=== PATIENT | female | born 1945 ===

== ENCOUNTER 2021-01-31 08:43 | Outpatient (REF) | payer MEDICARE, MEDICAID, SELFPAY | END 2021-01-31 08:44 | disposition home or self-care (01) | LOC: HO.LAB 08:43 | PROVIDERS: PCP Internal Medicine; Visit Provider Internal Medicine | DX: Z20.822 Contact with and (suspected) exposure to COVID-19 (principal) | CPT/HCPCS: C9803; U0003; U0005 ==

== ENCOUNTER 2021-02-14 14:39 | Outpatient (REF) | payer MEDICARE, MEDICAID, SELFPAY ==
[2021-02-14 15:04] LABS: COVID-19 Test Negative (Negative)
== END 2021-02-14 14:40 | disposition home or self-care (01) ==
LOC: HO.LAB 14:39
PROVIDERS: PCP Internal Medicine; Visit Provider Internal Medicine
DX: Z20.822 Contact with and (suspected) exposure to COVID-19 (principal)
CPT/HCPCS: 36415; 87635; C9803

== ENCOUNTER 2021-02-28 08:47 | Outpatient (REF) | payer MEDICARE, MEDICAID, SELFPAY | END 2021-02-28 08:48 | disposition home or self-care (01) | LOC: HO.LAB 08:47 | PROVIDERS: PCP Internal Medicine; Visit Provider Internal Medicine | DX: Z20.822 Contact with and (suspected) exposure to COVID-19 (principal) | CPT/HCPCS: C9803; U0003; U0005 ==

== ENCOUNTER 2021-07-10 08:59 | Outpatient (REF) | payer MEDICARE, MEDICAID, SELFPAY ==
--- NOTE | 2021-07-10 10:51 | MHC.AU.HAS ---
Hearing Aid Evaluation Date of Visit: 07/10/21 Historical Information: Description of Hearing: Borderline normal to mild hearing loss from 250-6000 Hz, sloping to a moderately-severe hearing loss at 8000 Hz in the right ear. Moderate to severe sensorineural hearing loss from 250-8000 Hz in the left ear. Has been diagnosed with Meniere's disease. Current personal amplification information, if applicable: BTE aid for left ear 5+ years ago, broken and lost. Summary: Ms. Dallas was referred to our clinic by [facility] where she had her audiological evaluation. ENT Dr. Perrin provided medical clearance for hearing aid use in the left ear. Ms. Dallas notes that she did not like the BTE style hearing she previously had and found it bothersome with her glasses. She would like to try a rechargeable ITE style hearing aid. Her insurance was contacted and it was confirmed that hearing aids had not been previously purchased in the past five years. Earmold impression of the left ear was taken without incident. Hearing Aid Prescription: Based on the individual?s shared listening needs, communication environments, dexterity, desire for connectivity, and personal preferences, the following prescription for amplification has been made: Left ear: [employer]: [employer] Model: Interleukin Geneticsv AI 1600 ITC-R Battery Size: Rechargeable Color: Light Brown Plan of Care: Hearing aids ordered. Hearing aid fitting will be scheduled when materials arrive. Primary Diagnosis: H90.3 Bilateral Sensorineural Hearing Loss Signature: Provider: Cody Muse, CCC-A
== END 2021-07-10 09:00 | disposition home or self-care (01) ==
LOC: HO.SH 08:59
PROVIDERS: Visit Provider Internal Medicine
DX: Z46.1 Encounter for fitting and adjustment of hearing aid (principal); H90.3 Sensorineural hearing loss, bilateral
CPT/HCPCS: 92590; V5275

== ENCOUNTER 2021-08-27 10:22 | Outpatient (REF) | payer MEDICARE, MEDICAID, SELFPAY | END 2021-08-27 10:23 | disposition home or self-care (01) | LOC: HO.HAP 10:22 | PROVIDERS: Visit Provider Otolaryngology | DX: Z46.1 Encounter for fitting and adjustment of hearing aid (principal); H90.3 Sensorineural hearing loss, bilateral | CPT/HCPCS: V5011; V5020; V5241; V5256 ==

== ENCOUNTER 2022-06-05 03:37 | Emergency (ER) | payer MEDICARE, MEDICAID, SELFPAY ==
[2022-06-05 03:50] VITALS: BP 128/73; PULSE 110; RESP 16; TEMP 36.8; O2SAT 97; BMI 52.4
[2022-06-05 04:27] LABS: Appearance Urine Cloudy; Color Urine Yellow; Glucose Urine UA Negative (Negative); Leukocyte Esterase Urine Large (3+) (Negative); Nitrite Urine Positive (Negative); Specific Gravity - Urine 1.015 (1.005-1.025); UMIC TRIGGER UACC YES; Urine Blood Small (1+) (Negative); Urine Ketones Negative (Negative); Urine Protein 30 (1+) mg/dL (Neg-Trace)
[2022-06-05 04:35] LABS: Bacteria Urine 4+ (None Seen); Hyaline Casts Urine >20 /LPF (0-2); UACC Culture Trigger YES; WBC Clumps Urine Present; WBC Urine >50 /HPF (0-5)
--- NOTE | 2022-06-05 04:52 | ED_ITS ---
HPI - General Adult General Chief complaint: General Medical Stated complaint: CATH PROBLEMS Time Seen by Provider: 06/05/22 04:15 Source: EMS Mode of arrival: EMS Related Data Previous Rx's Medication Instructions Recorded ciprofloxacin HCl 500 mg tablet 500 mg PO BID #20 tabs 06/05/22 (Cipro) Allergies Allergy/AdvReac Type Severity Reaction Status Date / Time belladonna alkaloids Allergy Intermediate ITCHING Unverified 01/26/20 14:38 [From ] phenobarbital [From ] Allergy Intermediate ITCHING Unverified 01/26/20 14:38 From Allergy Intermediate ITCHING Uncoded 01/26/20 14:38 PMFSH Social History Social History Advance Directives: No Physical Exam ED Vital Signs: Vital Signs - 24 hr 06/05/22 03:50 06/05/22 05:58 Temperature 98.3 F Pulse Rate 110 H 106 H Respiratory Rate 16 16 Blood Pressure 128/73 127/71 Pulse Oximetry 97 97 Oxygen Delivery Method Room Air Room Air BMI result Body Mass Index 52.4 Appearance: Alert. Oriented X3. No acute distress. Obese Eyes: No pallor or icterus ENT: Pharynx normal. Oral Mucosa moist Neck: Normal inspection. Neck supple. CVS: Normal heart rate and rhythm. Pulses normal. Respiratory: No respiratory distress. Equal air entry bilateral, no wheezing/rales/rhonchi Abdomen: Soft and nontender. Bowel sounds are present, no mass palpable, no CVA tenderness Skin: Skin warm and dry. Normal skin color. Normal skin turgor. multiple skin tears on the left posterior part of the leg and the back Extremities: No lower extremity edema. No calf tenderness Neuro: Oriented X 3. No motor deficit. Medications Administered Discontinued Medications Generic Name Dose Route Start Last Admin Trade Name Freq PRN Reason Stop Dose Admin Levofloxacin 500 mg 06/05/22 04:57 06/05/22 05:21 Levofloxacin 500 Mg Tablet PO 06/05/22 04:58 500 mg ONCE ONE Administration Medical Decision Making Medical Decision Making [facility] Narrative: Patient with skin tear of the back of the leg need chronic Brenner catheter ambulates with 2 assist discharge patient N home on Ceftin, Brenner catheter replaced Lab Data [facility] Lab Attestation statement: I reviewed the patient's lab results. Labs: Lab Results 06/05/22 Range/Units 04:20 Urine Color Yellow Urine Appearance Cloudy Urine pH 8.0 (5.0-9.0) Ur Specific [place] 1.015 (1.005-1.025) Urine Protein 30 (1+) H (Neg-Trace) mg/dL Urine Glucose (UA) Negative (Negative) mg/dL Urine Ketones Negative (Negative) mg/dL Urine Blood Small (1+) H (Negative) Urine Nitrite Positive H (Negative) Ur Leukocyte Esterase Large (3+) H (Negative) Urine RBC 3-5 H (0-2) /HPF Urine WBC >50 H (0-5) /HPF Urine WBC Clumps Present Ur Squamous Epith Cells 6-10 (0-2) /HPF Urine Bacteria 4+ (None Seen) Hyaline Casts >20 (0-2) /LPF Discharge Plan Discharge Clinical Impression: Encounter for Brenner catheter replacement, Acute UTI Patient Disposition: Xfer [facility] Transfer Details: Brenner catheter replaced UA showed UTI started on Cipro Instructions: Brenner Catheter Placement and Care (ED), Catheter-associated Urinary Tract Infection (ED) Additional Instructions: keep the catheter in place for integrity of the skin and sacral and leg wound antibiotic as advised for UTI pending culture results Prescriptions: New ciprofloxacin HCl [Cipro] 500 mg tablet 500 mg PO BID Qty: 20 0RF
[2022-06-05] MEDS: levoFLOXacin 500 MG TABLET PO (05:21)
--- NOTE | 2022-06-05 05:39 | PC.NURSE ---
verbal report given to NH staff
--- NOTE | 2022-06-05 05:48 | MHC.EDTECH ---
Andres called at 0539 for a bls transfer back to [facility],[place] 0630AM.Jas aware
[2022-06-05 05:58] VITALS: BP 127/71; PULSE 106; RESP 16; O2SAT 97
== END 2022-06-05 07:10 ==
PROVIDERS: Emergency Provider Internal Medicine; PCP Internal Medicine
DX: T83.098A Other mechanical complication of other urinary catheter, initial encounter (principal); N39.0 Urinary tract infection, site not specified; Y73.2 Prosthetic and other implants, materials and accessory gastroenterology and urology devices associated with adverse incidents; Y92.9 Unspecified place or not applicable; Z79.899 Other long term (current) drug therapy
CPT/HCPCS: 51702; 81001; 87086; 87088; 87186; 99284

== ENCOUNTER 2022-06-08 18:04 | Inpatient (IN) | payer MEDICARE, MEDICAID, SELFPAY ==
--- NOTE | 2022-06-08 18:11 | ED_ITS ---
HPI - Altered Mental Status General Chief Complaint: General Medical Stated Complaint: UNRESPONSVE W/LOW BS 40 @SNF, 101 S/P D10 BY EMS Source: patient, EMS, RN notes reviewed and old records reviewed Mode of arrival: EMS Limitations: no limitations History of Present Illness HPI narrative: Patient morbidly obese bed-bound mostly with indwelling Brenner catheter, diabetic, on oral hypoglycemic hypertension w blood glucose improved to 120 as seen here on 05/30 for dislodged Brenner catheter which was replaced noticed a UTI discharged on Cipro today patient comes as been lethargic semi responsive earlier today blood sugar was 50 when EMS reached a blood sugar was 40 IV D10 was given and patient glucose improved to 120 patient became more awake and back to her baseline. No fever no fall no head injury noticed Related Data Home Medications Medication Instructions Recorded Confirmed atorvastatin 80 mg tablet 1 tab PO BEDTIME 06/08/22 06/08/22 glimepiride 2 mg tablet 1 tab PO DAILY 06/08/22 06/08/22 lisinopril 10 mg PO 1XD hypertension 06/08/22 06/08/22 metoprolol succinate 50 mg 1 tab PO DAILY 06/08/22 06/08/22 tablet,extended release 24 hr pioglitazone 30 mg tablet 1 tab PO DAILY 06/08/22 06/08/22 tramadol 50 mg tablet 1 tab PO DAILY PRN Pain 06/08/22 06/08/22 triamcinolone acetonide 0.1 % appl topical BID PRN Rash 06/08/22 topical cream Previous Rx's Medication Instructions Recorded ciprofloxacin HCl 500 mg tablet 500 mg PO BID #20 tabs 06/05/22 (Cipro) Allergies Allergy/AdvReac Type Severity Reaction Status Date / Time belladonna alkaloids Allergy Intermediate ITCHING Verified 06/08/22 18:37 [From ] phenobarbital [From ] Allergy Intermediate ITCHING Verified 06/08/22 18:37 Review of Systems Review of Systems: Yes all other systems are reviewed and are negative [facility] Social History Social History Alcohol intake: never Patient Tobacco Use Status: Never used Tobacco Smoked in Last 30 Days: No Use of substances other than those prescribed or required for medical reasons: No Advance Directives: No Advance Directives Information Provided: No Nutrition Risks: Diabetes new onset/Uncontrolled Physical Exam ED Vital Signs: Vital Signs - 24 hr 06/08/22 18:24 06/08/22 19:52 06/08/22 22:00 Temperature 97.6 F 98.1 F Pulse Rate 86 78 85 Respiratory Rate 29 H 20 20 Blood Pressure 98/57 L 105/69 110/68 Pulse Oximetry 98 96 99 Oxygen Delivery Method Room Air Room Air Room Air 06/08/22 23:26 06/08/22 23:41 Temperature Pulse Rate 85 Respiratory Rate 17 20 Blood Pressure 98/59 L Pulse Oximetry 95 Oxygen Delivery Method Room Air BMI result Body Mass Index 64.5 Appearance: Alert. Oriented X3. No acute distress. Obese Eyes: PERRLA, No Nystagmus ENT: Pharynx normal. Oral Mucosa moist Neck: Normal inspection. Neck supple. CVS: Normal heart rate and rhythm. Pulses normal. Respiratory: No respiratory distress. Equal air entry bilateral, no wheezing/rales/rhonchi Abdomen: Soft and nontender. Bowel sounds are present, no mass palpable, no CVA tenderness Skin: Skin warm and dry. Normal skin color. Normal skin turgor. Multiple skin tears specially in the left thigh back and skin folds of the abdomen Extremities: No lower extremity edema. No calf tenderness Neuro: Oriented X 3. Limited movement of lower extremities with low muscle mass Skin Other: Medications Administered Generic Name Dose Route Start Last Admin Trade Name Freq PRN Reason Stop Dose Admin Heparin Sodium (Porcine) 5,000 unit 06/08/22 23:45 06/09/22 00:30 Heparin Sodium,Porcine 5,000 Unit/Ml Vial SUBCUT 5,000 unit Q12H [place] Administration Dextrose 1,000 mls @ 75 mls/hr 06/08/22 23:45 06/09/22 00:11 D10 IVCONT 75 mls/hr .[id number] [place] Administration Sodium Chloride 3 ml 06/09/22 00:00 06/09/22 00:16 0.9 % Sodium Chloride Flush 3 Ml Syringe IVFLUSH 3 ml QSHIFT [place] Administration Discontinued Medications Generic Name Dose Route Start Last Admin Trade Name Freq PRN Reason Stop Dose Admin Dextrose 25 gm 06/08/22 20:37 06/08/22 20:45 Dextrose 50 % 25 Gm/50 Ml Syringe IVPUSH 06/08/22 20:38 25 gm ONCE ONE Administration Dextrose 25 gm 06/09/22 00:25 06/09/22 00:30 Dextrose 50 % 25 Gm/50 Ml Syringe IVPUSH 06/09/22 00:26 25 gm ONCE ONE Administration Glucagon 1 mg 06/08/22 20:37 06/08/22 20:45 Glucagon,Human Recombinant 1 Mg/Ml Vial IVPUSH 06/08/22 20:38 1 mg ONCE ONE Administration Dextrose/Sodium Chloride 1,000 mls @ 100 mls/hr 06/08/22 18:30 06/09/22 00:41 D51/2ns IVCONT Infused .Q10H [place] Infusion Ceftriaxone Sodium 1 gm/ 50 mls @ 100 mls/hr 06/08/22 18:57 06/08/22 20:31 Sodium Chloride IV 06/08/22 19:26 Infused ONCE ONE Infusion Morphine Sulfate 4 mg 06/08/22 23:13 06/08/22 23:26 Morphine Sulfate 4 Mg/Ml Cartridge IVPUSH 06/08/22 23:14 4 mg ONCE ONE Administration Protocol Ondansetron HCl 4 mg 06/08/22 23:13 06/08/22 23:26 Ondansetron Hcl 4 Mg/2 Ml Vial IVPUSH 06/08/22 23:14 4 mg ONCE ONE Administration Medical Decision Making Medical Decision Making [facility] Narrative: Patient with persistent hypoglycemia blood glucose dropped to 23 even on D5 drip received glucagon and bolus of D50 patient had food in the ER patient oral hypoglycemic glimepiride and Actos noticed to have multiple skin breakdowns with normal lactic acid and CBC. Patient need wound management and further observati on for persistent hypoglycemia 2nd oral hypoglycemic medications Consult Healthcare Provider Management of the patient was discussed with: Hospitalist Lab Data MDM Lab Attestation statement: I reviewed the patient's lab results. 06/08/22 18:29 06/08/22 21:35 Labs: Lab Results 06/08/22 06/08/22 06/08/22 Range/Units 18:18 18: 18:29 WBC 8.0 (4.8-10.8) X10*3/uL RBC 3.59 L (4.20-5.50) X10*6/uL Hgb 9.2 L (12.0-16.0) g/dl Hct 30.5 L (37.0-47.0) % MCV 85.0 (80.0-98.0) fL MCH 25.6 L (27.0-33.0) pg MCHC 30.2 L (31.0-35.0) g/dl RDW 18.2 H (11.0-16.0) % Plt Count 337 D (160-400) X10*3/uL MPV 9.1 L (9.4-12.3) fL Immature Gran % (Auto) 0.4 (0.0-0.4) % Neut % (Auto) 74.0 H (45-73) % Lymph % (Auto) 15.8 L (20-40) % [place] % (Auto) 6.5 (2-11) % Eos % (Auto) 3.1 (0-4) % Baso % (Auto) 0.2 (0-2) % Lymph # (Auto) 1.3 (1.2-4.9) X10*3/uL [place] # (Auto) 0.5 (0.1-1.2) X10*3/uL Eos # (Auto) 0.3 (0.0-0.4) X10*3/uL Baso # (Auto) 0.0 (0.0-0.2) X10*3/uL Abs Immat Gran (auto) 0.03 (0.00-0.03) X10*3/uL Absolute Neuts (auto) 6.0 (2.0-8.3) x10*3/uL Absolute Nucleated RBC 0.000 (0.0-0.012) X10*3/uL Nucleated RBC % (auto) 0.0 (0.0-0.2) /100WBC Sodium (135-145) mmol/L Potassium (3.3-5.1) mmol/L Chloride (96-108) mmol/L Carbon Dioxide (22-29) mmol/L Anion Gap (12-20) BUN (9-16) mg/dL Creatinine (0.5-1.4) mg/dL Estim Creat Clear Calc Estimated GFR POC Glucose 47 L* (60-115) mg/dL Random Glucose (60-115) mg/dL Lactic Acid 1.6 (0.5-2.0) mmol/L Calcium (8.4-10.2) mg/dL Total Bilirubin (0.0-1.0) mg/dL AST (5-31) U/L ALT (0-31) U/L Alkaline Phosphatase (39-117) U/L Total Protein (6.5-8.0) g/dL Albumin (3.5-5.0) g/dL Urine Color Urine Appearance Urine pH (5.0-9.0) Ur Specific [place] (1.005-1.025) Urine Protein (Neg-Trace) mg/dL Urine Glucose (UA) (Negative) mg/dL Urine Ketones (Negative) mg/dL Urine Blood (Negative) Urine Nitrite (Negative) Ur Leukocyte Esterase (Negative) Urine RBC (0-2) /HPF Urine WBC (0-5) /HPF Ur Squamous Epith Cells (0-2) /HPF Urine Bacteria (None Seen) Hyaline Casts (0-2) /LPF COVID-19 ([facility]) (Negative) COVID-19 Clin Com 06/08/22 06/08/22 06/08/22 Range/Units 18:29 18:29 19:38 WBC (4.8-10.8) X10*3/uL RBC (4.20-5.50) X10*6/uL Hgb (12.0-16.0) g/dl Hct (37.0-47.0) % MCV (80.0-98.0) fL MCH (27.0-33.0) pg MCHC (31.0-35.0) g/dl RDW (11.0-16.0) % Plt Count (160-400) X10*3/uL MPV (9.4-12.3) fL Immature Gran % (Auto) (0.0-0.4) % Neut % (Auto) (45-73) % Lymph % (Auto) (20-40) % [place] % (Auto) (2-11) % Eos % (Auto) (0-4) % Baso % (Auto) (0-2) % Lymph # (Auto) (1.2-4.9) X10*3/uL [place] # (Auto) (0.1-1.2) X10*3/uL Eos # (Auto) (0.0-0.4) X10*3/uL Baso # (Auto) (0.0-0.2) X10*3/uL Abs Immat Gran (auto) (0.00-0.03) X10*3/uL Absolute Neuts (auto) (2.0-8.3) x10*3/uL Absolute Nucleated RBC (0.0-0.012) X10*3/uL Nucleated RBC % (auto) (0.0-0.2) /100WBC Sodium (135-145) mmol/L Potassium (3.3-5.1) mmol/L Chloride (96-108) mmol/L Carbon Dioxide (22-29) mmol/L Anion Gap (12-20) BUN (9-16) mg/dL Creatinine (0.5-1.4) mg/dL Estim Creat Clear Calc Estimated GFR POC Glucose 34 L* (60-115) mg/dL Random Glucose (60-115) mg/dL Lactic Acid (0.5-2.0) mmol/L Calcium (8.4-10.2) mg/dL Total Bilirubin (0.0-1.0) mg/dL AST (5-31) U/L ALT (0-31) U/L Alkaline Phosphatase (39-117) U/L Total Protein (6.5-8.0) g/dL Albumin (3.5-5.0) g/dL Urine Color Dark Yellow Urine Appearance Cloudy Urine pH 5.0 (5.0-9.0) Ur Specific [place] 1.020 (1.005-1.025) Urine Protein 30 (1+) H (Neg-Trace) mg/dL Urine Glucose (UA) Negative (Negative) mg/dL Urine Ketones Trace (Negative) mg/dL Urine Blood Negative (Negative) Urine Nitrite Negative (Negative) Ur Leukocyte Esterase Small (1+) H (Negative) Urine RBC 0-2 (0-2) /HPF Urine WBC 0-5 (0-5) /HPF Ur Squamous Epith Cells 11-20 (0-2) /HPF Urine Bacteria None Seen (None Seen) Hyaline Casts >20 (0-2) /LPF COVID-19 ([facility]) Negative (Negative) COVID-19 Clin Com See Note 06/08/22 06/08/22 06/08/22 Range/Units 20:34 20:36 21:27 WBC (4.8-10.8) X10*3/uL RBC (4.20-5.50) X10*6/uL Hgb (12.0-16.0) g/dl Hct (37.0-47.0) % MCV (80.0-98.0) fL MCH (27.0-33.0) pg MCHC (31.0-35.0) g/dl RDW (11.0-16.0) % Plt Count (160-400) X10*3/uL MPV (9.4-12.3) fL Immature Gran % (Auto) (0.0-0.4) % Neut % (Auto) (45-73) % Lymph % (Auto) (20-40) % [place] % (Auto) (2-11) % Eos % (Auto) (0-4) % Baso % (Auto) (0-2) % Lymph # (Auto) (1.2-4.9) X10*3/uL [place] # (Auto) (0.1-1.2) X10*3/uL Eos # (Auto) (0.0-0.4) X10*3/uL Baso # (Auto) (0.0-0.2) X10*3/uL Abs Immat Gran (auto) (0.00-0.03) X10*3/uL Absolute Neuts (auto) (2.0-8.3) x10*3/uL Absolute Nucleated RBC (0.0-0.012) X10*3/uL Nucleated RBC % (auto) (0.0-0.2) /100WBC Sodium (135-145) mmol/L Potassium (3.3-5.1) mmol/L Chloride (96-108) mmol/L Carbon Dioxide (22-29) mmol/L Anion Gap (12-20) BUN (9-16) mg/dL Creatinine (0.5-1.4) mg/dL Estim Creat Clear Calc Estimated GFR POC Glucose 27 L* 23 L* 127 H (60-115) mg/dL Random Glucose (60-115) mg/dL Lactic Acid (0.5-2.0) mmol/L Calcium (8.4-10.2) mg/dL Total Bilirubin (0.0-1.0) mg/dL AST (5-31) U/L ALT (0-31) U/L Alkaline Phosphatase (39-117) U/L Total Protein (6.5-8.0) g/dL Albumin (3.5-5.0) g/dL Urine Color Urine Appearance Urine pH (5.0-9.0) Ur Specific [place] (1.005-1.025) Urine Protein (Neg-Trace) mg/dL Urine Glucose (UA) (Negative) mg/dL Urine Ketones (Negative) mg/dL Urine Blood (Negative) Urine Nitrite (Negative) Ur Leukocyte Esterase (Negative) Urine RBC (0-2) /HPF Urine WBC (0-5) /HPF Ur Squamous Epith Cells (0-2) /HPF Urine Bacteria (None Seen) Hyaline Casts (0-2) /LPF COVID-19 ([facility]) (Negative) COVID-19 Clin Com 06/08/22 06/08/22 Range/Units 21:35 22:54 WBC (4.8-10.8) X10*3/uL RBC (4.20-5.50) X10*6/uL Hgb (12.0-16.0) g/dl Hct (37.0-47.0) % MCV (80.0-98.0) fL MCH (27.0-33.0) pg MCHC (31.0-35.0) g/dl RDW (11.0-16.0) % Plt Count (160-400) X10*3/uL MPV (9.4-12.3) fL Immature Gran % (Auto) (0.0-0.4) % Neut % (Auto) (45-73) % Lymph % (Auto) (20-40) % [place] % (Auto) (2-11) % Eos % (Auto) (0-4) % Baso % (Auto) (0-2) % Lymph # (Auto) (1.2-4.9) X10*3/uL [place] # (Auto) (0.1-1.2) X10*3/uL Eos # (Auto) (0.0-0.4) X10*3/uL Baso # (Auto) (0.0-0.2) X10*3/uL Abs Immat Gran (auto) (0.00-0.03) X10*3/uL Absolute Neuts (auto) (2.0-8.3) x10*3/uL Absolute Nucleated RBC (0.0-0.012) X10*3/uL Nucleated RBC % (auto) (0.0-0.2) /100WBC Sodium 135 (135-145) mmol/L Potassium 4.7 (3.3-5.1) mmol/L Chloride 103 (96-108) mmol/L Carbon Dioxide 23 (22-29) mmol/L Anion Gap 14 (12-20) BUN 21 H (9-16) mg/dL Creatinine 1.29 (0.5-1.4) mg/dL Estim Creat Clear Calc 62.3 Estimated GFR 40 POC Glucose 51 L* (60-115) mg/dL Random Glucose 77 (60-115) mg/dL Lactic Acid (0.5-2.0) mmol/L Calcium 8.1 L D (8.4-10.2) mg/dL Total Bilirubin 0.3 (0.0-1.0) mg/dL AST 30 (5-31) U/L ALT 14 (0-31) U/L Alkaline Phosphatase 69 (39-117) U/L Total Protein 6.7 (6.5-8.0) g/dL Albumin 2.9 L (3.5-5.0) g/dL Urine Color Urine Appearance Urine pH (5.0-9.0) Ur Specific [place] (1.005-1.025) Urine Protein (Neg-Trace) mg/dL Urine Glucose (UA) (Negative) mg/dL Urine Ketones (Negative) mg/dL Urine Blood (Negative) Urine Nitrite (Negative) Ur Leukocyte Esterase (Negative) Urine RBC (0-2) /HPF Urine WBC (0-5) /HPF Ur Squamous Epith Cells (0-2) /HPF Urine Bacteria (None Seen) Hyaline Casts (0-2) /LPF COVID-19 ([facility]) (Negative) COVID-19 Clin Com Discharge Plan Discharge Clinical Impression: Hypoglycemia Patient Disposition: Admitted As Inpatient
[2022-06-08 18:24] VITALS: BP 98/57; PULSE 86; RESP 29; TEMP 36.4; O2SAT 98; BMI 64.5
[2022-06-08 18:28] LABS: Glucose, Whole Blood 47 mg/dL (60-115)
[2022-06-08] MEDS: Dextrose 5 % and 0.45 % NaCl 1,000 ML 100 ML IVCONT (18:32)
[2022-06-08 18:38] LABS: MANUAL DIFF FLAG NO
[2022-06-08 18:41] LABS: Appearance Urine Cloudy; Color Urine Dark Yellow; Glucose Urine UA Negative (Negative); Leukocyte Esterase Urine Small (1+) (Negative); Nitrite Urine Negative (Negative); UMIC TRIGGER UACC YES; Urine Blood Negative (Negative); Urine Ketones Trace mg/dL (Negative); Urine Protein 30 (1+) mg/dL (Neg-Trace)
[2022-06-08 18:43] LABS: Basophils Percent Auto 0.2 % (0-2); Eosinophils Absolute Auto 0.3 X10*3/uL (0.0-0.4); Eosinophils Percent Auto 3.1 % (0-4); Hematocrit 30.5 % (37.0-47.0); Hemoglobin 9.2 g/dl (12.0-16.0); Imm Gran Abs Auto 0.03 X10*3/uL (0.00-0.03); Imm Gran Pct Auto 0.4 % (0.0-0.4); Lymphocytes Absolute Auto 1.3 X10*3/uL (1.2-4.9); Lymphocytes Percent Auto 15.8 % (20-40); Mean Corpuscular HGB Conc 30.2 g/dl (31.0-35.0); Mean Corpuscular Hemoglobin 25.6 pg (27.0-33.0); Mean Platelet Volume 9.1 fL (9.4-12.3); Monocytes Absolute Auto 0.5 X10*3/uL (0.1-1.2); Monocytes Percent Auto 6.5 % (2-11); Platelet Count 337 X10*3/uL (160-400); Red Blood Count 3.59 X10*6/uL (4.20-5.50); Red Cell Distribution Width 18.2 % (11.0-16.0)
[2022-06-08 18:49] LABS: Lactic Acid 1.6 mmol/L (0.5-2.0)
[2022-06-08 18:57] LABS: Bacteria Urine None Seen (None Seen); Hyaline Casts Urine >20 /LPF (0-2); RBC Urine 0-2 /HPF (0-2); UACC Culture Trigger YES
[2022-06-08 18:58] LABS: WBC Urine 0-5 /HPF (0-5)
[2022-06-08 19:00] LABS: COVID-19 Test Negative (Negative); IDNOW Serial# 16C4AD1C
--- NOTE | 2022-06-08 19:40 | PC.NURSE ---
This caption writer assumed care of this PT at 1900. PT awake and alert. Repeat POC 34, provider notified. Dextrose in 0.45 NS running. at bedside. PT given sandwich and PO fluids, tolerated well. Will CTM.
[2022-06-08 19:41] LABS: Glucose, Whole Blood 34 mg/dL (60-115)
[2022-06-08 19:52] VITALS: BP 105/69; PULSE 78; RESP 20; O2SAT 96
[2022-06-08] MEDS: cefTRIAXone sodium 1 GM in 0.9 % Sodium Chloride 50 ML IV (19:58)
[2022-06-08 20:45] LABS: Glucose, Whole Blood 27 mg/dL (60-115)
[2022-06-08 20:45] LABS: Glucose, Whole Blood 23 mg/dL (60-115)
[2022-06-08] MEDS: Dextrose 50 % 25 GM/50 ML SYRINGE IVPUSH (20:45)
--- NOTE | 2022-06-08 20:46 | PC.NURSE ---
PT awake and alert.Repeat POC 23, provider notified. New orders in. Meds given as ordered.
--- NOTE | 2022-06-08 21:29 | PC.NURSE ---
Repeat POC 127. Will CTM.
[2022-06-08 21:30] LABS: Glucose, Whole Blood 127 mg/dL (60-115)
[2022-06-08 22:00] VITALS: BP 110/68; PULSE 85; RESP 20; TEMP 36.7; O2SAT 99
[2022-06-08 22:09] LABS: Alanine Aminotransferase 14 U/L (0-31); Albumin Level 2.9 g/dL (3.5-5.0); Alkaline Phosphatase 69 U/L (39-117); Anion Gap 14 (12-20); Aspartate Amino Transferase 30 U/L (5-31); Bilirubin Total 0.3 mg/dL (0.0-1.0); Blood Urea Nitrogen 21 mg/dL (9-16); Calcium 8.1 mg/dL (8.4-10.2); Carbon Dioxide 23 mmol/L (22-29); Chloride 103 mmol/L (96-108); Creatinine Clr Calc Pharmacy 62.3; Estimated Glomerular Filt Rate 40; Glucose Random 77 mg/dL (60-115); Potassium 4.7 mmol/L (3.3-5.1); Sodium 135 mmol/L (135-145); Total Protein 6.7 g/dL (6.5-8.0)
[2022-06-08 22:59] LABS: Glucose, Whole Blood 51 mg/dL (60-115)
--- NOTE | 2022-06-08 23:01 | PC.NURSE ---
POC 51. PT given PO fluids. Provider notified. Waiting for new orders.
[2022-06-08 23:26] VITALS: RESP 17
[2022-06-08] MEDS: ondansetron HCL 4 MG/2 ML VIAL IVPUSH (23:26)
[2022-06-08] MEDS: Morphine Sulfate 4 MG/ML CARTRIDGE IVPUSH (23:26)
[2022-06-08 23:41] VITALS: BP 98/59; PULSE 85; RESP 20; O2SAT 95
--- NOTE | 2022-06-09 00:04 | P.HPHOSP_ITS ---
History of Present Illness Date of Service: 06/09/22 Chief Complaint: Hypoglycemia 76-year-old female with past medical history of diabetes on oral anti hyperglycemics, hypertension, [facility] with complaints of hyperglycemia. Patient is alert oriented, at bedside helped with the history, they state the patient was hypoglycemic in the morning and has had multiple episodes of hypoglycemia at the [facility], she was sleeping, did not eat or take anything, on her 's visit, he states that he found her unresponsive, completely laid out on the bed, when they reach checked her sugar she was in the 40s therefore sent to the hospital. She otherwise denies any chest pain, no abdominal pain, no nausea or vomiting, no diarrhea constipation, no urinary symptoms and no lower extremity edema. She does have chronic skin disease that does not know the name of it, reports that she was on ointments by her dermatology but has not received it since being at the [facility]. He states the patient is a [facility] for history of DVT and difficulty ambulating. On arrival to the ED patient hemodynamically stable with no significant abnormal vitals Labs are significant for glucose of 47, patient received D50 with repeats remain in the 30s and 20s, patient started on D5 but remained hypoglycemia, patient will be admitted for further management. Labs otherwise remarkable. Patient started on D10 and will be admitted for further management Review of Systems Review of Systems: Yes all other systems are reviewed and are negative FORMERLY [facility], [facility]–1983 Medical History (Updated 06/09/22 @ 06:35 by Pasquale Prasad MD) Asthma CKD (chronic kidney disease) Diabetes Erythema intertrigo History of DVT (deep vein thrombosis) Hypertension Obesity Social History Household Members: Other Housing: [facility] Do you presently have visiting nurse or other home services: No Alcohol intake: never Patient Tobacco Use Status: Never used Tobacco Smoked in Last 30 Days: No Use of substances other than those prescribed or required for medical reasons: No Have you been hit, kicked, punched, or otherwise hurt by someone within the past year? If so, by whom?: No Do you feel safe in your current relationship?: Yes Is there a partner from a previous relationship who is making you feel unsafe now?: No Are you made to feel afraid or neglected: No Advance Directives: No Advance Directives Information Provided: No Do you have thoughts of harming others: None Do you have a plan to hurt others: No Plan Recently lost weight without trying: Unsure Nutrition Risks: No Nutritional Risk Patient : No : No Poor oral hygiene: No Meds Allergies Allergy/AdvReac Type Severity Reaction Status Date / Time belladonna alkaloids Allergy Intermediate ITCHING Verified 06/08/22 18:37 [From ] phenobarbital [From ] Allergy Intermediate ITCHING Verified 06/08/22 18:37 Active Medications: Current Medications Acetaminophen (Acetaminophen 325 Mg Tablet) 650 mg PO Q6H PRN PRN Reason: Pain, Mild (Pain Scale 1-3) Heparin Sodium (Porcine) (Heparin Sodium,Porcine 5,000 Unit/Ml Vial) 5,000 unit SUBCUT Q12H [facility] Dextrose/Sodium Chloride (D51/2ns) 1,000 mls @ 100 mls/hr IVCONT .Q10H [place] Last Infusion: 06/08/22 18:38 Dose: 100 mls/hr Dextrose (D10) 1,000 mls @ 75 mls/hr IVCONT .[id number] [place] Sodium Chloride (0.9 % Sodium Chloride Flush 3 Ml Syringe) 3 ml IVFLUSH QSHIFT [place] Home Medications Medication Instructions Recorded Confirmed Last Taken Type atorvastatin 80 mg tablet 1 tab PO BEDTIME 06/08/22 06/08/22 Unknown History glimepiride 2 mg tablet 1 tab PO DAILY 06/08/22 06/08/22 Unknown History lisinopril 10 mg PO 1XD hypertension 06/08/22 06/08/22 Unknown History metoprolol succinate 50 mg 1 tab PO DAILY 06/08/22 06/08/22 Unknown History tablet,extended release 24 hr pioglitazone 30 mg tablet 1 tab PO DAILY 06/08/22 06/08/22 Unknown History tramadol 50 mg tablet 1 tab PO DAILY PRN Pain 06/08/22 06/08/22 Unknown History triamcinolone acetonide 0.1 % appl topical BID PRN Rash 06/08/22 Unknown History topical cream Physical Exam Vital Signs and Narrative: Vital Signs: Last Vital Signs Temp 98.1 F 06/08/22 22:00 Pulse 85 06/08/22 23:41 Resp 20 06/08/22 23:41 BP 98/59 L 06/08/22 23:41 Pulse Ox 95 06/08/22 23:41 O2 Del Method 06/08/22 23:41 BMI result Body Mass Index 64.5 Const: Other: Patient is alert, awake, oriented to self and place General: cooperative and no acute distress Orientation/consciousness: patient oriented x3 Eyes: General: appearance normal, both eyes and all related structures Resp: Effort & Inspection: normal respiratory effort Auscultation: clear to auscultation bilaterally Cardio: Rate: regular rate Rhythm: regular rhythm GI: Other: abdomen is soft, nontender, no rebound or guarding Palpation (GI): Soft to palpation Auscultation: normal bowel sounds Skin: Other: Patient has skin lesions throughout her skin folds including under her armpits, in the folds of her elbow, as well as in the folds of her thighs and abdominal wall in the groin region, Neuro: General: patient oriented x3 Cognition (Neuro): normal cognition Extrem: General: Yes normal to inspection and Yes no pedal edema Results Labs 06/08/22 18:29 06/08/22 21:35 Labs: Laboratory Results - last 24 hr 06/08/22 06/08/22 06/08/22 18:18 18:29 18:29 MCV 85.0 MCH 25.6 L MCHC 30.2 L RDW 18.2 H Plt Count 337 D MPV 9.1 L Immature Gran % (Auto) 0.4 Neut % (Auto) 74.0 H Lymph % (Auto) 15.8 L [place] % (Auto) 6.5 Eos % (Auto) 3.1 Baso % (Auto) 0.2 Lymph # (Auto) 1.3 [place] # (Auto) 0.5 Eos # (Auto) 0.3 Baso # (Auto) 0.0 Abs Immat Gran (auto) 0.03 Absolute Neuts (auto) 6.0 Absolute Nucleated RBC 0.000 Nucleated RBC % (auto) 0.0 Anion Gap Estim Creat Clear Calc Estimated GFR POC Glucose 47 L* Random Glucose Lactic Acid 1.6 Calcium Total Bilirubin AST ALT Alkaline Phosphatase Total Protein Albumin Urine Color Urine Appearance Urine pH Ur Specific [place]ons Urine Protein Urine Glucose (UA) Urine Ketones Urine Blood Urine Nitrite Ur Leukocyte Esterase Urine RBC Urine WBC Ur Squamous Epith Cells Urine Bacteria Hyaline Casts COVID-19 ([facility]) COVID-19 Clin Com 06/08/22 06/08/22 06/08/22 18:29 18:29 19:38 MCV MCH MCHC RDW Plt Count MPV Immature Gran % (Auto) Neut % (Auto) Lymph % (Auto) [place] % (Auto) Eos % (Auto) Baso % (Auto) Lymph # (Auto) [place] # (Auto) Eos # (Auto) Baso # (Auto) Abs Immat Gran (auto) Absolute Neuts (auto) Absolute Nucleated RBC Nucleated RBC % (auto) Anion Gap Estim Creat Clear Calc Estimated GFR POC Glucose 34 L* Random Glucose Lactic Acid Calcium Total Bilirubin AST ALT Alkaline Phosphatase Total Protein Albumin Urine Color Dark Yellow Urine Appearance Cloudy Urine pH 5.0 Ur Specific [place] 1.020 Urine Protein 30 (1+) H Urine Glucose (UA) Negative Urine Ketones Trace Urine Blood Negative Urine Nitrite Negative Ur Leukocyte Esterase Small (1+) H Urine RBC 0-2 Urine WBC 0-5 Ur Squamous Epith Cells 11-20 Urine Bacteria None Seen Hyaline Casts >20 COVID-19 ([facility]) Negative COVID-19 Clin Com See Note 06/08/22 06/08/22 06/08/22 20:34 20:36 21:27 MCV MCH MCHC RDW Plt Count MPV Immature Gran % (Auto) Neut % (Auto) Lymph % (Auto) [place] % (Auto) Eos % (Auto) Baso % (Auto) Lymph # (Auto) [place] # (Auto) Eos # (Auto) Baso # (Auto) Abs Immat Gran (auto) Absolute Neuts (auto) Absolute Nucleated RBC Nucleated RBC % (auto) Anion Gap Estim Creat Clear Calc Estimated GFR POC Glucose 27 L* 23 L* 127 H Random Glucose Lactic Acid Calcium Total Bilirubin AST ALT Alkaline Phosphatase Total Protein Albumin Urine Color Urine Appearance Urine pH Ur Specific [place] Urine Protein Urine Glucose (UA) Urine Ketones Urine Blood Urine Nitrite Ur Leukocyte Esterase Urine RBC Urine WBC Ur Squamous Epith Cells Urine Bacteria Hyaline Casts COVID-19 ([facility]) COVID-19 Clin Com 06/08/22 06/08/22 21:35 22:54 MCV MCH MCHC RDW Plt Count MPV Immature Gran % (Auto) Neut % (Auto) Lymph % (Auto) [place] % (Auto) Eos % (Auto) Baso % (Auto) Lymph # (Auto) [place] # (Auto) Eos # (Auto) Baso # (Auto) Abs Immat Gran (auto) Absolute Neuts (auto) Absolute Nucleated RBC Nucleated RBC % (auto) Anion Gap 14 Estim Creat Clear Calc 62.3 Estimated GFR 40 POC Glucose 51 L* Random Glucose 77 Lactic Acid Calcium 8.1 L D Total Bilirubin 0.3 AST 30 ALT 14 Alkaline Phosphatase 69 Total Protein 6.7 Albumin 2.9 L Urine Color Urine Appearance Urine pH Ur Specific [place] Urine Protein Urine Glucose (UA) Urine Ketones Urine Blood Urine Nitrite Ur Leukocyte Esterase Urine RBC Urine WBC Ur Squamous Epith Cells Urine Bacteria Hyaline Casts COVID-19 ([facility]) COVID-19 Clin Com Assessment and Plan (1) Hypoglycemia: Status: Acute (2) Multiple skin tears: Status: Acute Plan 76-year-old female with past medical history of hypoglycemia on oral antihyperglycemics comes into the hospital with hypoglycemia # hypoglycemia -likely secondary to sulfonylurea and lack of eating - will hold oral antihyperglycemics - POC q1h - D10W at 100cc/hr - PRN D50 - her oral anti hyperglycemics should be evaluated prior to discharge # multiple skin tears/lesions - appear to be at sites of fungal infection, will start her on nystatin, will obtain [facility] from [facility] for any previous dermatology prescribed ointment # hypertension - stable - resume antihypertensive # obesity - morbid obesity - would recommend follow-up outpatient with weight management # asthma - not in exacerbation - monitor respiratory status # history of DVT - does not appear to be on anticoagulations per medication list obtained from [facility] - monitor DVT prophylaxis: Heparin subQ Time Spent With Patient Time: Total time managing care of this patient today ____ minutes. Quality Stroke Does the patient have a stroke diagnosis?: No VTE Prior VTE?: No VTE Risk Level:: Medical - moderate - high VTE Device Contraindication: Treatment Not Indicated VTE Drug Contraindication: N/A - Med Ordered
[2022-06-09] MEDS: Dextrose 10 % 1,000 ML 75 ML IVCONT (00:11)
[2022-06-09] MEDS: 0.9 % Sodium Chloride Flush 3 ML SYRINGE IVFLUSH ×4 (00:16→21:57)
[2022-06-09 00:23] LABS: Glucose, Whole Blood 41 mg/dL (60-115)
[2022-06-09] MEDS: Heparin Sodium,Porcine 5,000 UNIT/ML VIAL 5000 UNIT SUBCUT ×3 (00:30→21:57)
[2022-06-09] MEDS: Dextrose 50 % 25 GM/50 ML SYRINGE IVPUSH ×7 (00:30→16:01)
--- NOTE | 2022-06-09 00:30 | PC.NURSE ---
POC 41. Provider notified. New orders given as documented. POC qh. PT awake and alert. Reports affectiveness to pain med.
[2022-06-09 01:00] VITALS: BP 119/68; PULSE 98; RESP 17; O2SAT 95
[2022-06-09 01:08] LABS: Glucose, Whole Blood 101 mg/dL (60-115)
--- NOTE | 2022-06-09 01:22 | PC.NURSE ---
RN to RN report given. PT aware of plan, PT will be transported to room 354 by piano technician.
[2022-06-09 01:58] VITALS: BMI 49.6
[2022-06-09 02:06] LABS: Glucose, Whole Blood 48 mg/dL (60-115)
[2022-06-09 02:32] LABS: Glucose, Whole Blood 97 mg/dL (60-115)
--- NOTE | 2022-06-09 02:48 | MHC.PIE ---
p; pt arrived from ed 0200 poc 48. note ivf d10 at 75ml/h i; prn d50 given. dr cullen notified increase d10 100ml/h e; 0220 poc 97. will cont to monitor
--- NOTE | 2022-06-09 02:51 | MHC.PIE ---
p; pt arrived from ed with multiple skin problems - ed nurse reports pt reports pt has jason. on arrival pt observed with red macerated areas with fungal smell to under parveen breasts, under abd, parveen buttocks, parveen thigh and under skin folds to back/sides. i; dr cullen notified. new order nystatin e; will cont to monitor
[2022-06-09 03:15] VITALS: BP 123/56; PULSE 96; RESP 20; TEMP 36.3; O2SAT 97
[2022-06-09 03:26] LABS: Glucose, Whole Blood 55 mg/dL (60-115)
--- NOTE | 2022-06-09 03:59 | MHC.PIE ---
p; 0325 poc 55. note; iv site infiltrated, new iv stared, pt morbidly obese and has multiple skin issusues i; d50 given. notified of poc and ?picc e; poc now 112. will cont to monitor
[2022-06-09 04:02] LABS: Glucose, Whole Blood 112 mg/dL (60-115)
[2022-06-09 05:07] LABS: Glucose, Whole Blood 54 mg/dL (60-115)
[2022-06-09 05:36] LABS: Glucose, Whole Blood 134 mg/dL (60-115)
--- NOTE | 2022-06-09 05:36 | MHC.PIE ---
p; 0500 poc 54 i; d50 given, oj given . dr cullen notified e; poc 134 will cont to monitor
[2022-06-09] MEDS: Morphine Sulfate 4 MG/ML CARTRIDGE IVPUSH ×3 (05:45→22:44)
[2022-06-09 06:03] LABS: Glucose, Whole Blood 90 mg/dL (60-115)
[2022-06-09 06:24] LABS: Anion Gap 15 (12-20); Blood Urea Nitrogen 23 mg/dL (9-16); Carbon Dioxide 22 mmol/L (22-29); Chloride 103 mmol/L (96-108); Estimated Glomerular Filt Rate 39; Glucose Random 112 mg/dL (60-115); Potassium 4.9 mmol/L (3.3-5.1); Sodium 135 mmol/L (135-145)
[2022-06-09 06:57] LABS: Basophils Absolute Auto 0.1 X10*3/uL (0.0-0.2); Basophils Percent Auto 0.7 % (0-2); Eosinophils Absolute Auto 0.4 X10*3/uL (0.0-0.4); Eosinophils Percent Auto 5.9 % (0-4); Hematocrit 26.3 % (37.0-47.0); Hemoglobin 8.2 g/dl (12.0-16.0); Imm Gran Abs Auto 0.05 X10*3/uL (0.00-0.03); Imm Gran Pct Auto 0.7 % (0.0-0.4); Lymphocytes Absolute Auto 1.8 X10*3/uL (1.2-4.9); Lymphocytes Percent Auto 24.4 % (20-40); Mean Corpuscular HGB Conc 31.2 g/dl (31.0-35.0); Mean Corpuscular Hemoglobin 26.4 pg (27.0-33.0); Mean Corpuscular Volume 84.6 fL (80.0-98.0); Mean Platelet Volume 8.9 fL (9.4-12.3); Monocytes Absolute Auto 0.6 X10*3/uL (0.1-1.2); Monocytes Percent Auto 8.4 % (2-11); Neutrophils Absolute Auto 4.4 x10*3/uL (2.0-8.3); Neutrophils Percent Auto 59.9 % (45-73); Platelet Count 293 X10*3/uL (160-400); Red Blood Count 3.11 X10*6/uL (4.20-5.50); White Blood Count 7.3 X10*3/uL (4.8-10.8)
[2022-06-09 07:01] LABS: Glucose, Whole Blood 51 mg/dL (60-115)
[2022-06-09 07:29] LABS: Glucose, Whole Blood 153 mg/dL (60-115)
[2022-06-09 07:37] LABS: Glucose, Whole Blood 143 mg/dL (60-115)
[2022-06-09 08:00] VITALS: BP 107/54; PULSE 87; RESP 20; TEMP 36.1; O2SAT 99
[2022-06-09 08:43] LABS: Glucose, Whole Blood 104 mg/dL (60-115)
--- NOTE | 2022-06-09 08:53 | PHA.MEDREC ---
Pharmacy Consult ? Medication Reconciliation Pharmacy has REVIEWED the medication reconciliation done by RN overnight. Obtained list from [facility], added medications that the RN missed.
[2022-06-09] MEDS: Metoprolol Succinate ER 50 MG TAB.ER.24H PO (09:07)
[2022-06-09] MEDS: Dextrose 10 % 1,000 ML 150 ML IVCONT (09:14)
[2022-06-09] MEDS: ondansetron HCL 4 MG/2 ML VIAL IVPUSH ×2 (09:14→16:37)
[2022-06-09 09:29] LABS: MANUAL DIFF FLAG NO
--- NOTE | 2022-06-09 09:31 | MHC.CLN ---
NUTRITION CONSULT FOR SKIN INTEGRITY. PER EMR REVIEW, MULTIPLE SKIN TEARS/LESIONS APPEAR TO BE AT SITES OF FUNGAL INFECTION. DIET= DIABETIC 1800 KCALS-APPROPRIATE. FOLLOW WEEKLY FOR SKIN AND INTAKE. NO ADDITIONAL NUTRITION INTERVENTIONS AT THIS TIME.
[2022-06-09 09:46] LABS: Glucose, Whole Blood 74 mg/dL (60-115)
--- NOTE | 2022-06-09 09:46 | PM.EVENT ---
Event Note Date of Service: 06/09/22 Event Note: 76-year-old female with past medical history of hypoglycemia on oral antihyperglycemics comes into the hospital with hypoglycemia # hypoglycemia likely secondary to sulfonylurea and lack of eating, continue to hold oral antihyperglycemics, patient tolerating diet blood sugars greater than 100 will change blood sugar monitoring to q.4 hours decrease D 10-75 mL/hour,encourage po intake. 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 Heparin subQ monitor H&H closely Patient need continued inpatient hospitalization for persistent hypoglycemia on IV D10. Time Spent With Patient Time: Total time managing care of this patient today ____ minutes.
[2022-06-09 10:42] LABS: Glucose, Whole Blood 70 mg/dL (60-115)
[2022-06-09 12:01] LABS: Glucose, Whole Blood 67 mg/dL (60-115)
[2022-06-09] MEDS: Zinc Oxide 20% Ointment 28.35 GM TUBE 1 APPL TOPICAL ×3 (12:23→21:51)
[2022-06-09 12:29] LABS: Glucose, Whole Blood 177 mg/dL (60-115)
[2022-06-09] MEDS: Acetaminophen 325 MG TABLET 650 MG PO (14:32)
[2022-06-09 15:50] VITALS: BP 126/58; PULSE 89; RESP 18; TEMP 36.8; O2SAT 96
--- NOTE | 2022-06-09 15:57 | MHC.CM.PN ---
IMM 06/09/22 DELIVERED TO PT AND SON AT BEDSIDE, EMR REVIEWED, PT ADMITTED W/HYPOGLYCEMIA. CM MET W/PT AND SON AT BEDSIDE, PT ANSWERED QUESTIONS AND REPORTS SHE IS IN LTC AT [facility], PT ALSO REPORTS SHE USES A WALKER AND W/C AND STATES, I WALK SOMETIMES , PLAN WILL BE FOR RETURN TO [facility] FOR LTC. PT'S PCP IS DINESH MENDES AND HCP REQUESTED FROM SNF. DCP: RETURN TO [facility] W/BLS TRANSPORT
[2022-06-09 16:38] LABS: Glucose, Whole Blood 57 mg/dL (60-115)
[2022-06-09 16:38] LABS: Glucose, Whole Blood 133 mg/dL (60-115)
[2022-06-09] MEDS: Nystatin Powder 15 GM BOTTLE 1 APPL TOPICAL ×2 (16:38→21:46)
[2022-06-09] MEDS: cefTRIAXone sodium 1 GM in 0.9 % Sodium Chloride 50 ML IV (16:38)
[2022-06-09 18:40] LABS: Glucose, Whole Blood 164 mg/dL (60-115)
[2022-06-09] MEDS: Haloperidol Lactate 5 MG/ML VIAL 2 MG IVPUSH (18:51)
[2022-06-09 20:00] VITALS: BP 110/65; PULSE 108; RESP 19; TEMP 37.3; O2SAT 96
[2022-06-09 20:16] LABS: Glucose, Whole Blood 196 mg/dL (60-115)
[2022-06-09] MEDS: OLANZapine 10 MG VIAL IM (20:21)
[2022-06-09] MEDS: Atorvastatin Calcium 80 MG TABLET PO (21:41)
[2022-06-09] MEDS: Dextrose 10 % 1,000 ML 100 ML IVCONT (22:45)
[2022-06-09 22:52] LABS: Glucose, Whole Blood 152 mg/dL (60-115)
[2022-06-10 00:02] LABS: Glucose, Whole Blood 141 mg/dL (60-115)
[2022-06-10] MEDS: Acetaminophen 325 MG TABLET 650 MG PO ×3 (01:59→21:28)
[2022-06-10 02:04] LABS: Glucose, Whole Blood 149 mg/dL (60-115)
[2022-06-10] MEDS: Morphine Sulfate 4 MG/ML CARTRIDGE IVPUSH ×2 (02:49→11:15)
[2022-06-10 04:00] VITALS: PULSE 92; RESP 19; TEMP 36.6; O2SAT 98
[2022-06-10 04:12] LABS: Glucose, Whole Blood 157 mg/dL (60-115)
[2022-06-10 06:18] LABS: Glucose, Whole Blood 147 mg/dL (60-115)
[2022-06-10 08:00] VITALS: PULSE 87; RESP 18; TEMP 37.1; O2SAT 94
--- NOTE | 2022-06-10 08:13 | PC.RT ---
Pt with sitter at bedside, unable to follow instructions in the use of MDI. RR 18, spo2 93%, hr 78. RN notified.
[2022-06-10] MEDS: Metoprolol Succinate ER 50 MG TAB.ER.24H PO (09:24)
[2022-06-10] MEDS: Dextrose 5 % 1,000 ML 50 ML IVCONT (09:24)
[2022-06-10] MEDS: Nystatin Powder 15 GM BOTTLE 1 APPL TOPICAL ×2 (09:25→21:29)
[2022-06-10] MEDS: 0.9 % Sodium Chloride Flush 3 ML SYRINGE IVFLUSH ×3 (09:25→21:29)
[2022-06-10] MEDS: Zinc Oxide 20% Ointment 28.35 GM TUBE 1 APPL TOPICAL ×3 (09:26→21:30)
[2022-06-10 09:30] LABS: Glucose, Whole Blood 185 mg/dL (60-115)
[2022-06-10] MEDS: Heparin Sodium,Porcine 5,000 UNIT/ML VIAL 5000 UNIT SUBCUT ×2 (11:15→23:49)
[2022-06-10 11:34] LABS: Glucose, Whole Blood 185 mg/dL (60-115)
--- NOTE | 2022-06-10 12:45 | P.CDIC_ITS ---
CDI Concurrent Query Documentation Clarification: PHYSICIAN'S DOCUMENTATION REQUEST Date of Query: 06/10/22 1246 Patient Name: Yadira Dallas Admit Date: 06/09/22 Dear Doctor, Please review the following and provide your response in the progress notes. Clinical Indicators: The diagnosis of asthma was documented in the record on 06/09/22. Additional clinical indicators from the record include: Risk Factors/Clinical Indicators/Treatments Per MD progress note 06/09/22: asthma - not in exacerbation - monitor respiratory status treated with Breo and Ventolin Based on the above, please clarify in the Progress Notes further specificity regarding the type and acuity of the asthma: Type: * Mild intermittent - less than 2x/week * Mild persistent - more than 2x/week but not daily * Moderate persistent - daily and may restrict physical activity * Severe persistent - throughout the day with frequent attacks, limiting activities * Exercise induced * Chronic obstructive asthma and indicate if with acute lower respiratory infection * Asthma with underlying COPD and indicate if with acute lower respiratory infection * Other ? please specify * Unable to determine Use of terms such as suspected, likely, concern for, or probable (associated with a specific diagnosis that is being evaluated, monitored, or treated as if it exists) are acceptable and can be coded in the inpatient setting, when documented at the time of discharge. Thank you, Mirela Wise RN Extension: [phone] Please use your independent medical judgment in providing your response. THIS QUERY IS PART OF THE PERMANENT MEDICAL RECORD Provider Response: Other Other Diagnosis: see note
--- NOTE | 2022-06-10 13:04 | HO.PM.IMPN ---
Subjective Subjective Date of Service: 06/11/22 Interval History: at bedside, patient complaining of pain, and wishes to go home with , as per patient is in rehab after her right shoulder surgery has not ambulated in last 2 months mostly bed bound, and informed she has Ryanne Anders skin disease. Review of Systems Review of Systems: Yes all other systems are reviewed and are negative Physical Exam Vital Signs: Vital Signs: Last Vital Signs Temp 98.7 F 06/10/22 08:00 Pulse 87 06/10/22 08:00 Resp 18 06/10/22 08:00 BP 110/65 06/09/22 20:00 Pulse Ox 94 06/10/22 08:00 O2 Del Method 06/10/22 08:00 BMI result Body Mass Index 49.6 Const: Other: General resting in bed, no acute distress. Neck supple no JVD. CVS regular rate rhythm, Respiratory lungs clear to auscultation, no respiratory distress, no wheeze, no rhonchi. Gastrointestinal abdomen soft, nontender, bowel sounds audible, no guarding , no rigidity. Extremities no pitting edema. Neuro moving all 4 extremity speech clear. Skin bilateral axillary groin rash with discoloration and open sores very painful with examination and dressing change Objective Data Active Medications Acetaminophen (Acetaminophen 325 Mg Tablet) 650 mg PO TID [facility] Albuterol Sulfate (Albuterol Sulfate 90 Mcg 8 Gm Inhaler) 2 puff INHALE RQ6H PRN PRN Reason: Wheezing Atorvastatin Calcium (Atorvastatin Calcium 80 Mg Tablet) 80 mg PO BEDTIME [facility] Last Admin: 06/09/22 21:41 Dose: 80 mg Documented By: JUAN A Bisacodyl (Bisacodyl 10 Mg Supp.Rect) 10 mg CO DAILY PRN PRN Reason: Constipation Dextrose (Dextrose 50 % 25 Gm/50 Ml Syringe) 25 gm IVPUSH Q15M PRN; Protocol PRN Reason: per Hypoglycemia Standing Ord. Last Admin: 06/09/22 16:01 Dose: 25 gm Documented By: JUAN A Docusate Sodium (Docusate Sodium 100 Mg Capsule) 100 mg PO DAILY PRN PRN Reason: Constipation Fluticasone/Vilanterol (Fluticasone/Vilanterol 100/25 Blst.W.Dev) 1 puff INHALE RDAILY [facility] Last Admin: 06/10/22 08:13 Dose: Not Given Documented By: SARA Non-Admin Reason: Pt unable Heparin Sodium (Porcine) (Heparin Sodium,Porcine 5,000 Unit/Ml Vial) 5,000 unit SUBCUT Q12H [facility] Last Admin: 06/10/22 11:15 Dose: 5,000 unit Documented By: ABEBE Ceftriaxone Sodium 1 gm/ (Sodium Chloride) 50 mls @ 100 mls/hr IV Q24H [facility] Last Infusion: 06/09/22 17:11 Dose: 0 mls/hr Documented By: JUAN A Dextrose (D5w) 1,000 mls @ 50 mls/hr IVCONT .Q20H [facility] Last Admin: 06/10/22 09:24 Dose: 50 mls/hr Documented By: ABEBE Metoprolol Succinate (Metoprolol Succinate Er 50 Mg Tab.Er.24h) 50 mg PO DAILY [facility]; Protocol Last Admin: 06/10/22 09:24 Dose: 50 mg Documented By: ABEBE Nystatin (Nystatin Powder 15 Gm Bottle) 1 appl TOPICAL BID [facility]; Protocol Last Admin: 06/10/22 09:25 Dose: 1 appl Documented By: ABEBE Ondansetron HCl (Ondansetron Hcl 4 Mg/2 Ml Vial) 4 mg IVPUSH Q8H PRN PRN Reason: Nausea and Vomiting Last Admin: 06/09/22 16:37 Dose: 4 mg Documented By: JUAN A Sodium Chloride (0.9 % Sodium Chloride Flush 3 Ml Syringe) 3 ml IVFLUSH QSHIFT [facility] Last Admin: 06/10/22 09:25 Dose: 3 ml Documented By: ABEBE Tramadol HCl (Tramadol Hcl 50 Mg Tablet) 50 mg PO Q8H PRN PRN Reason: Pain, Severe (Pain Scale 7-10) Zinc Oxide (Zinc Oxide 20% Ointment 28.35 Gm Tube) 1 appl TOPICAL TID [facility]; Protocol Last Admin: 06/10/22 09:26 Dose: 1 appl Documented By: ABEBE Labs 06/09/22 06:21 06/09/22 05:26 Labs: Laboratory Results - last 24 hr 06/09/22 06/09/22 06/09/22 15:54 16:26 18:31 POC Glucose 57 L* 133 H 164 H 06/09/22 06/09/22 06/09/22 20:12 22:47 23:56 POC Glucose 196 H 152 H 141 H 06/10/22 06/10/22 06/10/22 02:01 04:06 06:14 POC Glucose 149 H 157 H 147 H 06/10/22 06/10/22 09:25 11:24 POC Glucose 185 H 185 H Microbiology Microbiology Results: Microbiology 06/08/22 19:04 Urine Culture - Final Urine Catheterized - Brenner Catheter 06/08/22 18:29 Blood Culture - Preliminary Blood - Venous No growth after 24 hours. 06/08/22 18:29 Blood Culture - Preliminary Blood - Venous No growth after 24 hours. Assessment and Plan (1) Hypoglycemia: Status: Acute (2) Multiple skin tears: Status: Acute Plan 76-year-old female with past medical history of hypoglycemia on oral antihyperglycemics comes into the hospital with hypoglycemia # hypoglycemia? likely secondary to sulfonylurea and lack of eating, continue to hold oral antihyperglycemics, patient tolerating diet blood sugars greater than 100 will change blood sugar monitoring to q.4 hours decrease ?? D 10 to 50 ml and eventually discontinue of blood sugar remains stable rest of the day,,encourage po intake. # multiple skin lesions as per has diagnosis of Ryanne Ryanne (benign familial pemphigus) that can be treated with magnesium chloride 200 mg daily, spoke with pharmacist and medication ordered, will consult Wound Care consult for local care. # hypertension fluctuating blood pressures continue metoprolol and follow BP # morbid obesity recommend follow-up outpatient with weight management # asthma-chronic persistent asthma not in exacerbation continue home inhalers. 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 to decide when to resume medication patient has IVC filter, hematocrit low 26.3 with a hemoglobin of 8.2 will follow CBC # urinary tract infection recently diagnosed to have Proteus and E coli UTI diagnosed June 05 will finish 5 day course of antibiotic ? DVT prophylaxis:? Heparin subQ monitor H&H closely Patient need continued inpatient hospitalization for persistent hypoglycemia on IV D10. Time Spent With Patient Time: Total time managing care of this patient today ____ minutes. Quality Stroke Does the patient have a stroke diagnosis?: No VTE Prior VTE?: No VTE Risk Level:: Medical - moderate - high VTE Device Contraindication: Treatment Not Indicated VTE Drug Contraindication: N/A - Med Ordered
[2022-06-10 15:27] VITALS: BP 148/100; PULSE 81; RESP 18; TEMP 36.4; O2SAT 97
[2022-06-10 16:36] LABS: Glucose, Whole Blood 173 mg/dL (60-115)
[2022-06-10] MEDS: cefTRIAXone sodium 1 GM in 0.9 % Sodium Chloride 50 ML IV (19:16)
[2022-06-10 19:40] VITALS: BP 92/55; PULSE 85; RESP 16; TEMP 36.3; O2SAT 91
[2022-06-10 20:57] LABS: Glucose, Whole Blood 192 mg/dL (60-115)
[2022-06-10] MEDS: Atorvastatin Calcium 80 MG TABLET PO (21:26)
[2022-06-10 21:45] VITALS: RESP 20; O2SAT 97
[2022-06-10] MEDS: Albuterol Sulfate 90 MCG 8 GM INHALER 2 PUFF INHALE (22:09)
[2022-06-10 22:10] VITALS: PULSE 92; RESP 22; O2SAT 97
[2022-06-10 23:49] LABS: Glucose, Whole Blood 223 mg/dL (60-115)
[2022-06-11 03:25] VITALS: BP 94/50; PULSE 91; RESP 18; TEMP 36.4; O2SAT 96
--- NOTE | 2022-06-11 04:10 | PC.NURSE ---
Pt noted with some audible wheezing and some c/o SOB, RR 20, O2 sats=high 90s, repositioned on bed, RT paged for PRN ALbuterol, Dr. Cordova was notified, pt was relieved.
[2022-06-11 04:35] LABS: Glucose, Whole Blood 139 mg/dL (60-115)
[2022-06-11] MEDS: Dextrose 5 % 1,000 ML 50 ML IVCONT (05:51)
[2022-06-11] MEDS: traMADoL HCL 50 MG TABLET PO ×3 (06:39→22:21)
[2022-06-11 07:14] VITALS: BP 152/70; PULSE 88; RESP 20; TEMP 36.1; O2SAT 96
[2022-06-11 07:37] LABS: Glucose, Whole Blood 151 mg/dL (60-115)
[2022-06-11] MEDS: Acetaminophen 325 MG TABLET 650 MG PO ×3 (09:29→21:52)
[2022-06-11] MEDS: Metoprolol Succinate ER 50 MG TAB.ER.24H PO (09:29)
[2022-06-11] MEDS: Nystatin Powder 15 GM BOTTLE 1 APPL TOPICAL ×2 (09:30→21:53)
[2022-06-11 11:11] LABS: Glucose, Whole Blood 213 mg/dL (60-115)
[2022-06-11] MEDS: Zinc Oxide 20% Ointment 28.35 GM TUBE 1 APPL TOPICAL ×3 (12:41→21:53)
[2022-06-11] MEDS: Heparin Sodium,Porcine 5,000 UNIT/ML VIAL 5000 UNIT SUBCUT (12:41)
[2022-06-11 12:51] LABS: Creatinine Clr Calc Pharmacy 29.7; Estimated Glomerular Filt Rate 21
--- NOTE | 2022-06-11 13:09 | MHC.CM.PN ---
PER HOSPITALIST ANTIC PT WILL BE READY FOR D/C TOMORROW, PT'S BC'S POSITIVE HOWEVER MAY BE CONTAMINATE, WOUND CONSULT ALSO PENDING, [facility] REPORTING PT IS BED HOLD IN STR HOWEVER NOT ACTUALLY IN LTC. CM WILL CONT TO FOLLOW D/C NEEDS.
--- NOTE | 2022-06-11 14:16 | PHA.PROG ---
Admission Date/Time: June 09, 2022 00:00 Indication: Bacteremia Weight in k.4 kg Adjusted body weight in K.4 kg [place] body weight in K.3 kg Obesity Dosing Indication % IBW: 235% Serum Creatinine - Last 168 Hours 06/08/22 06/09/22 06/11/22 21:35 05:26 12:14 Creatinine 1.29 1.33 2.29 H Estimated CrCl and GFR - Last 168 Hours 06/08/22 06/09/22 06/11/22 21:35 05:26 12:14 Estim Creat Clear Calc 62.3 51.0 29.7 Estimated GFR 40 39 21 Vancomycin Loading Dose: 2000 mg Current Vancomycin Dosing Regimen: 500 mg Q24H Date and Time for next Vancomycin Level to be drawn: 06/12 @ 1200 Pharmacist Comments on Vancomycin Plan: Patient is morbidly obese therefore needs careful monitoring due tovancomycin's large volume distribution. Patient renal function is continuing to decline with current CrCl 21 prior to initiation of vancomycin. Patient received load dose vancomycin 2000 mg 06/11 @ 1400 Patient scheduled for vancomycin 500 mg Q24H. Expected AUC 435 with a trough of 14.5. Due to renal function will get a random level tomorrow prior to second dose. Patricia Hatfield PharmD Vancomycin dosing will take advantage of [employer] as a clinical decision support tool that uses Bayesian modeling to calculate individual patient's pharmacokinetic parameters and forecast the patient's drug concentration time course with the target goal AUC 24 range of 400 - 600 mg/L/hr.
[2022-06-11] MEDS: Docusate Sodium 100 MG CAPSULE PO (14:35)
--- NOTE | 2022-06-11 15:22 | PC.NURSE ---
Skin-- all fat folds, groin, and axilla have macerated sloughing skin. Also buttocks has large area of macerated sloughing skin with bleeding.
--- NOTE | 2022-06-11 15:26 | HO.PM.IMPN ---
Subjective Subjective Date of Service: 06/11/22 Interval History: Awake alert this morning tolerating diet complaining of pain axilla and groin due to severe rash, blood sugars trended up to 200 now IV D5 discontinued, no other acute issues overnight, oxygenation stable no nausea, no vomiting, no abdominal pain or diarrhea. Review of Systems Review of Systems: Yes all other systems are reviewed and are negative Physical Exam Vital Signs: Vital Signs: Last Vital Signs Temp 96.9 F 06/11/22 07:14 Pulse 88 06/11/22 07:14 Resp 20 06/11/22 07:14 BP 152/70 H 06/11/22 07:14 Pulse Ox 96 06/11/22 07:14 O2 Del Method 06/11/22 07:14 BMI result Body Mass Index 49.6 Const: Other: General resting in bed, no acute dis tress.? Neck? supp le no JVD. CVS? re gular rate rhythm, Respiratory lungs clear to ausculta tion, no respirato ry distress, no wh eeze, no rhonchi. Gastrointestinal a bdomen soft, obese , nontender, bowel sounds audible, n o guarding , no ri gidity. Extremitie s no pitting? radhika a. Neuro? moving a ll 4 extremity spe ech clear. Skin bi lateral axillary g roin rash with dis coloration and ope n sores painful wi th examination and dressing change Objective Data Active Medications Acetaminophen (Acetaminophen 325 Mg Tablet) 650 mg PO TID [facility] Last Admin: 06/11/22 14:34 Dose: 650 mg Documented By: JEFERSON Albuterol Sulfate (Albuterol Sulfate 90 Mcg 8 Gm Inhaler) 2 puff INHALE RQ6H PRN PRN Reason: Wheezing Last Admin: 06/10/22 22:09 Dose: 2 puff Documented By: ZEE Atorvastatin Calcium (Atorvastatin Calcium 80 Mg Tablet) 80 mg PO BEDTIME [facility] Last Admin: 06/10/22 21:26 Dose: 80 mg Documented By: KEATON Bisacodyl (Bisacodyl 10 Mg Supp.Rect) 10 mg [place] DAILY PRN PRN Reason: Constipation Dextrose (Dextrose 50 % 25 Gm/50 Ml Syringe) 25 gm IVPUSH Q15M PRN; Protocol PRN Reason: per Hypoglycemia Standing Ord. Last Admin: 06/09/22 16:01 Dose: 25 gm Documented By: JUAN A Docusate Sodium (Docusate Sodium 100 Mg Capsule) 100 mg PO DAILY PRN PRN Reason: Constipation Last Admin: 06/11/22 14:35 Dose: 100 mg Documented By: JEFERSON Fluticasone/Vilanterol (Fluticasone/Vilanterol 100/25 Blst.W.Dev) 1 puff INHALE RDAILY [facility] Last Admin: 06/11/22 07:35 Dose: Not Given Documented By: KOJO Non-Admin Reason: pt unable to do Heparin Sodium (Porcine) (Heparin Sodium,Porcine 5,000 Unit/Ml Vial) 5,000 unit SUBCUT Q12H [facility] Last Admin: 06/11/22 12:41 Dose: 5,000 unit Documented By: JEFERSON Vancomycin HCl 500 mg/ Sodium (Chloride) 110 mls @ 110 mls/hr IV Q24H [facility] Metoprolol Succinate (Metoprolol Succinate Er 50 Mg Tab.Er.24h) 50 mg PO DAILY [facility]; Protocol Last Admin: 06/11/22 09:29 Dose: 50 mg Documented By: JEFERSON Non-Formulary Medication (Mag64 ( Magnesium Chloride)) 2 tab PO DAILY [facility] Nystatin (Nystatin Powder 15 Gm Bottle) 1 appl TOPICAL BID [facility]; Protocol Last Admin: 06/11/22 09:30 Dose: 1 appl Documented By: JEFERSON Ondansetron HCl (Ondansetron Hcl 4 Mg/2 Ml Vial) 4 mg IVPUSH Q8H PRN PRN Reason: Nausea and Vomiting Last Admin: 06/09/22 16:37 Dose: 4 mg Documented By: JUAN A Pharmacy Consult (Consult Rx Vancomycin Dosing) 1 each MISCELLANE DAILY PRN PRN Reason: Consult order Sodium Chloride (0.9 % Sodium Chloride Flush 3 Ml Syringe) 3 ml IVFLUSH QSHIFT [facility] Last Admin: 06/11/22 09:24 Dose: Not Given Documented By: JEFERSON Non-Admin Reason: IV Running Tramadol HCl (Tramadol Hcl 50 Mg Tablet) 50 mg PO Q8H PRN PRN Reason: Pain, Severe (Pain Scale 7-10) Last Admin: 06/11/22 14:34 Dose: 50 mg Documented By: HO.YOUB Zinc Oxide (Zinc Oxide 20% Ointment 28.35 Gm Tube) 1 appl TOPICAL TID [facility]; Protocol Last Admin: 06/11/22 12:41 Dose: 1 appl Documented By: JEFERSON Labs 06/09/22 06:21 06/11/22 12:14 Labs: Laboratory Results - last 24 hr 06/10/22 06/10/22 06/10/22 16:25 20:49 23:44 Estim Creat Clear Calc Estimated GFR POC Glucose 173 H 192 H 223 H 06/11/22 06/11/22 06/11/22 04:31 07:34 11:02 Estim Creat Clear Calc Estimated GFR POC Glucose 139 H 151 H 213 H 06/11/22 12:14 Estim Creat Clear Calc 29.7 Estimated GFR 21 POC Glucose Microbiology Microbiology Results: Microbiology 06/08/22 18:29 Blood Culture - Preliminary Blood - Venous Prelim: GPC Gram Stain only 06/08/22 18:29 Blood Culture - Preliminary Blood - Venous No growth after 48 hours. Assessment and Plan (1) Hypoglycemia: Status: Acute (2) Multiple skin tears: Status: Acute Plan 76-year-old female with past medical history of hypoglycemia on oral antihyperglycemics comes into the hospital with hypoglycemia # hypoglycemia/type 2 diabetes mellitus on insulin Low blood sugars? likely secondary to sulfonylurea and lack of eating, blood sugar greater than 200, tolerating diet , IV fluid discontinued, will place on insulin sliding scale, change point of care blood sugar monitoring to q.6 hours ?? 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 # Gram-positive cocci bacteremia 1/2 blood culture bottle positive will place on vancomycin and follow final blood culture report question related to skin lesion. # hypertension fluctuating blood pressures continue metoprolol and follow BP # morbid obesity recommend follow-up outpatient with weight management # asthma-chronic persistent asthma not in exacerbation continue home inhalers. # history of right lower extremity DVT called nursing facility spoke with nurse practitioner patient is not on anticoagulation due to recent history of GI bleed , patient has out patient follow-up appointment with manager telecom ?? to decide when to resume medication patient has IVC filter, hematocrit low 26.3 with a hemoglobin of 8.2 will follow CBC # urinary tract infection recently diagnosed to have Proteus and E coli UTI diagnosed June 05 finish 5 day course of antibiotic. ? DVT prophylaxis:? Heparin subQ monitor H&H closely Patient need continued inpatient hospitalization for persistent hypoglycemia and significant pemphigus like rash. Time Spent With Patient Time: Total time managing care of this patient today ____ minutes. Quality Stroke Does the patient have a stroke diagnosis?: No VTE Prior VTE?: No VTE Risk Level:: Medical - moderate - high VTE Device Contraindication: Treatment Not Indicated VTE Drug Contraindication: N/A - Med Ordered
[2022-06-11 15:30] VITALS: BP 119/56; PULSE 99; RESP 18; TEMP 36.4; O2SAT 96
[2022-06-11] MEDS: Albuterol Sulfate 90 MCG 8 GM INHALER 2 PUFF INHALE (15:41)
[2022-06-11 15:42] VITALS: RESP 20; O2SAT 96
[2022-06-11 16:05] LABS: Glucose, Whole Blood 218 mg/dL (60-115)
[2022-06-11] MEDS: Insulin Lispro 100 UNIT/ML 3 ML VIAL SUBCUT ×2 (17:08→21:53)
[2022-06-11] MEDS: 0.9 % Sodium Chloride Flush 3 ML SYRINGE IVFLUSH (17:08)
[2022-06-11 19:26] VITALS: BP 116/57; PULSE 98; RESP 17; TEMP 36.3; O2SAT 98
[2022-06-11 20:56] LABS: Glucose, Whole Blood 220 mg/dL (60-115)
[2022-06-11] MEDS: Atorvastatin Calcium 80 MG TABLET PO (21:52)
[2022-06-12] MEDS: 0.9 % Sodium Chloride Flush 3 ML SYRINGE IVFLUSH ×3 (00:12→17:30)
[2022-06-12] MEDS: Heparin Sodium,Porcine 5,000 UNIT/ML VIAL 5000 UNIT SUBCUT ×2 (00:12→13:32)
[2022-06-12 03:25] VITALS: BP 120/55; PULSE 116; RESP 18; TEMP 36.3; O2SAT 97
[2022-06-12] MEDS: traMADoL HCL 50 MG TABLET PO (05:08)
[2022-06-12 07:01] LABS: Creatinine Clr Calc Pharmacy 33.6; Estimated Glomerular Filt Rate 24
[2022-06-12 07:02] VITALS: BP 150/55; PULSE 108; RESP 20; TEMP 36.6; O2SAT 97
[2022-06-12 07:17] LABS: Glucose, Whole Blood 169 mg/dL (60-115)
--- NOTE | 2022-06-12 08:11 | HE.PHANOTE ---
Vancomycin Dosing Patient renal function has improved. Will increase dose to vancomycin 750 mg Q24H, expected AUC 552 with a trough 17.9. Pharmacy will continue to monitor renal function. Due to imporvement in renal function will hold off and get level on 06/13 @ 1200. Patricia Hatfield, TamikoD
[2022-06-12] MEDS: Acetaminophen 325 MG TABLET 650 MG PO ×2 (08:14→17:30)
[2022-06-12] MEDS: Metoprolol Succinate ER 50 MG TAB.ER.24H PO (08:14)
[2022-06-12] MEDS: Insulin Lispro 100 UNIT/ML 3 ML VIAL SUBCUT ×4 (08:15→21:12)
[2022-06-12] MEDS: Nystatin Powder 15 GM BOTTLE 1 APPL TOPICAL (08:16)
[2022-06-12] MEDS: Zinc Oxide 20% Ointment 28.35 GM TUBE 1 APPL TOPICAL ×2 (08:16→17:31)
[2022-06-12 11:08] LABS: Glucose, Whole Blood 198 mg/dL (60-115)
--- NOTE | 2022-06-12 12:40 | P.DS_ITS ---
DS: Providers Provider Date of admission: 06/09/22 00:00 Primary care physician: Kia Ponce MD Consults: 06/10/22 16:58 Consult to Wound Care Routine Consulting Provider: Lori Prince Reason for consultation: groin rash diffuse Has provider been notified: No DS: Diagnosis Discharge Diagnosis (1) Hypoglycemia: Status: Acute (2) Multiple skin tears: Status: Acute DS: Summary Hospital Course Hospital Course: Date of Service: 06/09/22 Chief Complaint: Hypoglycemia 76-year-old female with past medical history of diabetes on oral anti hyperglycemics, hypertension, a resident of senior care presents to the hospital with complaints of hyperglycemia.? Patient is alert oriented, at bedside helped with the history, they state the patient was hypoglycemic in t he morning and has had multiple episodes of hypoglycemia at the senior care, she was sleeping, did not eat or take anything, on her 's visit, he states that he found her unresponsive, completely laid out on the bed, when they reach checked her sugar she was in the 40s therefore sent to the hospital. She otherwise denies any chest pain, no abdominal pain, no nausea or vomiting, no diarrhea constipation, no urinary symptoms and no lower extremity edema.? She does have chronic skin disease that does not know the name of it, reports that she was on ointments by her dermatology but has not received it since being at the senior care.? He states the patient is a senior care for history of DVT and difficulty ambulating. On arrival to the ED patient hemodynamically stable with no significant abnormal vitals Labs are significant for glucose of 47, patient received D50 with repeats remain in the 30s and 20s, patient started on D5 but remained hypoglycemia, patient will be admitted for further management.? Labs otherwise remarkable. Patient started on D10 and will be admitted for further management. 76-year-old female with past medical history of hypoglycemia on oral anti hyperglycemics comes into the hospital with hypoglycemia # hypoglycemia/type 2 diabetes mellitus on insulin ?? Low blood sugars? likely secondary to sulfonylurea and lack of eating, blood sugar greater than 200, tolerating diet , IV fluid discontinued, will place on insulin sliding scale, change point of care blood sugar monitoring to q.6 ?? hours ?? # multiple skin lesions as per has diagnosis of Osvaldo Osvaldo (benign familial pemphigus) ?? Start magnesium chloride 200 mg daily, await Wound Care input for local care. # Gram-positive cocci bacteremia 1/2 blood culture bottle positive will place on vancomycin and follow final blood culture report question related to skin lesion. # hypertension fluctuating blood pressures continue metoprolol and follow BP # morbid obesity recommend follow-up outpatient with weight management # asthma-chronic persistent asthma not in exacerbation continue home inhalers. 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 to decide when to resume medication patient has IVC filter, hematocrit low 26.3 with a hemoglobin of 8.2 will follow CBC # urinary tract infection recently diagnosed to have Proteus and E coli UTI diagnosed June 05 finish 5 day course of antibiotic. Time Spent with Patient Time attestation: Total time managing care of this patient today ____ minutes. Physical Exam Vital Signs: Vital Signs: Last Vital Signs Temp 98 F 06/12/22 07:02 Pulse 108 H 06/12/22 07:02 Resp 20 06/12/22 07:02 BP 150/55 H 06/12/22 07:02 Pulse Ox 97 06/12/22 07:02 O2 Del Method 06/12/22 07:02 BMI result Body Mass Index 49.6 Const: Other: General resting in bed, no acute dis tress.? Neck? supp le, no JVD. CVS? r egular, rate ,rhyt hm, Respiratory judy ngs clear to auscu ltation, no respir atory distress, no wheeze, no rhonch i. Gastrointestina l abdomen soft, no n tender, bowel so unds audible, no g uarding , no rigid ity. Extremities n o pitting? edema. Neuro? moving all 4 extremity speech clear. Skin bilat eral axillary, mono in, under breast r ophelia, with discolor ation and open sor es very painful wi th examination and dressing change DS: Data Data Completed and Pending Labs on day of discharge: Laboratory Results - last 24 hr 06/11/22 06/11/22 06/11/22 12:14 15:38 19:31 Creatinine 2.29 H Estim Creat Clear Calc 29.7 Estimated GFR 21 POC Glucose 218 H 220 H 06/12/22 06/12/22 06/12/22 05:42 07:02 11:05 Creatinine 2.02 H Estim Creat Clear Calc 33.6 Estimated GFR 24 POC Glucose 169 H 198 H Preliminary micro results at discharge 06/08/22 18:29 Blood Culture - Preliminary Blood - Venous No growth after 48 hours. Discharge Plan Discharge Anticipated Discharge Date/Time: 06/12/22 12:25 Patient Disposition: er [facility] Referrals: Physician,Unknown J [Physician] - 1 Week Discharge Medications: New nystatin 100,000 unit/gram Ointment 1 appl topical TID Qty: 30 0RF Protocol: Apply to: Apply to: groin/axillam/under breast rash apply it makes with zinc oxide zinc oxide 20 % Ointment 1 appl topical TID Qty: 60 0RF Protocol: Apply to: Apply to: Place on affected skin insulin lispro [Humalog U-100 Insulin] 100 unit/mL Solution See Protocol subcut QIDACHS Qty: 10 0RF Protocol: Insulin Correction Scale Less than or equal to 110 ---- Give (units): 0 111 to 150 Give (units): 0 151 to 200 Give (units): 2 201 to 250 Give (units): 4 251 to 300 Give (units): 6 301 to 350 Give (units): 8 Greater than 350 Give (units): 10 Call MD if Blood Glucose > : 350 Continued atorvastatin 80 mg tablet 1 tab PO BEDTIME tramadol 50 mg tablet 1 tab PO DAILY PRN (Reason: Pain) metoprolol succinate 50 mg tablet extended release 24 hr 1 tab PO DAILY acetaminophen [Tylenol 8 Hour] 650 mg Tablet Extended Release 650 mg PO Q8H meclizine 25 mg Tablet 25 mg PO TID PRN (Reason: Vertigo) bisacodyl 10 mg Suppository 10 mg [place] DAILY PRN (Reason: Constipation) albuterol sulfate 90 mcg/actuation HFA aerosol inhaler 2 puff INHALATION Q6H PRN (Reason: Wheezing) budesonide-formoterol [Symbicort] 160-4.5 mcg/actuation HFA aerosol inhaler 2 puff INHALATION BID Changed Levemir FlexTouch U-100 Insuln 100 unit/mL (3 mL) insulin pen 12 unit subcut BID Qty: 15 0RF Discontinued triamcinolone acetonide 0.1 % cream 1 appl topical BID PRN (Reason: Rash) Rx Instructions: Prn reason for osvaldo osvaldo disease glimepiride 2 mg tablet 1 tab PO DAILY pioglitazone 30 mg tablet 1 tab PO DAILY lisinopril 10 mg Tablet 10 mg PO DAILY ciprofloxacin HCl 500 mg Tablet 500 mg PO BID Rx Instructions: X 10 DAYS, STARTED ON 06/05 Diet: Diabetic diet Activity on Discharge: As tolerated Stand Alone Forms: Patient Portal Discharge page
[2022-06-12 13:30] LABS: Hematocrit 24.7 % (37.0-47.0); Hemoglobin 7.9 g/dl (12.0-16.0); Mean Corpuscular Hemoglobin 25.8 pg (27.0-33.0); Mean Corpuscular Volume 80.7 fL (80.0-98.0); Mean Platelet Volume 8.5 fL (9.4-12.3); Platelet Count 286 X10*3/uL (160-400); Red Blood Count 3.06 X10*6/uL (4.20-5.50); Red Cell Distribution Width 17.2 % (11.0-16.0); White Blood Count 8.1 X10*3/uL (4.8-10.8)
--- NOTE | 2022-06-12 13:51 | HO.PM.IMPN ---
Subjective Subjective Date of Service: 06/13/22 Interval History: No acute issues overnight complaining of pain, tolerating diet, no fevers, no chills blood sugars less than 200, no nausea, no vomiting, no abdominal pain, Brenner catheter with clear urine. Review of Systems Review of Systems: Yes all other systems are reviewed and are negative Physical Exam Vital Signs: Vital Signs: Last Vital Signs Temp 98 F 06/12/22 07:02 Pulse 108 H 06/12/22 07:02 Resp 20 06/12/22 07:02 BP 150/55 H 06/12/22 07:02 Pulse Ox 97 06/12/22 07:02 O2 Del Method 06/12/22 07:02 BMI result Body Mass Index 49.6 Const: Other: General resting in bed, no acute dis tress.? Neck? supp le no JVD. CVS? re gular rate rhythm, Respiratory lungs clear to ausculta tion, no respirato ry distress, no wh eeze, no rhonchi. Gastrointestinal a bdomen soft, nonte nder, bowel sounds audible, no guard ing , no rigidity. Extremities no pi tting? edema. Neur o? moving all 4 ex tremity speech aime ar. Skin bilateral axillary groin ra sh with discolorat ion and open sores very painful with examination and d ressing change Objective Data Active Medications Acetaminophen (Acetaminophen 325 Mg Tablet) 650 mg PO TID [facility] Last Admin: 06/12/22 08:14 Dose: 650 mg Documented By: BRITNEY Albuterol Sulfate (Albuterol Sulfate 90 Mcg 8 Gm Inhaler) 2 puff INHALE RQ6H PRN PRN Reason: Wheezing Last Admin: 06/11/22 15:41 Dose: 2 puff Documented By: KOJO Atorvastatin Calcium (Atorvastatin Calcium 80 Mg Tablet) 80 mg PO BEDTIME [facility] Last Admin: 06/11/22 21:52 Dose: 80 mg Documented By: JORDY Bisacodyl (Bisacodyl 10 Mg Supp.Rect) 10 mg [place] DAILY PRN PRN Reason: Constipation Dextrose (Dextrose 50 % 25 Gm/50 Ml Syringe) 25 gm IVPUSH Q15M PRN; Protocol PRN Reason: per Hypoglycemia Standing Ord. Last Admin: 06/09/22 16:01 Dose: 25 gm Documented By: HO.NGENOAL Dextrose (Dextrose 50 % 25 Gm/50 Ml Syringe) 25 gm IVPUSH Q15M PRN; Protocol PRN Reason: per Hypoglycemia Standing Ord. Docusate Sodium (Docusate Sodium 100 Mg Capsule) 100 mg PO DAILY PRN PRN Reason: Constipation Last Admin: 06/11/22 14:35 Dose: 100 mg Documented By: JEFERSON Fluticasone/Vilanterol (Fluticasone/Vilanterol 100/25 Blst.W.Dev) 1 puff INHALE RDAILY [facility] Last Admin: 06/12/22 08:28 Dose: Not Given Documented By: ALISSA Non-Admin Reason: Patient Refused Glucose (Glucose Gel 15 Gm Gel..Gram.) 15 gm PO Q15M PRN; Protocol PRN Reason: per Hypoglycemia Standing Ord. Heparin Sodium (Porcine) (Heparin Sodium,Porcine 5,000 Unit/Ml Vial) 5,000 unit SUBCUT Q12H [facility] Last Admin: 06/12/22 13:32 Dose: 5,000 unit Documented By: BRITNEY Insulin Human Lispro (Insulin Lispro 100 Unit/Ml 3 Ml Vial) 0 unit SUBCUT QIDACHS [facility]; Protocol Last Admin: 06/12/22 13:33 Dose: 2 unit Documented By: BRITNEY Metoprolol Succinate (Metoprolol Succinate Er 50 Mg Tab.Er.24h) 50 mg PO DAILY [facility]; Protocol Last Admin: 06/12/22 08:14 Dose: 50 mg Documented By: BRITNEY Non-Formulary Medication (Mag64 ( Magnesium Chloride)) 2 tab PO DAILY [facility] Last Admin: 06/12/22 08:15 Dose: 2 tab Documented By: BRITNEY Nystatin (Nystatin Powder 15 Gm Bottle) 1 appl TOPICAL BID [facility]; Protocol Last Admin: 06/12/22 08:16 Dose: 1 appl Documented By: BRITNEY Nystatin (Nystatin Ointment 15 Gm Tube) 1 appl TOPICAL TID [facility]; Protocol Ondansetron HCl (Ondansetron Hcl 4 Mg/2 Ml Vial) 4 mg IVPUSH Q8H PRN PRN Reason: Nausea and Vomiting Last Admin: 06/09/22 16:37 Dose: 4 mg Documented By: JUAN A Sodium Chloride (0.9 % Sodium Chloride Flush 3 Ml Syringe) 3 ml IVFLUSH QSHIFT [facility] Last Admin: 06/12/22 08:16 Dose: 3 ml Documented By: BRITNEY Tramadol HCl (Tramadol Hcl 50 Mg Tablet) 50 mg PO Q8H PRN PRN Reason: Pain, Severe (Pain Scale 7-10) Last Admin: 06/12/22 05:08 Dose: 50 mg Documented By: ANAT Comments: pain medication can be given early per dr. Cordova Zinc Oxide (Zinc Oxide 20% Ointment 28.35 Gm Tube) 1 appl TOPICAL TID [facility]; Protocol Last Admin: 06/12/22 08:16 Dose: 1 appl Documented By: BRITNEY Labs 06/12/22 13:24 06/12/22 05:42 Labs: Laboratory Results - last 24 hr 06/11/22 06/11/22 06/12/22 15:38 19:31 05:42 MCV MCH MCHC RDW Plt Count MPV Absolute Nucleated RBC Nucleated RBC % (auto) Estim Creat Clear Calc 33.6 Estimated GFR 24 POC Glucose 218 H 220 H 06/12/22 06/12/22 06/12/22 07:02 11:05 13:24 MCV 80.7 MCH 25.8 L MCHC 32.0 RDW 17.2 H Plt Count 286 MPV 8.5 L Absolute Nucleated RBC 0.000 Nucleated RBC % (auto) 0.0 Estim Creat Clear Calc Estimated GFR POC Glucose 169 H 198 H Microbiology Microbiology Results: Microbiology 06/08/22 18:29 Blood Culture - Final Blood - Venous Coag negative Staphylococcus Assessment and Plan (1) Hypoglycemia: Status: Resolved (2) Multiple skin tears: Status: Inactive Plan 76-year-old female with past medical history of hypoglycemia on oral antihyperglycemics comes into the hospital with hypoglycemia # hypoglycemia/type 2 diabetes mellitus on insulin Low blood sugars? likely secondary to sulfonylurea and lack of eating, blood sugar greater than 200, tolerating diet , continue on insulin sliding scale, add low-dose Lantus at bedtime ?? 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 Prince she recommend nystatin cream mixed with zinc oxide applied to rash. Will recommend outpatient dermatology follow-up. # acute on chronic normocytic anemia no active GI bleed noted, question related to ongoing infection, check stool guaiac check iron studies ,check hemolytic workup, transfuse if hematocrit continued to trend down Will obtain old records from [facility], add GI prophylaxis DC heparin # MERA creatinine bumped from 1.3-2.29 on 06/11 prior to vancomycin, now trending down, likely due to hypotension, avoid nephrotoxin follow BMP continue to hold lisinopril # Gram-positive cocci bacteremia 05/12 blood culture bottle final report showed coagulase-negative non pathogenic bacteria DC IV vanco # hypertension fluctuating blood pressures continue metoprolol and follow BP, hold lisinopril. Pressure # morbid obesity recommend follow-up outpatient with weight management. # asthma-chronic persistent asthma not in exacerbation continue home inhalers. 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 to decide when to resume medication patient has IVC filter, hematocrit low 26.3 with a hemoglobin of 8.2 will follow CBC # urinary tract infection recently diagnosed to have Proteus and E coli UTI diagnosed June 05 finish 5 day course of antibiotic. ? DVT prophylaxis:? dc Heparin subQ , compression boots Patient need continued inpatient hospitalization for persistent hypoglycemia and significant pemphigus like rash. Time Spent With Patient Time: Total time managing care of this patient today ____ minutes. Quality Stroke Does the patient have a stroke diagnosis?: No VTE Prior VTE?: No VTE Risk Level:: Medical - moderate - high VTE Device Contraindication: Treatment Not Indicated VTE Drug Contraindication: N/A - Med Ordered
[2022-06-12 15:16] VITALS: BP 122/66; PULSE 104; RESP 18; TEMP 37.1; O2SAT 96
[2022-06-12 16:19] LABS: Glucose, Whole Blood 202 mg/dL (60-115)
[2022-06-12] MEDS: Nystatin Ointment 15 GM TUBE 1 APPL TOPICAL (17:31)
[2022-06-12 19:13] VITALS: BP 101/65; PULSE 95; RESP 18; TEMP 36; O2SAT 96
[2022-06-12 20:10] LABS: Glucose, Whole Blood 173 mg/dL (60-115)
[2022-06-12] MEDS: Insulin Glargine,Hum.rec.anlog 100 UNIT/ML 10 ML VIAL 8 UNIT SUBCUT (21:14)
[2022-06-12] MEDS: Albuterol Sulfate 90 MCG 8 GM INHALER 2 PUFF INHALE (22:38)
[2022-06-12 22:39] VITALS: PULSE 95; RESP 18; O2SAT 95
[2022-06-13] MEDS: Heparin Sodium,Porcine 5,000 UNIT/ML VIAL 5000 UNIT SUBCUT (00:09)
[2022-06-13] MEDS: 0.9 % Sodium Chloride Flush 3 ML SYRINGE IVFLUSH ×4 (00:09→23:48)
--- NOTE | 2022-06-13 00:14 | HO.WOUNDCONS ---
History of Present Illness Data of Consult Service Date: 06/12/22 Requesting physician: Ivory Almanza Primary Care Provider: Kia Ponce MD [facility] Reason for consult: Groin rash The patient is a 76-year-old female with multiple medical issues. past medical history of diabetes on oral anti hyperglycemics, hypertension, a resident of [place] presents to the hospital with complaints of hyperglycemia She has some baseline pemphigoid skin disease which creates lesions. She comes in now with worsening raw open areas in her bilateral groins and to a lesser degree axillary area. Review of Systems Review of Systems: Yes Unobtainable due to mental status [facility] Medical History (Updated 06/13/22 @ 00:19 by Lori Prince MD) Asthma CKD (chronic kidney disease) Diabetes Erythema intertrigo History of DVT (deep vein thrombosis) Hypertension Multiple skin tears Obesity Social History Household Members: Other Housing: Residential Do you presently have visiting nurse or other home services: No Alcohol intake: never Patient Tobacco Use Status: Never used Tobacco Smoked in Last 30 Days: No Use of substances other than those prescribed or required for medical reasons: No Currently Displaying Signs/Symptoms of Drug Intoxication Withdrawal: No Have you been hit, kicked, punched, or otherwise hurt by someone within the past year? If so, by whom?: No Do you feel safe in your current relationship?: Yes Is there a partner from a previous relationship who is making you feel unsafe now?: No Are you made to feel afraid or neglected: No Advance Directives: No Advance Directives Information Provided: No Do you have thoughts of harming others: None Do you have a plan to hurt others: No Plan Recently lost weight without trying: Unsure Nutrition Risks: No Nutritional Risk Patient : No : No Poor oral hygiene: No service: No Current occupational status: disabled Meds Allergies Allergy/AdvReac Type Severity Reaction Status Date / Time belladonna alkaloids Allergy Intermediate ITCHING Verified 06/08/22 18:37 [From ] phenobarbital [From ] Allergy Intermediate ITCHING Verified 06/08/22 18:37 Active Medications: Current Medications Acetaminophen (Acetaminophen 325 Mg Tablet) 650 mg PO TID [place] Last Admin: 06/12/22 21:14 Dose: Not Given Albuterol Sulfate (Albuterol Sulfate 90 Mcg 8 Gm Inhaler) 2 puff INHALE RQ6H PRN PRN Reason: Wheezing Last Admin: 06/12/22 22:38 Dose: 2 puff Atorvastatin Calcium (Atorvastatin Calcium 80 Mg Tablet) 80 mg PO BEDTIME [facility] Last Admin: 06/12/22 21:14 Dose: Not Given Bisacodyl (Bisacodyl 10 Mg Supp.Rect) 10 mg DE DAILY PRN PRN Reason: Constipation Dextrose (Dextrose 50 % 25 Gm/50 Ml Syringe) 25 gm IVPUSH Q15M PRN; Protocol PRN Reason: per Hypoglycemia Standing Ord. Last Admin: 06/09/22 16:01 Dose: 25 gm Dextrose (Dextrose 50 % 25 Gm/50 Ml Syringe) 25 gm IVPUSH Q15M PRN; Protocol PRN Reason: per Hypoglycemia Standing Ord. Docusate Sodium (Docusate Sodium 100 Mg Capsule) 100 mg PO DAILY PRN PRN Reason: Constipation Last Admin: 06/11/22 14:35 Dose: 100 mg Fluticasone/Vilanterol (Fluticasone/Vilanterol 100/25 Blst.W.Dev) 1 puff INHALE RDAILY [facility] Last Admin: 06/12/22 08:28 Dose: Not Given Glucose (Glucose Gel 15 Gm Gel..Gram.) 15 gm PO Q15M PRN; Protocol PRN Reason: per Hypoglycemia Standing Ord. Heparin Sodium (Porcine) (Heparin Sodium,Porcine 5,000 Unit/Ml Vial) 5,000 unit SUBCUT Q12H [facility] Last Admin: 06/13/22 00:09 Dose: 5,000 unit Insulin Glargine (Insulin Glargine,Hum.Rec.Anlog 100 Unit/Ml 10 Ml Vial) 8 unit SUBCUT BEDTIME [facility] Last Admin: 06/12/22 21:14 Dose: 8 unit Insulin Human Lispro (Insulin Lispro 100 Unit/Ml 3 Ml Vial) 0 unit SUBCUT QIDACHS [facility]; Protocol Last Admin: 06/12/22 21:12 Dose: 2 unit Metoprolol Succinate (Metoprolol Succinate Er 50 Mg Tab.Er.24h) 50 mg PO DAILY [facility]; Protocol Last Admin: 06/12/22 08:14 Dose: 50 mg Non-Formulary Medication (Mag64 ( Magnesium Chloride)) 2 tab PO DAILY [facility] Last Admin: 06/12/22 08:15 Dose: 2 tab Nystatin (Nystatin Powder 15 Gm Bottle) 1 appl TOPICAL BID [place]; Protocol Last Admin: 06/12/22 21:16 Dose: Not Given Nystatin (Nystatin Ointment 15 Gm Tube) 1 appl TOPICAL TID [facility]; Protocol Last Admin: 06/12/22 21:16 Dose: Not Given Ondansetron HCl (Ondansetron Hcl 4 Mg/2 Ml Vial) 4 mg IVPUSH Q8H PRN PRN Reason: Nausea and Vomiting Last Admin: 06/09/22 16:37 Dose: 4 mg Sodium Chloride (0.9 % Sodium Chloride Flush 3 Ml Syringe) 3 ml IVFLUSH QSHIFT [facility] Last Admin: 06/13/22 00:09 Dose: 3 ml Tramadol HCl (Tramadol Hcl 50 Mg Tablet) 50 mg PO Q8H PRN PRN Reason: Pain, Severe (Pain Scale 7-10) Last Admin: 06/12/22 05:08 Dose: 50 mg Zinc Oxide (Zinc Oxide 20% Ointment 28.35 Gm Tube) 1 appl TOPICAL TID [facility]; Protocol Last Admin: 06/12/22 21:15 Dose: Not Given Home Medications Medication Instructions Recorded Confirmed Last Taken Type atorvastatin 80 mg tablet 1 tab PO BEDTIME 06/08/22 06/08/22 Unknown History glimepiride 2 mg tablet 1 tab PO DAILY 06/08/22 06/08/22 Unknown History lisinopril 10 mg tablet 10 mg PO DAILY hypertension 06/08/22 06/08/22 Unknown History metoprolol succinate 50 mg 1 tab PO DAILY 06/08/22 06/08/22 Unknown History tablet,extended release 24 hr pioglitazone 30 mg tablet 1 tab PO DAILY 06/08/22 06/08/22 Unknown History tramadol 50 mg tablet 1 tab PO DAILY PRN Pain 06/08/22 06/08/22 Unknown History triamcinolone acetonide 0.1 % 1 appl topical BID PRN Rash 06/08/22 06/09/22 Unknown History topical cream acetaminophen 650 mg 650 mg PO Q8H 06/09/22 06/09/22 Unknown History tablet,extended release (Tylenol 8 Hour) albuterol sulfate 90 mcg/actuation 2 puff inhalation Q6H PRN Wheezing 06/09/22 06/09/22 Unknown History aerosol inhaler bisacodyl 10 mg rectal suppository 10 mg DE DAILY PRN Constipation 06/09/22 06/09/22 Unknown History budesonide-formoterol HFA 160 2 puff inhalation BID 06/09/22 06/09/22 Unknown History mcg-4.5 mcg/actuation aerosol inhaler (Symbicort) ciprofloxacin HCl 500 mg tablet 500 mg PO BID 06/09/22 06/09/22 Unknown History insulin detemir U-100 100 unit/mL 25 unit subcut BID 06/09/22 06/09/22 Unknown History (3 mL) subcutaneous pen (Levemir FlexTouch U-100 Insulin) meclizine 25 mg tablet 25 mg PO TID PRN Vertigo 06/09/22 06/09/22 Unknown History magnesium chloride 64 mg 128 mg PO DAILY 06/12/22 06/12/22 Unknown History (magnesium chloride) tablet Physical Exam Vital Signs and Narrative: Vital Signs: Last Vital Signs Temp 96.8 F 06/12/22 19:13 Pulse 95 06/12/22 22:39 Resp 18 06/12/22 22:39 BP 101/65 06/12/22 19:13 Pulse Ox 96 06/12/22 19:13 O2 Del Method 06/12/22 19:13 BMI result Body Mass Index 49.6 Skin: Other: Patient is morbidly obese and just the skin of her trunk has multiple scabbed lesions. The groin areas have some skin breakdown into some fatty tissue but generally are not weeping too much fluid at this point. There is no cellulitic changes for any abscess or boils. Results Labs 06/12/22 13:24 06/12/22 05:42 Labs: Laboratory Results - last 24 hr 06/12/22 06/12/22 06/12/22 05:42 07:02 11:05 MCV MCH MCHC RDW Plt Count MPV Absolute Nucleated RBC Nucleated RBC % (auto) Estim Creat Clear Calc 33.6 Estimated GFR 24 POC Glucose 169 H 198 H 06/12/22 06/12/22 06/12/22 13:24 16:15 20:06 MCV 80.7 MCH 25.8 L MCHC 32.0 RDW 17.2 H Plt Count 286 MPV 8.5 L Absolute Nucleated RBC 0.000 Nucleated RBC % (auto) 0.0 Estim Creat Clear Calc Estimated GFR POC Glucose 202 H 173 H Assessment and Plan (1) Pemphigoid: Status: Acute Plan 76-year-old female with multiple medical problems being followed by the medical team. Apparently she has baseline pemphigoid type skin disorder which is rare and I am not very familiar with it. On doing some research about this Kristine Kristine disease it seems like treatmentOf the skin wounds are Supportive and true treatment is with treatment of the autoimmune aspects of this disease. Discussed with the medical team about trying to get may be a Derm consult and then just topically using barrier and antifungal ointment to prevent secondary breakdown of this tissue. The patient is also morbidly obese which makes turning and moving and cleaning these areas difficult. Need to also be very cautious for wounds pressure sores etc. Time Spent With Patient Time: Total time managing care of this patient today ____ minutes.
[2022-06-13 03:22] VITALS: BP 118/57; PULSE 88; RESP 18; TEMP 36.1; O2SAT 98
[2022-06-13 06:03] LABS: MANUAL DIFF FLAG NO
[2022-06-13 06:07] LABS: Basophils Absolute Auto 0.1 X10*3/uL (0.0-0.2); Basophils Percent Auto 0.9 % (0-2); Eosinophils Absolute Auto 0.1 X10*3/uL (0.0-0.4); Eosinophils Percent Auto 1.7 % (0-4); Hematocrit 23.2 % (37.0-47.0); Hemoglobin 7.3 g/dl (12.0-16.0); Imm Gran Abs Auto 0.05 X10*3/uL (0.00-0.03); Imm Gran Pct Auto 0.7 % (0.0-0.4); Lymphocytes Absolute Auto 1.8 X10*3/uL (1.2-4.9); Lymphocytes Percent Auto 23.5 % (20-40); Mean Corpuscular HGB Conc 31.5 g/dl (31.0-35.0); Mean Corpuscular Volume 82.6 fL (80.0-98.0); Mean Platelet Volume 8.8 fL (9.4-12.3); Monocytes Absolute Auto 0.8 X10*3/uL (0.1-1.2); Monocytes Percent Auto 11.1 % (2-11); Neutrophils Absolute Auto 4.7 x10*3/uL (2.0-8.3); Neutrophils Percent Auto 62.1 % (45-73); Platelet Count 300 X10*3/uL (160-400); Red Blood Count 2.81 X10*6/uL (4.20-5.50); Red Cell Distribution Width 17.6 % (11.0-16.0); White Blood Count 7.5 X10*3/uL (4.8-10.8)
[2022-06-13 06:37] LABS: Creatinine Clr Calc Pharmacy 40.1; Estimated Glomerular Filt Rate 29; Iron 17 mcg/dL (30-160); Lactate Dehydrogenase 202 U/L (122-220); Percent Iron Saturation 10 % (15-50); Total Iron Binding Capacity 175 mcg/dL (228-428); Unsaturated Iron Binding 158 ug/dL
[2022-06-13 06:51] LABS: Ferritin 128 ng/mL (10-250)
[2022-06-13 06:56] VITALS: BP 148/72; PULSE 102; RESP 20; TEMP 36.7; O2SAT 95
[2022-06-13 07:07] LABS: Glucose, Whole Blood 101 mg/dL (60-115)
[2022-06-13] MEDS: Fluticasone/Vilanterol 100/25 BLST.W.DEV 1 PUFF INHALE (07:35)
[2022-06-13] MEDS: Acetaminophen 325 MG TABLET 650 MG PO ×3 (09:30→21:27)
[2022-06-13] MEDS: Metoprolol Succinate ER 50 MG TAB.ER.24H PO (09:31)
[2022-06-13] MEDS: Omeprazole 20 MG CAPSULE.DR PO ×2 (09:35→16:07)
[2022-06-13] MEDS: Nystatin Powder 15 GM BOTTLE 1 APPL TOPICAL ×3 (09:40→21:28)
[2022-06-13] MEDS: Zinc Oxide 20% Ointment 28.35 GM TUBE 1 APPL TOPICAL ×3 (09:40→21:29)
[2022-06-13] MEDS: Nystatin Ointment 15 GM TUBE 1 APPL TOPICAL ×3 (09:40→21:28)
[2022-06-13] MEDS: traMADoL HCL 50 MG TABLET PO (10:00)
[2022-06-13] MEDS: Docusate Sodium 100 MG CAPSULE PO (10:01)
[2022-06-13 11:09] LABS: Glucose, Whole Blood 206 mg/dL (60-115)
[2022-06-13 11:18] LABS: Vancomycin Random 9.2 mcg/mL (15-20)
[2022-06-13] MEDS: Insulin Lispro 100 UNIT/ML 3 ML VIAL SUBCUT ×2 (11:38→21:26)
--- NOTE | 2022-06-13 12:13 | MHC.CM.PN ---
EMR REVIEWED, D/T DROPPING H&H PT WILL NEED TO BE TRANSFUSED W/I UNIT, NO PLAN FOR D/C TODAY HOWEVER PLAN REMAINS TO RETURN TO [facility] BED HOLD VIA BLS TRANSPORT. CM WILL CON TO FOLLOW D/C .NEEDS PT WILL LIKELY NEED OUTPT FOLLOW-UP W/AUTOIMMUNE D/T AMADOU AMADOU SKIN DISORDER.
--- NOTE | 2022-06-13 12:29 | HO.PM.IMPN ---
Subjective Subjective Date of Service: 06/13/22 Interval History: Patient awake alert this morning tolerating diet, complaining groin discomfort, no fevers, no chills, denies hematemesis, no melena had 1 bowel movement yesterday, no acute issues overnight. Being followed for hypoglycemia, rash and anemia. Review of Systems Review of Systems: Yes all other systems are reviewed and are negative Physical Exam Vital Signs: Vital Signs: Last Vital Signs Temp 98.1 F 06/13/22 06:56 Pulse 102 H 06/13/22 06:56 Resp 20 06/13/22 06:56 BP 148/72 H 06/13/22 06:56 Pulse Ox 95 06/13/22 06:56 O2 Del Method 06/13/22 06:56 BMI result Body Mass Index 49.6 Const: Other: General resting in?bed, no acute distress.? Neck? supple no JVD. CVS? regular rate rhythm, Respiratory lungs?clear to auscultation, no respiratory distress, no wheeze, no rhonchi. Gastrointestinal abdomen soft, nontender, bowel sounds?audible, no guarding , no rigidity. Extremities no pitting? edema. Neuro? moving all 4 extremity speech clear. Skin bilateral?axillary ,groin, under breast rash with discoloration and open sores?painful with?examination and dressing change, Objective Data Active Medications Acetaminophen (Acetaminophen 325 Mg Tablet) 650 mg PO TID [facility] Last Admin: 06/13/22 09:30 Dose: 650 mg Documented By: [place] Albuterol Sulfate (Albuterol Sulfate 90 Mcg 8 Gm Inhaler) 2 puff INHALE RQ6H PRN PRN Reason: Wheezing Last Admin: 06/12/22 22:38 Dose: 2 puff Documented By: ARPIT Atorvastatin Calcium (Atorvastatin Calcium 80 Mg Tablet) 80 mg PO BEDTIME [facility] Last Admin: 06/12/22 21:14 Dose: Not Given Documented By: HALEIGH Non-Admin Reason: Patient Asleep Bisacodyl (Bisacodyl 10 Mg Supp.Rect) 10 mg ND DAILY PRN PRN Reason: Constipation Dextrose (Dextrose 50 % 25 Gm/50 Ml Syringe) 25 gm IVPUSH Q15M PRN; Protocol PRN Reason: per Hypoglycemia Standing Ord. Last Admin: 06/09/22 16:01 Dose: 25 gm Documented By: LUCIENENOAL Dextrose (Dextrose 50 % 25 Gm/50 Ml Syringe) 25 gm IVPUSH Q15M PRN; Protocol PRN Reason: per Hypoglycemia Standing Ord. Docusate Sodium (Docusate Sodium 100 Mg Capsule) 100 mg PO DAILY PRN PRN Reason: Constipation Last Admin: 06/13/22 10:01 Dose: 100 mg Documented By: JEFERSON Fluticasone/Vilanterol (Fluticasone/Vilanterol 100/25 Blst.W.Dev) 1 puff INHALE RDAILY [facility] Last Admin: 06/13/22 07:35 Dose: 1 puff Documented By: ULRICC Glucose (Glucose Gel 15 Gm Gel..Gram.) 15 gm PO Q15M PRN; Protocol PRN Reason: per Hypoglycemia Standing Ord. Insulin Glargine (Insulin Glargine,Hum.Rec.Anlog 100 Unit/Ml 10 Ml Vial) 8 unit SUBCUT BEDTIME [facility] Last Admin: 06/12/22 21:14 Dose: 8 unit Documented By: HALEIGH Insulin Human Lispro (Insulin Lispro 100 Unit/Ml 3 Ml Vial) 0 unit SUBCUT QIDACHS [facility]; Protocol Last Admin: 06/13/22 11:38 Dose: 4 unit Documented By: JEFERSON Metoprolol Succinate (Metoprolol Succinate Er 50 Mg Tab.Er.24h) 50 mg PO DAILY [facility]; Protocol Last Admin: 06/13/22 09:31 Dose: 50 mg Documented By: [place] Non-Formulary Medication (Mag64 ( Magnesium Chloride)) 2 tab PO DAILY [facility] Last Admin: 06/13/22 09:48 Dose: 2 tab Documented By: [place] Nystatin (Nystatin Powder 15 Gm Bottle) 1 appl TOPICAL BID [facility]; Protocol Last Admin: 06/13/22 09:40 Dose: 1 appl Documented By: [place] Nystatin (Nystatin Ointment 15 Gm Tube) 1 appl TOPICAL TID [facility]; Protocol Last Admin: 06/13/22 09:40 Dose: 1 appl Documented By: [place] Omeprazole (Omeprazole 20 Mg Capsule.Dr) 20 mg PO BID@0630,1630 [facility] Last Admin: 06/13/22 09:35 Dose: 20 mg Documented By: [place] Ondansetron HCl (Ondansetron Hcl 4 Mg/2 Ml Vial) 4 mg IVPUSH Q8H PRN PRN Reason: Nausea and Vomiting Last Admin: 06/09/22 16:37 Dose: 4 mg Documented By: JUAN A Sodium Chloride (0.9 % Sodium Chloride Flush 3 Ml Syringe) [facility] Last Admin: 06/13/22 09:35 Dose: 3 ml Documented By: [place] Tramadol HCl (Tramadol Hcl 50 Mg Tablet) 50 mg PO Q8H PRN PRN Reason: Pain, Severe (Pain Scale 7-10) Last Admin: 06/13/22 10:00 Dose: 50 mg Documented By: JEFERSON Zinc Oxide (Zinc Oxide 20% Ointment 28.35 Gm Tube) 1 appl TOPICAL TID [facility]; Protocol Last Admin: 06/13/22 09:40 Dose: 1 appl Documented By: [place] Labs 06/13/22 05:52 06/13/22 05:52 Labs: Laboratory Results - last 24 hr 06/12/22 06/12/22 06/12/22 13:24 16:15 20:06 MCV 80.7 MCH 25.8 L MCHC 32.0 RDW 17.2 H Plt Count 286 MPV 8.5 L Immature Gran % (Auto) Neut % (Auto) Lymph % (Auto) [place] % (Auto) Eos % (Auto) Baso % (Auto) Lymph # (Auto) [place] # (Auto) Eos # (Auto) Baso # (Auto) Abs Immat Gran (auto) Absolute Neuts (auto) Absolute Nucleated RBC 0.000 Nucleated RBC % (auto) 0.0 Estim Creat Clear Calc Estimated GFR POC Glucose 202 H 173 H Iron TIBC % Saturation Unsat Iron Binding Ferritin Lactate Dehydrogenase Random Vancomycin Blood Type Antibody Screen Crossmatch 06/13/22 06/13/22 06/13/22 05:52 05:52 06:56 MCV 82.6 MCH 26.0 L MCHC 31.5 RDW 17.6 H Plt Count 300 MPV 8.8 L Immature Gran % (Auto) 0.7 H Neut % (Auto) 62.1 Lymph % (Auto) 23.5 [place] % (Auto) 11.1 H Eos % (Auto) 1.7 Baso % (Auto) 0.9 Lymph # (Auto) 1.8 [place] # (Auto) 0.8 Eos # (Auto) 0.1 Baso # (Auto) 0.1 Abs Immat Gran (auto) 0.05 H Absolute Neuts (auto) 4.7 Absolute Nucleated RBC 0.000 Nucleated RBC % (auto) 0.0 Estim Creat Clear Calc 40.1 Estimated GFR 29 POC Glucose 101 Iron 17 L TIBC 175 L % Saturation 10 L Unsat Iron Binding 158 Ferritin 128 Lactate Dehydrogenase 202 Random Vancomycin Blood Type Antibody Screen Crossmatch 06/13/22 06/13/22 06/13/22 08:48 10:41 11:03 MCV MCH MCHC RDW Plt Count MPV Immature Gran % (Auto) Neut % (Auto) Lymph % (Auto) [place] % (Auto) Eos % (Auto) Baso % (Auto) Lymph # (Auto) [place] # (Auto) Eos # (Auto) Baso # (Auto) Abs Immat Gran (auto) Absolute Neuts (auto) Absolute Nucleated RBC Nucleated RBC % (auto) Estim Creat Clear Calc Estimated GFR POC Glucose 206 H Iron TIBC % Saturation Unsat Iron Binding Ferritin Lactate Dehydrogenase Random Vancomycin 9.2 L Blood Type A Positive Antibody Screen NEGATIVE Crossmatch See Detail Microbiology Microbiology Results: Microbiology 06/08/22 18:29 Blood Culture - Final Blood - Venous Coag negative Staphylococcus Assessment and Plan (1) Hypoglycemia: Status: Resolved (2) Multiple skin tears: Status: Inactive Plan 76-year-old female with past medical history of hypoglycemia on oral antihyperglycemics comes into the hospital with hypoglycemia # hypoglycemia/type 2 diabetes mellitus on insulin Low blood sugars wre likely secondary to glimepiride and lack of eating, blood sugar greater than 200, tolerating diet , continue on insulin sliding scale, low-dose Lantus 8 u at bedtime blood sugar 101 this morning At home was on pioglitazone glimepiride,and Levemir insulin 25 units b.i.d. will DC glimepiride, will continue pioglitazone and Lantus upon discharge ?? 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 Prince she recommend nystatin cream mixed with zinc oxide applied to rash. Will recommend outpatient dermatology follow-up. Will continue magnesium chloride 200 daily upon discharge since its is 1 of the treatment for Ryanne Ryanne disease. # acute on chronic normocytic anemia no active GI bleed noted, question related to ongoing infection, stool guaiac uncollected Iron studies showed low iron stores but not consistent with iron deficiency anemia, normal LDH less likely hemolysis, Hematocrit dropped to 23 from admission hematocrit of 30.5, patient declined blood transfusion is [employer] , will transfuse iron Requested old records from [facility], ? Recent History of GI bleed Added Prilosec 20 mg b.i.d. # MERA creatinine bumped from 1.3-2.29 on 06/11 prior to vancomycin, now trending down 1.69 today, likely due to hypotension, avoid nephrotoxin follow BMP, continue to hold lisinopril. # Gram-positive cocci bacteremia 05/12 blood culture bottle final report showed coagulase-negative non pathogenic bacteria DC IV vanco # hypertension fluctuating blood pressures continue metoprolol and follow BP, hold lisinopril. # morbid obesity recommend follow-up outpatient with weight management. # asthma-chronic persistent asthma not in exacerbation continue home inhalers. 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 to decide when to resume medication patient has IVC filter. # urinary tract infection recently diagnosed to have Proteus and E coli UTI diagnosed June 05 finish 5 day course of antibiotic. ? DVT prophylaxis:? dc Heparin subQ , compression boots Disposition return back to nursing facility Patient need continued inpatient hospitalization for anemia requiring IV iron infusion and acute kidney injury need close clinical follow-up. Time Spent With Patient Time: Total time managing care of this patient today ____ minutes. Quality Stroke Does the patient have a stroke diagnosis?: No VTE Prior VTE?: No VTE Risk Level:: Medical - moderate - high VTE Device Contraindication: Treatment Not Indicated VTE Drug Contraindication: N/A - Med Ordered
[2022-06-13] MEDS: Iron Sucrose Complex 200 MG in 0.9 % Sodium Chloride 100 ML 440 MG IV (12:39)
[2022-06-13 15:10] VITALS: BP 113/52; PULSE 90; RESP 20; TEMP 36; O2SAT 91
[2022-06-13 16:30] LABS: Glucose, Whole Blood 145 mg/dL (60-115)
[2022-06-13 19:22] VITALS: BP 116/57; PULSE 91; RESP 18; TEMP 36; O2SAT 96
[2022-06-13 19:42] LABS: Glucose, Whole Blood 198 mg/dL (60-115)
[2022-06-13] MEDS: Insulin Glargine,Hum.rec.anlog 100 UNIT/ML 10 ML VIAL 8 UNIT SUBCUT (21:26)
[2022-06-13] MEDS: Atorvastatin Calcium 80 MG TABLET PO (21:27)
[2022-06-14 01:54] VITALS: BP 129/56; PULSE 94; RESP 20; TEMP 36.3; O2SAT 100
[2022-06-14] MEDS: Omeprazole 20 MG CAPSULE.DR PO ×2 (05:37→17:22)
[2022-06-14 05:54] LABS: Hematocrit 21.7 % (37.0-47.0); Mean Corpuscular HGB Conc 31.3 g/dl (31.0-35.0); Mean Corpuscular Volume 82.8 fL (80.0-98.0); Platelet Count 291 X10*3/uL (160-400); Red Blood Count 2.62 X10*6/uL (4.20-5.50); Red Cell Distribution Width 17.5 % (11.0-16.0); White Blood Count 5.9 X10*3/uL (4.8-10.8)
[2022-06-14 06:05] LABS: Anion Gap 16 (12-20); Blood Urea Nitrogen 34 mg/dL (9-16); Calcium 8.1 mg/dL (8.4-10.2); Carbon Dioxide 22 mmol/L (22-29); Chloride 101 mmol/L (96-108); Creatinine Clr Calc Pharmacy 53.5; Estimated Glomerular Filt Rate 41; Glucose Random 124 mg/dL (60-115); Potassium 5.6 mmol/L (3.3-5.1); Sodium 133 mmol/L (135-145)
[2022-06-14 06:08] LABS: Hemoglobin 6.8 g/dl (12.0-16.0)
[2022-06-14 07:41] LABS: Glucose, Whole Blood 124 mg/dL (60-115)
[2022-06-14 08:00] VITALS: BP 127/63; PULSE 100; RESP 19; TEMP 37.4; O2SAT 97
[2022-06-14] MEDS: Fluticasone/Vilanterol 100/25 BLST.W.DEV 1 PUFF INHALE (08:16)
[2022-06-14 08:18] VITALS: PULSE 89; RESP 18; O2SAT 96
[2022-06-14] MEDS: 0.9 % Sodium Chloride Flush 3 ML SYRINGE IVFLUSH ×2 (08:25→17:22)
[2022-06-14] MEDS: Acetaminophen 325 MG TABLET 650 MG PO ×3 (08:25→21:17)
[2022-06-14] MEDS: Metoprolol Succinate ER 50 MG TAB.ER.24H PO (08:26)
[2022-06-14] MEDS: Nystatin Ointment 15 GM TUBE 1 APPL TOPICAL ×3 (08:27→22:43)
[2022-06-14] MEDS: Nystatin Powder 15 GM BOTTLE 1 APPL TOPICAL ×2 (08:27→22:43)
[2022-06-14] MEDS: Zinc Oxide 20% Ointment 28.35 GM TUBE 1 APPL TOPICAL ×3 (08:28→22:43)
[2022-06-14 11:23] LABS: Glucose, Whole Blood 160 mg/dL (60-115)
[2022-06-14] MEDS: Insulin Lispro 100 UNIT/ML 3 ML VIAL SUBCUT ×3 (11:46→21:17)
[2022-06-14] MEDS: traMADoL HCL 50 MG TABLET PO (11:46)
--- NOTE | 2022-06-14 13:07 | P.PNIM_ITS ---
Subjective Subjective Date of Service: 06/14/22 Interval History: No acute issues overnight. States rash is improving. Continues to require to assist returning in bed Review of Systems Denies chest pain Denies shortness of breath Denies nausea vomiting diarrhea Physical Exam Vital Signs: Vital Signs: Last Vital Signs Temp 99.4 F 06/14/22 08:00 Pulse 89 06/14/22 08:18 Resp 18 06/14/22 08:18 BP 127/63 06/14/22 08:00 Pulse Ox 97 06/14/22 08:00 O2 Del Method 06/14/22 08:00 BMI result Body Mass Index 49.6 Const: Other: No acute issues overnight Resp: Other: Clear to auscultation bilateral; no rales rhonchi or wheezes GI: Other: Soft nontender nondistended normoactive bowel sounds Extrem: Other: No edema bilaterally Objective Data Active Medications Acetaminophen (Acetaminophen 325 Mg Tablet) 650 mg PO TID [facility] Last Admin: 06/14/22 08:25 Dose: 650 mg Documented By: ANA CRISTINA Albuterol Sulfate (Albuterol Sulfate 90 Mcg 8 Gm Inhaler) 2 puff INHALE RQ6H PRN PRN Reason: Wheezing Last Admin: 06/12/22 22:38 Dose: 2 puff Documented By: ARPIT Atorvastatin Calcium (Atorvastatin Calcium 80 Mg Tablet) 80 mg PO BEDTIME [facility] Last Admin: 06/13/22 21:27 Dose: 80 mg Documented By: JORDY Bisacodyl (Bisacodyl 10 Mg Supp.Rect) 10 mg AL DAILY PRN PRN Reason: Constipation Dextrose (Dextrose 50 % 25 Gm/50 Ml Syringe) 25 gm IVPUSH Q15M PRN; Protocol PRN Reason: per Hypoglycemia Standing Ord. Last Admin: 06/09/22 16:01 Dose: 25 gm Documented By: NGENOAL Dextrose (Dextrose 50 % 25 Gm/50 Ml Syringe) 25 gm IVPUSH Q15M PRN; Protocol PRN Reason: per Hypoglycemia Standing Ord. Docusate Sodium (Docusate Sodium 100 Mg Capsule) 100 mg PO DAILY PRN PRN Reason: Constipation Last Admin: 06/13/22 10:01 Dose: 100 mg Documented By: JEFERSON Fluticasone/Vilanterol (Fluticasone/Vilanterol 100/25 Blst.W.Dev) 1 puff INHALE RDAILY [facility] Last Admin: 06/14/22 08:16 Dose: 1 puff Documented By: MARSHALL Glucose (Glucose Gel 15 Gm Gel..Gram.) 15 gm PO Q15M PRN; Protocol PRN Reason: per Hypoglycemia Standing Ord. Insulin Glargine (Insulin Glargine,Hum.Rec.Anlog 100 Unit/Ml 10 Ml Vial) 8 unit SUBCUT BEDTIME [facility] Last Admin: 06/13/22 21:26 Dose: 8 unit Documented By: JORDY Insulin Human Lispro (Insulin Lispro 100 Unit/Ml 3 Ml Vial) 0 unit SUBCUT QIDACHS [facility]; Protocol Last Admin: 06/14/22 11:46 Dose: 2 unit Documented By: ANA CRISTINA Metoprolol Succinate (Metoprolol Succinate Er 50 Mg Tab.Er.24h) 50 mg PO DAILY [facility]; Protocol Last Admin: 06/14/22 08:26 Dose: 50 mg Documented By: ANA CRISTINA Non-Formulary Medication (Mag64 ( Magnesium Chloride)) 2 tab PO DAILY [facility] Last Admin: 06/14/22 08:26 Dose: 2 tab Documented By: ANA CRISTINA Nystatin (Nystatin Powder 15 Gm Bottle) 1 appl TOPICAL BID [facility]; Protocol Last Admin: 06/14/22 08:27 Dose: 1 appl Documented By: ANA CRISTINA Nystatin (Nystatin Ointment 15 Gm Tube) 1 appl TOPICAL TID [facility]; Protocol Last Admin: 06/14/22 08:27 Dose: 1 appl Documented By: ANA CRISTINA Omeprazole (Omeprazole 20 Mg [place].) 20 mg PO BID@0630,1630 [facility] Last Admin: 06/14/22 05:37 Dose: 20 mg Documented By: COTEMA Ondansetron HCl (Ondansetron Hcl 4 Mg/2 Ml Vial) 4 mg IVPUSH Q8H PRN PRN Reason: Nausea and Vomiting Last Admin: 06/09/22 16:37 Dose: 4 mg Documented By: NGENOAL Sodium Chloride (0.9 % Sodium Chloride Flush 3 Ml Syringe) 3 ml IVFLUSH QSHIFT [facility] Last Admin: 06/14/22 08:25 Dose: 3 ml Documented By: ANA CRISTINA Tramadol HCl (Tramadol Hcl 50 Mg Tablet) 50 mg PO Q4H PRN PRN Reason: Pain, Moderate (Pain Scale 4-6 Last Admin: 06/14/22 11:46 Dose: 50 mg Documented By: ANA CRISTINA Zinc Oxide (Zinc Oxide 20% Ointment 28.35 Gm Tube) 1 appl TOPICAL TID [facility]; Protocol Last Admin: 06/14/22 08:28 Dose: 1 appl Documented By: ANA CRISTINA Labs 06/14/22 05:27 06/14/22 05:27 Labs: Laboratory Results - last 24 hr 06/13/22 06/13/22 06/13/22 08:48 16:18 19:29 MCV MCH MCHC RDW Plt Count MPV Absolute Nucleated RBC Nucleated RBC % (auto) Anion Gap Estim Creat Clear Calc Estimated GFR POC Glucose 145 H 198 H Random Glucose Calcium Crossmatch See Detail 06/14/22 06/14/22 06/14/22 05:27 05:27 07:31 MCV 82.8 MCH 26.0 L MCHC 31.3 RDW 17.5 H Plt Count 291 MPV 9.0 L Absolute Nucleated RBC 0.000 Nucleated RBC % (auto) 0.0 Anion Gap 16 Estim Creat Clear Calc 53.5 Estimated GFR 41 POC Glucose 124 H Random Glucose 124 H Calcium 8.1 L Crossmatch 06/14/22 11:18 MCV MCH MCHC RDW Plt Count MPV Absolute Nucleated RBC Nucleated RBC % (auto) Anion Gap Estim Creat Clear Calc Estimated GFR POC Glucose 160 H Random Glucose Calcium Crossmatch Microbiology Microbiology Results: Microbiology 06/08/22 18:29 Blood Culture - Final Blood - Venous No growth after 5 days. Assessment and Plan (1) Diabetes type 2, controlled: Status: Acute (2) Pemphigoid: Status: Acute (3) Anemia: Status: Acute (4) MERA (acute kidney injury): Status: Acute Plan 76-year-old female with past medical history of hypoglycemia on oral antihyperglycemics comes into the hospital with hypoglycemia and worsening chronic edema 1.Hypoglycemia/type 2 diabetes mellitus -acceptable control on Lantus/sliding scale -add back oral therapies as dictated by point cares 2.Benign familial pemphigus -magnesium chloride 200 mg daily day(4) -improving with topical therapies 3.Acute on chronic normocytic anemia -Iron studies showed low iron stores but not consistent with iron deficiency anemia -hemoglobin 6.8 this morning; refusing blood secondary to samaritan beliefs;( understands consequences) -additional dose of IV iron today check hemoglobin Na a 4. MERA -normalized -follow renals/divalents 5.Hypertension -acceptable control -adjust as indicated 6.Urinary tract infection -Proteus and E coli UTI -CTX ...completed course compression boots Full code Patient need continued inpatient hospitalization for anemia requiring IV iron infusion and acute kidney injury need close clinical follow-up. Time Spent With Patient Time: Total time managing care of this patient today ____ minutes. Quality Stroke Does the patient have a stroke diagnosis?: No VTE Prior VTE?: No VTE Risk Level:: Medical - moderate - high VTE Device Contraindication: Treatment Not Indicated VTE Drug Contraindication: N/A - Med Ordered
[2022-06-14] MEDS: Iron Sucrose Complex 200 MG in 0.9 % Sodium Chloride 100 ML 440 MG IV (13:13)
[2022-06-14 16:00] VITALS: BP 111/53; PULSE 90; RESP 16; TEMP 36.6; O2SAT 92
[2022-06-14 16:59] LABS: Glucose, Whole Blood 170 mg/dL (60-115)
[2022-06-14 19:18] VITALS: BP 138/60; PULSE 110; RESP 18; TEMP 37; O2SAT 96
[2022-06-14 20:19] LABS: Glucose, Whole Blood 194 mg/dL (60-115)
[2022-06-14] MEDS: Atorvastatin Calcium 80 MG TABLET PO (21:17)
[2022-06-14] MEDS: Insulin Glargine,Hum.rec.anlog 100 UNIT/ML 10 ML VIAL 8 UNIT SUBCUT (21:18)
[2022-06-15] MEDS: 0.9 % Sodium Chloride Flush 3 ML SYRINGE IVFLUSH ×2 (00:40→08:15)
[2022-06-15 03:21] VITALS: BP 120/56; PULSE 104; RESP 20; TEMP 36.5; O2SAT 97
[2022-06-15] MEDS: Omeprazole 20 MG CAPSULE.DR PO (05:44)
[2022-06-15] MEDS: traMADoL HCL 50 MG TABLET PO ×2 (05:44→14:22)
[2022-06-15 07:28] LABS: MANUAL DIFF FLAG NO
[2022-06-15 07:30] LABS: Glucose, Whole Blood 130 mg/dL (60-115)
[2022-06-15 07:43] LABS: Basophils Absolute Auto 0.1 X10*3/uL (0.0-0.2); Basophils Percent Auto 1.1 % (0-2); Eosinophils Absolute Auto 0.3 X10*3/uL (0.0-0.4); Hematocrit 27.3 % (37.0-47.0); Hemoglobin 8.4 g/dl (12.0-16.0); Imm Gran Abs Auto 0.07 X10*3/uL (0.00-0.03); Imm Gran Pct Auto 0.8 % (0.0-0.4); Lymphocytes Absolute Auto 2.2 X10*3/uL (1.2-4.9); Lymphocytes Percent Auto 26.7 % (20-40); Mean Corpuscular HGB Conc 30.8 g/dl (31.0-35.0); Mean Corpuscular Hemoglobin 25.9 pg (27.0-33.0); Mean Corpuscular Volume 84.3 fL (80.0-98.0); Mean Platelet Volume 8.8 fL (9.4-12.3); Monocytes Absolute Auto 0.9 X10*3/uL (0.1-1.2); Monocytes Percent Auto 10.9 % (2-11); Neutrophils Absolute Auto 4.7 x10*3/uL (2.0-8.3); Neutrophils Percent Auto 56.5 % (45-73); Platelet Count 324 X10*3/uL (160-400); Red Blood Count 3.24 X10*6/uL (4.20-5.50); Red Cell Distribution Width 18.2 % (11.0-16.0); White Blood Count 8.3 X10*3/uL (4.8-10.8)
[2022-06-15 07:51] VITALS: BP 105/52; PULSE 101; RESP 19; TEMP 36.3; O2SAT 96
[2022-06-15] MEDS: Fluticasone/Vilanterol 100/25 BLST.W.DEV 1 PUFF INHALE (08:09)
[2022-06-15 08:11] VITALS: PULSE 99; RESP 18; O2SAT 93
[2022-06-15] MEDS: Metoprolol Succinate ER 50 MG TAB.ER.24H PO (08:13)
[2022-06-15] MEDS: Acetaminophen 325 MG TABLET 650 MG PO ×2 (08:14→14:22)
[2022-06-15] MEDS: Nystatin Ointment 15 GM TUBE 1 APPL TOPICAL ×2 (08:15→14:23)
[2022-06-15] MEDS: Nystatin Powder 15 GM BOTTLE 1 APPL TOPICAL (08:15)
[2022-06-15] MEDS: Zinc Oxide 20% Ointment 28.35 GM TUBE 1 APPL TOPICAL ×2 (08:17→14:23)
[2022-06-15 08:34] LABS: Alanine Aminotransferase 17 U/L (0-31); Albumin Level 2.5 g/dL (3.5-5.0); Alkaline Phosphatase 65 U/L (39-117); Anion Gap 16 (12-20); Aspartate Amino Transferase 23 U/L (5-31); Bilirubin Total 0.4 mg/dL (0.0-1.0); Blood Urea Nitrogen 25 mg/dL (9-16); Calcium 8.5 mg/dL (8.4-10.2); Carbon Dioxide 23 mmol/L (22-29); Chloride 105 mmol/L (96-108); Creatinine Clr Calc Pharmacy 59.6; Estimated Glomerular Filt Rate 46; Glucose Fasting 110 mg/dL (60-99); Sodium 139 mmol/L (135-145); Total Protein 5.9 g/dL (6.5-8.0)
--- NOTE | 2022-06-15 10:19 | PM.DS ---
DS: Providers Provider Date of Service: 06/15/22 Date of admission: 06/09/22 00:00 Date of discharge: 06/15/22 Primary care physician: Kia Ponce MD Consults: 06/10/22 16:58 Consult to Wound Care Routine Consulting Provider: Lori Prince Reason for consultation: groin rash diffuse Has provider been notified: No DS: Diagnosis Discharge Diagnosis (1) Diabetes type 2, controlled: Status: Acute (2) Pemphigoid: Status: Acute (3) Anemia: Status: Acute (4) MERA (acute kidney injury): Status: Acute DS: Summary Hospital Course Hospital Course: Date of Service: 06/09/22 Chief Complaint: Hypoglycemia 76-year-old female with past medical history of diabetes on oral anti hyperglycemics, hypertension, a resident of group home presents to the hospital with complaints of hyperglycemia.? Patient is alert oriented, at bedside helped with the history, they state the patient was hypoglycemic in the morning and has had multiple episodes of hypoglycemia at the group home, she was sleeping, did not eat or take anything, on her 's visit, he states that he found her unresponsive, completely laid out on the bed, when they reach checked her sugar she was in the 40s therefore sent to the hospital. She otherwise denies any chest pain, no abdominal pain, no nausea or vomiting, no diarrhea constipation, no urinary symptoms and no lower extremity edema.? She does have chronic skin disease that does not know the name of it, reports that she was on ointments by her dermatology but has not received it since being at the group home.? He states the patient is a group home for history of DVT and difficulty ambulating. On arrival to the ED patient hemodynamically stable with no significant abnormal vitals Labs are significant for glucose of 47, patient received D50 with repeats remain in the 30s and 20s, patient started on D5 but remained hypoglycemia, patient will be admitted for further management.? Labs otherwise remarkable. Patient started on D10 and will be admitted for further management. 76-year-old female with past medical history of hypoglycemia on oral antihyperglycemics comes into the hospital with hypoglycemia # hypoglycemia/type 2 diabetes mellitus on insulin ?? Low blood sugars? likely secondary to sulfonylurea and lack of eating, blood sugar greater than 200, tolerating diet , IV fluid discontinued, will place on insulin sliding scale, change point of care blood sugar monitoring to q.6 ?? hours ?? # multiple skin lesions as per has diagnosis of Osvaldo Pearl (benign familial pemphigus) ?? Start magnesium chloride 200 mg daily, await Wound Care input for local care. # Gram-positive cocci bacteremia 1/2 blood culture bottle positive will place on vancomycin and follow final blood culture report question related to skin lesion. # hypertension fluctuating blood pressures continue metoprolol and follow BP # morbid obesity recommend follow-up outpatient with weight management # asthma-chronic persistent asthma not in exacerbation continue home inhalers. 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 to decide when to resume medication patient has IVC filter, hematocrit low 26.3 with a hemoglobin of 8.2 will follow CBC # urinary tract infection recently diagnosed to have Proteus and E coli UTI diagnosed June 05 finish 5 day course of antibiotic. Patient also found to be profoundly anemic but secondary to spiritism beliefs did not get transfused a but will got 2 doses of IV iron with a return in her hemoglobin to baseline. She will be discharged on iron and vitamin-C and follow up with facility physician Time Spent with Patient Time attestation: Total time managing care of this patient today ____ minutes. Discharge coordination time: Greater than 30 minutes Quality: Safe Use of Opioids Does Pt have an Active Cancer Diagnosis on the Problem List?: No Quality: Stroke Does the patient have a stroke diagnosis?: No Physical Exam Vital Signs: Vital Signs: Last Vital Signs Temp 97.4 F 06/15/22 07:51 Pulse 99 06/15/22 08:11 Resp 18 06/15/22 08:11 BP 105/52 L 06/15/22 07:51 Pulse Ox 96 06/15/22 07:51 O2 Del Method 06/15/22 07:51 BMI result Body Mass Index 49.6 Const: Other: No acute issues overnight Resp: Other: Clear to auscultation bilateral; no rales rhonchi or wheezes GI: Other: Soft nontender nondistended normoactive bowel sounds Extrem: Other: No edema bilaterally DS: Data Data Completed and Pending Labs on day of discharge: Laboratory Results - last 24 hr 06/14/22 06/14/22 06/14/22 11:18 16:03 19:27 WBC RBC Hgb Hct MCV MCH MCHC RDW Plt Count MPV Immature Gran % (Auto) Neut % (Auto) Lymph % (Auto) [place] % (Auto) Eos % (Auto) Baso % (Auto) Lymph # (Auto) [place] # (Auto) Eos # (Auto) Baso # (Auto) Abs Immat Gran (auto) Absolute Neuts (auto) Absolute Nucleated RBC Nucleated RBC % (auto) Sodium Potassium Chloride Carbon Dioxide Anion Gap BUN Creatinine Estim Creat Clear Calc Estimated GFR POC Glucose 160 H 170 H 194 H Fasting Glucose Calcium Total Bilirubin AST ALT Alkaline Phosphatase Total Protein Albumin 06/15/22 06/15/22 06/15/22 05:47 05:47 07:22 WBC 8.3 RBC 3.24 L D Hgb 8.4 L D Hct 27.3 L D MCV 84.3 MCH 25.9 L MCHC 30.8 L RDW 18.2 H Plt Count 324 MPV 8.8 L Immature Gran % (Auto) 0.8 H Neut % (Auto) 56.5 Lymph % (Auto) 26.7 [place] % (Auto) 10.9 Eos % (Auto) 4.0 Baso % (Auto) 1.1 Lymph # (Auto) 2.2 [place] # (Auto) 0.9 Eos # (Auto) 0.3 Baso # (Auto) 0.1 Abs Immat Gran (auto) 0.07 H Absolute Neuts (auto) 4.7 Absolute Nucleated RBC 0.000 Nucleated RBC % (auto) 0.0 Sodium 139 Potassium 5.0 Chloride 105 Carbon Dioxide 23 Anion Gap 16 BUN 25 H Creatinine 1.14 Estim Creat Clear Calc 59.6 Estimated GFR 46 POC Glucose 130 H Fasting Glucose 110 H Calcium 8.5 Total Bilirubin 0.4 AST 23 ALT 17 Alkaline Phosphatase 65 Total Protein 5.9 L Albumin 2.5 L Discharge Plan Discharge Anticipated Discharge Date/Time: 06/12/22 12:25 Patient Disposition: Xfer [facility] Discharge Diagnosis: Anemia Referrals: Physician,Unknown J [Physician] - 1 Week Discharge Medications: New zinc oxide 20 % Ointment 1 appl topical TID Qty: 60 0RF Protocol: Apply to: Apply to: Place on affected skin nystatin 100,000 unit/gram Ointment 1 appl topical TID Qty: 30 0RF Protocol: Apply to: Apply to: groin/axillam/under breast rash apply it makes with zinc oxide insulin lispro [Humalog U-100 Insulin] 100 unit/mL Solution See Protocol subcut QIDACHS Qty: 10 0RF Protocol: Insulin Correction Scale Less than or equal to 110 ---- Give (units): 0 111 to 150 Give (units): 0 151 to 200 Give (units): 2 201 to 250 Give (units): 4 251 to 300 Give (units): 6 301 to 350 Give (units): 8 Greater than 350 Give (units): 10 Call MD if Blood Glucose > : 350 ferrous sulfate [Iron (ferrous sulfate)] 325 mg (65 mg iron) tablet 325 mg PO DAILY Qty: 30 0RF ascorbate calcium (vitamin C) 500 mg tablet 500 mg PO DAILY Qty: 30 0RF Continued atorvastatin 80 mg tablet 1 tab PO BEDTIME tramadol 50 mg tablet 1 tab PO DAILY PRN (Reason: Pain) pioglitazone 30 mg tablet 1 tab PO DAILY metoprolol succinate 50 mg tablet extended release 24 hr 1 tab PO DAILY acetaminophen [Tylenol 8 Hour] 650 mg Tablet Extended Release 650 mg PO Q8H meclizine 25 mg Tablet 25 mg PO TID PRN (Reason: Vertigo) bisacodyl 10 mg Suppository 10 mg [place] DAILY PRN (Reason: Constipation) albuterol sulfate 90 mcg/actuation HFA aerosol inhaler 2 puff INHALATION Q6H PRN (Reason: Wheezing) budesonide-formoterol [Symbicort] 160-4.5 mcg/actuation HFA aerosol inhaler 2 puff INHALATION BID magnesium chloride 64 mg magnesium Tablet 128 mg PO DAILY Changed Levemir FlexTouch U-100 Insuln 100 unit/mL (3 mL) insulin pen 12 unit subcut BID Qty: 15 0RF Discontinued triamcinolone acetonide 0.1 % cream 1 appl topical BID PRN (Reason: Rash) Rx Instructions: Prn reason for osvaldo osvaldo disease glimepiride 2 mg tablet 1 tab PO DAILY lisinopril 10 mg Tablet 10 mg PO DAILY ciprofloxacin HCl 500 mg Tablet 500 mg PO BID Rx Instructions: X 10 DAYS, STARTED ON 06/05 Discharge Orders: Discharge Order (Routine); Ordered 06/15/22 Ordered By: Teo Cerda Diet: Diabetic diet Activity on Discharge: As tolerated Stand Alone Forms: Patient Portal Discharge page Care Plan Goals: Take magnesium chloride daily for treatment of rash, mix nystatin cream with Zinc oxide and apply to rash twice daily, recommend outpatient dermatology follow-up Stop glimepiride, Monitor blood sugar q.i.d. Follow CBC in 1 week Monitor blood pressure Health Concerns: Add iron and vitamin-C to medical regimen Plan of Treatment: Resume plan of care as per SNF prior to hospitalization Assessment: As above
[2022-06-15 11:29] LABS: Glucose, Whole Blood 202 mg/dL (60-115)
--- NOTE | 2022-06-15 12:17 | MHC.CM.PN ---
PT IS READY FOR DC AND A BED HOLD AT [facility] FERNANDA CALLED THE SNF AT 1119 HOURS, TECHNOLOGY RISK INTERN TRANSFERRED CALL TO STR UNIT, HOWEVER NO ONE ANSWERED FERNANDA CALLED BACK AT 1140 HOURS, UNIT WAS PAGED AND [place] ANSWERED SHE IS AWARE PT WILL RETURN TODAY SHE PROVIDED A FAX NUMBER OF [phone] FOR DC SUMMARY SHE SAYS PT CAN RETURN ANYTIME, MAYBE 3, BUT WHATEVER TRANSPORT ARRANGED FOR 1400 VIA [facility] PT AWARE
[2022-06-15] MEDS: Insulin Lispro 100 UNIT/ML 3 ML VIAL SUBCUT (12:35)
[2022-06-15 15:50] VITALS: BP 122/59; PULSE 90; RESP 16; TEMP 36.3; O2SAT 94
[2022-06-16 18:03] LABS: Haptoglobin 267 mg/dL (43-212)
== END 2022-06-15 16:11 | disposition skilled nursing facility (03) | DRG 638 ==
LOC: HO.ED 23:12 → HO.EDOVER 06-09 00:07 → HO.S3 06-09 00:31
PROVIDERS: Hospitalist; Admitting Provider Internal Medicine; Emergency Provider Internal Medicine; PCP Internal Medicine; Visit Provider Hospitalist
DX: E11.649 Type 2 diabetes mellitus with hypoglycemia without coma (principal); N39.0 Urinary tract infection, site not specified; Z68.44 Body mass index [BMI] 60.0-69.9, adult; E66.01 Morbid (severe) obesity due to excess calories; Z96.0 Presence of urogenital implants; B96.20 Unspecified Escherichia coli [E. coli] as the cause of diseases classified elsewhere; T38.3X5A Adverse effect of insulin and oral hypoglycemic [antidiabetic] drugs, initial encounter; Q82.8 Other specified congenital malformations of skin; J45.909 Unspecified asthma, uncomplicated; D64.9 Anemia, unspecified; I95.9 Hypotension, unspecified; N17.9 Acute kidney failure, unspecified; B36.9 Superficial mycosis, unspecified; B96.4 Proteus (mirabilis) (morganii) as the cause of diseases classified elsewhere; I10 Essential (primary) hypertension; Z20.822 Contact with and (suspected) exposure to COVID-19; Z86.718 Personal history of other venous thrombosis and embolism; Z74.01 Bed confinement status; Z79.4 Long term (current) use of insulin; Z79.899 Other long term (current) drug therapy
CPT/HCPCS: 36415; 80048; 80053; 80202; 81001; 82565; 82728; 82947; 83010; 83540; 83605; 83615; 85025; 85027; 86850; 86900; 86901; 86923; 87040; 87086; 87147; 87205; 87635; 94640; 99285; C1758; J0696; J1610; J1643; J1756; J2270; J2405; J3370

== ENCOUNTER 2022-07-07 13:21 | Emergency (ER) | payer MEDICARE, MEDICAID, SELFPAY ==
--- NOTE | ~2022-07-07 | XR_ITS ---
EXAMINATION: XR CHEST CLINICAL INFORMATION: Dyspnea COMPARISON: None TECHNIQUE: Frontal view of the chest was obtained. FINDINGS: Lungs are hypoexpanded with bandlike atelectatic changes in right upper lobe. Rest lungs are clear. The heart size and pulmonary vascularity is normal. No gross bony abnormality seen. There is right humeral reverse prosthesis XR/XR chest 1V IMPRESSION: Right upper lobe band like atelectasis.
--- NOTE | ~2022-07-07 | US_ITS ---
EXAMINATION: US VENOUS RIGHT LOWER EXTREMITY US VENOUS RIGHT UPPER EXTREMITY CLINICAL INFORMATION: Acute on chronic right upper extremity and right lower extremity edema COMPARISON: None. TECHNIQUE: Doppler spectral analysis and color flow Doppler imaging was performed of the right lower extremity. Compression and augmentation maneuvers were performed. Doppler spectral analysis and color flow Doppler imaging was performed of the right upper extremity. Compression and augmentation maneuvers were performed. FINDINGS: The right common femoral, femoral, popliteal and calf veins were well-identified and normal. They demonstrate normal compressibility and color fill-in. The right internal jugular vein, subclavian vein, axillary vein, brachial vein, basilic vein and visualized forearm veins were well identified and normal. They demonstrate normal compressibility and color fill-in. US/US venous duplex LE RT IMPRESSION: No evidence for right upper or lower extremity deep vein thrombosis.
--- NOTE | ~2022-07-07 | US_ITS ---
EXAMINATION: US VENOUS RIGHT LOWER EXTREMITY US VENOUS RIGHT UPPER EXTREMITY CLINICAL INFORMATION: Acute on chronic right upper extremity and right lower extremity edema COMPARISON: None. TECHNIQUE: Doppler spectral analysis and color flow Doppler imaging was performed of the right lower extremity. Compression and augmentation maneuvers were performed. Doppler spectral analysis and color flow Doppler imaging was performed of the right upper extremity. Compression and augmentation maneuvers were performed. FINDINGS: The right common femoral, femoral, popliteal and calf veins were well-identified and normal. They demonstrate normal compressibility and color fill-in. The right internal jugular vein, subclavian vein, axillary vein, brachial vein, basilic vein and visualized forearm veins were well identified and normal. They demonstrate normal compressibility and color fill-in. US/US venous duplex UE RT IMPRESSION: No evidence for right upper or lower extremity deep vein thrombosis.
[2022-07-07 13:28] VITALS: BP 147/78; PULSE 125; O2SAT 94
[2022-07-07 13:35] VITALS: BP 109/86; PULSE 125; RESP 27; TEMP 36.9; O2SAT 95
[2022-07-07 13:36] VITALS: BMI 47.7
--- NOTE | 2022-07-07 14:31 | ED.GENADULT ---
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 Patient reports symptoms started 3 days ago. Patient describes symptoms as severe and associated with moderate pain. There is no clear relieving or exacerbating features. Patient reports having had a shoulder replacement 2 months ago. There is been no new trauma. She denies any chest pain or shortness of breath. She does report chronic right lower extremity edema which is not significantly changed. She has had no fevers or chills. She has no fever cough or mucus production. She denies any headache, nausea, vomiting, diarrhea constipation. Related Data Home Medications Medication Instructions Recorded Confirmed atorvastatin 80 mg tablet 1 tab PO BEDTIME 06/08/22 07/07/22 metoprolol succinate 50 mg 1 tab PO DAILY 06/08/22 07/07/22 tablet,extended release 24 hr pioglitazone 30 mg tablet 1 tab PO DAILY 06/08/22 07/07/22 tramadol 50 mg tablet 1 tab PO Q6H PRN Pain 06/08/22 07/07/22 albuterol sulfate 90 mcg/actuation 2 puff inhalation Q6H PRN 06/09/22 07/07/22 aerosol inhaler Shortness Of Breath Or Wheezing bisacodyl 10 mg rectal suppository 10 mg NC DAILY PRN Constipation 06/09/22 07/07/22 meclizine 25 mg tablet 25 mg PO Q8H PRN Vertigo 06/09/22 07/07/22 magnesium chloride 64 mg 128 mg PO DAILY 06/12/22 07/07/22 (magnesium chloride) tablet acetaminophen 500 mg tablet 1,000 mg PO Q8H PRN pain 07/07/22 07/07/22 budesonide-formoterol HFA 80 2 puff inhalation BID 07/07/22 07/07/22 mcg-4.5 mcg/actuation aerosol inhaler (Symbicort) insulin detemir U-100 100 unit/mL 12 unit subcut BID@0900,2100 07/07/22 07/07/22 (3 mL) subcutaneous pen (Levemir FlexTouch U-100 Insulin) insulin lispro 100 unit/mL 1 sliding scale dose subcut 07/07/22 07/07/22 subcutaneous solution USEASDIRECTD zinc oxide 1 appl topical TID 07/07/22 07/07/22 Previous Rx's Medication Instructions Recorded nystatin 100,000 unit/gram topical 1 appl topical TID #30 grams 06/12/22 ointment ascorbate calcium (vitamin C) 500 500 mg PO DAILY #30 tabs 06/15/22 mg tablet ferrous sulfate 325 mg (65 mg 325 mg PO DAILY #30 tabs 06/15/22 iron) tablet (Iron (ferrous sulfate)) Allergies Allergy/AdvReac Type Severity Reaction Status Date / Time belladonna alkaloids Allergy Intermediate ITCHING Verified 07/07/22 13:39 [From ] phenobarbital [From ] Allergy Intermediate ITCHING Verified 07/07/22 13:39 oxycodone Allergy Unknown Verified 07/07/22 13:39 Review of Systems Review of Systems: CONSTITUTIONAL: Denies weight loss, fever and chills. HEENT: Denies changes in vision and hearing. RESPIRATORY: Denies SOB and cough. CV: Denies palpitations no CP. GI: Denies abdominal pain, nausea, vomiting and diarrhea. : Denies dysuria and urinary frequency. MSK: Denies myalgia and joint pain. SKIN: Denies rash , positive pruritus, excoriations, painful skin NEUROLOGICAL: Denies headache and syncope. PSYCHIATRIC: Denies recent changes in mood. Denies anxiety and depression. All other ROS are negative unless in HPI PMFSH Past Medical History Medical History Asthma CKD (chronic kidney disease) Diabetes Erythema intertrigo History of DVT (deep vein thrombosis) Hypertension Multiple skin tears Obesity Social History Social History Household Members: Other Housing: [facility] Do you presently have visiting nurse or other home services: No Alcohol intake: never Patient Tobacco Use Status: Never used Tobacco Advance Directives: No Advance Directives Information Provided: No service: No Current occupational status: disabled Physical Exam ED Vital Signs: Vital Signs - 24 hr 07/07/22 13:35 07/07/22 15:07 Temperature 98.5 F 98.5 F Pulse Rate 125 H 119 H Respiratory Rate 27 H 26 H Blood Pressure 109/86 125/69 Pulse Oximetry 95 95 Oxygen Delivery Method Room Air Room Air BMI result Body Mass Index 47.7 GEN: Well developed, no acute distress, alert, oriented HEENT: Normocephalic, atraumatic, normal external ears, nose appears normal, no oropharyngeal edema or exudates Eyes: Normal to appearance Neck: Supple, no lymphadenopathy Respiratory: Talks in complete sentences, no respiratory distress, clear to auscultation bilaterally Cardiovascular: Regular rate and rhythm, no murmurs rubs or gallops, tachycardic Abdomen: Soft, nontender, nondistended, no guarding, no rebound Extremities: No clubbing cyanosis positive right-sided edema Neurologic: No focal neurologic deficits, cranial nerves 2-12 intact, strength is 5/5 bilaterally Skin: Rash left neck, back Course Course Course Narrative: 77-year-old female presents with right sided arm and lower extremity edema. Patient does have an IVC filter that was placed on May 20, 2022. She is on anticoagulation for known bilateral pulmonary emboli as well as DVTs of the upper and lower extremities. Per review of the records, patient may in fact not be on anticoagulation. It appears that this may have been discontinued secondary to a lower GI bleed. I did review her outpatient records from [facility] in [facility]. Does not appear that there were any anticoagulants on board. Patient may need to be admitted for heparin drip and determination for chronic anticoagulation. Reevaluation(s) Reevaluation #1: I have reviewed the lab results. There is no evidence of DVT in the right upper or lower extremity. There is no indication to start anticoagulation at this point and she does have an IVC filter in place. The etiology of her edema is unclear the. She can follow up with her primary care provider for this. She was also noted to be anemic. This is stable to slightly improved. She is hyperglycemic due to her diabetes. Again this is not significantly elevated to the point that she needs to be hospitalized. She is also known to be hypoalbuminemic and have proteinuria. These could be contributing factors to her edema. Again this is not an acute issue to be followed up as an outpatient. All results were discussed with the patient and her . Medications Administered Discontinued Medications Generic Name Dose Route Start Last Admin Trade Name Sarthak PRN Reason Stop Dose Admin Acetaminophen 650 mg 07/07/22 14:42 07/07/22 15:36 Acetaminophen 325 Mg Tablet PO 07/07/22 14:43 650 mg ONCE ONE Administration Medical Decision Making Medical Decision Making [facility] Narrative: 77-year-old female presents with right sided arm and lower extremity edema. Patient does have an IVC filter that was placed on May 20, 2022. She is on anticoagulation for known bilateral pulmonary emboli as well as DVTs of the upper and lower extremities. Per review of the records, patient may in fact not be on anticoagulation. It appears that this may have been discontinued secondary to a lower GI bleed. I did review her outpatient records from [facility] in [facility]. Does not appear that there were any anticoagulants on board. Patient may need to be admitted for heparin drip and determination for chronic anticoagulation. Differential Diagnosis Differential Diagnoses: The differential diagnosis associated with the presentation includes (Acute on chronic DVT, DVT, edema, CHF, hypoalbuminemia) Admission/Observation Consideration of admission/observation: Escalation of care including admission/observation considered Lab Data [facility] Lab Attestation statement: I reviewed the patient's lab results. 07/07/22 15:01 07/07/22 15:01 Labs: Lab Results 07/07/22 07/07/22 07/07/22 Range/Units 15:01 15:01 15:01 WBC 9.0 (4.8-10.8) X10*3/uL RBC 3.63 L (4.20-5.50) X10*6/uL Hgb 9.3 L (12.0-16.0) g/dl Hct 30.2 L (37.0-47.0) % MCV 83.2 (80.0-98.0) fL MCH 25.6 L (27.0-33.0) pg MCHC 30.8 L (31.0-35.0) g/dl RDW 17.6 H (11.0-16.0) % Plt Count 296 (160-400) X10*3/uL MPV 9.5 (9.4-12.3) fL Immature Gran % (Auto) 0.4 (0.0-0.4) % Neut % (Auto) 59.6 (45-73) % Lymph % (Auto) 28.2 (20-40) % Marshall % (Auto) 7.9 (2-11) % Eos % (Auto) 3.1 (0-4) % Baso % (Auto) 0.8 (0-2) % Lymph # (Auto) 2.5 (1.2-4.9) X10*3/uL Marshall # (Auto) 0.7 (0.1-1.2) X10*3/uL Eos # (Auto) 0.3 (0.0-0.4) X10*3/uL Baso # (Auto) 0.1 (0.0-0.2) X10*3/uL Abs Immat Gran (auto) 0.04 H (0.00-0.03) X10*3/uL Absolute Neuts (auto) 5.3 (2.0-8.3) x10*3/uL Absolute Nucleated RBC 0.000 (0.0-0.012) X10*3/uL Nucleated RBC % (auto) 0.0 (0.0-0.2) /100WBC PT 12.6 (10.0-13.1) SEC INR 1.1 (0.9-1.1) APTT 27.9 (26.0-36.4) SEC Sodium 138 (135-145) mmol/L Potassium 4.9 (3.3-5.1) mmol/L Chloride 104 (96-108) mmol/L Carbon Dioxide 27 (22-29) mmol/L Anion Gap 12 (12-20) BUN 15 (9-16) mg/dL Creatinine 1.11 (0.5-1.4) mg/dL Estim Creat Clear Calc 54.9 Estimated GFR 48 Random Glucose 257 H (60-115) mg/dL Calcium 8.0 L (8.4-10.2) mg/dL Total Bilirubin 0.5 (0.0-1.0) mg/dL AST 19 (5-31) U/L ALT 11 (0-31) U/L Alkaline Phosphatase 67 (39-117) U/L Total Protein 5.8 L (6.5-8.0) g/dL Albumin 2.2 L (3.5-5.0) g/dL COVID-19 ([facility]) (Negative) COVID-19 Clin Com 07/07/22 Range/Units 15:07 WBC (4.8-10.8) X10*3/uL RBC (4.20-5.50) X10*6/uL Hgb (12.0-16.0) g/dl Hct (37.0-47.0) % MCV (80.0-98.0) fL MCH (27.0-33.0) pg MCHC (31.0-35.0) g/dl RDW (11.0-16.0) % Plt Count (160-400) X10*3/uL MPV (9.4-12.3) fL Immature Gran % (Auto) (0.0-0.4) % Neut % (Auto) (45-73) % Lymph % (Auto) (20-40) % Marshall % (Auto) (2-11) % Eos % (Auto) (0-4) % Baso % (Auto) (0-2) % Lymph # (Auto) (1.2-4.9) X10*3/uL Marshall # (Auto) (0.1-1.2) X10*3/uL Eos # (Auto) (0.0-0.4) X10*3/uL Baso # (Auto) (0.0-0.2) X10*3/uL Abs Immat Gran (auto) (0.00-0.03) X10*3/uL Absolute Neuts (auto) (2.0-8.3) x10*3/uL Absolute Nucleated RBC (0.0-0.012) X10*3/uL Nucleated RBC % (auto) (0.0-0.2) /100WBC PT (10.0-13.1) SEC INR (0.9-1.1) APTT (26.0-36.4) SEC Sodium (135-145) mmol/L Potassium (3.3-5.1) mmol/L Chloride (96-108) mmol/L Carbon Dioxide (22-29) mmol/L Anion Gap (12-20) BUN (9-16) mg/dL Creatinine (0.5-1.4) mg/dL Estim Creat Clear Calc Estimated GFR Random Glucose (60-115) mg/dL Calcium (8.4-10.2) mg/dL Total Bilirubin (0.0-1.0) mg/dL AST (5-31) U/L ALT (0-31) U/L Alkaline Phosphatase (39-117) U/L Total Protein (6.5-8.0) g/dL Albumin (3.5-5.0) g/dL COVID-19 ([facility]) Negative (Negative) COVID-19 Clin Com See Note Independent Interpretation I performed an independent interpretation of an: EKG (Sinus tachycardia heart rate 122, nonspecific T-wave changes, otherwise normal intervals, no acute ST elevations or depressions, possible old anterior wall MO secondary to poor precordial progression) and Ultrasound Radiology Impression Discussion of test interpretation with radiology: I have reviewed the radiologist's reading. (IMPRESSION: No evidence for right upper or lower extremity deep vein thrombosis. Dictated By:Rodolfo Cee MDSigned By:<Electronically signed by Rodolfo Cee MD in OV>07/07/22 1707, independently reviewed images) Independent Historian Clinical information obtained from an independent historian. History obtained from or confirmed by: Spouse External Record Review External record reviewed: Inpatient record (Recent discharge summary) and Outpatient record (Rehabilitation records) Tests considered The following testing was considered but not selected: CT scan vascular Prescription Management I considered prescription management with: Pain Medication Chronic Conditions Patient?s care impacted by: Diabetes and Hypertension Social Determinants Patient?s care significantly limited by Social Determinants of Health including: Other Social Determinant of Health Discharge Plan Discharge Clinical Impression: Edema of right upper arm, Right leg DVT, Tachycardia, Anemia, Hyperglycemia due to diabetes mellitus, Isolated proteinuria Patient Disposition: Xfer [facility] Instructions: Anemia (ED), Edema (ED), Diabetic Hyperglycemia (ED), Tachycardia (ED) Additional Instructions: You were seen today in the emergency department for right-sided swelling. The etiology of the symptoms have not been clearly identified. You had an ultrasound the right upper and lower extremity which did not identified a DVT. I am recommending follow-up in 3-7 days with a repeat ultrasound. Should the swelling get worse, you should seek attention in the emergency department immediately. Other abnormalities were noted on your evaluation including a rapid heart rate which is somewhat normal for you. EKG did not reveal any cardiac dysrhythmia. You have stable anemia which is actually slightly improved. Her blood sugar was moderately elevated due to diabetes. You also have a low protein state which could be contributing to the swelling in your body. He may need to some nutritional supplementation. He also had some urine protein. This can be followed up with her primary care provider. Prescriptions: No Action atorvastatin 80 mg tablet 1 tab PO BEDTIME tramadol 50 mg tablet 1 tab PO Q6H PRN (Reason: Pain) pioglitazone 30 mg tablet 1 tab PO DAILY metoprolol succinate 50 mg tablet extended release 24 hr 1 tab PO DAILY meclizine 25 mg Tablet 25 mg PO Q8H PRN (Reason: Vertigo) bisacodyl 10 mg Suppository 10 mg NC DAILY PRN (Reason: Constipation) albuterol sulfate 90 mcg/actuation HFA aerosol inhaler 2 puff INHALATION Q6H PRN (Reason: Shortness Of Breath Or Wheezing) nystatin 100,000 unit/gram Ointment 1 appl topical TID Qty: 30 0RF Protocol: Apply to: Apply to: groin/axillam/under breast rash apply it makes with zinc oxide magnesium chloride 64 mg magnesium Tablet 128 mg PO DAILY ferrous sulfate [Iron (ferrous sulfate)] 325 mg (65 mg iron) tablet 325 mg PO DAILY Qty: 30 0RF ascorbate calcium (vitamin C) 500 mg tablet 500 mg PO DAILY Qty: 30 0RF insulin lispro 100 unit/mL Solution 1 sliding scale dose SUBCUT USEASDIRECTD Protocol: Insulin Correction Scale Less than or equal to 110 ---- Give (units): 0 111 to 150 Give (units): 0 151 to 200 Give (units): 2 201 to 250 Give (units): 4 251 to 300 Give (units): 6 301 to 350 Give (units): 8 Greater than 350 Give (units): 10 Call MD if Blood Glucose > : 350 Levemir FlexTouch U-100 Insuln 100 unit/mL (3 mL) insulin pen 12 unit subcut BID@0900,2100 acetaminophen 500 mg Tablet 1,000 mg PO Q8H PRN (Reason: pain) zinc oxide Cream 1 appl TOPICAL TID budesonide-formoterol [Symbicort] 80-4.5 mcg/actuation Hfa Aerosol Inhaler 2 puff INHALATION BID Referrals: Kia Ponce MD [Primary Care Provider] - 1 day
--- NOTE | 2022-07-07 14:42 | ECG_ITS ---
Test Reason : Tachycardia Blood Pressure : / mmHG Vent. Rate : 122 BPM Atrial Rate : 122 BPM P-R Int : 152 ms QRS Dur : 068 ms QT Int : 292 ms P-R-T Axes : 008 -17 036 degrees QTc Int : 416 ms Sinus tachycardia Minimal voltage criteria for LVH, may be normal variant ( R in aVL ) Cannot rule out Anterior infarct , age undetermined Abnormal ECG When compared with ECG of 03-JUN-2007 18:29, Vent. rate has increased BY 49 BPM Nonspecific T wave abnormality has replaced inverted T waves in Inferior leads Referred By: Javier Ocampo Electronically Signed By:EDWARD JUNG MD
[2022-07-07 15:06] LABS: MANUAL DIFF FLAG NO
[2022-07-07 15:07] VITALS: BP 125/69; PULSE 119; RESP 26; TEMP 36.9; O2SAT 95
[2022-07-07 15:11] LABS: Basophils Absolute Auto 0.1 X10*3/uL (0.0-0.2); Basophils Percent Auto 0.8 % (0-2); Eosinophils Absolute Auto 0.3 X10*3/uL (0.0-0.4); Eosinophils Percent Auto 3.1 % (0-4); Hematocrit 30.2 % (37.0-47.0); Hemoglobin 9.3 g/dl (12.0-16.0); Imm Gran Abs Auto 0.04 X10*3/uL (0.00-0.03); Imm Gran Pct Auto 0.4 % (0.0-0.4); Lymphocytes Absolute Auto 2.5 X10*3/uL (1.2-4.9); Lymphocytes Percent Auto 28.2 % (20-40); Mean Corpuscular HGB Conc 30.8 g/dl (31.0-35.0); Mean Corpuscular Hemoglobin 25.6 pg (27.0-33.0); Mean Corpuscular Volume 83.2 fL (80.0-98.0); Mean Platelet Volume 9.5 fL (9.4-12.3); Monocytes Absolute Auto 0.7 X10*3/uL (0.1-1.2); Monocytes Percent Auto 7.9 % (2-11); Neutrophils Absolute Auto 5.3 x10*3/uL (2.0-8.3); Neutrophils Percent Auto 59.6 % (45-73); Platelet Count 296 X10*3/uL (160-400); Red Blood Count 3.63 X10*6/uL (4.20-5.50); Red Cell Distribution Width 17.6 % (11.0-16.0)
[2022-07-07 15:17] LABS: INTERNATIONAL NORM RATIO 1.1 (0.9-1.1); Prothrombin Time 12.6 SEC (10.0-13.1)
[2022-07-07 15:19] LABS: Partial Thromboplastin Time 27.9 SEC (26.0-36.4)
[2022-07-07 15:21] LABS: COVID-19 Test Negative (Negative); IDNOW Serial# 55D5AD1C
[2022-07-07] MEDS: Acetaminophen 325 MG TABLET 650 MG PO (15:36)
[2022-07-07 15:39] LABS: Alanine Aminotransferase 11 U/L (0-31); Albumin Level 2.2 g/dL (3.5-5.0); Alkaline Phosphatase 67 U/L (39-117); Anion Gap 12 (12-20); Aspartate Amino Transferase 19 U/L (5-31); Bilirubin Total 0.5 mg/dL (0.0-1.0); Blood Urea Nitrogen 15 mg/dL (9-16); Carbon Dioxide 27 mmol/L (22-29); Chloride 104 mmol/L (96-108); Creatinine Clr Calc Pharmacy 54.9; Estimated Glomerular Filt Rate 48; Glucose Random 257 mg/dL (60-115); Potassium 4.9 mmol/L (3.3-5.1); Sodium 138 mmol/L (135-145); Total Protein 5.8 g/dL (6.5-8.0)
--- NOTE | 2022-07-07 18:10 | PHA.MEDREC ---
Pharmacy Consult ? Medication Reconciliation Pharmacy has completed the medication reconciliation. [facility] Patient finished course of fosfomycin today for mdr uti.
[2022-07-07 19:29] VITALS: BP 121/64; PULSE 121; RESP 18; TEMP 36.9; O2SAT 92
--- NOTE | 2022-07-07 19:29 | PC.NURSE ---
Took over care at 7:00 from STEPHANIE Bustos pt ready for discharge, calling ambulance for pick back to facility. Will continue to monitor.
--- NOTE | 2022-07-07 19:45 | MHC.EDTECH ---
Andres called at 1942 for a bls transfer back to Facility,ETA within the hour.RN aware
== END 2022-07-07 22:23 | disposition skilled nursing facility (03) ==
PROVIDERS: Emergency Provider Emergency Medicine; PCP Internal Medicine
DX: M79.601 Pain in right arm (principal); R60.0 Localized edema; I82.501 Chronic embolism and thrombosis of unspecified deep veins of right lower extremity; R80.0 Isolated proteinuria; R00.0 Tachycardia, unspecified; D64.9 Anemia, unspecified; E11.65 Type 2 diabetes mellitus with hyperglycemia; Z20.822 Contact with and (suspected) exposure to COVID-19; E11.22 Type 2 diabetes mellitus with diabetic chronic kidney disease; I12.9 Hypertensive chronic kidney disease with stage 1 through stage 4 chronic kidney disease, or unspecified chronic kidney disease; N18.9 Chronic kidney disease, unspecified; E66.9 Obesity, unspecified; Z68.42 Body mass index [BMI] 45.0-49.9, adult; Z86.718 Personal history of other venous thrombosis and embolism
CPT/HCPCS: 36415; 71045; 80053; 85025; 85610; 85730; 87635; 93005; 93971; 99284

== ENCOUNTER 2022-11-03 19:20 | Emergency (ER) | payer MEDICARE, MEDICAID, SELFPAY ==
--- NOTE | ~2022-11-03 | CT_ITS ---
EXAMINATION: CT ABDOMEN AND PELVIS WITHOUT CONTRAST CLINICAL INFORMATION: Upper abdominal pain COMPARISON: CT abdomen pelvis 07/09/2010 TECHNIQUE: Multidetector volumetric imaging was performed from the superior aspect of the liver through the pubic symphysis. Sagittal and coronal reformatted images were obtained on the technologist's workstation. This CT examination was performed using dose optimization techniques as appropriate, variously including the following: *Automated exposure control *Adjustment of mA and/or kV according to patient size (this includes techniques or standardized protocols for targeted exams where dose is matched to indication/reason for exam; i.e. extremities or head) *Use of iterative reconstruction technique DLP: 1420 mGy-cm FINDINGS: LUNG BASES: Bibasilar atelectasis is present. LIVER, GALLBLADDER, AND BILIARY TREE: The liver is normal in size, shape, and attenuation. No focal hepatic lesion or biliary ductal dilatation is present. Status post cholecystectomy. PANCREAS: Unremarkable. SPLEEN: Unremarkable. ADRENAL GLANDS: Unremarkable. KIDNEYS AND URETERS: The kidneys are normal in size, shape, and attenuation. No hydronephrosis, hydroureter, or calculi seen. A benign left upper pole 1.8 cm and 1.4 cm right mid renal Bosniak class I renal cysts are noted - these require no additional imaging or follow-up. No solid renal masses are seen. . BLADDER: Unremarkable. GASTROINTESTINAL TRACT: Bladder diverticula are present without evidence of diverticulitis. The small and large bowel are otherwise unremarkable. The appendix is unremarkable. ABDOMINAL WALL: No significant hernia is appreciated. LYMPH NODES: No retroperitoneal lymphadenopathy. VASCULAR: Minimal vascular calcifications without aneurysm. An IVC filter is in place in good position below the level of the renal veins. PELVIC VISCERA: Status post hysterectomy. An abnormal adnexal mass or free intraperitoneal fluid is not seen. OSSEOUS STRUCTURES: Unremarkable. CT/CT abdomen pelvis wo IV con IMPRESSION: A cause for the patient's upper abdominal pain has not been found. Incidental findings as described above. Fleischner guidelines were followed.
[2022-11-03 19:32] VITALS: BP 133/83; PULSE 104; O2SAT 97
[2022-11-03 19:46] VITALS: BP 145/73; PULSE 101; RESP 14; TEMP 37.2; O2SAT 92; BMI 40.3
--- NOTE | 2022-11-03 20:22 | PC.NURSE ---
Multiple failed attempts at collecting lab work and establishing an IV line.
[2022-11-03 20:58] LABS: MANUAL DIFF FLAG NO
[2022-11-03 21:00] LABS: Basophils Percent Auto 0.4 % (0-2); Eosinophils Absolute Auto 0.2 X10*3/uL (0.0-0.4); Eosinophils Percent Auto 2.3 % (0-4); Hematocrit 34.2 % (37.0-47.0); Hemoglobin 10.8 g/dl (12.0-16.0); Imm Gran Abs Auto 0.02 X10*3/uL (0.00-0.03); Imm Gran Pct Auto 0.3 % (0.0-0.4); Lymphocytes Absolute Auto 2.1 X10*3/uL (1.2-4.9); Lymphocytes Percent Auto 28.3 % (20-40); Mean Corpuscular HGB Conc 31.6 g/dl (31.0-35.0); Mean Corpuscular Hemoglobin 26.8 pg (27.0-33.0); Mean Corpuscular Volume 84.9 fL (80.0-98.0); Mean Platelet Volume 9.7 fL (9.4-12.3); Monocytes Absolute Auto 0.5 X10*3/uL (0.1-1.2); Neutrophils Absolute Auto 4.7 x10*3/uL (2.0-8.3); Neutrophils Percent Auto 62.7 % (45-73); Platelet Count 221 X10*3/uL (160-400); Red Blood Count 4.03 X10*6/uL (4.20-5.50); Red Cell Distribution Width 17.9 % (11.0-16.0); White Blood Count 7.5 X10*3/uL (4.8-10.8)
[2022-11-03 21:08] LABS: D Dimer High Sensitivity 391 NG/ML
--- NOTE | 2022-11-03 21:16 | ED_ITS ---
HPI - Abdominal Pain General Chief Complaint: Abdominal Pain Stated Complaint: Vomiting Time Seen by Provider: 11/03/22 21:13 Source: patient Mode of arrival: ambulatory Limitations: no limitations History of Present Illness HPI narrative: Patient is 77 years old obese non ambulatory patient with history of diabetes, benign familial pemphigus comes in for upper abdominal pain for last 4 days with nausea patient been on Otezla for last 3 months and since then having upper abdominal discomfort has dosage decreased and still having the pain in upper abdomen. Has slight nausea vomited yesterday 1 time today had normal bowel movement earlier today no fever or chills Related Data Home Medications Medication Instructions Recorded Confirmed atorvastatin 80 mg tablet 1 tab PO BEDTIME 06/08/22 07/07/22 metoprolol succinate 50 mg 1 tab PO DAILY 06/08/22 07/07/22 tablet,extended release 24 hr pioglitazone 30 mg tablet 1 tab PO DAILY 06/08/22 07/07/22 tramadol 50 mg tablet 1 tab PO Q6H PRN Pain 06/08/22 07/07/22 albuterol sulfate 90 mcg/actuation 2 puff inhalation Q6H PRN 06/09/22 07/07/22 aerosol inhaler Shortness Of Breath Or Wheezing bisacodyl 10 mg rectal suppository 10 mg [place] DAILY PRN Constipation 06/09/22 07/07/22 meclizine 25 mg tablet 25 mg PO Q8H PRN Vertigo 06/09/22 07/07/22 magnesium chloride 64 mg 128 mg PO DAILY 06/12/22 07/07/22 (magnesium chloride) tablet acetaminophen 500 mg tablet 1,000 mg PO Q8H PRN pain 07/07/22 07/07/22 budesonide-formoterol HFA 80 2 puff inhalation BID 07/07/22 07/07/22 mcg-4.5 mcg/actuation aerosol inhaler (Symbicort) insulin detemir U-100 100 unit/mL 12 unit subcut BID@0900,2100 07/07/22 07/07/22 (3 mL) subcutaneous pen (Levemir FlexTouch U-100 Insulin) insulin lispro 100 unit/mL 1 sliding scale dose subcut 07/07/22 07/07/22 subcutaneous solution USEASDIRECTD zinc oxide 1 appl topical TID 02/27/23 02/27/23 Previous Rx's Medication Instructions Recorded nystatin 100,000 unit/gram topical 1 appl topical TID #30 grams 06/12/22 ointment ascorbate calcium (vitamin C) 500 500 mg PO DAILY #30 tabs 06/15/22 mg tablet ferrous sulfate 325 mg (65 mg 325 mg PO DAILY #30 tabs 06/15/22 iron) tablet (Iron (ferrous sulfate)) omeprazole 40 mg capsule,delayed 40 mg PO DAILY #30 caps 11/04/22 release ondansetron 4 mg disintegrating 4 mg PO Q6-8H PRN nausea and 11/04/22 tablet vomiting #7 tabs Allergies Allergy/AdvReac Type Severity Reaction Status Date / Time belladonna alkaloids Allergy Intermediate ITCHING Verified 07/07/22 13:39 [From ] phenobarbital [From ] Allergy Intermediate ITCHING Verified 07/07/22 13:39 oxycodone Allergy Unknown Verified 07/07/22 13:39 Review of Systems Review of Systems Yes all other systems are reviewed and are negative PMFSH Past Medical History Medical History Asthma CKD (chronic kidney disease) Diabetes Erythema intertrigo History of DVT (deep vein thrombosis) Hypertension Multiple skin tears Obesity Social History Social History Household Members: Other Housing: Correction Do you presently have visiting nurse or other home services: No Alcohol intake: never Patient Tobacco Use Status: Never used Tobacco Smoked in Last 30 Days: No Use of substances other than those prescribed or required for medical reasons: No Advance Directives: No Advance Directives Information Provided: No service: No Current occupational status: disabled Physical Exam ED Vital Signs: Vital Signs - 24 hr 11/03/22 19:46 11/03/22 22:41 11/04/22 00:06 Temperature 99.0 F 99.0 F Pulse Rate 101 H 104 H 103 H Respiratory Rate 14 20 20 Blood Pressure 145/73 H 131/74 118/68 Pulse Oximetry 92 98 97 Oxygen Delivery Method Room Air Nasal Cannula Nasal Cannula Oxygen Flow Rate 2 2 BMI result Body Mass Index 40.3 Appearance: Alert. Oriented X3. No acute distress. Eyes: No pallor or icterus ENT: Pharynx normal. Oral Mucosa moist Neck: Normal inspection. Neck supple. CVS: Normal heart rate and rhythm. Pulses normal. Respiratory: No respiratory distress. Equal air entry bilateral, no wheezing/rales/rhonchi Abdomen: Soft mild tenderness in epigastric area no rebound tenderness or guarding. Bowel sounds are present, no mass palpable, no CVA tenderness Skin: Skin warm and dry. Normal skin color. Normal skin turgor. Extremities: No lower extremity edema. No calf tenderness Neuro: Oriented X 3. Limited lower extremity movements with muscular dystrophy of the left leg Medical Decision Making Medical Decision Making [facility] Narrative: Patient likely with gastritis possible medication side effect labs are stable will check CT scan as patient never had similar pain in the past 01:[address] scan negative for any acute pathology labs are stable discharge patient to [facility] advised to take [facility] Lab Data [facility] Lab Attestation statement: I reviewed the patient's lab results. 11/03/22 20:53 11/03/22 20:53 Labs: Lab Results 11/03/22 11/03/22 11/03/22 Range/Units 20:53 20:53 20:53 WBC 7.5 (4.8-10.8) X10*3/uL RBC 4.03 L (4.20-5.50) X10*6/uL Hgb 10.8 L (12.0-16.0) g/dl Hct 34.2 L (37.0-47.0) % MCV 84.9 (80.0-98.0) fL MCH 26.8 L (27.0-33.0) pg MCHC 31.6 (31.0-35.0) g/dl RDW 17.9 H (11.0-16.0) % Plt Count 221 D (160-400) X10*3/uL MPV 9.7 (9.4-12.3) fL Immature Gran % (Auto) 0.3 (0.0-0.4) % Neut % (Auto) 62.7 (45-73) % Lymph % (Auto) 28.3 (20-40) % Meade % (Auto) 6.0 (2-11) % Eos % (Auto) 2.3 (0-4) % Baso % (Auto) 0.4 (0-2) % Lymph # (Auto) 2.1 (1.2-4.9) X10*3/uL [place]ade # (Auto) 0.5 (0.1-1.2) X10*3/uL Eos # (Auto) 0.2 (0.0-0.4) X10*3/uL Baso # (Auto) 0.0 (0.0-0.2) X10*3/uL Abs Immat Gran (auto) 0.02 (0.00-0.03) X10*3/uL Absolute Neuts (auto) 4.7 (2.0-8.3) x10*3/uL Absolute Nucleated RBC 0.000 (0.0-0.012) X10*3/uL Nucleated RBC % (auto) 0.0 (0.0-0.2) /100WBC D-Dimer High Sensitivty 391 NG/ML Sodium 140 (135-145) mmol/L Potassium 3.5 D (3.3-5.1) mmol/L Chloride 103 (96-108) mmol/L Carbon Dioxide 28 (22-29) mmol/L Anion Gap 13 (12-20) BUN 9 (9-16) mg/dL Creatinine 0.83 (0.5-1.4) mg/dL Estim Creat Clear Calc 71.3 Estimated GFR > 60 Random Glucose 109 (60-115) mg/dL Calcium 9.6 D (8.4-10.2) mg/dL Total Bilirubin 0.8 (0.0-1.0) mg/dL AST 17 (5-31) U/L ALT 9 (0-31) U/L Alkaline Phosphatase 57 (39-117) U/L Total Protein 6.9 (6.5-8.0) g/dL Albumin 3.1 L (3.5-5.0) g/dL Lipase 9 (8-78) U/L Medications Administered Discontinued Medications Generic Name Dose Route Start Last Admin Trade Name Freq PRN Reason Stop Dose Admin Famotidine 20 mg 11/03/22 22:06 11/03/22 22:36 Famotidine/Pf 20 Mg/2 Ml Vial IVPUSH 11/03/22 22:07 20 mg ONCE ONE Administration Sodium Chloride 1,000 mls @ 999 mls/hr 11/03/22 22:06 11/03/22 23:58 Ns IV 11/03/22 23:06 0 mls/hr .Q1H1M ONE Infusion Morphine Sulfate 4 mg 11/03/22 22:48 11/03/22 23:02 Morphine Sulfate 4 Mg/Ml Cartridge IVPUSH 11/03/22 22:49 4 mg ONCE ONE Administration Protocol Ondansetron HCl 4 mg 11/03/22 22:06 11/03/22 22:36 Ondansetron Hcl 4 Mg/2 Ml Vial IVPUSH 11/03/22 22:07 4 mg ONCE ONE Administration Discharge Plan Discharge Clinical Impression: Acute gastritis Patient Disposition: Xfer [facility] Transfer Details: Patient's CT scan the abdomen is negative for acute labs are stable likely has gastritis from medication use Instructions: Gastritis (ED) Additional Instructions: Continue your medications start taking Prilosec daily for possible gastritis Medicine for nausea as prescribed Follow up with PCP Prescriptions: New omeprazole 40 mg capsule,delayed release(DR/EC) 40 mg PO DAILY Qty: 30 0RF ondansetron 4 mg tablet,disintegrating 4 mg PO Q6-8H PRN (Reason: nausea and vomiting) Qty: 7 0RF No Action atorvastatin 80 mg tablet 1 tab PO BEDTIME tramadol 50 mg tablet 1 tab PO Q6H PRN (Reason: Pain) pioglitazone 30 mg tablet 1 tab PO DAILY metoprolol succinate 50 mg tablet extended release 24 hr 1 tab PO DAILY meclizine 25 mg Tablet 25 mg PO Q8H PRN (Reason: Vertigo) bisacodyl 10 mg Suppository 10 mg [place] DAILY PRN (Reason: Constipation) albuterol sulfate 90 mcg/actuation HFA aerosol inhaler 2 puff INHALATION Q6H PRN (Reason: Shortness Of Breath Or Wheezing) nystatin 100,000 unit/gram Ointment 1 appl topical TID Qty: 30 0RF Protocol: Apply to: Apply to: groin/axillam/under breast rash apply it makes with zinc oxide magnesium chloride 64 mg magnesium Tablet 128 mg PO DAILY ferrous sulfate [Iron (ferrous sulfate)] 325 mg (65 mg iron) tablet 325 mg PO DAILY Qty: 30 0RF ascorbate calcium (vitamin C) 500 mg tablet 500 mg PO DAILY Qty: 30 0RF insulin lispro 100 unit/mL Solution 1 sliding scale dose SUBCUT USEASDIRECTD Protocol: Insulin Correction Scale Less than or equal to 110 ---- Give (units): 0 111 to 150 Give (units): 0 151 to 200 Give (units): 2 201 to 250 Give (units): 4 251 to 300 Give (units): 6 301 to 350 Give (units): 8 Greater than 350 Give (units): 10 Call MD if Blood Glucose > : 350 Levemir FlexTouch U100 Insulin 100 unit/mL (3 mL) insulin pen 12 unit subcut BID@0900,2100 acetaminophen 500 mg Tablet 1,000 mg PO Q8H PRN (Reason: pain) zinc oxide Cream 1 appl TOPICAL TID budesonide-formoterol [Symbicort] 80-4.5 mcg/actuation Hfa Aerosol Inhaler 2 puff INHALATION BID
[2022-11-03 21:20] LABS: Alanine Aminotransferase 9 U/L (0-31); Albumin Level 3.1 g/dL (3.5-5.0); Alkaline Phosphatase 57 U/L (39-117); Anion Gap 13 (12-20); Aspartate Amino Transferase 17 U/L (5-31); Bilirubin Total 0.8 mg/dL (0.0-1.0); Blood Urea Nitrogen 9 mg/dL (9-16); Calcium 9.6 mg/dL (8.4-10.2); Carbon Dioxide 28 mmol/L (22-29); Chloride 103 mmol/L (96-108); Creatinine Clr Calc Pharmacy 71.3; Estimated Glomerular Filt Rate > 60; Glucose Random 109 mg/dL (60-115); Lipase 9 U/L (8-78); Potassium 3.5 mmol/L (3.3-5.1); Sodium 140 mmol/L (135-145); Total Protein 6.9 g/dL (6.5-8.0)
--- NOTE | 2022-11-03 21:43 | ECG_ITS ---
Test Reason : TACHYCARDIO Blood Pressure : / mmHG Vent. Rate : 111 BPM Atrial Rate : 111 BPM P-R Int : 154 ms QRS Dur : 070 ms QT Int : 332 ms P-R-T Axes : 054 -15 024 degrees QTc Int : 451 ms Sinus tachycardia with Premature supraventricular complexes Minimal voltage criteria for LVH, may be normal variant ( R in aVL ) Borderline ECG When compared with ECG of 07-JUL-2022 14:59, Premature supraventricular complexes are now Present Referred By: Redd Agarwal Electronically Signed By:Kunal Wagner
[2022-11-03] MEDS: ondansetron HCL 4 MG/2 ML VIAL IVPUSH (22:36)
[2022-11-03] MEDS: Famotidine/PF 20 MG/2 ML VIAL IVPUSH (22:36)
[2022-11-03] MEDS: 0.9 % Sodium Chloride 1,000 ML 999 ML IV (22:37)
[2022-11-03 22:41] VITALS: BP 131/74; PULSE 104; RESP 20; TEMP 37.2; O2SAT 98
[2022-11-03] MEDS: Morphine Sulfate 4 MG/ML CARTRIDGE IVPUSH (23:02)
--- NOTE | 2022-11-04 00:01 | PC.NURSE ---
18G U/S guided IV line infiltrated. Pt received 400cc of NS. aware.
[2022-11-04 00:06] VITALS: BP 118/68; PULSE 103; RESP 20; O2SAT 97
--- NOTE | 2022-11-04 01:36 | MHC.EDTECH ---
Call out to [facility] @[id number] to book BLS transport back to [facility] 30 mins was given for an ETA
[2022-11-04 01:54] VITALS: BP 106/50; PULSE 98; RESP 16; TEMP 37.2; O2SAT 93
--- NOTE | 2022-11-04 02:24 | PC.NURSE ---
Nurse report provided to Ana at [facility]. Pt returning via EMS and aware of plan of care.
== END 2022-11-04 02:26 | disposition skilled nursing facility (03) ==
PROVIDERS: Emergency Provider Internal Medicine; PCP Internal Medicine
DX: K29.70 Gastritis, unspecified, without bleeding (principal); E11.22 Type 2 diabetes mellitus with diabetic chronic kidney disease; I12.9 Hypertensive chronic kidney disease with stage 1 through stage 4 chronic kidney disease, or unspecified chronic kidney disease; N18.9 Chronic kidney disease, unspecified; E66.9 Obesity, unspecified; Z68.41 Body mass index [BMI] 40.0-44.9, adult; Z86.718 Personal history of other venous thrombosis and embolism; Z79.02 Long term (current) use of antithrombotics/antiplatelets; Z79.899 Other long term (current) drug therapy; Z79.4 Long term (current) use of insulin
CPT/HCPCS: 36415; 74176; 80053; 83690; 85025; 85379; 93005; 96361; 96374; 96375; 99284; J2270; J2405

== ENCOUNTER 2024-05-25 12:04 | Inpatient (IN) | payer MEDICARE, MEDICAID, SELFPAY ==
[2024-05-25] VITALS (14 sets, daily range): BP systolic 99–153; BP diastolic 39–106; PULSE 80–134; RESP 16–25; TEMP 36.7–37.1; O2SAT 95–97; BMI 42.7
--- NOTE | ~2024-05-25 | XR_ITS ---
EXAMINATION: XR ANKLE, LEFT CLINICAL INFORMATION: pain, swelling, injury COMPARISON: None available. TECHNIQUE: AP, lateral, and mortise views of the left ankle. FINDINGS: Osteopenia versus osteoporosis. Degenerative changes with a deformity of the ankle. Edema pattern without subcutaneous emphysema involving the lateral and medial malleolus. There is a metallic hardware in the anterior calcaneus with the indistinct margins of the osseous structures and nearly fused. Atherosclerosis disease. XR/XR ankle LT min 3V IMPRESSION: Concerning cellulitis osteomyelitis in the correct clinical settings. Electronically signed by: Leonides Aggarwal MD 05/25/2024 03:44 PM EST RP
--- NOTE | ~2024-05-25 | XR_ITS ---
EXAMINATION: XR FEMUR, LEFT CLINICAL INFORMATION: pain, swelling, injury COMPARISON: None available. TECHNIQUE: AP and lateral views of the left femur were obtained. FINDINGS: No acute cortical disruption. No periosteal bone reaction. No gross lytic or blastic lesions. Osteopenia versus fibrosis. Degenerative changes in the knee. Vascular calcifications. Patient's large body habitus. XR/XR femur LT 2V IMPRESSION: No acute fracture, left femur. Atherosclerosis disease, peripheral. Electronically signed by: Leonides Aggarwal MD 05/25/2024 03:41 PM EST
--- NOTE | ~2024-05-25 | CT_ITS ---
CLINICAL HISTORY: SOB, tachycardia CT angiography chest with contrast. With MIP MPR Postprocessing. Comparison: Chest x-ray from 07/07/2022. Findings: No central pulmonary embolism accounting for artifacts. Imaged main pulmonary artery measures at the upper limits of normal. Tortuosity of the thoracic aorta is noted without dissection flap. Moderate cardiomegaly with multi chamber enlargement of the heart. Small mediastinal lymph nodes are nonspecific and may be reactive. Mild bibasilar atelectasis/pneumonitis, including lingula. Right axillary surgical clips in right shoulder hardware noted. Mild/minimal vertebral height losses appear old/chronic. Question low bone mineralization in the study with artifacts. IVC filter is partially imaged. Severe stool burden in the [id number]. Moderate streak artifacts of the liver. Mild perinephric stranding in the [id number]. Imaged rib deformities appear old chronic. IMPRESSION: 1. No central pulmonary embolism. 2. Mild bibasilar atelectasis/pneumonitis. This document has been electronically signed by: Michele Fried MD on 05/25/2024 20:03:14
--- NOTE | ~2024-05-25 | XR_ITS ---
EXAMINATION: X-ray left tibia and fibula. 2 views. CLINICAL INFORMATION: Injury. Pain. Swelling. COMPARISON: No priors. TECHNIQUE: AP and lateral views. FINDINGS: Generalized decreased mineralization. No acute cortical disruption. No gross lytic or blastic lesions. Osteolysis of the elements of the foot. Vascular calcifications. No subcutaneous emphysema. XR/XR tibia fibula LT 2V IMPRESSION: No acute fracture. Osteopenia versus osteoporosis. Osteolysis in the left foot. Osteomyelitis cannot be excluded. Electronically signed by: Leonides Aggarwal MD 05/25/2024 03:43 PM EST
--- NOTE | ~2024-05-25 | MR_ITS ---
EXAMINATION: MR FOOT WITHOUT THEN WITH IV CONTRAST LEFT HISTORY: left foot swelling,. TECHNIQUE: Sagittal and axial T1 and STIR, and coronal STIR images of the left forefoot were obtained. Subsequently, axial and sagittal fat-suppressed T1-weighted images were obtained after the intravenous administration of 10 mL Gadavist. COMPARISON: Correlation is made to plain films of the left foot dated 05/25/2024. FINDINGS: There is metallic susceptibility artifact in the mid foot secondary to a surgical staple. The bones of the forefoot demonstrate normal marrow signal intensity. No bone marrow edema or osseous destruction is identified. There is no abnormal osseous enhancement. There is soft tissue edema involving the lateral aspect of the foot and ankle. There is no loculated fluid collection. No tendon abnormality is identified. MR/MR foot LT wo/w con IMPRESSION: Soft tissue edema at the lateral aspect of the foot and ankle which may indicate cellulitis. No evidence of osteomyelitis. Electronically signed by: Bladimir Chawla MD 05/30/2024 01:28 PM [facility]
--- NOTE | ~2024-05-25 | XR_ITS ---
EXAMINATION: XR FOOT, LEFT CLINICAL INFORMATION: pain, swelling, injury COMPARISON: None available. TECHNIQUE: AP, lateral, and oblique views of the left foot. FINDINGS: Osteopenia versus osteoporosis with incomplete fusion of the tarsal bones and likely areas of osteolysis. There is a metallic hardware in the anterior calcaneus. There is edema pattern throughout the dorsal aspect of the ankle and foot. No gross subcutaneous emphysema. Vascular calcifications. XR/XR foot LT 2V IMPRESSION: Concerning cellulitis/osteomyelitis. Atherosclerosis disease, peripheral. Electronically signed by: Leonides Aggarwal MD 05/25/2024 03:46 PM [facility]
--- NOTE | ~2024-05-25 | US_ITS ---
EXAMINATION: US TRIPLEX LOWER EXTREMITY, LEFT CLINICAL INFORMATION: Left lower extremity pain, swelling. COMPARISON: None available. TECHNIQUE: Color-flow triplex imaging with spectral analysis and compression Doppler were performed on the left lower extremity. FINDINGS: Exam somewhat limited by habitus. Respiratory variation, normal compression and augmented flow are noted throughout the left lower extremity. The visualized common femoral vein, superficial femoral vein, profunda femoral vein, popliteal vein and midcalf peroneal and posterior tibial venous segments show no evidence of deep venous thrombosis. There is no Wen's cyst. US/US venous duplex LE IMPRESSION: Somewhat limited exam due to habitus. No direct or indirect evidence of deep venous thrombosis involving the left lower extremity. Electronically signed by: Esvin Lund MD 05/25/2024 02:11 PM [facility]
--- NOTE | 2024-05-25 07:00 | CA_ITS ---
Transthoracic Echocardiogram Patient (Last, First, Middle): Yadira Dallas, Gender: Female Date of : 1945 Age: 78 Procedure Date: 05/25/2024 Procedure Type: Transthoracic Echocardiogram [place] [facility] [place] Height: 165.1 cm Weight: 116.12 kg BSA: 2.20 m2 Heart Rate: bpm Reflesher: JOMAR Referring MD: Kunal Wagner MD Symptoms: wide complex tachycardia Study Quality: Fair ECG Rhythm: Atrial Fibrillation Conclusions: - Normal left ventricular size and systolic function. There is mildly increased left ventricular wall thickness. The visually estimated ejection fraction is between 55-60%. - The mid anteroseptal segment is hypokinetic. - Normal right ventricular cavity size and systolic function. - There is mild dilatation of the ascending aorta measuring 3.60 cm. Findings Procedure Information Contrast agent, definity, is being given per protocol without apparent complications. Left Ventricle Normal left ventricular size and systolic function. There is mildly increased left ventricular wall thickness. The visually estimated ejection fraction is between 55-60%. There is evidence of regional wall motion abnormalities. Diastolic function is normal for age. Wall Motion Rest Echo Findings The mid anteroseptal segment is hypokinetic. Right Ventricle Normal right ventricular cavity size and systolic function. Atria The left atrium is mildly dilated. The right atrium is mildly dilated. Aortic Valve Normal aortic valve structure and function. There is no aortic valve stenosis. There is no aortic valve regurgitation. Mitral Valve There is mild mitral annular calcification. There is trace mitral valve regurgitation. There is no mitral valve stenosis. Pulmonic Valve The pulmonic valve is likely normal. Tricuspid Valve Normal tricuspid valve structure. There is no tricuspid valve regurgitation. Normal right atrial pressure. There is no evidence of pulmonary hypertension. Great Vessels There is mild dilatation of the ascending aorta measuring 3.60 cm. Venous The inferior vena cava is normal in size and collapses greater than 50% with inspiration. Pericardium/Pleural There is no evidence of pericardial effusion. Prior Study Comparison No prior study available for comparison. Measurements 2D Linear Measurements IVSd: 1.04 0.6-0.9/0.6-1.0 cm LVIDd: 4.41 3.9-5.3/4.2-5.9 cm LVIDd Index: 2.00 2.4-3.2/2.2-3.1 cm/m2 LVIDs: 2.85 2.0-3.6 cm LVPWd: 0.96 0.7-1.1 cm Ao Root: 3.50 2.1-3.5 cm LA Diam: 4.20 2.7-3.8/3.0-4.0 cm LAIDs Index: 1.91 1.5-2.3 cm/m2 LV Mass: 184.20 67-162/88-224 g LV Mass Index: 83.73 43-95/49-115 g/m2 LVOT Diam: 2.20 3.0+(-)1.3 cm Mitral Valve MV VTI: 0.34 MV Pk : 1.31 MV Mn : 0.96 MV Pk Grad: 7.00 MV Mn Grad: 4.00 MV Pk E: 0.56 MV PK A: 0.97 MV Decel Time: 279.00 E/A: 0.60 E'Lateral: 7.07 E'Medial: 4.46 E/E' Med: 12.60 E/E' Lat: 7.90 PHT: 82.00 MVA PHT: 2.68 MVA Continuity: 2.58 Decel [place]: 2.01 Aortic Valve AoV Pk : 1.75 AoV Mn : 1.21 AoV VTI: 0.34 AoV Pk Grad: 12.00 Aov Mn Grad: 7.00 LEIF Cont.VTI: 2.58 LVOT LVOT Pk : 1.06 LVOT Mn : 0.69 LVOT VTI: 0.23 LVOT Pk Grad: 4.00 LVOT Mn Grad: 2.00 LVOT Diam: 2.20 LVOT Area: 3.80 Diastolic Function MV Pk E: 0.56 MV Pk A: 0.97 E/A: 0.60 E'Medial: 4.46 E/E' Med: 12.60 E' Laterial: 7.07 E/E' Lat: 7.90 Right Ventricle TAPSE (mm): 27.00 TVS' : 17.00 Tricuspid Valve TR Pk : 2.52 TR Pk Grad: 25.00 RA Press: 3.00 RVSP: 28.00 Great Vessels Aorta Ao Root-2D: 3.50 2.0-3.7 cm Ao Asc: 3.60 2.1-3.4 cm Updated in Other Vendor System with Status of Final Kunal Wagner MD electronically signed on 05/25/2024 7:42:05 PM with status of Final
--- NOTE | 2024-05-25 12:06 | ED_ITS ---
HPI - General Adult General Chief complaint: General Medical Stated complaint: LT PEDAL SWELLING Time Seen by Provider: 05/25/24 12:06 Source: patient and EMS Mode of arrival: EMS Limitations: no limitations History of Present Illness ED Provider: Atiya Mckay PA-C HPI narrative: Patient is a 78 year old assigned female at with a history of DM, HTN, CKD, erythema intertrigo, dysphagia, depression, YUE, COPD, pemphigus, DVT not on anti-coagulation, presenting to the emergency department today with left lower leg swelling, redness, and pain. Patient states that she is not mobile at baseline. Patient states that over the last few days she has had swelling and pain of the left lower leg. Patient denies any dizziness, lightheadedness, abdominal pain, nausea, vomiting, fever, chills, blurry vision, double vision, loss of vision, chest pain, difficulty breathing, shortness of breath, back pain, night sweats, pain with urination, increased urinary frequency, increased urinary urgency, blood in her urine or stool, syncope or a near syncopal episode, recent trauma or falls, bowel incontinence, bladder incontinence, or any other complaints at this time. Onset (ago): day(s) (2) Location: left and lower extremity Relieving factors: none Exacerbating factors: none Associated symptoms: denies other symptoms Treatments prior to arrival: other (doxycycline since 05/20/2024) Related Data Home Medications ?Medication ?Instructions ?Recorded ?Confirmed atorvastatin 80 mg tablet 1 tab PO BEDTIME 06/08/22 07/07/22 metoprolol succinate 50 mg 1 tab PO DAILY 06/08/22 07/07/22 tablet,extended release 24 hr pioglitazone 30 mg tablet 1 tab PO DAILY 06/08/22 07/07/22 tramadol 50 mg tablet 1 tab PO Q6H PRN Pain 06/08/22 07/07/22 albuterol sulfate 90 mcg/actuation 2 puff inhalation Q6H PRN 06/09/22 07/07/22 aerosol inhaler Shortness Of Breath Or Wheezing bisacodyl 10 mg rectal suppository 10 mg KS DAILY PRN Constipation 06/09/22 07/07/22 meclizine 25 mg tablet 25 mg PO Q8H PRN Vertigo 06/09/22 07/07/22 magnesium chloride 64 mg 128 mg PO DAILY 06/12/22 07/07/22 (magnesium chloride) tablet acetaminophen 500 mg tablet 1,000 mg PO Q8H PRN pain 07/07/22 07/07/22 budesonide-formoterol HFA 80 2 puff inhalation BID 07/07/22 07/07/22 mcg-4.5 mcg/actuation aerosol inhaler (Symbicort) insulin detemir U-100 100 unit/mL 12 unit subcut BID@0900,2100 07/07/22 07/07/22 (3 mL) subcutaneous pen (Levemir FlexTouch U-100 Insulin) insulin lispro 100 unit/mL 1 sliding scale dose subcut 07/07/22 07/07/22 subcutaneous solution USEASDIRECTD zinc oxide 1 appl topical TID 07/07/22 07/07/22 apremilast 30 mg tablet (Otezla) 30 mg PO BID 05/25/24 doxycycline hyclate 100 mg tablet 100 mg PO BID 05/25/24 losartan 50 mg tablet 50 mg PO BID 05/25/24 lurasidone 60 mg tablet 60 mg PO DAILY 05/25/24 naltrexone 4.5 mg capsule 4.5 mg PO DAILY 05/25/24 prednisone 5 mg tablet PO 05/25/24 sertraline 50 mg tablet 50 mg PO DAILY 05/25/24 Previous Rx's ?Medication ?Instructions ?Recorded nystatin 100,000 unit/gram topical 1 appl topical TID #30 grams 06/12/22 ointment ascorbate calcium (vitamin C) 500 500 mg PO DAILY #30 tabs 06/15/22 mg tablet ferrous sulfate 325 mg (65 mg 325 mg PO DAILY #30 tabs 06/15/22 iron) tablet (Iron (ferrous sulfate)) omeprazole 40 mg capsule,delayed 40 mg PO DAILY #30 caps 11/04/22 release ondansetron 4 mg disintegrating 4 mg PO Q6-8H PRN nausea and 11/04/22 tablet vomiting #7 tabs Allergies Allergy/AdvReac Type Severity Reaction Status Date / Time belladonna alkaloids Allergy Intermediate ITCHING Verified 05/25/24 13:44 [From ] phenobarbital [From ] Allergy Intermediate ITCHING Verified 05/25/24 13:44 oxycodone Allergy Unknown Verified 05/25/24 13:44 Review of Systems 2 Constitutional: Constitutional: Reports no additional constitutional complaints, Denies chills, Denies fever(s) and Denies night sweats Eyes: Eyes: Reports no additional eye complaints, Denies blurry vision, Denies change in vision, Denies diplopia, Denies eye discharge, Denies loss of vision and Denies eye pain ENT: Denies dizziness Cardiovascular: Cardiovascular: Reports no additional cardiovascular complaints, Denies chest pain, Denies lightheadedness, Denies Loss of Consciousness and Denies dyspnea Respiratory: Respiratory: Reports no additional respiratory complaints and Denies dyspnea Gastrointestinal: Gastrointestinal: Reports no additional gastrointestinal complaints, Denies abdominal pain, Denies melena, Denies hematochezia, Denies change in bowel habits and Denies change in stool character Genitourinary: Genitourinary: Denies hematuria, Denies urinary frequency, Denies dysuria, Denies urinary incontinence, Denies urinary hesitancy and Denies urinary urgency Musculoskeletal: Musculoskeletal: Reports no additional musculoskeletal complaints, Denies numbness and Denies tingling Comments: left lower leg redness, warmth, pain, and swelling Neurologic: Denies dizziness, Denies loss of vision, Denies numbness and Denies tingling Psychiatric: Psychiatric: Reports no additional psychiatric complaints Endocrine: Endocrine: Reports no additional endocrine complaints Hematologic/Lymphatic: Hematologic/Lymphatic: Reports no additional hematologic/lymphatic complaints Allergic/Immunologic: Allergic/Immunologic: Reports no additional allergic/immunologic complaints [facility] Past Medical History Attestation statement: The following information was validated with the patient. Source: old records reviewed and nursing notes reviewed Medical History History of DVT (deep vein thrombosis) CKD (chronic kidney disease) Erythema intertrigo Asthma Obesity Hypertension Diabetes Multiple skin tears Social History Social History Household Members: Other Housing: Snf Do you presently have visiting nurse or other home services: No Alcohol intake: never Comment: 1:1 sitter Patient Tobacco Use Status: Never used Tobacco Smoked in Last 30 Days: No Use of substances other than those prescribed or required for medical reasons: No Advance Directives: No Advance Directives Information Provided: Yes Do you have a plan to hurt others: No Plan service: No Current occupational status: disabled Physical Exam ED Vital Signs: Vital Signs - 24 hr 05/25/24 12:11 05/25/24 13:15 05/25/24 13:34 Temperature 98.1 F 98.7 F Pulse Rate 132 H 134 H 87 Respiratory Rate 18 20 18 Blood Pressure 120/62 124/106 H 118/49 L Pulse Oximetry 96 97 96 Oxygen Delivery Method Room Air Room Air Room Air 05/25/24 13:49 05/25/24 14:02 05/25/24 14:19 Temperature 98.5 F 98.4 F Pulse Rate 87 88 83 Respiratory Rate 16 18 22 H Blood Pressure 99/42 L 99/52 L 99/40 L Pulse Oximetry 96 97 97 Oxygen Delivery Method Room Air Room Air Room Air 05/25/24 14:57 Temperature Pulse Rate Respiratory Rate Blood Pressure 136/71 Pulse Oximetry Oxygen Delivery Method BMI result Body Mass Index 42.7 Const General: cooperative, no acute distress, alert and awake Nutritional Appearance: well nourished Orientation/consciousness: patient oriented x3 Limitations: no limitations HENMT Head: Yes normal to inspection and Yes atraumatic Ears: hearing grossly normal bilaterally and external ears normal General nose exam: Normal external nose present, no nasal discharge noted and no epistaxis Face and sinus: Yes normal facial exam, No abrasion and No laceration Mouth: Normal oral and palatal mucosa present, no drooling and no muffled voice Eyes General: appearance normal, both eyes and all related structures Periorbital: periorbital findings normal Eyelids: Yes eyelids normal Conjunctivae: conjunctivae normal Pupils: Equal, round and reactive pupils present EOM: EOMs intact bilaterally Neck Neck: Yes normal visual inspection, Yes full ROM and Yes no lymphadenopathy Chest Chest palpation & inspection: normal inspection of the chest Resp Effort & Inspection: normal respiratory effort and able to speak in complete sentences Cardio Rate: tachycardic Rhythm: abnormal rhythm irregularly irregular GI Inspection: Yes normal to inspection Neuro General: patient oriented x3 and moves all extremities Cranial nerves: Yes Equal, round and reactive pupils present Cognition (Neuro): normal cognition Extrem Other: General: Yes capillary refill normal Psych Appearance: grossly normal Mental Status: mental status grossly normal Affect: normal affect Attitude: cooperative Thought process: Normal thought process present Thought content: Normal thought content present Insight: Good insight present (Psych) Medications Administered Generic Name Dose Route Start Last Admin Trade Name Freq PRN Reason Stop Dose Admin Amiodarone HCl 900 mg/ Sodium 518 mls @ 34.533 mls/hr 05/25/24 12:45 05/25/24 13:05 Chloride IVCONT 1 mg/min .Q15H1M [place] 34.53 mls/hr Administration Protocol 1 MG/MIN Discontinued Medications Generic Name Dose Route Start Last Admin Trade Name Freq PRN Reason Stop Dose Admin Magnesium Sulfate/Dextrose 1 gm in 100 mls @ 100 mls/hr 05/25/24 12:20 05/25/24 13:52 Magnesium Sulfate/D5w IV 05/25/24 13:19 Infused ONCE ONE Infusion Amiodarone HCl 150 mg in 100 mls @ 600 mls/hr 05/25/24 12:28 05/25/24 13:03 Nexterone IV 05/25/24 12:37 Infused ONCE ONE Infusion Vancomycin HCl 1,000 mg/ 270 mls @ 270 mls/hr 05/25/24 12:54 05/25/24 15:19 Sodium Chloride IV 05/25/24 13:53 Infused ONCE ONE Infusion Piperacillin Sod/Tazobactam 50 mls @ 100 mls/hr 05/25/24 12:54 05/25/24 13:35 Sod 3.375 gm/ Sodium Chloride IV 05/25/24 13:23 Infused ONCE ONE Infusion Metoprolol Succinate 25 mg 05/25/24 12:54 05/25/24 13:05 Metoprolol Succinate Er 25 Mg Tab.Er.24h PO 05/25/24 12:55 25 mg ONCE ONE Administration Protocol Metoprolol Tartrate 5 mg 05/25/24 12:40 05/25/24 12:50 Metoprolol Tartrate 5 Mg/5 Ml Vial IVPUSH 05/25/24 12:41 5 mg ONCE ONE Administration Protocol Medical Decision Making Medical Decision Making MDM Narrative: Patient is a 78 year old assigned female at with a history of DM, HTN, CKD, erythema intertrigo, dysphagia, depression, YUE, COPD, pemphigus, DVT not on anti-coagulation, presenting to the emergency department today with left lower leg swelling, redness, and pain. Patient's physical exam was as noted in the physical exam portion of this note. Patient's blood work showed a WBC count of 20.2, ESR 69, potassium of 5.6, and CRP of 20.28. Patient's left lower leg ultrasound showed no evidence of DVT. Patient's left lower leg x-rays show evidence of osteomyelitis of the ankle and foot. Patient's CT PE study is pending at this time. Patient was found to be tachycardiac irregularly on exam and her EKG showed multiple episodes of a wide complex tachycardia with her max HR of 180. I consulted with Dr. Wagner, the environmental aide higher education administrator, who recommended giving 150mg of Amiodarone, 5mg of Lopressor, starting an amiodarone drip, and giving a gram of magnesium. He stated he believes this to be atrial fib but given it appears wide to do the regimen recommended. I consulted with the vascular team given the appearance of the left lower leg and they recommended getting a CT of the chest to rule out PE. I explained my physical exam findings as well as all test results to the patient. I answered all questions asked by the patient. Patient was given IV Ceftriaxone and Zosyn. Patient's clinical presentation is most consistent with left lower leg cellulitis and atrial fib RVR vs. sinus tachycardia with runs of ventricular tachycardia. Patient's clinical presentation is not consistent with sepsis (@1530). I spoke with the hospitalist team who agreed to admission. Differential Diagnosis Differential Diagnoses: The differential diagnosis associated with the presentation includes Osteomyelitis Atrial fibrillation with RVR Paroxysmal v-tach DVT Admission/Observation Consideration of admission/observation: Escalation of care including admission/observation considered Admitted as noted in the [facility] Rationale portion of this note. Consult Healthcare Provider Management of the patient was discussed with: Chip Silo Tender (consulted with the cardiology and vascular teams as noted in the MDM Rationale portion of this note) Lab Data [facility] Lab Attestation statement: I reviewed the patient's lab results. My interpretation of these results are in the MDM Rationale portion of this note. 05/25/24 12:46 05/25/24 14:51 Labs: Lab Results 05/25/24 05/25/24 05/25/24 Range/Units 12:35 12:46 12:47 WBC 20.2 H (4.8-10.8) X10*3/uL RBC 3.94 L (4.20-5.50) X10*6/uL Hgb 10.8 L (12.0-16.0) g/dl Hct 33.9 L (37.0-47.0) % MCV 86.0 (80.0-98.0) fL MCH 27.4 (27.0-33.0) pg MCHC 31.9 (31.0-35.0) g/dl RDW 17.7 H (11.0-16.0) % Plt Count 209 (160-400) X10*3/uL MPV 10.4 (9.4-12.3) fL Immature Gran % (Auto) 1.5 H (0.0-0.4) % Neut % (Auto) 79.9 H (45-73) % Lymph % (Auto) 13.3 L (20-40) % [place] % (Auto) 4.3 (2-11) % Eos % (Auto) 0.6 (0-4) % Baso % (Auto) 0.4 (0-2) % Lymph # (Auto) 2.7 (1.2-4.9) X10*3/uL [place] # (Auto) 0.9 (0.1-1.2) X10*3/uL Eos # (Auto) 0.1 (0.0-0.4) X10*3/uL Baso # (Auto) 0.1 (0.0-0.2) X10*3/uL Abs Immat Gran (auto) 0.31 H (0.00-0.03) X10*3/uL Absolute Neuts (auto) 16.1 H (2.0-8.3) x10*3/uL Absolute Nucleated RBC 0.000 (0.0-0.012) X10*3/uL Nucleated RBC % (auto) 0.0 (0.0-0.2) /100WBC ESR 69 H (0-20) MM/HR Hold Purple Top SEE NOTE PT 12.6 H (10.9-12.4) SEC INR 1.1 (0.9-1.1) APTT 28.1 (26.0-36.8) SEC Sodium (135-145) mmol/L Potassium (3.3-5.1) mmol/L Chloride (96-108) mmol/L Carbon Dioxide (22-29) mmol/L Anion Gap (12-20) BUN (9-16) mg/dL Creatinine (0.5-1.4) mg/dL Estim Creat Clear Calc Estimated GFR POC Glucose 142 H (60-115) mg/dL Random Glucose (60-115) mg/dL Lactic Acid 1.4 (0.5-2.0) mmol/L Calcium (8.4-10.2) mg/dL Magnesium (1.6-2.6) mg/dL Total Bilirubin (0.0-1.0) mg/dL AST (5-31) U/L ALT (0-31) U/L Alkaline Phosphatase (39-117) U/L Total Creatine Kinase (26-140) U/L Troponin I High Sens 9.9 (<3.5-17.0) ng/L C-Reactive Protein (< or = 0.50) mg/dL Total Protein (6.5-8.0) g/dL Albumin (3.5-5.0) g/dL Hold Green Top Cancelled 05/25/24 Range/Units 14:51 WBC (4.8-10.8) X10*3/uL RBC (4.20-5.50) X10*6/uL Hgb (12.0-16.0) g/dl Hct (37.0-47.0) % MCV (80.0-98.0) fL MCH (27.0-33.0) pg MCHC (31.0-35.0) g/dl RDW (11.0-16.0) % Plt Count (160-400) X10*3/uL MPV (9.4-12.3) fL Immature Gran % (Auto) (0.0-0.4) % Neut % (Auto) (45-73) % Lymph % (Auto) (20-40) % [place] % (Auto) (2-11) % Eos % (Auto) (0-4) % Baso % (Auto) (0-2) % Lymph # (Auto) (1.2-4.9) X10*3/uL [place] # (Auto) (0.1-1.2) X10*3/uL Eos # (Auto) (0.0-0.4) X10*3/uL Baso # (Auto) (0.0-0.2) X10*3/uL Abs Immat Gran (auto) (0.00-0.03) X10*3/uL Absolute Neuts (auto) (2.0-8.3) x10*3/uL Absolute Nucleated RBC (0.0-0.012) X10*3/uL Nucleated RBC % (auto) (0.0-0.2) /100WBC ESR (0-20) MM/HR Hold Purple Top PT (10.9-12.4) SEC INR (0.9-1.1) APTT (26.0-36.8) SEC Sodium 140 (135-145) mmol/L Potassium 5.6 H (3.3-5.1) mmol/L Chloride 106 (96-108) mmol/L Carbon Dioxide 26 (22-29) mmol/L Anion Gap 14 (12-20) BUN 23 H (9-16) mg/dL Creatinine 0.90 (0.5-1.4) mg/dL Estim Creat Clear Calc 64.6 Estimated GFR > 60 POC Glucose (60-115) mg/dL Random Glucose 141 H (60-115) mg/dL Lactic Acid (0.5-2.0) mmol/L Calcium 8.7 D (8.4-10.2) mg/dL Magnesium 2.3 (1.6-2.6) mg/dL Total Bilirubin 0.4 (0.0-1.0) mg/dL AST 25 (5-31) U/L ALT < 6 (0-31) U/L Alkaline Phosphatase 63 (39-117) U/L Total Creatine Kinase 24 L (26-140) U/L Troponin I High Sens (<3.5-17.0) ng/L C-Reactive Protein 20.28 H (< or = 0.50) mg/dL Total Protein 6.5 (6.5-8.0) g/dL Albumin 2.5 L (3.5-5.0) g/dL Hold Green Top Independent Interpretation I performed an independent interpretation of an: EKG, Plain X-Ray and Ultrasound Interpretation: My interpretation is in agreement with the radiologist's impression of these imaging studies. L EXAMINATION: US TRIPLEX LOWER EXTREMITY, LEFT CLINICAL INFORMATION: Left lower extremity pain, swelling. COMPARISON: None available. TECHNIQUE: Color-flow triplex imaging with spectral analysis and compression Doppler were performed on the left lower extremity. FINDINGS: Exam somewhat limited by habitus. Respiratory variation, normal compression and augmented flow are noted throughout the left lower extremity. The visualized common femoral vein, superficial femoral vein, profunda femoral vein, popliteal vein and midcalf peroneal and posterior tibial venous segments show no evidence of deep venous thrombosis. There is no Wen's cyst. US/US venous duplex LE LT IMPRESSION: Somewhat limited exam due to habitus. No direct or indirect evidence of deep venous thrombosis involving the left lower extremity. Electronically signed by: Esvin Lund MD 05/25/2024 02:11 PM EST RP Dictated By: Esvin Lund MD Signed By: Electronically signed by Esvin Lund MD 05/25/24 1411 EXAMINATION: X-ray left tibia and fibula. 2 views. CLINICAL INFORMATION: Injury. Pain. Swelling. COMPARISON: No priors. TECHNIQUE: AP and lateral views. FINDINGS: Generalized decreased mineralization. No acute cortical disruption. No gross lytic or blastic lesions. Osteolysis of the elements of the foot. Vascular calcifications. No subcutaneous emphysema. XR/XR tibia fibula LT 2V IMPRESSION: No acute fracture. Osteopenia versus osteoporosis. Osteolysis in the left foot. Osteomyelitis cannot be excluded. Electronically signed by: Leonides Aggarwal MD 05/25/2024 03:43 PM EST RP Dictated By: Leonides Haney MD Signed By: Electronically signed by Leonides Cuevas MD 05/25/24 1543 EXAMINATION: XR FOOT, LEFT CLINICAL INFORMATION: pain, swelling, injury COMPARISON: None available. TECHNIQUE: AP, lateral, and oblique views of the left foot. FINDINGS: Osteopenia versus osteoporosis with incomplete fusion of the tarsal bones and likely areas of osteolysis. There is a metallic hardware in the anterior calcaneus. There is edema pattern throughout the dorsal aspect of the ankle and foot. No gross subcutaneous emphysema. Vascular calcifications. XR/XR foot LT 2V IMPRESSION: Concerning cellulitis/osteomyelitis. Atherosclerosis disease, peripheral. Electronically signed by: Leonides Aggarwal MD 05/25/2024 03:46 PM EST RP Dictated By: Leonides Haney MD Signed By: Electronically signed by Leonides Cuevas MD 05/25/24 1546 EXAMINATION: XR FEMUR, LEFT CLINICAL INFORMATION: pain, swelling, injury COMPARISON: None available. TECHNIQUE: AP and lateral views of the left femur were obtained. FINDINGS: No acute cortical disruption. No periosteal bone reaction. No gross lytic or blastic lesions. Osteopenia versus fibrosis. Degenerative changes in the knee. Vascular calcifications. Patient's large body habitus. XR/XR femur LT 2V IMPRESSION: No acute fracture, left femur. Atherosclerosis disease, peripheral. Electronically signed by: Leonides Aggarwal MD 05/25/2024 03:41 PM EST RP Dictated By: Leonides Haney MD Signed By: Electronically signed by Leonides Cuevas MD 05/25/24 1541 EXAMINATION: XR ANKLE, LEFT CLINICAL INFORMATION: pain, swelling, injury COMPARISON: None available. TECHNIQUE: AP, lateral, and mortise views of the left ankle. FINDINGS: Osteopenia versus osteoporosis. Degenerative changes with a deformity of the ankle. Edema pattern without subcutaneous emphysema involving the lateral and medial malleolus. There is a metallic hardware in the anterior calcaneus with the indistinct margins of the osseous structures and nearly fused. Atherosclerosis disease. XR/XR ankle LT min 3V IMPRESSION: Concerning cellulitis osteomyelitis in the correct clinical settings. Electronically signed by: Leonides Aggarwal MD 05/25/2024 03:44 PM EST Dictated By: Leonides Haney MD Signed By: Electronically signed by Leonides Cuevas MD 05/25/24 1544 EXAMINATION: CT ABDOMEN AND PELVIS WITHOUT CONTRAST CLINICAL INFORMATION: Upper abdominal pain COMPARISON: CT abdomen pelvis 07/09/2010 TECHNIQUE: Multidetector volumetric imaging was performed from the superior aspectof the liver through the pubic symphysis. Sagittal and coronalreformatted images were obtained on the technologist's workstation. This CT examination was performed using dose optimization techniques asappropriate, variously including the following: *Automated exposure control *Adjustment of mA and/or kV according to patient size (this includestechniques or standardized protocols for targeted exams where dose ismatched to indication/reason for exam; i.e. extremities or head) *Use of iterative reconstruction technique DLP: 1420 mGy-cm FINDINGS: LUNG BASES: Bibasilar atelectasis is present. LIVER, GALLBLADDER, AND BILIARY TREE: The liver is normal in size,shape, and attenuation. No focal hepatic lesion or biliary ductaldilatation is present. Status post cholecystectomy. PANCREAS: Unremarkable. SPLEEN: Unremarkable. ADRENAL GLANDS: Unremarkable. KIDNEYS AND URETERS: The kidneys are normal in size, shape, andattenuation. No hydronephrosis, hydroureter, or calculi seen. A benignleft upper pole 1.8 cm and 1.4 cm right mid renal Bosniak class I renalcysts are noted - these require no additional imaging or follow-up. Nosolid renal masses are seen. . BLADDER: Unremarkable. GASTROINTESTINAL TRACT: Bladder diverticula are present withoutevidence of diverticulitis. The small and large bowel are otherwiseunremarkable. The appendix is unremarkable. ABDOMINAL WALL: No significant hernia is appreciated. LYMPH NODES: No retroperitoneal lymphadenopathy. VASCULAR: Minimal vascular calcifications without aneurysm. An IVCfilter is in place in good position below the level of the renal veins. PELVIC VISCERA: Status post hysterectomy. An abnormal adnexal mass orfree intraperitoneal fluid is not seen. OSSEOUS STRUCTURES: Unremarkable. CT/CT abdomen pelvis wo IV con IMPRESSION: A cause for the patient's upper abdominal pain has not been found. Incidental findings as described above. Fleischner guidelines were followed. Dictated By: Rodolfo Cee MD Signed By: Electronically signed by Rodolfo Cee MD 11/04/22 0056 Vent. Rate: 151 BPM Atrial Rate: 117 BPM P-R Int: 146 ms QRS Dur: 76 ms QT Int: 292 ms P-R-T Axes: 3 -10 37 degrees QTcB Int: 462 ms Sinus tachycardia with frequent , and consecutive Premature ventricularcomplexes Minimal voltage criteria for LVH, may be normal variant (R in aVL) Abnormal ECG When compared with ECG of 03-Nov-2022 21:43, Premature ventricular complexes are now Present Premature supraventricular complexes are no longer Present DD/ 1220 Radiology Impression Discussion of test interpretation with radiology: I have reviewed the radiologist's reading. Independent Historian Clinical information obtained from an independent historian. History obtained from or confirmed by: EMS (EMS provided additional history and confirmed the history provided by the patient) Chronic Conditions Patient?s care impacted by: Diabetes Critical Care Time Critical Care Time Critical Care Time: Yes Total Critical Care Time: 52 Attestation: I spent 52 minutes of Critical Care Time with this patient. This does not include time spent on separately reported billable procedures. Discharge Plan Discharge Clinical Impression: Cellulitis, Wide-complex tachycardia, Osteomyelitis Patient Disposition: Admitted As Inpatient Print Language: Lithuanian
--- NOTE | 2024-05-25 12:11 | ECG_ITS ---
Test Reason : TACHY Blood Pressure : */* mmHG Vent. Rate : 151 BPM Atrial Rate : 117 BPM P-R Int : 146 ms QRS Dur : 76 ms QT Int : 292 ms P-R-T Axes : 3 -10 37 degrees QTcB Int : 462 ms Sinus tachycardia with frequent PACs and PVCs NSVT Minimal voltage criteria for LVH, may be normal variant ( R in aVL ) Abnormal ECG When compared with ECG of 03-Nov-2022 21:43, Premature ventricular complexes are now Present Premature supraventricular complexes are no longer Present Referred By: Atiya Mckay Electronically Signed By: Kunal Wagner
[2024-05-25] MEDS: Metoprolol Tartrate 5 MG/5 ML VIAL IVPUSH (12:50)
[2024-05-25] MEDS: Magnesium Sulfate/D5W 1 GM/100 ML PIGGYBACK IV (12:52)
[2024-05-25] MEDS: Amiodarone/Dextrose 150 MG/100 ML PLAST..BAG 600 MG IV (12:52)
[2024-05-25 12:56] LABS: MANUAL DIFF FLAG NO
[2024-05-25 13:04] LABS: Basophils Absolute Auto 0.1 X10*3/uL (0.0-0.2); Basophils Percent Auto 0.4 % (0-2); Eosinophils Absolute Auto 0.1 X10*3/uL (0.0-0.4); Eosinophils Percent Auto 0.6 % (0-4); Hematocrit 33.9 % (37.0-47.0); Hemoglobin 10.8 g/dl (12.0-16.0); Imm Gran Abs Auto 0.31 X10*3/uL (0.00-0.03); Imm Gran Pct Auto 1.5 % (0.0-0.4); Lymphocytes Absolute Auto 2.7 X10*3/uL (1.2-4.9); Lymphocytes Percent Auto 13.3 % (20-40); Mean Corpuscular HGB Conc 31.9 g/dl (31.0-35.0); Mean Corpuscular Hemoglobin 27.4 pg (27.0-33.0); Mean Platelet Volume 10.4 fL (9.4-12.3); Monocytes Absolute Auto 0.9 X10*3/uL (0.1-1.2); Monocytes Percent Auto 4.3 % (2-11); Neutrophils Absolute Auto 16.1 x10*3/uL (2.0-8.3); Neutrophils Percent Auto 79.9 % (45-73); Platelet Count 209 X10*3/uL (160-400); Red Blood Count 3.94 X10*6/uL (4.20-5.50); Red Cell Distribution Width 17.7 % (11.0-16.0); White Blood Count 20.2 X10*3/uL (4.8-10.8)
[2024-05-25] MEDS: vancomycin HCL 1,000 MG in 0.9 % Sodium Chloride 250 ML 270 MG IV ×2 (13:05→18:28)
[2024-05-25] MEDS: Piperacillin Sodium/Tazobactam 3.375 GM in 0.9 % Sodium Chloride 50 ML IV ×2 (13:05→20:30)
[2024-05-25] MEDS: Metoprolol Succinate ER 25 MG TAB.ER.24H PO (13:05)
[2024-05-25] MEDS: Amiodarone HCL 900 MG in 0.9 % Sodium Chloride 500 ML 34.53 MG IVCONT (13:05)
[2024-05-25 13:08] LABS: INTERNATIONAL NORM RATIO 1.1 (0.9-1.1); Prothrombin Time 12.6 SEC (10.9-12.4)
[2024-05-25 13:10] LABS: Lactic Acid 1.4 mmol/L (0.5-2.0); Partial Thromboplastin Time 28.1 SEC (26.0-36.8)
[2024-05-25 13:15] LABS: Glucose, Whole Blood 142 mg/dL (60-115)
--- NOTE | 2024-05-25 13:20 | PC.NURSE ---
pt transferred to ED9 from [facility] on pacer pads. product controller applied displaying vtach. pt alert and oriented. answering questions/following commands appropriately. otherwise vss and up to date. no sob/wob noted. respirations even/unlabored. 20G ultrasound guided IV in the left forearm prior to main ED arrival - labs obtained while in [facility]. additional 20gIV in the left hand placed. medications administered per provider order. immediate good effect. rhythm broke to nsr s/p medication administration. see provider/previous DIRECTOR [employer]'s notes for further details.
--- NOTE | 2024-05-25 13:27 | P.PNVS_ITS ---
<Statement entered by Merlin Mendoza MD - 05/26/24 11:32> Significant edema of the lower extremity. No acute DVT at the current time. Continue workup for osteomyelitis. Will follow with you. Thank you for allowing us to assist in her care. Subjective Subjective Date of Service: 05/25/24 Interval history: We were consulted for Yadira, a pleasant 78 yo female, who presented from her SNF with concerns of left lower extremity swelling and discoloration. She was found to have runs of VTach on the monitor. She denied any CP/diff breathing/shortness of breath. She states she does not know how long her leg has been like it is. She has a hx of DVT but is not on AC; she states she did not remember being told she has a DVT. She is non-ambulatory, non weight bearing at baseline. She does endorse pain in the left foot/lower leg. She denies any concerns with her right lower extremity. Physical Exam Const: General: comfortable and no acute distress Orientation/consciousness: patient oriented x3 HEENT: Ears: hearing grossly normal bilaterally Resp: Effort & Inspection: normal respiratory effort and able to speak in complete sentences Auscultation: clear to auscultation bilaterally Cardio: Rate: regular rate Rhythm: regular rhythm Heart sounds: S1 normal heart sound present and S2 normal heart sound present Bruits: no abdominal aortic bruits, no carotid bruits, no femoral bruits and no renal bruits GI: Palpation (GI): No Abdominal aortic bruit present Neuro: General: patient oriented x3 Cranial nerves: Yes CN's II-XII intact bilaterally Extrem: Other: Left lower extremity: +2 pitting edema noted from the toes to just below the tibial tuberosity. Deep erythema noted across the foot and ankle area. Splotchy discoloration noted of the rest of the leg all the way to the groin. Unable to palpate pulses. Right lower extremity: +1 edema noted. Palpable DP pulses. Progress Note: A&P Assessment and plan (1) Pedal edema: Status: Acute Assessment and Plan: Yadira is presenting today from a local SNF to the ER where we are consulted for left lower extremity pedal edema with pain. Her whole leg is discolored and she has +2 pitting edema noted. There are no palpable pulses felt. A duplex ultrasound was ordered. We did suggest ordering a chest CT as well to rule out a PE, the ER PA is aware of this. We suggest starting her on heparin as well. There was no acute vascular surgery intervention at this time; it is more concerning about the runs of V-tach and cardiac status of the patient. We will continue to monitor. We will await the results of the duplex ultrasound as well as possible chest CT. Thank you for the consult. If there are any questions, please do not hesitate to reach out to us. Time Spent With Patient Time: Total time managing care of this patient today ____ minutes. Procedures Date of Service Date of Service: 05/25/24 Quality Stroke Does the patient have a stroke diagnosis?: No VTE Prior VTE?: No VTE Risk Level:: Medical - moderate - high VTE Device Contraindication: Treatment Not Indicated VTE Drug Contraindication: N/A - Med Ordered
--- NOTE | 2024-05-25 13:27 | PC.NURSE ---
pt brought in via EMS fro c/o left leg pain-- per facility pt has been complaining of increasing pain to the left leg for 2 days. 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 On arrival to dept pt HR noted to be in the 130's, left foot, hot to touch, red, and edematous pulses palpable- pt was placed on bedside monitor, which showed runs of v-tach, in addition to potential AFib. MD Ramirezood to bedside. pt to be given amiodarone bolus, magnesium, and metoprolol. 20g IV placed in right arm w/ ultrasound guidance. Labs obtained. Pt transferred to ED 9 for further eval and tx. Report given to STEPHANIE Galloway.
--- NOTE | 2024-05-25 13:36 | PC.NURSE ---
echocardiogram being completed at this time. 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 pt remains in nsr s/p medication administration. amiodarone continuously infusing @ 1mg/min @ this time. will titrate medication per protocol. vss and up to date otherwise at this time. pt remains on RA - no sob/wob noted. respirations even/unlabored. bedside for support. plan of care ongoing. call alva placed within reach.
[2024-05-25 13:49] LABS: Erythrocyte Sedimentation Rate 69 MM/HR (0-20)
[2024-05-25 14:11] LABS: Troponin-I High Sensitivity 9.9 ng/L (<3.5-17.0)
--- NOTE | 2024-05-25 14:29 | PC.NURSE ---
pt is an extremely difficult stick. multiple attempts by this RN as well as tech to obtain labs. will attempt to utilize phlebotomy services.
--- NOTE | 2024-05-25 15:06 | PM.CNCAR ---
History of Present Illness History of Present Illness Date of Service: 05/25/24 Requesting physician: Atiya Mckay Chief complaint: Left leg swelling, wide complex tachycardia Narrative: 78-year-old female who has background history of diabetes, hyperlipidemia, pemphigoid and anemia who is presenting with left lower extremity swelling and erythema. She was noticed to be in tachycardia in the emergency department. We were emergently consulted for this. Patient was denying any symptoms. No chest pain, shortness of breath or palpitations. Her heart rate was fluctuating up to 180s to 190s at time occasionally with narrow complex rhythm but mostly wide complex irregular rhythm. Some of these beats were captured on the rhythm strip/EKGs. The R to R interval is clearly irregular. It almost appears like there is AFib with aberrancy happening in between. There is also right bundle-branch morphology which goes along with Manuel beats. While having heart rates in 180s to 190s she had no symptoms. She said she was experiencing some issue with her left leg and came in. It appears she had surgery at age 13 when she was in [facility] on the left leg. She does not remember the reason. The left lower extremity swollen and erythematous and warm. IV access was done and we decided to give some IV metoprolol and an amiodarone bolus to the patient. Cultures and labs worsened. [facility] Past Medical History Medical History Asthma CKD (chronic kidney disease) Diabetes Erythema intertrigo History of DVT (deep vein thrombosis) Hypertension Multiple skin tears Obesity Social History Social History Household Members: Other Housing: [facility] Do you presently have visiting nurse or other home services: No Alcohol intake: never Comment: 1:1 sitter Patient Tobacco Use Status: Never used Tobacco Smoked in Last 30 Days: No Use of substances other than those prescribed or required for medical reasons: No Advance Directives: No Advance Directives Information Provided: Yes Do you have a plan to hurt others: No Plan service: No Current occupational status: disabled Meds Allergies Allergy/AdvReac Type Severity Reaction Status Date / Time belladonna alkaloids Allergy Intermediate ITCHING Verified 05/25/24 13:44 [From ] phenobarbital [From ] Allergy Intermediate ITCHING Verified 05/25/24 13:44 oxycodone Allergy Unknown Verified 05/25/24 13:44 Active Medications: Current Medications Amiodarone HCl 900 mg/ Sodium (Chloride) 518 mls @ 34.533 mls/hr IVCONT .Q15H1M [facility]; Protocol Last Admin: 05/25/24 13:05 Dose: 1 mg/min, 34.53 mls/hr Home Medications ?Medication ?Instructions ?Recorded ?Confirmed ?Last Taken ?Type atorvastatin 80 mg tablet 1 tab PO BEDTIME 06/08/22 07/07/22 Unknown History metoprolol succinate 50 mg 1 tab PO DAILY 06/08/22 07/07/22 Unknown History tablet,extended release 24 hr pioglitazone 30 mg tablet 1 tab PO DAILY 06/08/22 07/07/22 Unknown History tramadol 50 mg tablet 1 tab PO Q6H PRN Pain 06/08/22 07/07/22 Unknown History albuterol sulfate 90 mcg/actuation 2 puff inhalation Q6H PRN 06/09/22 07/07/22 Unknown History aerosol inhaler Shortness Of Breath Or Wheezing bisacodyl 10 mg rectal suppository 10 mg [place] DAILY PRN Constipation 06/09/22 07/07/22 Unknown History meclizine 25 mg tablet 25 mg PO Q8H PRN Vertigo 06/09/22 07/07/22 Unknown History magnesium chloride 64 mg 128 mg PO DAILY 06/12/22 07/07/22 Unknown History (magnesium chloride) tablet acetaminophen 500 mg tablet 1,000 mg PO Q8H PRN pain 07/07/22 07/07/22 Unknown History budesonide-formoterol HFA 80 2 puff inhalation BID 07/07/22 07/07/22 Unknown History mcg-4.5 mcg/actuation aerosol inhaler (Symbicort) insulin detemir U-100 100 unit/mL 12 unit subcut BID@0900,2100 07/07/22 07/07/22 Unknown History (3 mL) subcutaneous pen (Levemir FlexTouch U-100 Insulin) insulin lispro 100 unit/mL 1 sliding scale dose subcut 07/07/22 07/07/22 Unknown History subcutaneous solution USEASDIRECTD zinc oxide 1 appl topical TID 02/27/23 02/27/23 Unknown History Physical Exam Vital Signs: Vital Signs: Last Vital Signs Temp 98.4 F 05/25/24 14:19 Pulse 83 05/25/24 14:19 Resp 22 H 05/25/24 14:19 BP 136/71 05/25/24 14:57 Pulse Ox 97 05/25/24 14:19 O2 Del Method Room Air 05/25/24 14:19 BMI result Body Mass Index 42.7 GENERAL APPEARANCE: Ill-appearing. In no distress. Morbidly obese. SKIN: Left lower extremity swelling, erythema. Warm to touch compared to the right lower extremity. HEART: no murmurs, in and out of arrhythmia on telemetry. LUNGS: clear to auscultation bilaterally. ABDOMEN: soft, nontender. PERIPHERAL PULSES: equal. NEUROLOGIC: No gross deficits, AAO X 3 Objective Labs and Meds 05/25/24 12:46 05/25/24 12:46 Lab results: Laboratory Results - last 24 hr 05/25/24 05/25/24 05/25/24 12:35 12:46 12:47 WBC 20.2 H RBC 3.94 L Hgb 10.8 L Hct 33.9 L MCV 86.0 MCH 27.4 MCHC 31.9 RDW 17.7 H Plt Count 209 MPV 10.4 Immature Gran % (Auto) 1.5 H Neut % (Auto) 79.9 H Lymph % (Auto) 13.3 L [place] % (Auto) 4.3 Eos % (Auto) 0.6 Baso % (Auto) 0.4 Lymph # (Auto) 2.7 [place] # (Auto) 0.9 Eos # (Auto) 0.1 Baso # (Auto) 0.1 Abs Immat Gran (auto) 0.31 H Absolute Neuts (auto) 16.1 H Absolute Nucleated RBC 0.000 Nucleated RBC % (auto) 0.0 ESR 69 H Hold Purple Top SEE NOTE PT 12.6 H INR 1.1 APTT 28.1 POC Glucose 142 H Lactic Acid 1.4 Troponin I High Sens 9.9 Hold Green Top Cancelled Imaging Radiologist's impression: Impressions Venous Duplex 05/25/24 13:15 IMPRESSION: Somewhat limited exam due to habitus. No direct or indirect evidence of deep venous thrombosis involving the left lower extremity. Electronically signed by: Esvin Lund MD 05/25/2024 02:11 PM EST Assessment and Plan (1) Wide-complex tachycardia: Status: Acute Plan [age] year female with background of diabetes and left lower extremity surgery at age 13 presenting with left leg swelling and redness and wide complex tachycardia. She had both narrow and wide complex tachycardia on telemetry while I was at bedside. Heart rates were 180s to 190s at time and they appeared irregular. Differentials include ventricular tachycardia versus atrial arrhythmia with aberrancy most likely AFib with aberrancy. After achieving IV access IV metoprolol and amiodarone will be given. Sent electrolytes and labs. Drop blood cultures and cover her for left lower extremity infection broadly. Rule out DVT. We will check echocardiogram to assess LV function. If she has convincing evidence of atrial fibrillation then we will discuss anticoagulation. Obviously if she gets diagnosed with DVT then she will be anticoagulated. Can continue amiodarone 400 mg twice a day. We will review echocardiogram and we will follow along with you. Thank you for allowing me to participate in the care of your patient. Please feel free to contact me if you have any questions. Procedures Date of Service Date of Service: 05/25/24
[2024-05-25 15:22] LABS: Alanine Aminotransferase < 6 U/L (0-31); Albumin Level 2.5 g/dL (3.5-5.0); Anion Gap 14 (12-20); Aspartate Amino Transferase 25 U/L (5-31); Bilirubin Total 0.4 mg/dL (0.0-1.0); Blood Urea Nitrogen 23 mg/dL (9-16); C Reactive Protein 20.28 mg/dL (< or = 0.50); Calcium 8.7 mg/dL (8.4-10.2); Carbon Dioxide 26 mmol/L (22-29); Chloride 106 mmol/L (96-108); Creatinine Clr Calc Pharmacy 64.6; Estimated Glomerular Filt Rate > 60; Glucose Random 141 mg/dL (60-115); Magnesium 2.3 mg/dL (1.6-2.6); Potassium 5.6 mmol/L (3.3-5.1); Sodium 140 mmol/L (135-145); Total Protein 6.5 g/dL (6.5-8.0)
[2024-05-25 15:28] LABS: Alkaline Phosphatase 63 U/L (39-117)
--- NOTE | 2024-05-25 16:30 | P.HPHOSP_ITS ---
History of Present Illness Date of Service: 05/25/24 Chief Complaint: left leg cellulitis 78 year old female with history of DM, HTN, CKD, erythema intertrigo, dysphagia, depression, YUE, COPD, pemphigus, DVT not on anti-coagulation, morbid obesity, bed-bound. She was brought from a alf ([facility]) today from for left lower leg swelling /redness for which she has been on Doxycycline since 05/20/2024. The left leg is very erythematous, swollen, and warm to touch--see pictures. WBC count of 20.2, ESR 69, potassium ofand CRP of 20.28. Upon presentation she was noted to be in wide-complex tachycardia at rate of 180. Cardiology advised Amiodarone 150 mg, 5mg of Lopressor, starting an amiodarone drip, and giving a gram of magnesium, and correct high K. Vascular Surgery recommends DVT study negative. CT of chest done for PE is pending. Xray of the tibia/fibula show Osteopenia versus osteoporosis. Osteolysis in the left foot. Osteomyelitis cannot be excluded. Patient is started on Vancomycin and Zosyn. Review of Systems 2 Review of Systems: Gen: no fever Resp: no sob, no cough CV: no chest, no SCHROEDER, no leg edema GI: No n/v, no abd pain SKin: redness and pain in the left leg Neuro: No confusion Yes all other systems are reviewed and are negative [facility] Medical History History of DVT (deep vein thrombosis) CKD (chronic kidney disease) Erythema intertrigo Asthma Obesity Hypertension Diabetes Multiple skin tears Social History Household Members: Other Housing: [facility] Do you presently have visiting nurse or other home services: No Alcohol intake: never Comment: 1:1 sitter Patient Tobacco Use Status: Never used Tobacco Smoked in Last 30 Days: No Use of substances other than those prescribed or required for medical reasons: No Currently Displaying Signs/Symptoms of Drug Intoxication Withdrawal: No Any prior treatment program specific to substance use: No Have you been hit, kicked, punched, or otherwise hurt by someone within the past year? If so, by whom?: No Do you feel safe in your current relationship?: Yes Is there a partner from a previous relationship who is making you feel unsafe now?: No Are you made to feel afraid or neglected: No Advance Directives: No Advance Directives Information Provided: Yes Do you have a plan to hurt others: No Plan Recently lost weight without trying: No Eating poorly because of decreased appetite: No Nutrition Risks: No Nutritional Risk Patient : No : No Poor oral hygiene: No service: No Current occupational status: disabled Meds Allergies Allergy/AdvReac Type Severity Reaction Status Date / Time belladonna alkaloids Allergy Intermediate ITCHING Verified 05/25/24 13:44 [From ] phenobarbital [From ] Allergy Intermediate ITCHING Verified 05/25/24 13:44 oxycodone Allergy Unknown Verified 05/25/24 13:44 Active Medications: Current Medications Amiodarone HCl 900 mg/ Sodium (Chloride) 518 mls @ 34.533 mls/hr IVCONT .Q15H1M [facility]; Protocol Last Admin: 05/25/24 13:05 Dose: 1 mg/min, 34.53 mls/hr Home Medications ?Medication ?Instructions ?Recorded ?Confirmed ?Last Taken ?Type pioglitazone 30 mg tablet 1 tab PO DAILY 06/08/22 05/25/24 Unknown History tramadol 50 mg tablet 25 mg PO Q6H PRN Pain 06/08/22 05/25/24 Unknown History albuterol sulfate 90 mcg/actuation 2 puff inhalation Q6H PRN 06/09/22 05/25/24 Unknown History aerosol inhaler Shortness Of Breath Or Wheezing bisacodyl 10 mg rectal suppository 10 mg [place] DAILY PRN Constipation 06/09/22 05/25/24 Unknown History meclizine 25 mg tablet 25 mg PO Q8H PRN Vertigo 06/09/22 05/25/24 Unknown History acetaminophen 500 mg tablet 1,000 mg PO Q8H pain 07/07/22 05/25/24 Unknown History budesonide-formoterol HFA 80 2 puff inhalation BID 07/07/22 05/25/24 Unknown History mcg-4.5 mcg/actuation aerosol inhaler (Symbicort) insulin lispro 100 unit/mL 1 sliding scale dose subcut QIDACHS 07/07/22 05/25/24 Unknown History subcutaneous solution apremilast 30 mg tablet (Otezla) 30 mg PO BID 05/25/24 05/25/24 Unknown History atorvastatin 40 mg tablet 40 mg PO BEDTIME 05/25/24 05/25/24 Unknown History diclofenac sodium 1 % topical gel 4 g topical TID 05/25/24 05/25/24 Unknown History doxycycline hyclate 100 mg tablet 100 mg PO BID 05/25/24 05/25/24 Unknown History guaifenesin 100 mg/5 mL oral liquid 200 mg PO Q4H PRN Cough 05/25/24 05/25/24 Unknown History hydrocortisone 1 % topical cream 1 appl topical BID 05/25/24 05/25/24 Unknown History insulin glargine 100 unit/mL (3 8 unit subcut BEDTIME 05/25/24 05/25/24 Unknown History mL) subcutaneous pen (Basaglar KwikPen U-100 Insulin) insulin glargine 100 unit/mL (3 12 unit subcut DAILY 05/25/24 05/25/24 Unknown History mL) subcutaneous pen (Basaglar KwikPen U-100 Insulin) lidocaine 4 % topical patch 1 patch topical DAILY 05/25/24 05/25/24 Unknown History losartan 50 mg tablet 50 mg PO BID 05/25/24 05/25/24 Unknown History lurasidone 60 mg tablet 60 mg PO BEDTIME 05/25/24 05/25/24 Unknown History magnesium oxide 400 mg PO DAILY 05/25/24 05/25/24 Unknown History metoprolol succinate 25 mg 75 mg PO DAILY 05/25/24 05/25/24 Unknown History tablet,extended release 24 hr multivitamin with minerals 1 tab PO DAILY 05/25/24 05/25/24 Unknown History naltrexone 4.5 mg capsule 4.5 mg PO DAILY 05/25/24 05/25/24 Unknown History nystatin 100,000 unit/gram topical 1 appl topical TID PRN Rash 05/25/24 05/25/24 Unknown History ointment nystatin 100,000 unit/gram topical 1 appl topical BID 05/25/24 05/25/24 Unknown History powder omeprazole 20 mg capsule,delayed 40 mg PO DAILY@0630 05/25/24 05/25/24 Unknown History release ondansetron 4 mg disintegrating 4 mg PO Q6H PRN nausea and vomiting 05/25/24 05/25/24 Unknown History tablet polyethylene glycol 400 1 % eye 1 drp ophthalmic (eye) BID 05/25/24 05/25/24 Unknown History drops (Visine Dry Eye Relief) prednisone 5 mg tablet See Taper PO DAILY 05/25/24 05/25/24 Unknown History sertraline 50 mg tablet 50 mg PO DAILY 05/25/24 05/25/24 Unknown History zinc oxide 40 % topical ointment 1 appl topical BID 05/25/24 05/25/24 Unknown History Physical Exam 2 Vital Signs and Narrative: Vital Signs: Last Vital Signs Temp 98.4 F 05/25/24 14:19 Pulse 83 05/25/24 14:19 Resp 22 H 05/25/24 14:19 BP 136/71 05/25/24 14:57 Pulse Ox 97 05/25/24 14:19 O2 Del Method Room Air 05/25/24 14:19 BMI result Body Mass Index 42.7 Const: Other: Constitutional: Alert, in no distress, morbidly obese Mental Status: Oriented to person, place and time. Eyes: Pupils are equal, round and reactive to light. Ear, Nose and Throat: Oropharynx clear, mucous membranes moist. Ears and nose without deformities. Respiratory: Clear to auscultation. No wheezing, rales or rhonchi. Cardiovascular: S1 S2 regular. No murmurs, rubs or gallops. Gastrointestinal: Abdomen soft, non-tender, non-distended. Normal bowel sounds.? Neurologic: Cranial nerves II-XII grossly intact. No focal neurological deficits. Moves all extremities spontaneously.? Skin: .? Musculoskeletal: No cyanosis or clubbing. Psychiatric: Normal mood and affect? Results Labs 05/25/24 12:46 05/26/24 06:27 Labs: Laboratory Results - last 24 hr 05/25/24 05/25/24 05/25/24 12:35 12:46 12:47 MCV 86.0 MCH 27.4 MCHC 31.9 RDW 17.7 H Plt Count 209 MPV 10.4 Immature Gran % (Auto) 1.5 H Neut % (Auto) 79.9 H Lymph % (Auto) 13.3 L [place] % (Auto) 4.3 Eos % (Auto) 0.6 Baso % (Auto) 0.4 Lymph # (Auto) 2.7 [place] # (Auto) 0.9 Eos # (Auto) 0.1 Baso # (Auto) 0.1 Abs Immat Gran (auto) 0.31 H Absolute Neuts (auto) 16.1 H Absolute Nucleated RBC 0.000 Nucleated RBC % (auto) 0.0 ESR 69 H Hold Purple Top SEE NOTE PT 12.6 H INR 1.1 APTT 28.1 Anion Gap Estim Creat Clear Calc Estimated GFR POC Glucose 142 H Random Glucose Lactic Acid 1.4 Calcium Magnesium Total Bilirubin AST ALT Alkaline Phosphatase Total Creatine Kinase Troponin I High Sens 9.9 C-Reactive Protein Total Protein Albumin Hold Green Top Cancelled 05/25/24 14:51 MCV MCH MCHC RDW Plt Count MPV Immature Gran % (Auto) Neut % (Auto) Lymph % (Auto) [place] % (Auto) Eos % (Auto) Baso % (Auto) Lymph # (Auto) [place] # (Auto) Eos # (Auto) Baso # (Auto) Abs Immat Gran (auto) Absolute Neuts (auto) Absolute Nucleated RBC Nucleated RBC % (auto) ESR Hold Purple Top PT INR APTT Anion Gap 14 Estim Creat Clear Calc 64.6 Estimated GFR > 60 POC Glucose Random Glucose 141 H Lactic Acid Calcium 8.7 D Magnesium 2.3 Total Bilirubin 0.4 AST 25 ALT < 6 Alkaline Phosphatase 63 Total Creatine Kinase 24 L Troponin I High Sens C-Reactive Protein 20.28 H Total Protein 6.5 Albumin 2.5 L Hold Green Top Imaging Radiologist's Impressions: Impressions Ankle X-Ray 05/25/24 12:54 IMPRESSION: Concerning cellulitis osteomyelitis in the correct clinical settings. Electronically signed by: Leonides Aggarwal MD 05/25/2024 03:44 PM EST RP Femur X-Ray 05/25/24 12:54 IMPRESSION: No acute fracture, left femur. Atherosclerosis disease, peripheral. Electronically signed by: Leonides Aggarwal MD 05/25/2024 03:41 PM EST RP Foot X-Ray 05/25/24 12:54 IMPRESSION: Concerning cellulitis/osteomyelitis. Atherosclerosis disease, peripheral. Electronically signed by: Leonides Aggarwal MD 05/25/2024 03:46 PM EST RP Tibia/Fibula X-Ray 05/25/24 12:54 IMPRESSION: No acute fracture. Osteopenia versus osteoporosis. Osteolysis in the left foot. Osteomyelitis cannot be excluded. Electronically signed by: Leonides Aggarwal MD 05/25/2024 03:43 PM EST RP Venous Duplex 05/25/24 13:15 IMPRESSION: Somewhat limited exam due to habitus. No direct or indirect evidence of deep venous thrombosis involving the left lower extremity. Electronically signed by: Esvin Lund MD 05/25/2024 02:11 PM EST RP Assessment and Plan (1) Wide-complex tachycardia: Status: Acute (2) Diabetes type 2, controlled: Status: Acute (3) Osteomyelitis: Status: Acute Plan 78 year old female with history of DM, HTN, CKD, erythema intertrigo, dysphagia, depression, YUE, COPD, pemphigus, DVT not on anti-coagulation, morbid obesity, bed-bound. Here with cellulitis of the leg with possible associated cellulitis of tibia/fibula, meet sepsis criteria Sepsis Cellulitis of left leg Possible osteomylitis of the tibia/fibula -Blood cultures pending -continue Zosyn and Vanco -ID consult Wide-complex tachycardia -continue amio -Correct K and Mag as needed -cardiology following Diabetes -diabetic diet -SSI -Lantus in place of Levemir -hold pioglitazone HLD--statin HTN--resume home meds after med rec Morbid obesity--unfortunately weight loss is an incredible challenge for her in face of bedbound state and limited activity, avoid hypercaloric food DVT prophylaxis: Lovenox Full code admission for sepsis,cellulitis and osteomylitis Quality Stroke Does the patient have a stroke diagnosis?: No VTE Prior VTE?: No VTE Risk Level:: Medical - moderate - high VTE Device Contraindication: Treatment Not Indicated VTE Drug Contraindication: N/A - Med Ordered
--- NOTE | 2024-05-25 18:15 | PHA.MEDREC ---
Pharmacy Consult ? Medication Reconciliation Pharmacy has completed the medication reconciliation. Med list obtained from [facility]
[2024-05-25] MEDS: Enoxaparin Sodium 40 MG/0.4 ML SYRINGE SUBCUT (18:33)
[2024-05-25] MEDS: iohexoL 350 MG/ML 100 ML INFUS..BTL IV (18:55)
--- NOTE | 2024-05-25 19:18 | PHA.PROG ---
Admission Date/Time: May 25, 2024 17:05 Indication: SEPSI Weight in k.4 kg Adjusted body weight in K.76 Ririe body weight in K Obesity Dosing Indication % IBW: Serum Creatinine - Last 168 Hours 05/25/24 14:51 Creatinine 0.90 Estimated CrCl and GFR - Last 168 Hours 05/25/24 14:51 Estim Creat Clear Calc 64.6 Estimated GFR > 60 Vancomycin Loading Dose: 1000 MG + 1000 MG ( TOTAL OF 2000 MG ) Current Vancomycin Dosing Regimen: 1500 MG Q24H Vancomycin Monitoring using AUC goal of 400 - 600 range with trough as surrogate marker: PREDICTED AUC 580 Date and Time for next Vancomycin Level to be drawn:RANDOM BEFORE 3RD DOSE 05/27 @1400 Pharmacist Comments on Vancomycin Plan: CKD, MONITOR CR Vancomycin dosing will take advantage of [employer] as a clinical decision support tool that uses Bayesian modeling to calculate individual patient's pharmacokinetic parameters and forecast the patient's drug concentration time course with the target goal AUC 24 range of 400 - 600 mg/L/hr.
[2024-05-25 20:25] LABS: Glucose, Whole Blood 168 mg/dL (60-115)
[2024-05-25] MEDS: Insulin Lispro 100 UNIT/ML 3 ML VIAL SUBCUT (20:26)
[2024-05-25] MEDS: Insulin Glargine,Hum.rec.anlog 100 UNIT/ML 10 ML VIAL SUBCUT (20:26)
[2024-05-25] MEDS: Acetaminophen 325 MG TABLET 975 MG PO (20:27)
[2024-05-25] MEDS: Losartan Potassium 50 MG TABLET PO (20:28)
[2024-05-25] MEDS: Atorvastatin Calcium 40 MG TABLET PO (20:28)
[2024-05-25] MEDS: Doxycycline Monohydrate 100 MG CAPSULE PO (20:28)
[2024-05-25] MEDS: traMADoL HCL 50 MG TABLET 25 MG PO (20:28)
[2024-05-25] MEDS: Hydrocortisone 1 % Cream 28.35 GM TUBE 1 APPL TOPICAL (20:29)
[2024-05-25] MEDS: Artificial Tears 15 ML DROPS 1 DROP EYE-BOTH (20:30)
[2024-05-25] MEDS: Zinc Oxide 20% Ointment 28.35 GM TUBE 1 APPL TOPICAL (20:31)
[2024-05-25] MEDS: Nystatin Powder 15 GM BOTTLE 1 APPL TOPICAL (20:31)
[2024-05-25] MEDS: Albuterol Sulfate 90 MCG 8 GM INHALER 2 PUFF INHALE (21:07)
[2024-05-26] VITALS (7 sets, daily range): BP systolic 128–192; BP diastolic 62–105; PULSE 71–103; RESP 14–22; TEMP 36–36.7; O2SAT 94–98
[2024-05-26] MEDS: 0.9 % Sodium Chloride Flush 3 ML SYRINGE IVFLUSH ×3 (01:45→16:39)
[2024-05-26] MEDS: Piperacillin Sodium/Tazobactam 3.375 GM in 0.9 % Sodium Chloride 50 ML IV ×4 (01:45→18:20)
--- NOTE | 2024-05-26 03:05 | HO.SKINPHOTO ---
lower back on left, buttocks on right more distal view. buttocks on left, right thigh on top left upper thigh/hip and lower abdomen left lateral chest/armpit
[2024-05-26] MEDS: traMADoL HCL 50 MG TABLET 25 MG PO (03:35)
[2024-05-26 07:30] LABS: Creatinine Clr Calc Pharmacy 70.9; Estimated Glomerular Filt Rate > 60; Magnesium 2.1 mg/dL (1.6-2.6)
[2024-05-26 07:43] LABS: Glucose, Whole Blood 109 mg/dL (60-115)
--- NOTE | 2024-05-26 08:30 | MHC.CM.PN ---
CM met with Patient at bedside, with the assist of Bulgarian translation, and addressed IMM with her, providing Patient with the original and a copy has been placed on the chart. [facility] her goal to return there at time of dc. CM has initiated and will follow for dc planning. Patient is a [facility] bed hold at [facility]. Patient's /Aamir is the HCP and Patient will return to [facility] via BLS.
[2024-05-26] MEDS: Fluticasone/Vilanterol 100/25 BLST.W.DEV 1 PUFF INHALE (09:02)
[2024-05-26] MEDS: Doxycycline Monohydrate 100 MG CAPSULE PO ×2 (09:13→21:30)
[2024-05-26] MEDS: Magnesium Oxide 400 MG TABLET PO (09:13)
[2024-05-26] MEDS: Metoprolol Succinate ER 25 MG TAB.ER.24H 75 MG PO (09:13)
[2024-05-26] MEDS: predniSONE 5 MG TABLET 10 MG PO (09:15)
[2024-05-26] MEDS: Multivitamin TABLET 1 TAB PO (09:16)
[2024-05-26] MEDS: Ascorbic Acid 500 MG TABLET PO (09:17)
[2024-05-26] MEDS: Acetaminophen 325 MG TABLET 975 MG PO ×3 (09:17→21:43)
[2024-05-26] MEDS: Sertraline HCL 50 MG TABLET PO (09:17)
[2024-05-26] MEDS: Losartan Potassium 50 MG TABLET PO (09:17)
[2024-05-26] MEDS: Omeprazole 40 MG CAPSULE.DR PO (09:17)
[2024-05-26] MEDS: Insulin Glargine,Hum.rec.anlog 100 UNIT/ML 10 ML VIAL 8 UNIT SUBCUT (09:18)
--- NOTE | 2024-05-26 10:29 | P.PNVS_ITS ---
Subjective Subjective Date of Service: 05/26/24 Interval history: Yadira is doing well this morning. She is eating and drinking well. She states she has been sleeping well. She denies any CP, diff breathing, and shortness of breath. She does endorse some left lower extremity pain. The swelling continues. Physical Exam Vital Signs: Vital Signs: Last Vital Signs Temp 97.7 F 05/26/24 07:10 Pulse 103 H 05/26/24 09:05 Resp 18 05/26/24 09:05 BP 137/63 05/26/24 07:10 Pulse Ox 98 05/26/24 07:10 O2 Del Method Room Air 05/26/24 07:10 BMI result Body Mass Index 42.7 Const: General: comfortable and no acute distress Orientation/consciousness: patient oriented x3 HEENT: Ears: hearing grossly normal bilaterally Resp: Effort & Inspection: normal respiratory effort and able to speak in complete sentences Auscultation: clear to auscultation bilaterally Cardio: Rate: regular rate Rhythm: regular rhythm Heart sounds: S1 normal heart sound present and S2 normal heart sound present Bruits: no abdominal aortic bruits, no carotid bruits, no femoral bruits and no renal bruits GI: Palpation (GI): No Abdominal aortic bruit present Neuro: General: patient oriented x3 Cranial nerves: Yes CN's II-XII intact bilaterally Extrem: Other: Left lower extremity:+2 pitting edema noted from the toes to just below the tibial tuberosity. Deep erythema noted across the foot and ankle area. Splotchy discoloration noted of the rest of the leg all the way to the groin. Unable to palpate pulses. Right lower extremity: +1 edema noted. Palpable DP pulses Progress Note: A&P Assessment and plan (1) Cellulitis: Status: Acute Assessment and Plan: Yadira is doing well today. She was admitted for cellulitis. Her duplex US was negative for a DVT and chest CT was negative for a PE. She has been started on IV Abx. There is no vascular surgical intervention at this point. We will con tinue to monitor. If there are any questions or concerns, please do not hesitate to reach out to us. Time Spent With Patient Time: Total time managing care of this patient today ____ minutes. Procedures Date of Service Date of Service: 01/16/25 Quality Stroke Does the patient have a stroke diagnosis?: No VTE Prior VTE?: No VTE Risk Level:: Medical - moderate - high VTE Device Contraindication: Treatment Not Indicated VTE Drug Contraindication: N/A - Med Ordered
--- NOTE | 2024-05-26 10:30 | P.PNIM_ITS ---
Subjective Subjective Date of Service: 05/26/24 Interval History: Follow-up for sepsis, left leg cellulitis and concern for osteomyelitis. Blood culture is now growing Gram-positive cocci, PCR is positive for MRSA. Physical Exam 2 Vital Signs: Vital Signs: Last Vital Signs Temp 97.7 F 05/26/24 07:10 Pulse 103 H 05/26/24 09:05 Resp 18 05/26/24 09:05 BP 137/63 05/26/24 07:10 Pulse Ox 98 05/26/24 07:10 O2 Del Method Room Air 05/26/24 07:10 BMI result Body Mass Index 42.7 General: AO X 3, no acute distress, morbid obes Resp: CTA bilateral CVS: S1,S2,RRR GI: +BS, NT, no distention Skin: see picture from H and P, essentially unchanged Neuro: motor grossly intact Psych: appropriate affect Const: Other: General: AO X 3, no acute distress Resp: CTA bilateral CVS: S1,S2,RRR GI: +BS, NT, no distention Skin: Neuro: motor grossly intact Psych: appropriate affect Objective Data Active Medications Acetaminophen (Acetaminophen 325 Mg Tablet) 650 mg PO Q6H PRN PRN Reason: Pain, Mild 1-3,fever,headache Acetaminophen (Acetaminophen 325 Mg Tablet) 975 mg PO Q8H [facility] Last Admin: 05/26/24 09:17 Dose: 975 mg Documented By: ANA CRISTINA Albuterol Sulfate (Albuterol Sulfate 90 Mcg 8 Gm Inhaler) 2 puff INHALE Q6H PRN PRN Reason: Shortness Of Breath Or Wheezing Last Admin: 05/25/24 21:07 Dose: 2 puff Documented By: CALDERON Artificial Tears (Artificial Tears 15 Ml Drops) 1 drop EYE-BOTH BID [facility] Last Admin: 05/25/24 20:30 Dose: 1 drop Documented By: MOUSTAPHA Ascorbic Acid (Ascorbic Acid 500 Mg Tablet) 500 mg PO DAILY [facility] Last Admin: 05/26/24 09:17 Dose: 500 mg Documented By: ANA CRISTINA Atorvastatin Calcium (Atorvastatin Calcium 40 Mg Tablet) 40 mg PO BEDTIME [facility] Last Admin: 05/25/24 20:28 Dose: 40 mg Documented By: MOUSTAPHA Bisacodyl (Bisacodyl 10 Mg Supp.Rect) 10 mg W[place] DAILY PRN PRN Reason: Constipation Calcium Carbonate (Calcium Carbonate 750 Mg Tab.Chew) 750 mg PO Q4H PRN PRN Reason: Heartburn Doxycycline Monohydrate (Doxycycline Monohydrate 100 Mg Capsule) 100 mg PO BID [facility] Last Admin: 05/26/24 09:13 Dose: 100 mg Documented By: ANA CRISTINA Enoxaparin Sodium (Enoxaparin Sodium 40 Mg/0.4 Ml Syringe) 40 mg SUBCUT Q24H [facility] Last Admin: 05/25/24 18:33 Dose: 40 mg Documented By: RAZIA Fluticasone/Vilanterol (Fluticasone/Vilanterol Blst.W.Dev) 1 puff INHALE RDAILY [facility] Last Admin: 05/26/24 09:02 Dose: 1 puff Documented By: BHANU Glucose (Glucose Gel 15 Gm Gel..Gram.) 15 gm PO Q15M PRN; Protocol PRN Reason: per Hypoglycemia Standing Ord. Guaifenesin (Guaifenesin 200 Mg/10 Ml 10 Ml Liquid) 10 ml PO Q4H PRN PRN Reason: Cough Hydrocortisone (Hydrocortisone 1 % Cream 28.35 Gm Tube) 1 appl TOPICAL BID [facility]; Protocol Last Admin: 05/25/24 20:29 Dose: 1 appl Documented By: MOUSTAPHA Amiodarone HCl 900 mg/ Sodium (Chloride) 518 mls @ 34.533 mls/hr IVCONT .Q15H1M [facility]; Protocol Last Admin: 05/26/24 05:08 Dose: Not Given Documented By: ROMY Non-Admin Reason: IV Running Dextrose (D10) 250 mls @ 750 mls/hr IV Q15M PRN; Protocol PRN Reason: per Hypoglycemia Standing Ord. Piperacillin Sod/Tazobactam (Sod 3.375 gm/ Sodium Chloride) 50 mls @ 100 mls/hr IV Q6H [facility] Last Admin: 05/26/24 09:28 Dose: 100 mls/hr Documented By: ANA CRISTINA Vancomycin HCl 1,500 mg/ (Sodium Chloride) 500 mls @ 333.333 mls/hr IV Q24H [facility] Insulin Glargine (Insulin Glargine,Hum.Rec.Anlog 100 Unit/Ml 10 Ml Vial) 5 unit SUBCUT BEDTIME [facility] Last Admin: 05/25/24 20:26 Dose: 5 unit Documented By: MOUSTAPHA Insulin Glargine (Insulin Glargine,Hum.Rec.Anlog 100 Unit/Ml 10 Ml Vial) 8 unit SUBCUT DAILY [facility] Last Admin: 05/26/24 09:18 Dose: 8 unit Documented By: ANA CRISTINA Insulin Human Lispro (Insulin Lispro 100 Unit/Ml 3 Ml Vial) 0 unit SUBCUT QIDACHS [facility]; Protocol Last Admin: 05/26/24 09:19 Dose: Not Given Documented By: ANA CRISTINA Non-Admin Reason: No Insulin Coverage Losartan Potassium (Losartan Potassium 50 Mg Tablet) 50 mg PO BID [facility]; Protocol Last Admin: 05/26/24 09:17 Dose: 50 mg Documented By: ANA CRISTINA Lurasidone HCl (Lurasidone Hcl 20 Mg Tablet) 60 mg PO BEDTIME [facility] Last Admin: 05/25/24 21:53 Dose: Not Given Documented By: MOUSTAPHA Non-Admin Reason: Patient Refused Magnesium Hydroxide (Milk Of Magnesia 30 Ml Oral.Susp) 30 ml PO DAILY PRN PRN Reason: Constipation Magnesium Oxide (Magnesium Oxide 400 Mg Tablet) 400 mg PO DAILY [facility] Last Admin: 05/26/24 09:13 Dose: 400 mg Documented By: ANA CRISTINA Meclizine HCl (Meclizine Hcl 25 Mg Tablet) 25 mg PO Q8H PRN PRN Reason: Vertigo Melatonin (Melatonin 3 Mg Tablet) 6 mg PO BEDTIME PRN PRN Reason: Insomnia Metoprolol Succinate (Metoprolol Succinate Er 25 Mg Tab.Er.24h) 75 mg PO DAILY [facility]; Protocol Last Admin: 05/26/24 09:13 Dose: 75 mg Documented By: ANA CRISTINA Multivitamins/Vitamin C (Multivitamin Tablet) 1 tab PO DAILY [facility] Last Admin: 05/26/24 09:16 Dose: 1 tab Documented By: ANA CRISTINA Nystatin (Nystatin Powder 15 Gm Bottle) 1 appl TOPICAL BID [facility]; Protocol Last Admin: 05/25/24 20:31 Dose: 1 appl Documented By: MOUSTAPHA Nystatin (Nystatin Ointment 15 Gm Tube) 1 appl TOPICAL TID PRN; Protocol PRN Reason: Rash Omeprazole (Omeprazole 40 Mg Capsule.Dr) 40 mg PO DAILY@0630 [facility] Last Admin: 05/26/24 09:17 Dose: 40 mg Documented By: ANA CRISTINA Ondansetron HCl (Ondansetron Hcl 4 Mg/2 Ml Vial) 4 mg IVPUSH Q8H PRN PRN Reason: Nausea and Vomiting Pharmacy Consult (Consult Rx Vancomycin Dosing) 1 each MISCELLANE DAILY PRN PRN Reason: Consult order Polyethylene Glycol (Polyethylene Glycol 3350 17 Gm Powd.Pack) 17 gm PO DAILY PRN PRN Reason: Constipation Prednisone (Prednisone 5 Mg Tablet) 20 mg PO DAILY [facility]; Taper Stop: 06/20/24 08:59 Last Admin: 05/26/24 09:15 Dose: 20 mg Documented By: ANA CRISTINA Sertraline HCl (Sertraline Hcl 50 Mg Tablet) 50 mg PO DAILY [facility] Last Admin: 05/26/24 09:17 Dose: 50 mg Documented By: ANA CRISTINA Sodium Chloride (0.9 % Sodium Chloride Flush 3 Ml Syringe) 3 ml IVFLUSH QSHIFT [facility] Last Admin: 05/26/24 09:19 Dose: 3 ml Documented By: ANA CRISTINA Zinc Oxide (Zinc Oxide 20% Ointment 28.35 Gm Tube) 1 appl TOPICAL BID [facility] Last Admin: 05/25/24 20:31 Dose: 1 appl Documented By: LAFLAMC Labs 05/26/24 11:01 05/26/24 11:01 Labs: Laboratory Results - last 24 hr 05/25/24 05/25/24 05/25/24 12:35 12:46 12:47 MCV 86.0 MCH 27.4 MCHC 31.9 RDW 17.7 H Plt Count 209 MPV 10.4 Immature Gran % (Auto) 1.5 H Neut % (Auto) 79.9 H Lymph % (Auto) 13.3 L [place] % (Auto) 4.3 Eos % (Auto) 0.6 Baso % (Auto) 0.4 Lymph # (Auto) 2.7 [place] # (Auto) 0.9 Eos # (Auto) 0.1 Baso # (Auto) 0.1 Abs Immat Gran (auto) 0.31 H Absolute Neuts (auto) 16.1 H Absolute Nucleated RBC 0.000 Nucleated RBC % (auto) 0.0 ESR 69 H Hold Purple Top SEE NOTE PT 12.6 H INR 1.1 APTT 28.1 Anion Gap Estim Creat Clear Calc Estimated GFR POC Glucose 142 H Random Glucose Lactic Acid 1.4 Calcium Magnesium Total Bilirubin AST ALT Alkaline Phosphatase Total Creatine Kinase Troponin I High Sens 9.9 C-Reactive Protein Total Protein Albumin Hold Green Top Cancelled 05/25/24 05/25/24 05/26/24 14:51 20:19 06:27 MCV MCH MCHC RDW Plt Count MPV Immature Gran % (Auto) Neut % (Auto) Lymph % (Auto) [place] % (Auto) Eos % (Auto) Baso % (Auto) Lymph # (Auto) [place] # (Auto) Eos # (Auto) Baso # (Auto) Abs Immat Gran (auto) Absolute Neuts (auto) Absolute Nucleated RBC Nucleated RBC % (auto) ESR Hold Purple Top SEE NOTE PT INR APTT Anion Gap 14 Estim Creat Clear Calc 64.6 70.9 Estimated GFR > 60 > 60 POC Glucose 168 H Random Glucose 141 H Lactic Acid Calcium 8.7 D Magnesium 2.3 2.1 Total Bilirubin 0.4 AST 25 ALT < 6 Alkaline Phosphatase 63 Total Creatine Kinase 24 L Troponin I High Sens C-Reactive Protein 20.28 H Total Protein 6.5 Albumin 2.5 L Hold Green Top 05/26/24 07:08 MCV MCH MCHC RDW Plt Count MPV Immature Gran % (Auto) Neut % (Auto) Lymph % (Auto) [place] % (Auto) Eos % (Auto) Baso % (Auto) Lymph # (Auto) [place] # (Auto) Eos # (Auto) Baso # (Auto) Abs Immat Gran (auto) Absolute Neuts (auto) Absolute Nucleated RBC Nucleated RBC % (auto) ESR Hold Purple Top PT INR APTT Anion Gap Estim Creat Clear Calc Estimated GFR POC Glucose 109 Random Glucose Lactic Acid Calcium Magnesium Total Bilirubin AST ALT Alkaline Phosphatase Total Creatine Kinase Troponin I High Sens C-Reactive Protein Total Protein Albumin Hold Green Top Microbiology Microbiology Results: Microbiology 05/25/24 12:46 Blood Culture - Preliminary Blood - Venous Prelim: GPC Gram Stain only 05/25/24 12:46 Blood Culture - Preliminary Blood - Venous Prelim: GPC Gram Stain only Assessment and Plan (1) Diabetes type 2, controlled: Status: Acute Plan 78 year old female with history of DM, HTN, CKD, erythema intertrigo, dysphagia, depression, YUE, COPD, pemphigus, DVT not on anti-coagulation, morbid obesity, bed-bound. Here with cellulitis of the leg with possible associated cellulitis of tibia/fibula, meet sepsis criteria Sepsis d/t Cellulitis of left leg, Possible osteomylitis of the tibia/fibula and now MRSA bacteemia -continue Zosyn and Vanco -ID consult -get echo -follow cultures, repeat cultures today Wide-complex tachycardia -continue amio per card recommendation -Correct K and Mag as needed -cardiology following Diabetes -diabetic diet -SSI -Lantus in place of Levemir -hold pioglitazone HLD--statin HTN--hold losartan due high K history of pemphigus with skin breakdown, see picutures, continue doxy and prednisone, Pressure ulcer POA -wound care following -wound protocol Morbid obesity--unfortunately weight loss is an incredible challenge for her in face of bedbound state and limited activity, avoid hypercaloric food DVT prophylaxis: Lovenox Full code admission for sepsis,cellulitis and osteomylitis Quality Stroke Does the patient have a stroke diagnosis?: No VTE Prior VTE?: No VTE Risk Level:: Medical - moderate - high VTE Device Contraindication: Treatment Not Indicated VTE Drug Contraindication: N/A - Med Ordered
[2024-05-26] MEDS: Sodium Zirconium Cyclosilicate 10 GM POWD.PACK PO (10:55)
[2024-05-26] MEDS: Morphine Sulfate 2 MG/ML CARTRIDGE 1 MG IVPUSH (11:01)
[2024-05-26 11:29] LABS: Hematocrit 31.7 % (37.0-47.0); Hemoglobin 9.9 g/dl (12.0-16.0); Mean Corpuscular HGB Conc 31.2 g/dl (31.0-35.0); Mean Corpuscular Hemoglobin 27.3 pg (27.0-33.0); Mean Corpuscular Volume 87.3 fL (80.0-98.0); Mean Platelet Volume 10.1 fL (9.4-12.3); Platelet Count 197 X10*3/uL (160-400); Red Blood Count 3.63 X10*6/uL (4.20-5.50); Red Cell Distribution Width 17.6 % (11.0-16.0)
[2024-05-26 11:36] LABS: Anion Gap 10 (12-20); Carbon Dioxide 27 mmol/L (22-29); Chloride 108 mmol/L (96-108); Potassium 4.1 mmol/L (3.3-5.1); Sodium 141 mmol/L (135-145)
[2024-05-26 11:58] LABS: Glucose, Whole Blood 151 mg/dL (60-115)
--- NOTE | 2024-05-26 12:41 | HO.WOUND ---
Wound Consult: Initial 78yr old female admitted to [facility] [place] 05/25/24 - See progress notes and H&P for detailed history.? Wound consult placed for Coccyx and skin folds.? Patient agreeable to assessment and photo documentation.? Patient reports she is from facility where she treated regularly with a wound care doctor . She reports the doctor would wash her skin and then apply a cream. There are several areas of concern noted upon assessment. The open wounds I suspect are sources of infection and her bacteremia. She reports significant pain while she was cleaned and throughout my assessment. The left leg is note for redness, warmth and swelling. She does have a palpable pule and was seen by vascular surgery. The redness appears to trail upwards onto her trunk. TT to Dr. Valente with photos and my overall concern for her skin and source of her infection. The various wounds do not appear to need surgical debridement at this time there were no areas of necrotic eschar and no fluctance or indurated areas. Defer to Dr. Valente if surgical consult preferred. Sacrum and Bilateral Ischium are noted for injury suspect pressure related - Stage 2 Pressure Injuries noted with clean red moist tissue noted. With primary etiology noted for significant MASD (Moisture associated skin damage). Genrtly cleansing with ph balanced wipes, pat dry. Triad applied - patient will benefit from consistent effort to keep skin dry and reposition Q2hrs. Agility Pulsate bed will benefit the patient - ordered today. Back Left Back Left Axilla Left Leg Right Axilla Etiology: ?MASD (Moisture Associated Skin Damage ) various areas with skin sloughing and intertrigo noted Wound Bed: moist macerated skin sloughing off, partial thickness tissue loss - clean red wound beds noted Drainage / Odor: Difficult to assess - appears serous in nature - yeast odor noted Edges: ? mirrored Scarlett wound: Macerated and moist - ? No Induration, Fluctuance or Warmth noted Pain: extreme pain noted Goals of Treatment: ? Systemic treatment of infection and topical treatment with nystatin powder for suspected fungal dermatitis and triad for moist wound healing Interdry to translocate moisture Recommendations: 1. Turn and Reposition every 2 hours and as needed for patient comfort.? Use pillows or wedges to support off loading positions. 2. Off Load all bony prominences with use of pillows and heel boots if needed.? Apply Preventative foams where needed. ? 3. Monitor for incontinence and moisture control, use barrier creams when needed for prevention and treatment. 4. Provide adequate and supplemental nutrition.? 5. Agility Pulsate bed ordered. 6. When applicable maintain blood glucose levels per Providers order. 7. Sacrum, Buttock and Bilateral Ischium - Off Load Pressure with Q2hr turns with use of pillows or wedges. Cleanse skin gently with PH Balanced wipes, pat dry. Apply thin layer of Triad to wound bed - only pat and dab no scrub and rub when soiling occurs. Reapply thin layer PRN after each episode of incontinence. 8. Skin Folds - Cleanse with PH blanced wipes, pat dry. Apply Nystatin powder twice daily. besure to dusct off excess powder to prevent caking. To areas not able to use interdry such as left back apply barrier cream. To skin folds use interdry. Tuck Interdry AG Sheet into skin fold to wick and translocate moisture away from skin fold.? Be sure to leave at least 2 inch of fabric exposed outside of skin fold.? Change after 5 days or when soiled. Re-consult wound care Nurse for wound deterioration or wound changes.
--- NOTE | 2024-05-26 12:45 | PM.PNCARD ---
Subjective Subjective Date of Service: 05/26/24 Interval history: Seen examined at bedside. Complaining of left leg pain. Blood cultures are positive for Gram-positive cocci-staph species. She is on antibiotics. No further arrhythmia on telemetry. Physical Exam Vital Signs: Last Vital Signs Temp 98.1 F 05/26/24 10:53 Pulse 94 05/26/24 10:53 Resp 18 05/26/24 10:53 BP 133/63 05/26/24 10:53 Pulse Ox 98 05/26/24 10:53 O2 Del Method Room Air 05/26/24 10:53 BMI result Body Mass Index 42.7 GENERAL APPEARANCE: Ill-appearing. In no distress. Morbidly obese. SKIN: Left lower extremity swelling, erythema. Warm to touch compared to the right lower extremity. HEART: no murmurs, regular rate and rhythm. LUNGS: clear to auscultation bilaterally. ABDOMEN: soft, nontender. PERIPHERAL PULSES: equal. NEUROLOGIC: No gross deficits, AAO X 3 Objective Labs and Meds 05/26/24 11:01 05/26/24 11:01 Lab results: Laboratory Results - last 24 hr 05/25/24 05/25/24 05/25/24 12:35 12:46 12:47 WBC 20.2 H RBC 3.94 L Hgb 10.8 L Hct 33.9 L MCV 86.0 MCH 27.4 MCHC 31.9 RDW 17.7 H Plt Count 209 MPV 10.4 Immature Gran % (Auto) 1.5 H Neut % (Auto) 79.9 H Lymph % (Auto) 13.3 L [place] % (Auto) 4.3 Eos % (Auto) 0.6 Baso % (Auto) 0.4 Lymph # (Auto) 2.7 [place] # (Auto) 0.9 Eos # (Auto) 0.1 Baso # (Auto) 0.1 Abs Immat Gran (auto) 0.31 H Absolute Neuts (auto) 16.1 H Absolute Nucleated RBC 0.000 Nucleated RBC % (auto) 0.0 ESR 69 H Hold Purple Top SEE NOTE PT 12.6 H INR 1.1 APTT 28.1 Sodium Potassium Chloride Carbon Dioxide Anion Gap BUN Creatinine Estim Creat Clear Calc Estimated GFR POC Glucose 142 H Random Glucose Lactic Acid 1.4 Calcium Magnesium Total Bilirubin AST ALT Alkaline Phosphatase Total Creatine Kinase Troponin I High Sens 9.9 C-Reactive Protein Total Protein Albumin Hold Green Top Cancelled 05/25/24 05/25/24 05/26/24 14:51 20:19 06:27 WBC RBC Hgb Hct MCV MCH MCHC RDW Plt Count MPV Immature Gran % (Auto) Neut % (Auto) Lymph % (Auto) [place] % (Auto) Eos % (Auto) Baso % (Auto) Lymph # (Auto) [place] # (Auto) Eos # (Auto) Baso # (Auto) Abs Immat Gran (auto) Absolute Neuts (auto) Absolute Nucleated RBC Nucleated RBC % (auto) ESR Hold Purple Top SEE NOTE PT INR APTT Sodium 140 Cancelled Potassium 5.6 H Cancelled Chloride 106 Cancelled Carbon Dioxide 26 Cancelled Anion Gap 14 Cancelled BUN 23 H Creatinine 0.90 0.82 Estim Creat Clear Calc 64.6 70.9 Estimated GFR > 60 > 60 POC Glucose 168 H Random Glucose 141 H Lactic Acid Calcium 8.7 D Magnesium 2.3 2.1 Total Bilirubin 0.4 AST 25 ALT < 6 Alkaline Phosphatase 63 Total Creatine Kinase 24 L Troponin I High Sens C-Reactive Protein 20.28 H Total Protein 6.5 Albumin 2.5 L Hold Green Top 05/26/24 05/26/24 05/26/24 07:08 11:01 11:53 WBC 15.0 H RBC 3.63 L Hgb 9.9 L Hct 31.7 L MCV 87.3 MCH 27.3 MCHC 31.2 RDW 17.6 H Plt Count 197 MPV 10.1 Immature Gran % (Auto) Neut % (Auto) Lymph % (Auto) [place] % (Auto) Eos % (Auto) Baso % (Auto) Lymph # (Auto) [place] # (Auto) Eos # (Auto) Baso # (Auto) Abs Immat Gran (auto) Absolute Neuts (auto) Absolute Nucleated RBC 0.000 Nucleated RBC % (auto) 0.0 ESR Hold Purple Top PT INR APTT Sodium 141 Potassium 4.1 D Chloride 108 Carbon Dioxide 27 Anion Gap 10 L BUN Creatinine Estim Creat Clear Calc Estimated GFR POC Glucose 109 151 H Random Glucose Lactic Acid Calcium Magnesium Total Bilirubin AST ALT Alkaline Phosphatase Total Creatine Kinase Troponin I High Sens C-Reactive Protein Total Protein Albumin Hold Green Top Imaging Radiologist's impression: Impressions Ankle X-Ray 05/25/24 12:54 IMPRESSION: Concerning cellulitis osteomyelitis in the correct clinical settings. Electronically signed by: Leonides Aggarwal MD 05/25/2024 03:44 PM EST RP Femur X-Ray 05/25/24 12:54 IMPRESSION: No acute fracture, left femur. Atherosclerosis disease, peripheral. Electronically signed by: Leonides Aggarwal MD 05/25/2024 03:41 PM EST RP Foot X-Ray 05/25/24 12:54 IMPRESSION: Concerning cellulitis/osteomyelitis. Atherosclerosis disease, peripheral. Electronically signed by: Leonides Aggarwal MD 05/25/2024 03:46 PM EST RP Tibia/Fibula X-Ray 05/25/24 12:54 IMPRESSION: No acute fracture. Osteopenia versus osteoporosis. Osteolysis in the left foot. Osteomyelitis cannot be excluded. Electronically signed by: Leonides Aggarwal MD 05/25/2024 03:43 PM EST RP Venous Duplex 05/25/24 13:15 IMPRESSION: Somewhat limited exam due to habitus. No direct or indirect evidence of deep venous thrombosis involving the left lower extremity. Electronically signed by: Esvin Lund MD 05/25/2024 02:11 PM EST RP Progress Note: A&P Assessment and plan (1) NSVT (nonsustained ventricular tachycardia): Status: Acute (2) Osteomyelitis: Status: Acute (3) Bacteremia: Status: Acute Plan 78 year female with background history of diabetes, pemphigoid and anemia presenting for cellulitis left lower extremity with concern for osteomyelitis and strep bacteremia on blood cultures. She had wide complex tachycardia along with narrow complex tachycardia in the emergency department. Differentials include ventricular tachycardia versus SVT with aberrancy. Due to clinical instability she was given IV metoprolol followed by amiodarone which has improved the arrhythmia. Echocardiography has shown mid anteroseptal hypokinesis with EF 55-60%. Normal right ventricular cavity size and function. Currently septic and on antibiotics. I think we change amiodarone to 400 mg daily and potentially 200 mg in a week. Treating her as nonsustained VT right now. Continue metoprolol succinate 75 mg p.o. daily. We we will follow along with you. Thank you for allowing me to participate in the care of your patient. Please feel free to contact me if you have any questions. Time Spent With Patient Time: Total time managing care of this patient today ____ minutes. Progress Note: Quality Stroke Does the patient have a stroke diagnosis?: No Procedures Date of Service Date of Service: 05/26/24
--- NOTE | 2024-05-26 13:20 | HO.WOUND ---
Wound Consult: Initial 78yr old female admitted to [facility] [place] on 05/25/24 - See progress notes and H&P for detailed history.? Wound consult placed for Coccyx and skin folds.? Patient agreeable to assessment and photo documentation.? Patient reports she is from facility where she treated regularly with a wound care doctor . She reports the doctor would wash her skin and then apply a cream. There are several areas of concern noted upon assessment. The open wounds I suspect are sources of infection and her bacteremia. She reports significant pain while she was cleaned and throughout my assessment. The left leg is note for redness, warmth and swelling. She does have a palpable pule and was seen by vascular surgery. The redness appears to trail upwards onto her trunk. TT to Dr. Valente with photos and my overall concern for her skin and source of her infection. The various wounds do not appear to need surgical debridement at this time there were no areas of necrotic eschar and no fluctance or indurated areas. Defer to Dr. Valente if surgical consult preferred. Chart review reveals history of Bullous Pemphigoid - the various lesions suspect have some formation due to BP diagnosis. Steroid treatment is best treatment option - today provider started patient on systemic steroid which will likely benefit patient in terms of healing and pain. Sacrum and Bilateral Ischium are noted for injury suspect pressure related - Stage 2 Pressure Injuries noted with clean red moist tissue noted. With primary etiology noted for significant MASD (Moisture associated skin damage). Genrtly cleansing with ph balanced wipes, pat dry. Triad applied - patient will benefit from consistent effort to keep skin dry and reposition Q2hrs. Agility Pulsate bed will benefit the patient - ordered today. Back Left Back Left Axilla Left Leg Right Axilla Etiology: ?MASD (Moisture Associated Skin Damage ) various areas with skin sloughing and intertrigo noted Wound Bed: moist macerated skin sloughing off, partial thickness tissue loss - clean red wound beds noted Drainage / Odor: Difficult to assess - appears serous in nature - yeast odor noted Edges: ? mirrored Scarlett wound: Macerated and moist - ? No Induration, Fluctuance or Warmth noted Pain: extreme pain noted Goals of Treatment: ? Systemic treatment of infection and topical treatment with nystatin powder for suspected fungal dermatitis and triad for moist wound healing Interdry to translocate moisture Recommendations: 1. Turn and Reposition every 2 hours and as needed for patient comfort.? Use pillows or wedges to support off loading positions. 2. Off Load all bony prominences with use of pillows and heel boots if needed.? Apply Preventative foams where needed. ? 3. Monitor for incontinence and moisture control, use barrier creams when needed for prevention and treatment. 4. Provide adequate and supplemental nutrition.? 5. Agility Pulsate bed ordered. 6. When applicable maintain blood glucose levels per Providers order. 7. Sacrum, Buttock and Bilateral Ischium - Off Load Pressure with Q2hr turns with use of pillows or wedges. Cleanse skin gently with PH Balanced wipes, pat dry. Apply thin layer of Triad to wound bed - only pat and dab no scrub and rub when soiling occurs. Reapply thin layer PRN after each episode of incontinence. 8. Skin Folds - Cleanse with PH blanced wipes, pat dry. Apply Nystatin powder twice daily. besure to dusct off excess powder to prevent caking. To areas not able to use interdry such as left back apply barrier cream. To skin folds use interdry. Tuck Interdry AG Sheet into skin fold to wick and translocate moisture away from skin fold.? Be sure to leave at least 2 inch of fabric exposed outside of skin fold.? Change after 5 days or when soiled. Re-consult wound care Nurse for wound deterioration or wound changes.
[2024-05-26] MEDS: Insulin Lispro 100 UNIT/ML 3 ML VIAL SUBCUT ×2 (13:39→22:31)
[2024-05-26 16:19] LABS: Glucose, Whole Blood 144 mg/dL (60-115)
[2024-05-26] MEDS: Enoxaparin Sodium 40 MG/0.4 ML SYRINGE SUBCUT (16:38)
[2024-05-26] MEDS: vancomycin HCL 1,500 MG in 0.9 % Sodium Chloride 500 ML 333.33 MG IV (16:39)
[2024-05-26] MEDS: Amiodarone HCL 200 MG TABLET 400 MG PO (16:39)
[2024-05-26 20:58] LABS: Glucose, Whole Blood 173 mg/dL (60-115)
[2024-05-26] MEDS: Atorvastatin Calcium 40 MG TABLET PO (21:43)
[2024-05-26] MEDS: Lurasidone HCl 20 MG TABLET 60 MG PO (21:43)
[2024-05-26] MEDS: Nystatin Ointment 15 GM TUBE 1 APPL TOPICAL (21:44)
[2024-05-26] MEDS: Insulin Glargine,Hum.rec.anlog 100 UNIT/ML 10 ML VIAL SUBCUT (21:44)
[2024-05-26] MEDS: Hydrocortisone 1 % Cream 28.35 GM TUBE 1 APPL TOPICAL (22:58)
[2024-05-26] MEDS: Zinc Oxide 20% Ointment 28.35 GM TUBE 1 APPL TOPICAL (22:58)
[2024-05-26] MEDS: Nystatin Powder 15 GM BOTTLE 1 APPL TOPICAL (22:58)
[2024-05-26] MEDS: Artificial Tears 15 ML DROPS 1 DROP EYE-BOTH (22:58)
[2024-05-27] VITALS (7 sets, daily range): BP systolic 115–161; BP diastolic 62–82; PULSE 64–75; RESP 14–20; TEMP 36–37.4; O2SAT 92–98; BMI 42.7
[2024-05-27] MEDS: Piperacillin Sodium/Tazobactam 3.375 GM in 0.9 % Sodium Chloride 50 ML IV ×2 (01:04→06:43)
[2024-05-27] MEDS: Acetaminophen 325 MG TABLET 975 MG PO ×3 (05:56→21:02)
[2024-05-27] MEDS: Omeprazole 40 MG CAPSULE.DR PO (05:57)
[2024-05-27] MEDS: Fluticasone/Vilanterol 100/25 BLST.W.DEV 1 PUFF INHALE (07:38)
[2024-05-27 07:43] LABS: Glucose, Whole Blood 93 mg/dL (60-115)
--- NOTE | 2024-05-27 09:07 | P.PNIM_ITS ---
Subjective Subjective Date of Service: 05/27/24 Interval History: Follow-up for sepsis, left leg cellulitis and concern for osteomyelitis, MRSA bacteremia no arrhythmia, she's reporting pain to be better Physical Exam 2 Vital Signs: Vital Signs: Last Vital Signs Temp 97.3 F 05/27/24 06:57 Pulse 64 05/27/24 07:39 Resp 14 05/27/24 07:39 BP 135/62 05/27/24 06:57 Pulse Ox 96 05/27/24 06:57 O2 Del Method Room Air 05/27/24 06:57 BMI result Body Mass Index 42.7 Const: Other: General: AO X 3, no acute distress Resp: CTA bilateral CVS: S1,S2,RRR GI: +BS, NT, no distention Skin: Neuro: motor grossly intact Psych: appropriate affect Objective Data Active Medications Acetaminophen (Acetaminophen 325 Mg Tablet) 650 mg PO Q6H PRN PRN Reason: Pain, Mild 1-3,fever,headache Acetaminophen (Acetaminophen 325 Mg Tablet) 975 mg PO Q8H [facility] Last Admin: 05/27/24 05:56 Dose: 975 mg Documented By: ROMY Albuterol Sulfate (Albuterol Sulfate 90 Mcg 8 Gm Inhaler) 2 puff INHALE Q6H PRN PRN Reason: Shortness Of Breath Or Wheezing Last Admin: 05/25/24 21:07 Dose: 2 puff Documented By: CALDERON Amiodarone HCl (Amiodarone Hcl 200 Mg Tablet) 400 mg PO DAILY [facility] Last Admin: 05/26/24 16:39 Dose: 400 mg Documented By: NINA Artificial Tears (Artificial Tears 15 Ml Drops) 1 drop EYE-BOTH BID [facility] Last Admin: 05/26/24 22:58 Dose: 1 drop Documented By: ROMY Ascorbic Acid (Ascorbic Acid 500 Mg Tablet) 500 mg PO DAILY [facility] Last Admin: 05/26/24 09:17 Dose: 500 mg Documented By: ANA CRISTINA Atorvastatin Calcium (Atorvastatin Calcium 40 Mg Tablet) 40 mg PO BEDTIME [facility] Last Admin: 05/26/24 21:43 Dose: 40 mg Documented By: ROMY Bisacodyl (Bisacodyl 10 Mg Supp.Rect) 10 mg W[place] DAILY PRN PRN Reason: Constipation Calcium Carbonate (Calcium Carbonate 750 Mg Tab.Chew) 750 mg PO Q4H PRN PRN Reason: Heartburn Doxycycline Monohydrate (Doxycycline Monohydrate 100 Mg Capsule) 100 mg PO Q12H [facility] Last Admin: 05/26/24 21:30 Dose: 100 mg Documented By: ROMY Enoxaparin Sodium (Enoxaparin Sodium 40 Mg/0.4 Ml Syringe) 40 mg SUBCUT Q24H [facility] Last Admin: 05/26/24 16:38 Dose: 40 mg Documented By: NINA Fluticasone/Vilanterol (Fluticasone/Vilanterol 100/ Blst.W.Dev) 1 puff INHALE RDAILY [facility] Last Admin: 05/27/24 07:38 Dose: 1 puff Documented By: KALPESH Glucose (Glucose Gel 15 Gm Gel..Gram.) 15 gm PO Q15M PRN; Protocol PRN Reason: per Hypoglycemia Standing Ord. Guaifenesin (Guaifenesin 200 Mg/10 Ml 10 Ml Liquid) 10 ml PO Q4H PRN PRN Reason: Cough Hydrocortisone (Hydrocortisone 1 % Cream 28.35 Gm Tube) 1 appl TOPICAL BID [facility]; Protocol Last Admin: 05/26/24 22:58 Dose: 1 appl Documented By: ROMY Dextrose (D10) 250 mls @ 750 mls/hr IV Q15M PRN; Protocol PRN Reason: per Hypoglycemia Standing Ord. Piperacillin Sod/Tazobactam (Sod 3.375 gm/ Sodium Chloride) 50 mls @ 100 mls/hr IV Q6H [facility] Last Admin: 05/27/24 06:43 Dose: 100 mls/hr Documented By: ROMY Vancomycin HCl 1,500 mg/ (Sodium Chloride) 500 mls @ 333.333 mls/hr IV Q24H [facility] Last Infusion: 05/26/24 18:11 Dose: Infused Documented By: NINA Insulin Glargine (Insulin Glargine,Hum.Rec.Anlog 100 Unit/Ml 10 Ml Vial) 5 unit SUBCUT BEDTIME [facility] Last Admin: 05/26/24 21:44 Dose: 5 unit Documented By: ROMY Insulin Glargine (Insulin Glargine,Hum.Rec.Anlog 100 Unit/Ml 10 Ml Vial) 8 unit SUBCUT DAILY [facility] Last Admin: 05/26/24 09:18 Dose: 8 unit Documented By: ANA CRISTINA Insulin Human Lispro (Insulin Lispro 100 Unit/Ml 3 Ml Vial) 0 unit SUBCUT QIDACHS [facility]; Protocol Last Admin: 05/27/24 07:38 Dose: Not Given Documented By: HUMAIRA Non-Admin Reason: No Insulin Coverage Comments: POC 93 Lurasidone HCl (Lurasidone Hcl 20 Mg Tablet) 60 mg PO BEDTIME [facility] Last Admin: 05/26/24 21:43 Dose: 60 mg Documented By: ROMY Magnesium Hydroxide (Milk Of Magnesia 30 Ml Oral.Susp) 30 ml PO DAILY PRN PRN Reason: Constipation Magnesium Oxide (Magnesium Oxide 400 Mg Tablet) 400 mg PO DAILY [facility] Last Admin: 05/26/24 09:13 Dose: 400 mg Documented By: ANA CRISTINA Meclizine HCl (Meclizine Hcl 25 Mg Tablet) 25 mg PO Q8H PRN PRN Reason: Vertigo Melatonin (Melatonin 3 Mg Tablet) 6 mg PO BEDTIME PRN PRN Reason: Insomnia Metoprolol Succinate (Metoprolol Succinate Er 25 Mg Tab.Er.24h) 75 mg PO DAILY [facility]; Protocol Last Admin: 05/26/24 09:13 Dose: 75 mg Documented By: ANA CRISTINA Morphine Sulfate (Morphine Sulfate 2 Mg/Ml Cartridge) 2 mg IVPUSH Q4H PRN; Protocol PRN Reason: Pain, Severe (Pain Scale 7-10) Multivitamins/Vitamin C (Multivitamin Tablet) 1 tab PO DAILY [facility] Last Admin: 05/26/24 09:16 Dose: 1 tab Documented By: ANA CRISTINA Nystatin (Nystatin Powder 15 Gm Bottle) 1 appl TOPICAL BID [facility]; Protocol Last Admin: 05/26/24 22:58 Dose: 1 appl Documented By: ROMY Nystatin (Nystatin Ointment 15 Gm Tube) 1 appl TOPICAL TID PRN; Protocol PRN Reason: Rash Last Admin: 05/26/24 21:44 Dose: 1 appl Documented By: ROMY Omeprazole (Omeprazole 40 Mg Capsule.Dr) 40 mg PO DAILY@0630 [facility] Last Admin: 05/27/24 05:57 Dose: 40 mg Documented By: ROMY Ondansetron HCl (Ondansetron Hcl 4 Mg/2 Ml Vial) 4 mg IVPUSH Q8H PRN PRN Reason: Nausea and Vomiting Pharmacy Consult (Consult Rx Vancomycin Dosing) 1 each MISCELLANE DAILY PRN PRN Reason: Consult order Polyethylene Glycol (Polyethylene Glycol 3350 17 Gm Powd.Pack) 17 gm PO DAILY PRN PRN Reason: Constipation Prednisone (Prednisone 5 Mg Tablet) 20 mg PO DAILY [facility]; Taper Stop: 06/20/24 08:59 Last Admin: 05/26/24 09:15 Dose: 20 mg Documented By: ANA CRISTINA Sertraline HCl (Sertraline Hcl 50 Mg Tablet) 50 mg PO DAILY [facility] Last Admin: 05/26/24 09:17 Dose: 50 mg Documented By: ANA CRISTINA Sodium Chloride (0.9 % Sodium Chloride Flush 3 Ml Syringe) 3 ml IVFLUSH QSHIFT [facility] Last Admin: 05/27/24 00:08 Dose: Not Given Documented By: ROMY Non-Admin Reason: Patient Asleep Zinc Oxide (Zinc Oxide 20% Ointment 28.35 Gm Tube) 1 appl TOPICAL BID [facility] Last Admin: 05/26/24 22:58 Dose: 1 appl Documented By: ROMY Labs 05/26/24 11:01 05/26/24 11:01 Labs: Laboratory Results - last 24 hr 05/26/24 05/26/24 05/26/24 06:27 11:01 11:53 MCV 87.3 MCH 27.3 MCHC 31.2 RDW 17.6 H Plt Count 197 MPV 10.1 Absolute Nucleated RBC 0.000 Nucleated RBC % (auto) 0.0 Hold Purple Top SEE NOTE Anion Gap Cancelled 10 L POC Glucose 151 H 05/26/24 05/26/24 05/27/24 16:05 20:45 07:33 MCV MCH MCHC RDW Plt Count MPV Absolute Nucleated RBC Nucleated RBC % (auto) Hold Purple Top Anion Gap POC Glucose 144 H 173 H 93 Microbiology Microbiology Results: Microbiology 05/25/24 12:46 Blood Culture - Preliminary Blood - Venous Prelim: GPC Gram Stain only 05/25/24 12:46 Blood Culture - Preliminary Blood - Venous Prelim: GPC Gram Stain only Assessment and Plan (1) Diabetes type 2, controlled: Status: Acute Plan 78 year old female with history of DM, HTN, CKD, erythema intertrigo, dysphagia, depression, YUE, COPD, pemphigus, DVT not on anti-coagulation, morbid obesity, bed-bound. Here with cellulitis of the leg with possible associated cellulitis of tibia/fibula, meet sepsis criteria Sepsis d/t Cellulitis of left leg, Possible osteomylitis of the tibia/fibula and now MRSA bacteemia -continue Vanco, DC Zosyn and add Kefzol -ID consult -echo no vegetations -follow cultures, repeat cultures today Wide-complex tachycardia, no further episode, -continue amio per card recommendation -Correct K and Mag as needed -cardiology following Diabetes -diabetic diet -SSI -Lantus in place of Levemir -hold pioglitazone HLD--statin HTN--hold losartan due high K history of pemphigus with skin breakdown, see picutures, continue doxy and prednisone, Pressure ulcer POA -wound care following -wound protocol Morbid obesity--unfortunately weight loss is an incredible challenge for her in face of bedbound state and limited activity, avoid hypercaloric food DVT prophylaxis: Lovenox Full code admission for sepsis,cellulitis and osteomylitis Quality Stroke Does the patient have a stroke diagnosis?: No VTE Prior VTE?: No VTE Risk Level:: Medical - moderate - high VTE Device Contraindication: Treatment Not Indicated VTE Drug Contraindication: N/A - Med Ordered
[2024-05-27] MEDS: predniSONE 5 MG TABLET 10 MG PO (09:39)
[2024-05-27] MEDS: Metoprolol Succinate ER 25 MG TAB.ER.24H 75 MG PO (09:39)
[2024-05-27] MEDS: Doxycycline Monohydrate 100 MG CAPSULE PO ×2 (09:39→21:01)
[2024-05-27] MEDS: Ascorbic Acid 500 MG TABLET PO (09:40)
[2024-05-27] MEDS: Amiodarone HCL 200 MG TABLET 400 MG PO (09:40)
[2024-05-27] MEDS: Magnesium Oxide 400 MG TABLET PO (09:40)
[2024-05-27] MEDS: Sertraline HCL 50 MG TABLET PO (09:40)
[2024-05-27] MEDS: Multivitamin TABLET 1 TAB PO (09:41)
[2024-05-27] MEDS: Insulin Glargine,Hum.rec.anlog 100 UNIT/ML 10 ML VIAL 8 UNIT SUBCUT (09:42)
[2024-05-27] MEDS: ceFAZolin Sodium/Dextrose,Iso 2 GM/50 ML PIGGYBACK IV ×2 (09:48→19:20)
[2024-05-27] MEDS: Artificial Tears 15 ML DROPS 1 DROP EYE-BOTH ×2 (09:48→21:07)
[2024-05-27] MEDS: Nystatin Ointment 15 GM TUBE 1 APPL TOPICAL (09:49)
[2024-05-27] MEDS: Zinc Oxide 20% Ointment 28.35 GM TUBE 1 APPL TOPICAL ×2 (09:49→21:06)
[2024-05-27] MEDS: 0.9 % Sodium Chloride Flush 3 ML SYRINGE IVFLUSH ×3 (09:50→21:10)
[2024-05-27 11:25] LABS: Glucose, Whole Blood 128 mg/dL (60-115)
--- NOTE | 2024-05-27 12:01 | MHC.CLN ---
PT WITH INCREASED NUTRITION RISK R/T PRESSURE INJURY DIET RX: 1800DM-APPROPRIATE RECOMMEND ADDING ENSURE MAX TO PROMOTE WOUND HEALING SUPP TO PROVIDE 300KCALS, 60G PROTEIN MONITOR PO INTAKE AND ENCOURAGE SUPPLEMENTS SEE ALSO FULL CLINICAL NUTRITION ASSESSMENT
[2024-05-27] MEDS: Morphine Sulfate 2 MG/ML CARTRIDGE IVPUSH (12:43)
[2024-05-27] MEDS: Nystatin Powder 15 GM BOTTLE 1 APPL TOPICAL ×2 (12:46→21:06)
[2024-05-27] MEDS: Hydrocortisone 1 % Cream 28.35 GM TUBE 1 APPL TOPICAL ×2 (12:46→21:06)
[2024-05-27 13:49] LABS: Hematocrit 32.9 % (37.0-47.0); Hemoglobin 10.4 g/dl (12.0-16.0); Mean Corpuscular HGB Conc 31.6 g/dl (31.0-35.0); Mean Corpuscular Hemoglobin 27.4 pg (27.0-33.0); Mean Corpuscular Volume 86.8 fL (80.0-98.0); Mean Platelet Volume 9.6 fL (9.4-12.3); Platelet Count 204 X10*3/uL (160-400); Red Blood Count 3.79 X10*6/uL (4.20-5.50); Red Cell Distribution Width 17.7 % (11.0-16.0)
[2024-05-27 14:03] LABS: Anion Gap 9 (12-20); Blood Urea Nitrogen 14 mg/dL (9-16); Calcium 8.3 mg/dL (8.4-10.2); Carbon Dioxide 26 mmol/L (22-29); Chloride 112 mmol/L (96-108); Creatinine Clr Calc Pharmacy 73.6; Estimated Glomerular Filt Rate > 60; Glucose Random 148 mg/dL (60-115); Potassium 4.5 mmol/L (3.3-5.1); Sodium 142 mmol/L (135-145); Vancomycin Random 12.7 mcg/mL (15-20)
--- NOTE | 2024-05-27 14:21 | HE.PHANOTE ---
Re: Vanco Renal function improving. Trough returned at 12.7. Continue current dose of 1500 q24h, with predicted AUC 523, predicted trough 14.3. Next trough 05/28 @ 1400.
[2024-05-27 16:15] LABS: Glucose, Whole Blood 160 mg/dL (60-115)
[2024-05-27] MEDS: vancomycin HCL 1,500 MG in 0.9 % Sodium Chloride 500 ML 333.33 MG IV (16:45)
[2024-05-27] MEDS: Insulin Lispro 100 UNIT/ML 3 ML VIAL SUBCUT (16:51)
[2024-05-27] MEDS: Enoxaparin Sodium 40 MG/0.4 ML SYRINGE SUBCUT (18:37)
[2024-05-27] MEDS: Atorvastatin Calcium 40 MG TABLET PO (21:02)
[2024-05-27] MEDS: Melatonin 3 MG TABLET 6 MG PO (21:09)
[2024-05-27] MEDS: Insulin Glargine,Hum.rec.anlog 100 UNIT/ML 10 ML VIAL SUBCUT (21:18)
[2024-05-27 21:33] LABS: Glucose, Whole Blood 142 mg/dL (60-115)
--- NOTE | 2024-05-27 22:01 | P.CNID_ITS ---
History of Present Illness Data of Consult Service Date: 05/27/24 Requesting physician: Jose Valente Primary Care Provider: Unknown Physician HPI Reason for consult: staph aureus bacteremia,sepsis ,tachycardia and leukocytosis She presents with weakness and left pedal swelling and redness. She had tachycardia and leukocytosis and staph aureus 05/25 x 2, MRSA. She has DM,HTN,CKD,COPD. Review of Systems 2 Review of Systems: Yes all other systems are reviewed and are negative PMFSH Past Medical History Medical History History of DVT (deep vein thrombosis) CKD (chronic kidney disease) Erythema intertrigo Asthma Obesity Hypertension Diabetes Multiple skin tears Family History Family history: reviewed and not pertinent Social History Social History Household Members: Other Housing: Half-Way Do you presently have visiting nurse or other home services: No Alcohol intake: never Comment: 1:1 sitter Patient Tobacco Use Status: Never used Tobacco Smoked in Last 30 Days: No Use of substances other than those prescribed or required for medical reasons: No Currently Displaying Signs/Symptoms of Drug Intoxication Withdrawal: No Any prior treatment program specific to substance use: No Have you been hit, kicked, punched, or otherwise hurt by someone within the past year? If so, by whom?: No Do you feel safe in your current relationship?: Yes Is there a partner from a previous relationship who is making you feel unsafe now?: No Are you made to feel afraid or neglected: No Advance Directives: No Advance Directives Information Provided: Yes Do you have a plan to hurt others: No Plan Recently lost weight without trying: No Eating poorly because of decreased appetite: No Nutrition Risks: No Nutritional Risk Patient : No : No Poor oral hygiene: No service: No Current occupational status: disabled Meds Allergies Allergy/AdvReac Type Severity Reaction Status Date / Time belladonna alkaloids Allergy Intermediate ITCHING Verified 05/25/24 13:44 [From ] phenobarbital [From ] Allergy Intermediate ITCHING Verified 05/25/24 13:44 oxycodone Allergy Unknown Verified 05/25/24 13:44 Active Medications: Current Medications Acetaminophen (Acetaminophen 325 Mg Tablet) 650 mg PO Q6H PRN PRN Reason: Pain, Mild 1-3,fever,headache Acetaminophen (Acetaminophen 325 Mg Tablet) 975 mg PO Q8H [facility] Last Admin: 05/27/24 21:02 Dose: 975 mg Albuterol Sulfate (Albuterol Sulfate 90 Mcg 8 Gm Inhaler) 2 puff INHALE Q6H PRN PRN Reason: Shortness Of Breath Or Wheezing Last Admin: 05/25/24 21:07 Dose: 2 puff Amiodarone HCl (Amiodarone Hcl 200 Mg Tablet) 400 mg PO DAILY [facility] Last Admin: 05/27/24 09:40 Dose: 400 mg Artificial Tears (Artificial Tears 15 Ml Drops) 1 drop EYE-BOTH BID [facility] Last Admin: 05/27/24 21:07 Dose: 1 drop Ascorbic Acid (Ascorbic Acid 500 Mg Tablet) 500 mg PO DAILY [facility] Last Admin: 05/27/24 09:40 Dose: 500 mg Atorvastatin Calcium (Atorvastatin Calcium 40 Mg Tablet) 40 mg PO BEDTIME [facility] Last Admin: 05/27/24 21:02 Dose: 40 mg Bisacodyl (Bisacodyl 10 Mg Supp.Rect) 10 mg [place] DAILY PRN PRN Reason: Constipation Calcium Carbonate (Calcium Carbonate 750 Mg Tab.Chew) 750 mg PO Q4H PRN PRN Reason: Heartburn Doxycycline Monohydrate (Doxycycline Monohydrate 100 Mg Capsule) 100 mg PO Q12H [facility] Last Admin: 05/27/24 21:01 Dose: 100 mg Enoxaparin Sodium (Enoxaparin Sodium 40 Mg/0.4 Ml Syringe) 40 mg SUBCUT Q24H [facility] Last Admin: 05/27/24 18:37 Dose: 40 mg Fluticasone/Vilanterol (Fluticasone/Vilanterol 100/25 Blst.W.Dev) 1 puff INHALE RDAILY [facility] Last Admin: 05/27/24 07:38 Dose: 1 puff Glucose (Glucose Gel 15 Gm Gel..Gram.) 15 gm PO Q15M PRN; Protocol PRN Reason: per Hypoglycemia Standing Ord. Guaifenesin (Guaifenesin 200 Mg/10 Ml 10 Ml Liquid) 10 ml PO Q4H PRN PRN Reason: Cough Hydrocortisone (Hydrocortisone 1 % Cream 28.35 Gm Tube) 1 appl TOPICAL BID [facility]; Protocol Last Admin: 05/27/24 21:06 Dose: 1 appl Dextrose (D10) 250 mls @ 750 mls/hr IV Q15M PRN; Protocol PRN Reason: per Hypoglycemia Standing Ord. Vancomycin HCl 1,500 mg/ (Sodium Chloride) 500 mls @ 333.333 mls/hr IV Q24H [facility] Last Infusion: 05/27/24 18:26 Dose: Infused Cefazolin Sodium/Dextrose (Ancef) 2 gm in 50 mls @ 100 mls/hr IV Q8H [facility] Last Infusion: 05/27/24 21:10 Dose: Infused Insulin Glargine (Insulin Glargine,Hum.Rec.Anlog 100 Unit/Ml 10 Ml Vial) 5 unit SUBCUT BEDTIME [facility] Last Admin: 05/27/24 21:18 Dose: 5 unit Insulin Glargine (Insulin Glargine,Hum.Rec.Anlog 100 Unit/Ml 10 Ml Vial) 8 unit SUBCUT DAILY [facility] Last Admin: 05/27/24 09:42 Dose: 8 unit Insulin Human Lispro (Insulin Lispro 100 Unit/Ml 3 Ml Vial) 0 unit SUBCUT QIDACHS [facility]; Protocol Last Admin: 05/27/24 21:15 Dose: Not Given Lurasidone HCl (Lurasidone Hcl 20 Mg Tablet) 60 mg PO BEDTIME [facility] Last Admin: 05/26/24 21:43 Dose: 60 mg Magnesium Hydroxide (Milk Of Magnesia 30 Ml Oral.Susp) 30 ml PO DAILY PRN PRN Reason: Constipation Magnesium Oxide (Magnesium Oxide 400 Mg Tablet) 400 mg PO DAILY [facility] Last Admin: 05/27/24 09:40 Dose: 400 mg Meclizine HCl (Meclizine Hcl 25 Mg Tablet) 25 mg PO Q8H PRN PRN Reason: Vertigo Melatonin (Melatonin 3 Mg Tablet) 6 mg PO BEDTIME PRN PRN Reason: Insomnia Last Admin: 05/27/24 21:09 Dose: 6 mg Metoprolol Succinate (Metoprolol Succinate Er 25 Mg Tab.Er.24h) 75 mg PO DAILY [facility]; Protocol Last Admin: 05/27/24 09:39 Dose: 75 mg Morphine Sulfate (Morphine Sulfate 2 Mg/Ml Cartridge) 2 mg IVPUSH Q4H PRN; Protocol PRN Reason: Pain, Severe (Pain Scale 7-10) Last Admin: 05/27/24 12:43 Dose: 2 mg Multivitamins/Vitamin C (Multivitamin Tablet) 1 tab PO DAILY [facility] Last Admin: 05/27/24 09:41 Dose: 1 tab Nystatin (Nystatin Powder 15 Gm Bottle) 1 appl TOPICAL BID [facility]; Protocol Last Admin: 05/27/24 21:06 Dose: 1 appl Nystatin (Nystatin Ointment 15 Gm Tube) 1 appl TOPICAL TID PRN; Protocol PRN Reason: Rash Last Admin: 05/27/24 09:49 Dose: 1 appl Omeprazole (Omeprazole 40 Mg Capsule.Dr) 40 mg PO DAILY@0630 [facility] Last Admin: 05/27/24 05:57 Dose: 40 mg Ondansetron HCl (Ondansetron Hcl 4 Mg/2 Ml Vial) 4 mg IVPUSH Q8H PRN PRN Reason: Nausea and Vomiting Pharmacy Consult (Consult Rx Vancomycin Dosing) 1 each MISCELLANE DAILY PRN PRN Reason: Consult order Polyethylene Glycol (Polyethylene Glycol 3350 17 Gm Powd.Pack) 17 gm PO DAILY PRN PRN Reason: Constipation Prednisone (Prednisone 5 Mg Tablet) 20 mg PO DAILY [facility]; Taper Stop: 06/20/24 08:59 Last Admin: 05/27/24 09:39 Dose: 20 mg Sertraline HCl (Sertraline Hcl 50 Mg Tablet) 50 mg PO DAILY [facility] Last Admin: 05/27/24 09:40 Dose: 50 mg Sodium Chloride (0.9 % Sodium Chloride Flush 3 Ml Syringe) [facility] Last Admin: 05/27/24 21:10 Dose: 3 ml Zinc Oxide (Zinc Oxide 20% Ointment 28.35 Gm Tube) 1 appl TOPICAL BID [facility] Last Admin: 05/27/24 21:06 Dose: 1 appl Home Medications ?Medication ?Instructions ?Recorded ?Confirmed ?Last Taken ?Type pioglitazone 30 mg tablet 1 tab PO DAILY 06/08/22 05/25/24 Unknown History tramadol 50 mg tablet 25 mg PO Q6H PRN Pain 06/08/22 05/25/24 Unknown History albuterol sulfate 90 mcg/actuation 2 puff inhalation Q6H PRN 06/09/22 05/25/24 Unknown History aerosol inhaler Shortness Of Breath Or Wheezing bisacodyl 10 mg rectal suppository 10 mg CA DAILY PRN Constipation 06/09/22 05/25/24 Unknown History meclizine 25 mg tablet 25 mg PO Q8H PRN Vertigo 06/09/22 05/25/24 Unknown History acetaminophen 500 mg tablet 1,000 mg PO Q8H pain 07/07/22 05/25/24 Unknown History budesonide-formoterol HFA 80 2 puff inhalation BID 07/07/22 05/25/24 Unknown History mcg-4.5 mcg/actuation aerosol inhaler (Symbicort) insulin lispro 100 unit/mL 1 sliding scale dose subcut QIDACHS 07/07/22 05/25/24 Unknown History subcutaneous solution apremilast 30 mg tablet (Otezla) 30 mg PO BID 05/25/24 05/25/24 Unknown History atorvastatin 40 mg tablet 40 mg PO BEDTIME 05/25/24 05/25/24 Unknown History diclofenac sodium 1 % topical gel 4 g topical TID 05/25/24 05/25/24 Unknown History doxycycline hyclate 100 mg tablet 100 mg PO BID 05/25/24 05/25/24 Unknown History guaifenesin 100 mg/5 mL oral liquid 200 mg PO Q4H PRN Cough 05/25/24 05/25/24 Unknown History hydrocortisone 1 % topical cream 1 appl topical BID 05/25/24 05/25/24 Unknown History insulin glargine 100 unit/mL (3 8 unit subcut BEDTIME 05/25/24 05/25/24 Unknown History mL) subcutaneous pen (Basaglar KwikPen U-100 Insulin) insulin glargine 100 unit/mL (3 12 unit subcut DAILY 05/25/24 05/25/24 Unknown History mL) subcutaneous pen (Basaglar KwikPen U-100 Insulin) lidocaine 4 % topical patch 1 patch topical DAILY 05/25/24 05/25/24 Unknown History losartan 50 mg tablet 50 mg PO BID 05/25/24 05/25/24 Unknown History lurasidone 60 mg tablet 60 mg PO BEDTIME 05/25/24 05/25/24 Unknown History magnesium oxide 400 mg PO DAILY 05/25/24 05/25/24 Unknown History metoprolol succinate 25 mg 75 mg PO DAILY 05/25/24 05/25/24 Unknown History tablet,extended release 24 hr multivitamin with minerals 1 tab PO DAILY 05/25/24 05/25/24 Unknown History naltrexone 4.5 mg capsule 4.5 mg PO DAILY 05/25/24 05/25/24 Unknown History nystatin 100,000 unit/gram topical 1 appl topical TID PRN Rash 05/25/24 05/25/24 Unknown History ointment nystatin 100,000 unit/gram topical 1 appl topical BID 05/25/24 05/25/24 Unknown History powder omeprazole 20 mg capsule,delayed 40 mg PO DAILY@0630 05/25/24 05/25/24 Unknown History release ondansetron 4 mg disintegrating 4 mg PO Q6H PRN nausea and vomiting 05/25/24 05/25/24 Unknown History tablet polyethylene glycol 400 1 % eye 1 drp ophthalmic (eye) BID 05/25/24 05/25/24 Unknown History drops (Visine Dry Eye Relief) prednisone 5 mg tablet See Taper PO DAILY 05/25/24 05/25/24 Unknown History sertraline 50 mg tablet 50 mg PO DAILY 05/25/24 05/25/24 Unknown History zinc oxide 40 % topical ointment 1 appl topical BID 05/25/24 05/25/24 Unknown History Physical Exam 2 Vital Signs: Vital Signs: Last Vital Signs Temp 99.3 F 05/27/24 20:00 Pulse 75 05/27/24 20:00 Resp 20 05/27/24 20:00 BP 161/82 H 05/27/24 20:00 Pulse Ox 98 05/27/24 20:00 O2 Del Method Room Air 05/27/24 20:00 BMI result Body Mass Index 42.7 Extrem: Other: left foot redness ,good pedal pulses Results Labs 05/27/24 13:32 05/27/24 13:32 Labs: Short CBC 05/27/24 Range/Units 13:32 WBC 12.0 H (4.8-10.8) X10*3/uL Hgb 10.4 L (12.0-16.0) g/dl Hct 32.9 L (37.0-47.0) % Plt Count 204 (160-400) X10*3/uL BMP 05/27/24 13:32 Sodium 142 Potassium 4.5 Chloride 112 H Carbon Dioxide 26 BUN 14 Creatinine 0.79 Calcium 8.3 L Microbiology Microbiology Results: Microbiology 05/25/24 12:46 Blood - Venous Blood Culture - Preliminary Staphylococcus aureus Corynebacterium species 05/25/24 12:46 Blood - Venous Blood Culture - Preliminary Staphylococcus aureus Assessment and Plan (1) Bacteremia: Status: Acute (2) Osteomyelitis: Status: Acute Plan There is concern over OM left tarsal bone. There is MRSA bacteremia likely. Echo is unremarkable. Would give IV six weeks Vancomycin or Daptomycin. Kefzol also until bacteremia resolved. Weekly creatinine, Consider MRI of foot ? abscess.
[2024-05-28] VITALS: BP 138/65; PULSE 80; RESP 20; TEMP 37.2; O2SAT 96
[2024-05-28] MEDS: ceFAZolin Sodium/Dextrose,Iso 2 GM/50 ML PIGGYBACK IV ×3 (01:32→18:25)
[2024-05-28 04:00] VITALS: BP 141/68; PULSE 80; RESP 20; TEMP 36.3; O2SAT 98
[2024-05-28] MEDS: Acetaminophen 325 MG TABLET 975 MG PO ×2 (05:41→22:25)
[2024-05-28] MEDS: Omeprazole 40 MG CAPSULE.DR PO (05:41)
[2024-05-28 07:25] LABS: Glucose, Whole Blood 97 mg/dL (60-115)
[2024-05-28 07:39] VITALS: BP 141/66; PULSE 76; RESP 18; TEMP 37; O2SAT 96
[2024-05-28] MEDS: Fluticasone/Vilanterol 100/25 BLST.W.DEV 1 PUFF INHALE (07:44)
[2024-05-28 07:47] VITALS: PULSE 80; RESP 18; O2SAT 98
[2024-05-28 07:56] LABS: Anion Gap 10 (12-20); Blood Urea Nitrogen 21 mg/dL (9-16); Calcium 8.4 mg/dL (8.4-10.2); Carbon Dioxide 25 mmol/L (22-29); Chloride 112 mmol/L (96-108); Creatinine Clr Calc Pharmacy 53.3; Estimated Glomerular Filt Rate 48; Glucose Random 109 mg/dL (60-115); Sodium 143 mmol/L (135-145)
[2024-05-28] MEDS: Ascorbic Acid 500 MG TABLET PO (10:14)
[2024-05-28] MEDS: Doxycycline Monohydrate 100 MG CAPSULE PO ×2 (10:14→22:27)
[2024-05-28] MEDS: predniSONE 5 MG TABLET 10 MG PO (10:15)
[2024-05-28] MEDS: Sertraline HCL 50 MG TABLET PO (10:16)
[2024-05-28] MEDS: Metoprolol Succinate ER 25 MG TAB.ER.24H 75 MG PO (10:16)
[2024-05-28] MEDS: Magnesium Oxide 400 MG TABLET PO (10:16)
[2024-05-28] MEDS: Amiodarone HCL 200 MG TABLET 400 MG PO (10:17)
[2024-05-28] MEDS: Multivitamin TABLET 1 TAB PO (10:17)
[2024-05-28] MEDS: Artificial Tears 15 ML DROPS 1 DROP EYE-BOTH ×2 (10:17→22:28)
[2024-05-28] MEDS: Zinc Oxide 20% Ointment 28.35 GM TUBE 1 APPL TOPICAL ×2 (10:20→22:29)
[2024-05-28] MEDS: Nystatin Powder 15 GM BOTTLE 1 APPL TOPICAL ×2 (10:20→22:28)
[2024-05-28] MEDS: Hydrocortisone 1 % Cream 28.35 GM TUBE 1 APPL TOPICAL ×2 (10:20→22:28)
[2024-05-28] MEDS: Insulin Glargine,Hum.rec.anlog 100 UNIT/ML 10 ML VIAL 8 UNIT SUBCUT (10:21)
[2024-05-28] MEDS: 0.9 % Sodium Chloride Flush 3 ML SYRINGE IVFLUSH ×3 (10:22→22:29)
[2024-05-28 11:09] LABS: Glucose, Whole Blood 158 mg/dL (60-115)
[2024-05-28] MEDS: Insulin Lispro 100 UNIT/ML 3 ML VIAL SUBCUT ×3 (11:17→22:27)
[2024-05-28] MEDS: Albuterol Sulfate 90 MCG 8 GM INHALER 2 PUFF INHALE ×2 (11:17→19:12)
[2024-05-28 11:24] VITALS: BP 133/59; PULSE 91; RESP 18; TEMP 37.2; O2SAT 98
--- NOTE | 2024-05-28 11:24 | P.PNIM_ITS ---
Subjective Subjective Date of Service: 05/28/24 Interval History: Follow-up for sepsis, left leg cellulitis and concern for osteomyelitis, MRSA bacteremia no arrhythmia, pain is better and less redness on leg Physical Exam 2 Vital Signs: Vital Signs: Last Vital Signs Temp 98.6 F 05/28/24 07:39 Pulse 80 05/28/24 07:47 Resp 18 05/28/24 07:47 BP 141/66 H 05/28/24 07:39 Pulse Ox 96 05/28/24 07:39 O2 Del Method Room Air 05/28/24 07:39 BMI result Body Mass Index 42.7 Const: Other: General: AO X 3, no acute distress Resp: CTA bilateral CVS: S1,S2,RRR GI: +BS, NT, no distention Skin: today yesterday Neuro: motor grossly intact Psych: appropriate affect Objective Data Active Medications Acetaminophen (Acetaminophen 325 Mg Tablet) 650 mg PO Q6H PRN PRN Reason: Pain, Mild 1-3,fever,headache Acetaminophen (Acetaminophen 325 Mg Tablet) 975 mg PO Q8H [facility] Last Admin: 05/28/24 05:41 Dose: 975 mg Documented By: PITO Albuterol Sulfate (Albuterol Sulfate 90 Mcg 8 Gm Inhaler) 2 puff INHALE Q6H PRN PRN Reason: Shortness Of Breath Or Wheezing Last Admin: 05/28/24 11:17 Dose: 2 puff Documented By: HUMAIRA Amiodarone HCl (Amiodarone Hcl 200 Mg Tablet) 400 mg PO DAILY [facility] Last Admin: 05/28/24 10:17 Dose: 400 mg Documented By: HUMAIRA Artificial Tears (Artificial Tears 15 Ml Drops) 1 drop EYE-BOTH BID [facility] Last Admin: 05/28/24 10:17 Dose: 1 drop Documented By: HUMAIRA Ascorbic Acid (Ascorbic Acid 500 Mg Tablet) 500 mg PO DAILY [facility] Last Admin: 05/28/24 10:14 Dose: 500 mg Documented By: HUMAIRA Atorvastatin Calcium (Atorvastatin Calcium 40 Mg Tablet) 40 mg PO BEDTIME [facility] Last Admin: 05/27/24 21:02 Dose: 40 mg Documented By: PITO Bisacodyl (Bisacodyl 10 Mg Supp.Rect) 10 mg VT DAILY PRN PRN Reason: Constipation Calcium Carbonate (Calcium Carbonate 750 Mg Tab.Chew) 750 mg PO Q4H PRN PRN Reason: Heartburn Doxycycline Monohydrate (Doxycycline Monohydrate 100 Mg Capsule) 100 mg PO Q12H [facility] Last Admin: 05/28/24 10:14 Dose: 100 mg Documented By: HMUAIRA Enoxaparin Sodium (Enoxaparin Sodium 40 Mg/0.4 Ml Syringe) 40 mg SUBCUT Q24H [facility] Last Admin: 05/27/24 18:37 Dose: 40 mg Documented By: S-JANOL Fluticasone/Vilanterol (Fluticasone/Vilanterol 100/ Blst.W.Dev) 1 puff INHALE RDAILY [facility] Last Admin: 05/28/24 07:44 Dose: 1 puff Documented By: MARSHALL Glucose (Glucose Gel 15 Gm Gel..Gram.) 15 gm PO Q15M PRN; Protocol PRN Reason: per Hypoglycemia Standing Ord. Guaifenesin (Guaifenesin 200 Mg/10 Ml 10 Ml Liquid) 10 ml PO Q4H PRN PRN Reason: Cough Hydrocortisone (Hydrocortisone 1 % Cream 28.35 Gm Tube) 1 appl TOPICAL BID [facility]; Protocol Last Admin: 05/28/24 10:20 Dose: 1 appl Documented By: HUMAIRA Dextrose (D10) 250 mls @ 750 mls/hr IV Q15M PRN; Protocol PRN Reason: per Hypoglycemia Standing Ord. Vancomycin HCl 1,500 mg/ (Sodium Chloride) 500 mls @ 333.333 mls/hr IV Q24H [facility] Last Infusion: 05/27/24 18:26 Dose: Infused Documented By: HUMAIRA Cefazolin Sodium/Dextrose (Ancef) 2 gm in 50 mls @ 100 mls/hr IV Q8H [facility] Last Infusion: 05/28/24 11:07 Dose: Infused Documented By: HUMAIRA Insulin Glargine (Insulin Glargine,Hum.Rec.Anlog 100 Unit/Ml 10 Ml Vial) 5 unit SUBCUT BEDTIME [facility] Last Admin: 05/27/24 21:18 Dose: 5 unit Documented By: PITO Insulin Glargine (Insulin Glargine,Hum.Rec.Anlog 100 Unit/Ml 10 Ml Vial) 8 unit SUBCUT DAILY [facility] Last Admin: 05/28/24 10:21 Dose: 8 unit Documented By: HUMAIRA Insulin Human Lispro (Insulin Lispro 100 Unit/Ml 3 Ml Vial) 0 unit SUBCUT QIDACHS [facility]; Protocol Last Admin: 05/28/24 11:17 Dose: 2 unit Documented By: HUMAIRA Lurasidone HCl (Lurasidone Hcl 20 Mg Tablet) 60 mg PO BEDTIME [facility] Last Admin: 05/27/24 21:00 Dose: Not Given Documented By: PITO Non-Admin Reason: Patient Refused Magnesium Hydroxide (Milk Of Magnesia 30 Ml Oral.Susp) 30 ml PO DAILY PRN PRN Reason: Constipation Magnesium Oxide (Magnesium Oxide 400 Mg Tablet) 400 mg PO DAILY [facility] Last Admin: 05/28/24 10:16 Dose: 400 mg Documented By: HUMAIRA Meclizine HCl (Meclizine Hcl 25 Mg Tablet) 25 mg PO Q8H PRN PRN Reason: Vertigo Melatonin (Melatonin 3 Mg Tablet) 6 mg PO BEDTIME PRN PRN Reason: Insomnia Last Admin: 05/27/24 21:09 Dose: 6 mg Documented By: PITO Metoprolol Succinate (Metoprolol Succinate Er 25 Mg Tab.Er.24h) 75 mg PO DAILY [facility]; Protocol Last Admin: 05/28/24 10:16 Dose: 75 mg Documented By: HUMAIRA Morphine Sulfate (Morphine Sulfate 2 Mg/Ml Cartridge) 2 mg IVPUSH Q4H PRN; Protocol PRN Reason: Pain, Severe (Pain Scale 7-10) Last Admin: 05/27/24 12:43 Dose: 2 mg Documented By: HUMAIRA Comments: given prior to repositioning and cleaning Multivitamins/Vitamin C (Multivitamin Tablet) 1 tab PO DAILY [facility] Last Admin: 05/28/24 10:17 Dose: 1 tab Documented By: HUMAIRA Nystatin (Nystatin Powder 15 Gm Bottle) 1 appl TOPICAL BID [facility]; Protocol Last Admin: 05/28/24 10:20 Dose: 1 appl Documented By: HUMAIRA Nystatin (Nystatin Ointment 15 Gm Tube) 1 appl TOPICAL TID PRN; Protocol PRN Reason: Rash Last Admin: 05/27/24 09:49 Dose: 1 appl Documented By: HUMAIRA Omeprazole (Omeprazole 40 Mg Capsule.) 40 mg PO DAILY@0630 [facility] Last Admin: 05/28/24 05:41 Dose: 40 mg Documented By: PITO Ondansetron HCl (Ondansetron Hcl 4 Mg/2 Ml Vial) 4 mg IVPUSH Q8H PRN PRN Reason: Nausea and Vomiting Pharmacy Consult (Consult Rx Vancomycin Dosing) 1 each MISCELLANE DAILY PRN PRN Reason: Consult order Polyethylene Glycol (Polyethylene Glycol 3350 17 Gm Powd.Pack) 17 gm PO DAILY PRN PRN Reason: Constipation Prednisone (Prednisone 5 Mg Tablet) 20 mg PO DAILY [facility]; Taper Stop: 06/20/24 08:59 Last Admin: 05/28/24 10:15 Dose: 20 mg Documented By: HUMAIRA Sertraline HCl (Sertraline Hcl 50 Mg Tablet) 50 mg PO DAILY [facility] Last Admin: 05/28/24 10:16 Dose: 50 mg Documented By: HUMAIRA Sodium Chloride (0.9 % Sodium Chloride Flush 3 Ml Syringe) 3 ml IVFLUSH QSHIFT [facility] Last Admin: 05/28/24 10:22 Dose: 3 ml Documented By: HUMAIRA Zinc Oxide (Zinc Oxide 20% Ointment 28.35 Gm Tube) 1 appl TOPICAL BID [facility] Last Admin: 05/28/24 10:20 Dose: 1 appl Documented By: HUMAIRA Labs 05/27/24 13:32 05/28/24 07:14 Labs: Laboratory Results - last 24 hr 05/27/24 05/27/24 05/27/24 11:08 13:32 16:05 MCV 86.8 MCH 27.4 MCHC 31.6 RDW 17.7 H Plt Count 204 MPV 9.6 Absolute Nucleated RBC 0.000 Nucleated RBC % (auto) 0.0 Anion Gap 9 L Estim Creat Clear Calc 73.6 Estimated GFR > 60 POC Glucose 128 H 160 H Random Glucose 148 H Calcium 8.3 L Random Vancomycin 12.7 L 05/27/24 05/28/24 05/28/24 21:11 07:14 07:18 MCV MCH MCHC RDW Plt Count MPV Absolute Nucleated RBC Nucleated RBC % (auto) Anion Gap 10 L Estim Creat Clear Calc 53.3 Estimated GFR 48 POC Glucose 142 H 97 Random Glucose 109 Calcium 8.4 Random Vancomycin 05/28/24 11:02 MCV MCH MCHC RDW Plt Count MPV Absolute Nucleated RBC Nucleated RBC % (auto) Anion Gap Estim Creat Clear Calc Estimated GFR POC Glucose 158 H Random Glucose Calcium Random Vancomycin Microbiology Microbiology Results: Microbiology 05/25/24 12:46 Blood Culture - Final Blood - Venous Methicillin Res Staph Aureus Corynebacterium species 05/25/24 12:46 Blood Culture - Preliminary Blood - Venous Methicillin Res Staph Aureus Enterococcus/Streptococcus sp Assessment and Plan (1) Diabetes type 2, controlled: Status: Acute Plan 78 year old female with history of DM, HTN, CKD, erythema intertrigo, dysphagia, depression, YUE, COPD, pemphigus, DVT not on anti-coagulation, morbid obesity, bed-bound. Here with cellulitis of the leg with possible associated cellulitis of tibia/fibula, meet sepsis criteria Sepsis d/t Cellulitis of left leg, Possible osteomylitis of the tibia/fibula and now MRSA bacteemia -continue Vanco started 05/25/24, kefzol 05/27/24 for synergistic effect until BCx cleare -ID recommends 6 weeks of iv vanco, weekly Cr, -echo no vegetations -follow cultures, repeat cultures today MRS of the foot Wide-complex tachycardia, no further episode, -continue amio 400 mg dailyper card recommendation -Correct K and Mag as needed -cardiology following Diabetes -diabetic diet -SSI -Lantus in place of Levemir -hold pioglitazone HLD--statin HTN--hold losartan due high K add norvasc 5 daily history of pemphigus with skin breakdown, see picutures, continue doxy and prednisone, Pressure ulcer POA -wound care following -wound protocol Morbid obesity--unfortunately weight loss is an incredible challenge for her in face of bedbound state and limited activity, avoid hypercaloric food DVT prophylaxis: Lovenox Full code admission for sepsis,cellulitis and osteomylitis Quality Stroke Does the patient have a stroke diagnosis?: No VTE Prior VTE?: No VTE Risk Level:: Medical - moderate - high VTE Device Contraindication: Treatment Not Indicated VTE Drug Contraindication: N/A - Med Ordered
--- NOTE | 2024-05-28 12:45 | PC.NURSE ---
per edgar Dale for pt to come off monitor for MRI
[2024-05-28] MEDS: gadobutroL 10 ML VIAL IVPUSH (16:22)
[2024-05-28 17:58] LABS: Glucose, Whole Blood 172 mg/dL (60-115)
[2024-05-28] MEDS: Enoxaparin Sodium 40 MG/0.4 ML SYRINGE SUBCUT (18:25)
[2024-05-28] MEDS: vancomycin HCL 1,250 MG in 0.9 % Sodium Chloride 250 ML 166.67 MG IV (19:13)
[2024-05-28 20:00] VITALS: BP 144/73; PULSE 81; RESP 20; TEMP 37.5; O2SAT 97
[2024-05-28 21:45] LABS: Glucose, Whole Blood 161 mg/dL (60-115)
[2024-05-28] MEDS: Lurasidone HCl 20 MG TABLET 60 MG PO (22:25)
[2024-05-28] MEDS: Atorvastatin Calcium 40 MG TABLET PO (22:25)
[2024-05-28] MEDS: Insulin Glargine,Hum.rec.anlog 100 UNIT/ML 10 ML VIAL SUBCUT (22:26)
[2024-05-29] VITALS (7 sets, daily range): BP systolic 117–159; BP diastolic 57–80; PULSE 71–83; RESP 18–20; TEMP 36.3–37.5; O2SAT 94–98
[2024-05-29] MEDS: ceFAZolin Sodium/Dextrose,Iso 2 GM/50 ML PIGGYBACK IV ×2 (02:01→10:20)
[2024-05-29] MEDS: Acetaminophen 325 MG TABLET 975 MG PO ×3 (06:33→22:01)
[2024-05-29] MEDS: Omeprazole 40 MG CAPSULE.DR PO (06:33)
[2024-05-29 06:44] LABS: Anion Gap 12 (12-20); Blood Urea Nitrogen 21 mg/dL (9-16); Carbon Dioxide 27 mmol/L (22-29); Chloride 108 mmol/L (96-108); Creatinine Clr Calc Pharmacy 75.5; Estimated Glomerular Filt Rate > 60; Glucose Random 109 mg/dL (60-115); Potassium 4.2 mmol/L (3.3-5.1); Sodium 143 mmol/L (135-145)
[2024-05-29 07:26] LABS: Glucose, Whole Blood 98 mg/dL (60-115)
[2024-05-29] MEDS: Fluticasone/Vilanterol 100/25 BLST.W.DEV 1 PUFF INHALE (07:48)
[2024-05-29] MEDS: Metoprolol Succinate ER 25 MG TAB.ER.24H 75 MG PO (10:21)
[2024-05-29] MEDS: Sertraline HCL 50 MG TABLET PO (10:21)
[2024-05-29] MEDS: predniSONE 5 MG TABLET 10 MG PO (10:21)
[2024-05-29] MEDS: amLODIPine Besylate 5 MG TABLET PO (10:21)
[2024-05-29] MEDS: Multivitamin TABLET 1 TAB PO (10:21)
[2024-05-29] MEDS: Magnesium Oxide 400 MG TABLET PO (10:21)
[2024-05-29] MEDS: Doxycycline Monohydrate 100 MG CAPSULE PO ×2 (10:22→19:59)
[2024-05-29] MEDS: 0.9 % Sodium Chloride Flush 3 ML SYRINGE IVFLUSH ×2 (10:22→16:39)
[2024-05-29] MEDS: Ascorbic Acid 500 MG TABLET PO (10:22)
[2024-05-29] MEDS: Amiodarone HCL 200 MG TABLET 400 MG PO (10:22)
[2024-05-29] MEDS: Insulin Glargine,Hum.rec.anlog 100 UNIT/ML 10 ML VIAL 8 UNIT SUBCUT (10:23)
[2024-05-29] MEDS: Hydrocortisone 1 % Cream 28.35 GM TUBE 1 APPL TOPICAL ×2 (10:28→20:03)
[2024-05-29] MEDS: Artificial Tears 15 ML DROPS 1 DROP EYE-BOTH ×2 (10:28→20:05)
[2024-05-29] MEDS: Zinc Oxide 20% Ointment 28.35 GM TUBE 1 APPL TOPICAL ×2 (10:28→20:03)
[2024-05-29] MEDS: Nystatin Powder 15 GM BOTTLE 1 APPL TOPICAL ×2 (10:29→20:04)
--- NOTE | 2024-05-29 10:33 | P.PNIM_ITS ---
Subjective Subjective Date of Service: 05/29/24 Interval History: Follow-up for sepsis, left leg cellulitis and concern for osteomyelitis, MRSA and E.Feacalis bacteremia no arrhythmia, pain is better and less redness on leg Physical Exam 2 Vital Signs: Vital Signs: Last Vital Signs Temp 97.9 F 05/29/24 08:00 Pulse 82 05/29/24 08:00 Resp 18 05/29/24 08:00 BP 159/63 H 05/29/24 08:00 Pulse Ox 98 05/29/24 08:00 O2 Del Method Room Air 05/29/24 08:00 O2 Flow Rate 2 05/28/24 11:24 BMI result Body Mass Index 42.7 Const: Other: General: AO X 3, no acute distress Resp: CTA bilateral CVS: S1,S2,RRR GI: +BS, NT, no distention Skin: 05/28 05/27 today Neuro: motor grossly intact Psych: appropriate affect Objective Data Active Medications Acetaminophen (Acetaminophen 325 Mg Tablet) 650 mg PO Q6H PRN PRN Reason: Pain, Mild 1-3,fever,headache Acetaminophen (Acetaminophen 325 Mg Tablet) 975 mg PO Q8H [facility] Last Admin: 05/29/24 06:33 Dose: 975 mg Documented By: PITO Albuterol Sulfate (Albuterol Sulfate 90 Mcg 8 Gm Inhaler) 2 puff INHALE Q6H PRN PRN Reason: Shortness Of Breath Or Wheezing Last Admin: 05/28/24 19:12 Dose: 2 puff Documented By: HUMAIRA Amiodarone HCl (Amiodarone Hcl 200 Mg Tablet) 400 mg PO DAILY [facility] Last Admin: 05/29/24 10:22 Dose: 400 mg Documented By: HUMAIRA Amlodipine Besylate (Amlodipine Besylate 5 Mg Tablet) 5 mg PO DAILY [facility]; Protocol Last Admin: 05/29/24 10:21 Dose: 5 mg Documented By: HUMAIRA Artificial Tears (Artificial Tears 15 Ml Drops) 1 drop EYE-BOTH BID [facility] Last Admin: 05/29/24 10:28 Dose: 1 drop Documented By: HUMAIRA Ascorbic Acid (Ascorbic Acid 500 Mg Tablet) 500 mg PO DAILY [facility] Last Admin: 05/29/24 10:22 Dose: 500 mg Documented By: HUMAIRA Atorvastatin Calcium (Atorvastatin Calcium 40 Mg Tablet) 40 mg PO BEDTIME [facility] Last Admin: 05/28/24 22:25 Dose: 40 mg Documented By: PITO Bisacodyl (Bisacodyl 10 Mg Supp.Rect) [address] DAILY PRN PRN Reason: Constipation Calcium Carbonate (Calcium Carbonate 750 Mg Tab.Chew) 750 mg PO Q4H PRN PRN Reason: Heartburn Doxycycline Monohydrate (Doxycycline Monohydrate 100 Mg Capsule) 100 mg PO Q12H [facility] Last Admin: 05/29/24 10:22 Dose: 100 mg Documented By: HUMAIRA Enoxaparin Sodium (Enoxaparin Sodium 40 Mg/0.4 Ml Syringe) 40 mg SUBCUT Q24H [facility] Last Admin: 05/28/24 18:25 Dose: 40 mg Documented By: HUMAIRA Fluticasone/Vilanterol (Fluticasone/Vilanterol 100/25 Blst.W.Dev) 1 puff INHALE RDAILY [facility] Last Admin: 05/29/24 07:48 Dose: 1 puff Documented By: MARSHALL Glucose (Glucose Gel 15 Gm Gel..Gram.) 15 gm PO Q15M PRN; Protocol PRN Reason: per Hypoglycemia Standing Ord. Guaifenesin (Guaifenesin 200 Mg/10 Ml 10 Ml Liquid) 10 ml PO Q4H PRN PRN Reason: Cough Hydrocortisone (Hydrocortisone 1 % Cream 28.35 Gm Tube) 1 appl TOPICAL BID [facility]; Protocol Last Admin: 05/29/24 10:28 Dose: 1 appl Documented By: HUMAIRA Dextrose (D10) 250 mls @ 750 mls/hr IV Q15M PRN; Protocol PRN Reason: per Hypoglycemia Standing Ord. Cefazolin Sodium/Dextrose (Ancef) 2 gm in 50 mls @ 100 mls/hr IV Q8H [facility] Last Admin: 05/29/24 10:20 Dose: 100 mls/hr Documented By: HUMAIRA Vancomycin HCl 1,250 mg/ (Sodium Chloride) 250 mls @ 166.667 mls/hr IV Q24H [facility] Last Infusion: 05/28/24 22:29 Dose: Infused Documented By: PITO Insulin Glargine (Insulin Glargine,Hum.Rec.Anlog 100 Unit/Ml 10 Ml Vial) 5 unit SUBCUT BEDTIME [facility] Last Admin: 05/28/24 22:26 Dose: 5 unit Documented By: PITO Insulin Glargine (Insulin Glargine,Hum.Rec.Anlog 100 Unit/Ml 10 Ml Vial) 8 unit SUBCUT DAILY [facility] Last Admin: 05/29/24 10:23 Dose: 8 unit Documented By: HUMAIRA Insulin Human Lispro (Insulin Lispro 100 Unit/Ml 3 Ml Vial) 0 unit SUBCUT QIDACHS [facility]; Protocol Last Admin: 05/29/24 07:49 Dose: Not Given Documented By: HUMAIRA Non-Admin Reason: No Insulin Coverage Lurasidone HCl (Lurasidone Hcl 20 Mg Tablet) 60 mg PO BEDTIME [facility] Last Admin: 05/28/24 22:25 Dose: 60 mg Documented By: PITO Magnesium Hydroxide (Milk Of Magnesia 30 Ml Oral.Susp) 30 ml PO DAILY PRN PRN Reason: Constipation Magnesium Oxide (Magnesium Oxide 400 Mg Tablet) 400 mg PO DAILY [facility] Last Admin: 05/29/24 10:21 Dose: 400 mg Documented By: HUMAIRA Meclizine HCl (Meclizine Hcl 25 Mg Tablet) 25 mg PO Q8H PRN PRN Reason: Vertigo Melatonin (Melatonin 3 Mg Tablet) 6 mg PO BEDTIME PRN PRN Reason: Insomnia Last Admin: 05/27/24 21:09 Dose: 6 mg Documented By: PITO Metoprolol Succinate (Metoprolol Succinate Er 25 Mg Tab.Er.24h) 75 mg PO DAILY [facility]; Protocol Last Admin: 05/29/24 10:21 Dose: 75 mg Documented By: HUMAIRA Morphine Sulfate (Morphine Sulfate 2 Mg/Ml Cartridge) 2 mg IVPUSH Q4H PRN; Protocol PRN Reason: Pain, Severe (Pain Scale 7-10) Last Admin: 05/27/24 12:43 Dose: 2 mg Documented By: HUMAIRA Comments: given prior to repositioning and cleaning Multivitamins/Vitamin C (Multivitamin Tablet) 1 tab PO DAILY [facility] Last Admin: 05/29/24 10:21 Dose: 1 tab Documented By: HUMAIRA Nystatin (Nystatin Powder 15 Gm Bottle) 1 appl TOPICAL BID [facility]; Protocol Last Admin: 05/29/24 10:29 Dose: 1 appl Documented By: HUMAIRA Nystatin (Nystatin Ointment 15 Gm Tube) 1 appl TOPICAL TID PRN; Protocol PRN Reason: Rash Last Admin: 05/27/24 09:49 Dose: 1 appl Documented By: HUMAIRA Omeprazole (Omeprazole 40 Mg Capsule.) 40 mg PO DAILY@0630 [facility] Last Admin: 05/29/24 06:33 Dose: 40 mg Documented By: PITO Ondansetron HCl (Ondansetron Hcl 4 Mg/2 Ml Vial) 4 mg IVPUSH Q8H PRN PRN Reason: Nausea and Vomiting Pharmacy Consult (Consult Rx Vancomycin Dosing) 1 each MISCELLANE DAILY PRN PRN Reason: Consult order Polyethylene Glycol (Polyethylene Glycol 3350 17 Gm Powd.Pack) 17 gm PO DAILY PRN PRN Reason: Constipation Prednisone (Prednisone 5 Mg Tablet) 20 mg PO DAILY [facility]; Taper Stop: 06/20/24 08:59 Last Admin: 05/29/24 10:21 Dose: 20 mg Documented By: HUMAIRA Sertraline HCl (Sertraline Hcl 50 Mg Tablet) 50 mg PO DAILY [facility] Last Admin: 05/29/24 10:21 Dose: 50 mg Documented By: HUMAIRA Sodium Chloride (0.9 % Sodium Chloride Flush 3 Ml Syringe) 3 ml IVFLUSH QSHIFT [facility] Last Admin: 05/29/24 10:22 Dose: 3 ml Documented By: HUMAIRA Zinc Oxide (Zinc Oxide 20% Ointment 28.35 Gm Tube) 1 appl TOPICAL BID [facility] Last Admin: 05/29/24 10:28 Dose: 1 appl Documented By: HUMAIRA Labs 05/27/24 13:32 05/29/24 05:54 Labs: Laboratory Results - last 24 hr 05/28/24 05/28/24 05/28/24 11:02 13:58 17:53 Hold Purple Top Anion Gap Estim Creat Clear Calc Estimated GFR POC Glucose 158 H 172 H Random Glucose Calcium Random Vancomycin 16.0 05/28/24 05/29/24 05/29/24 21:41 05:54 07:09 Hold Purple Top SEE NOTE Anion Gap 12 Estim Creat Clear Calc 75.5 Estimated GFR > 60 POC Glucose 161 H 98 Random Glucose 109 Calcium 9.0 D Random Vancomycin Microbiology Microbiology Results: Microbiology 05/25/24 12:46 Blood Culture - Final Blood - Venous Methicillin Res Staph Aureus Enterococcus faecalis 05/27/24 13:32 Blood Culture - Preliminary Blood - Venous No growth after 24 hours. 05/27/24 13:32 Blood Culture - Preliminary Blood - Venous No growth after 24 hours. 05/25/24 12:46 Blood Culture - Final Blood - Venous Methicillin Res Staph Aureus Corynebacterium species Assessment and Plan (1) Diabetes type 2, controlled: Status: Acute Plan 78 year old female with history of DM, HTN, CKD, erythema intertrigo, dysphagia, depression, YUE, COPD, pemphigus, DVT not on anti-coagulation, morbid obesity, bed-bound. Here with cellulitis of the leg with possible associated cellulitis of tibia/fibula, meet sepsis criteria Sepsis d/t Cellulitis of left leg, Possible osteomylitis of the tibia/fibula and now MRSA bacteemia -continue Vanco started 05/25/24, kefzol 05/27/24, can stop today -E. Feacalis bacteremia--start ampicillin and change to Amoxicillin later -ID recommends 6 weeks of iv vanco, weekly Cr, -echo no vegetations -follow cultures, repeat cultures today MRI of the foot done 05/28, result pending Wide-complex tachycardia, no further episode since admission -continue amio 400 mg dailyper card recommendation -Correct K and Mag as needed -cardiology following Diabetes -diabetic diet -SSI -Lantus in place of Levemir -hold pioglitazone HLD--statin HTN--hold losartan due high K added norvasc 5 daily history of pemphigus with skin breakdown, see picutures, continue doxy and prednisone, Pressure ulcer POA -wound care following -wound protocol Morbid obesity--unfortunately weight loss is an incredible challenge for her in face of bedbound state and limited activity, avoid hypercaloric food DVT prophylaxis: Lovenox Full code admission for sepsis,cellulitis and osteomylitis Quality Stroke Does the patient have a stroke diagnosis?: No VTE Prior VTE?: No VTE Risk Level:: Medical - moderate - high VTE Device Contraindication: Treatment Not Indicated VTE Drug Contraindication: N/A - Med Ordered
[2024-05-29 11:47] LABS: Glucose, Whole Blood 132 mg/dL (60-115)
[2024-05-29] MEDS: Ampicillin Sodium 1 GM in 0.9 % Sodium Chloride 100 ML IV ×2 (12:58→19:58)
--- NOTE | 2024-05-29 13:10 | P.CDIM_ITS ---
PROVIDER RESPONSE TEXT: To clarify, the appropriate diagnosis supported by the clinical indicators: Cellulitis due to/associated with Diabetes mellitus: cellulitis associated with diabetes QUERY TEXT: PHYSICIAN'S DOCUMENTATION REQUEST Date of Query: 05/26/2024 11:37 AM EST Patient Name: Yadira Dallas Admit Date: 05/25/2024 Dear Jose Valente MD, A review of the medical record indicates additional documentation may be needed. Please review below and update the documentation accordingly. Clinical Indicators: Sepsis due to cellulitis of left leg. DM Bed-bound leg swelling, redness and pain. Please clarify the following regarding the cellulitis and the noted Diabetes mellitus: Cellulitis due to/associated with Diabetes mellitus possible, probable, suspected etc. Cellulitis is not due to/associated with the Diabetes mellitus Other (explain) Clinically unable to determine (explain) Thank you, Bhavana Cam, CCS, CDIS Use of terms such as suspected, likely, concern for, or probable (associated with a specific diagnosi s that is being evaluated, monitored, or treated as if it exists) are acceptable and can be coded in the inpatient se tting, when documented at the time of discharge. Please use your independent medical judgment in providing your response. THIS QUERY IS PART OF THE PERMANENT MEDICAL RECORD
[2024-05-29 14:41] LABS: Vancomycin Random 14.9 mcg/mL (15-20)
--- NOTE | 2024-05-29 14:53 | HE.PHANOTE ---
Re: Umm Renal function is improving. Trough returned at 14.9. Dose increased to 1500mg q24h with predicted AUC 512, predicted trough 13.8. Next trough 05/30 @1400.
[2024-05-29 16:08] LABS: Glucose, Whole Blood 215 mg/dL (60-115)
[2024-05-29] MEDS: vancomycin HCL 1,500 MG in 0.9 % Sodium Chloride 500 ML 333.33 MG IV (16:30)
[2024-05-29] MEDS: Insulin Lispro 100 UNIT/ML 3 ML VIAL SUBCUT (16:31)
[2024-05-29] MEDS: Enoxaparin Sodium 40 MG/0.4 ML SYRINGE SUBCUT (18:15)
--- NOTE | 2024-05-29 18:18 | PC.NURSE ---
IV vanco infusion marked done in JUL. Medication still infusing at ordered rate. Pump alarming for downstream occlusion. Patient re-educated about keeping arm in appropriate position to maintain unobstructed flow and to ring call alva if IV pump is alarming. Patient A&Ox4- verbalized understanding. Gauze roll placed in antecubital space to assist with maintaining position. Patient movement remains free and unrestricted. Call alva within reach.
[2024-05-29] MEDS: Atorvastatin Calcium 40 MG TABLET PO (19:59)
[2024-05-29] MEDS: Lurasidone HCl 20 MG TABLET 60 MG PO (19:59)
[2024-05-29] MEDS: Nystatin Ointment 15 GM TUBE 1 APPL TOPICAL (20:03)
[2024-05-29 20:32] LABS: Glucose, Whole Blood 144 mg/dL (60-115)
[2024-05-29] MEDS: Insulin Glargine,Hum.rec.anlog 100 UNIT/ML 10 ML VIAL SUBCUT (21:03)
[2024-05-29] MEDS: guaiFENesin 200 MG/10 ML 10 ML LIQUID PO (22:00)
[2024-05-30] MEDS: 0.9 % Sodium Chloride Flush 3 ML SYRINGE IVFLUSH ×3 (00:32→14:08)
[2024-05-30] MEDS: Ampicillin Sodium 1 GM in 0.9 % Sodium Chloride 100 ML IV ×3 (02:00→14:07)
[2024-05-30 03:00] VITALS: BP 119/57; PULSE 59; RESP 18; TEMP 36; O2SAT 95
[2024-05-30] MEDS: Acetaminophen 325 MG TABLET 975 MG PO ×3 (05:56→21:36)
[2024-05-30] MEDS: Omeprazole 40 MG CAPSULE.DR PO (05:56)
[2024-05-30 07:40] VITALS: BP 144/72; PULSE 68; RESP 16; TEMP 36.8; O2SAT 97
[2024-05-30 07:40] LABS: Anion Gap 11 (12-20); Blood Urea Nitrogen 23 mg/dL (9-16); Calcium 8.9 mg/dL (8.4-10.2); Carbon Dioxide 30 mmol/L (22-29); Chloride 104 mmol/L (96-108); Creatinine Clr Calc Pharmacy 68.3; Estimated Glomerular Filt Rate > 60; Glucose Random 111 mg/dL (60-115); Potassium 4.4 mmol/L (3.3-5.1); Sodium 141 mmol/L (135-145)
[2024-05-30 07:48] LABS: Glucose, Whole Blood 114 mg/dL (60-115)
[2024-05-30] MEDS: predniSONE 5 MG TABLET 10 MG PO (08:22)
[2024-05-30] MEDS: amLODIPine Besylate 5 MG TABLET PO (08:22)
[2024-05-30] MEDS: Doxycycline Monohydrate 100 MG CAPSULE PO ×2 (08:22→20:43)
[2024-05-30] MEDS: Insulin Glargine,Hum.rec.anlog 100 UNIT/ML 10 ML VIAL 8 UNIT SUBCUT (08:22)
[2024-05-30] MEDS: Multivitamin TABLET 1 TAB PO (08:22)
[2024-05-30] MEDS: Metoprolol Succinate ER 25 MG TAB.ER.24H 75 MG PO (08:22)
[2024-05-30] MEDS: Ascorbic Acid 500 MG TABLET PO (08:22)
[2024-05-30] MEDS: Magnesium Oxide 400 MG TABLET PO (08:22)
[2024-05-30] MEDS: Amiodarone HCL 200 MG TABLET 400 MG PO (08:22)
[2024-05-30] MEDS: Sertraline HCL 50 MG TABLET PO (08:22)
[2024-05-30] MEDS: Nystatin Powder 15 GM BOTTLE 1 APPL TOPICAL ×2 (08:23→20:48)
[2024-05-30] MEDS: Hydrocortisone 1 % Cream 28.35 GM TUBE 1 APPL TOPICAL ×2 (08:23→20:49)
[2024-05-30] MEDS: Artificial Tears 15 ML DROPS 1 DROP EYE-BOTH (08:23)
[2024-05-30] MEDS: Zinc Oxide 20% Ointment 28.35 GM TUBE 1 APPL TOPICAL ×2 (08:24→20:49)
[2024-05-30 11:26] LABS: Glucose, Whole Blood 167 mg/dL (60-115)
--- NOTE | 2024-05-30 11:40 | MHC.CLN ---
F/U PT WITH INCREASED NUTRITION RISK R/T PRESSURE INJURY PO INTAKE 75-100% DIET RX: 1800DM-APPROPRIATE RECEIVING ENSURE MAX TO PROMOTE WOUND HEALING SUPP TO PROVIDE 300KCALS, 60G PROTEIN MONITOR PO INTAKE AND ENCOURAGE SUPPLEMENTS
[2024-05-30] MEDS: Insulin Lispro 100 UNIT/ML 3 ML VIAL SUBCUT ×2 (11:57→17:58)
--- NOTE | 2024-05-30 13:09 | P.PNIM_ITS ---
Subjective Subjective Date of Service: 05/30/24 Interval History: Follow-up for sepsis, left leg cellulitis and concern for osteomyelitis, MRSA and E.Feacalis bacteremia no arrhythmia, pain is better and less redness on leg and less pain, last blooc cultures negative x 48 hrs Physical Exam 2 Vital Signs: Vital Signs: Last Vital Signs Temp 98.3 F 05/30/24 07:40 Pulse 68 05/30/24 07:40 Resp 16 05/30/24 07:40 BP 144/72 H 05/30/24 07:40 Pulse Ox 97 05/30/24 07:40 O2 Del Method Room Air 05/30/24 07:40 O2 Flow Rate 2 05/28/24 11:24 BMI result Body Mass Index 42.7 Objective Data Active Medications Acetaminophen (Acetaminophen 325 Mg Tablet) 650 mg PO Q6H PRN PRN Reason: Pain, Mild 1-3,fever,headache Acetaminophen (Acetaminophen 325 Mg Tablet) 975 mg PO Q8H [facility] Last Admin: 05/30/24 05:56 Dose: 975 mg Documented By: ADAM Albuterol Sulfate (Albuterol Sulfate 90 Mcg 8 Gm Inhaler) 2 puff INHALE Q6H PRN PRN Reason: Shortness Of Breath Or Wheezing Last Admin: 05/28/24 19:12 Dose: 2 puff Documented By: HUMAIRA Amiodarone HCl (Amiodarone Hcl 200 Mg Tablet) 400 mg PO DAILY [facility] Last Admin: 05/30/24 08:22 Dose: 400 mg Documented By: RICO Amlodipine Besylate (Amlodipine Besylate 5 Mg Tablet) 5 mg PO DAILY [facility]; Protocol Last Admin: 05/30/24 08:22 Dose: 5 mg Documented By: RICO Artificial Tears (Artificial Tears 15 Ml Drops) 1 drop EYE-BOTH BID [facility] Last Admin: 05/30/24 08:23 Dose: 1 drop Documented By: RICO Ascorbic Acid (Ascorbic Acid 500 Mg Tablet) 500 mg PO DAILY [facility] Last Admin: 05/30/24 08:22 Dose: 500 mg Documented By: RICO Atorvastatin Calcium (Atorvastatin Calcium 40 Mg Tablet) 40 mg PO BEDTIME [facility] Last Admin: 05/29/24 19:59 Dose: 40 mg Documented By: ADAM Bisacodyl (Bisacodyl 10 Mg Supp.Rect) 10 mg [place] DAILY PRN PRN Reason: Constipation Calcium Carbonate (Calcium Carbonate 750 Mg Tab.Chew) 750 mg PO Q4H PRN PRN Reason: Heartburn Doxycycline Monohydrate (Doxycycline Monohydrate 100 Mg Capsule) 100 mg PO Q12H [facility] Last Admin: 05/30/24 08:22 Dose: 100 mg Documented By: RICO Enoxaparin Sodium (Enoxaparin Sodium 40 Mg/0.4 Ml Syringe) 40 mg SUBCUT Q24H [facility] Last Admin: 05/29/24 18:15 Dose: 40 mg Documented By: LACY Fluticasone/Vilanterol (Fluticasone/Vilanterol 100/25 Blst.W.Dev) 1 puff INHALE RDAILY [facility] Last Admin: 05/29/24 07:48 Dose: 1 puff Documented By: MARSHALL Glucose (Glucose Gel 15 Gm Gel..Gram.) 15 gm PO Q15M PRN; Protocol PRN Reason: per Hypoglycemia Standing Ord. Guaifenesin (Guaifenesin 200 Mg/10 Ml 10 Ml Liquid) 10 ml PO Q4H PRN PRN Reason: Cough Last Admin: 05/29/24 22:00 Dose: 10 ml Documented By: ADAM Hydrocortisone (Hydrocortisone 1 % Cream 28.35 Gm Tube) 1 appl TOPICAL BID [facility]; Protocol Last Admin: 05/30/24 08:23 Dose: 1 appl Documented By: RICO Dextrose (D10) 250 mls @ 750 mls/hr IV Q15M PRN; Protocol PRN Reason: per Hypoglycemia Standing Ord. Ampicillin Sodium 1 gm/ Sodium (Chloride) 100 mls @ 200 mls/hr IV Q6H [facility] Last Infusion: 05/30/24 08:52 Dose: Infused Documented By: RICO Vancomycin HCl 1,500 mg/ (Sodium Chloride) 500 mls @ 333.333 mls/hr IV Q24H [facility] Last Infusion: 05/29/24 19:57 Dose: Infused Documented By: ADAM Insulin Glargine (Insulin Glargine,Hum.Rec.Anlog 100 Unit/Ml 10 Ml Vial) 5 unit SUBCUT BEDTIME [facility] Last Admin: 05/29/24 21:03 Dose: 5 unit Documented By: ADAM Insulin Glargine (Insulin Glargine,Hum.Rec.Anlog 100 Unit/Ml 10 Ml Vial) 8 unit SUBCUT DAILY [facility] Last Admin: 05/30/24 08:22 Dose: 8 unit Documented By: RICO Insulin Human Lispro (Insulin Lispro 100 Unit/Ml 3 Ml Vial) 0 unit SUBCUT QIDACHS [facility]; Protocol Last Admin: 05/30/24 11:57 Dose: 2 unit Documented By: RICO Lurasidone HCl (Lurasidone Hcl 20 Mg Tablet) 60 mg PO BEDTIME [facility] Last Admin: 05/29/24 19:59 Dose: 60 mg Documented By: ADAM Magnesium Hydroxide (Milk Of Magnesia 30 Ml Oral.Susp) 30 ml PO DAILY PRN PRN Reason: Constipation Magnesium Oxide (Magnesium Oxide 400 Mg Tablet) 400 mg PO DAILY [facility] Last Admin: 05/30/24 08:22 Dose: 400 mg Documented By: RICO Meclizine HCl (Meclizine Hcl 25 Mg Tablet) 25 mg PO Q8H PRN PRN Reason: Vertigo Melatonin (Melatonin 3 Mg Tablet) 6 mg PO BEDTIME PRN PRN Reason: Insomnia Last Admin: 05/27/24 21:09 Dose: 6 mg Documented By: PITO Metoprolol Succinate (Metoprolol Succinate Er 25 Mg Tab.Er.24h) 75 mg PO DAILY [facility]; Protocol Last Admin: 05/30/24 08:22 Dose: 75 mg Documented By: RICO Morphine Sulfate (Morphine Sulfate 2 Mg/Ml Cartridge) 2 mg IVPUSH Q4H PRN; Protocol PRN Reason: Pain, Severe (Pain Scale 7-10) Last Admin: 05/27/24 12:43 Dose: 2 mg Documented By: HUMAIRA Comments: given prior to repositioning and cleaning Multivitamins/Vitamin C (Multivitamin Tablet) 1 tab PO DAILY [facility] Last Admin: 05/30/24 08:22 Dose: 1 tab Documented By: RICO Nystatin (Nystatin Powder 15 Gm Bottle) 1 appl TOPICAL BID [facility]; Protocol Last Admin: 05/30/24 08:23 Dose: 1 appl Documented By: RICO Nystatin (Nystatin Ointment 15 Gm Tube) 1 appl TOPICAL TID PRN; Protocol PRN Reason: Rash Last Admin: 05/29/24 20:03 Dose: 1 appl Documented By: ADAM Omeprazole (Omeprazole 40 Mg Capsule.) 40 mg PO DAILY@0630 [facility] Last Admin: 05/30/24 05:56 Dose: 40 mg Documented By: ADAM Ondansetron HCl (Ondansetron Hcl 4 Mg/2 Ml Vial) 4 mg IVPUSH Q8H PRN PRN Reason: Nausea and Vomiting Pharmacy Consult (Consult Rx Vancomycin Dosing) 1 each MISCELLANE DAILY PRN PRN Reason: Consult order Polyethylene Glycol (Polyethylene Glycol 3350 17 Gm Powd.Pack) 17 gm PO DAILY PRN PRN Reason: Constipation Prednisone (Prednisone 5 Mg Tablet) 20 mg PO DAILY [facility]; Taper Stop: 06/20/24 08:59 Last Admin: 05/30/24 08:22 Dose: 20 mg Documented By: RICO Sertraline HCl (Sertraline Hcl 50 Mg Tablet) 50 mg PO DAILY [facility] Last Admin: 05/30/24 08:22 Dose: 50 mg Documented By: RICO Sodium Chloride (0.9 % Sodium Chloride Flush 3 Ml Syringe) 3 ml IVFLUSH QSHIFT [facility] Last Admin: 05/30/24 08:16 Dose: 3 ml Documented By: RICO Zinc Oxide (Zinc Oxide 20% Ointment 28.35 Gm Tube) 1 appl TOPICAL BID [facility] Last Admin: 05/30/24 08:24 Dose: 1 appl Documented By: RICO Labs 05/27/24 13:32 05/30/24 06:48 Labs: Laboratory Results - last 24 hr 05/29/24 05/29/24 05/29/24 13:52 15:59 20:29 Hold Purple Top Anion Gap Estim Creat Clear Calc Estimated GFR POC Glucose 215 H 144 H Random Glucose Calcium Random Vancomycin 14.9 L 05/30/24 05/30/24 05/30/24 06:48 07:44 11:13 Hold Purple Top SEE NOTE Anion Gap 11 L Estim Creat Clear Calc 68.3 Estimated GFR > 60 POC Glucose 114 167 H Random Glucose 111 Calcium 8.9 Random Vancomycin Microbiology Microbiology Results: Microbiology 05/27/24 13:32 Blood Culture - Preliminary Blood - Venous No growth after 48 hours. 05/27/24 13:32 Blood Culture - Preliminary Blood - Venous No growth after 48 hours. 05/25/24 12:46 Blood Culture - Final Blood - Venous Methicillin Res Staph Aureus Enterococcus faecalis Assessment and Plan (1) Diabetes type 2, controlled: Status: Acute Plan 78 year old female with history of DM, HTN, CKD, erythema intertrigo, dysphagia, depression, YUE, COPD, pemphigus, DVT not on anti-coagulation, morbid obesity, bed-bound. Here with cellulitis of the leg with possible associated cellulitis of tibia/fibula, meet sepsis criteria Sepsis d/t Cellulitis of left leg, Possible osteomylitis of the tibia/fibula and now MRSA bacteemia -continue Vanco started 05/25/24, kefzol 05/27/24, can stop today -E. Feacalis bacteremia--continue ampicillin and change to Amoxicillin later -ID recommends 6 weeks of iv vanco, weekly Cr, -echo no vegetations -follow cultures, repeat cultures today MRI of the foot done 05/28, result pending -requesting picc line Wide-complex tachycardia, no further episode since admission -continue amio 400 mg dailyper card recommendation -Correct K and Mag as needed -cardiology following Diabetes -diabetic diet -SSI -Lantus in place of Levemir -hold pioglitazone HLD--statin HTN--hold losartan due high K added norvasc 5 daily history of pemphigus with skin breakdown, see picutures, continue doxy and prednisone, Pressure ulcer POA -wound care following -wound protocol Morbid obesity--unfortunately weight loss is an incredible challenge for her in face of bedbound state and limited activity, avoid hypercaloric food DVT prophylaxis: Lovenox Full code admission for sepsis,cellulitis and osteomylitis Plan discussed with Quality Stroke Does the patient have a stroke diagnosis?: No VTE Prior VTE?: No VTE Risk Level:: Medical - moderate - high VTE Device Contraindication: Treatment Not Indicated VTE Drug Contraindication: N/A - Med Ordered
[2024-05-30 14:26] LABS: Vancomycin Random 15.5 mcg/mL (15-20)
--- NOTE | 2024-05-30 15:30 | P.PNID_ITS ---
Subjective Subjective Date of Service: 05/30/24 Critical Care Time (minutes): 15 Comment: Patient has no complaints. Blood cultures clear. Objective Data Labs 05/27/24 13:32 05/30/24 06:48 Labs: Laboratory Results - last 24 hr 05/29/24 05/29/24 05/30/24 15:59 20:29 06:48 Hold Purple Top SEE NOTE Sodium 141 Potassium 4.4 Chloride 104 Carbon Dioxide 30 H Anion Gap 11 L BUN 23 H Creatinine 0.85 Estim Creat Clear Calc 68.3 Estimated GFR > 60 POC Glucose 215 H 144 H Random Glucose 111 Calcium 8.9 Random Vancomycin 05/30/24 05/30/24 05/30/24 07:44 11:13 14:03 Hold Purple Top Sodium Potassium Chloride Carbon Dioxide Anion Gap BUN Creatinine Estim Creat Clear Calc Estimated GFR POC Glucose 114 167 H Random Glucose Calcium Random Vancomycin 15.5 Microbiology Microbiology Results: Microbiology 05/27/24 13:32 Blood - Venous Blood Culture - Preliminary No growth after 48 hours. 05/27/24 13:32 Blood - Venous Blood Culture - Preliminary No growth after 48 hours. 05/25/24 12:46 Blood - Venous Blood Culture - Final Methicillin Res Staph Aureus Enterococcus faecalis 05/25/24 12:46 Blood - Venous Blood Culture - Final Methicillin Res Staph Aureus Corynebacterium species Physical Exam 2 Vital Signs: Vital Signs: Last Vital Signs Temp 98.3 F 05/30/24 07:40 Pulse 68 05/30/24 07:40 Resp 16 05/30/24 07:40 BP 144/72 H 05/30/24 07:40 Pulse Ox 97 05/30/24 07:40 O2 Del Method Room Air 05/30/24 07:40 O2 Flow Rate 2 05/28/24 11:24 BMI result Body Mass Index 42.7 Const: General: cooperative HEENT: Head: Yes normal to inspection Face and sinus: Yes normal facial exam Mouth: Normal oral and palatal mucosa present Teeth and gingiva: d entition normal Eyes: General: appearance normal, both eyes and all related structures P upils: Equal, round and reactive pupils present Resp: Effort & Inspection: normal respiratory effort Cardio: Rate: regular rate Rhythm: regular rhythm GI: Palpation (GI): Soft to palpation and nontender : General: Yes no CVA tenderness Back/Spine/Pelvis: Back: no CVA tenderness Skin: General skin exam: no rashes or lesions noted Neuro: General: moves all extremities Cranial nerves: Yes Equal, round and reactive pupils present Extrem: General: Yes normal to inspection Psych: Appearance: grossly normal Assessment and Plan Assessment and plan (1) Bacteremia: Problem details: MRSA and enterococcus bacteremia Status: Acute Assessment and Plan: MRSA x2 and enterococcus x1 bacteremia on 05/25. Repeat blood cultures clear. MRI foot no OM and TTE unremarkable. Would give IV Daptomycin for four weeks.end 06/27/2024. Time Spent With Patient Time: Total time managing care of this patient today ____ minutes.
[2024-05-30 15:34] VITALS: BP 140/70; PULSE 78; RESP 18; TEMP 36.5; O2SAT 95
--- NOTE | 2024-05-30 16:07 | MHC.CM.PN ---
per rounds pt will be getting aa pic line and will need 6 weeks antibiotics thacker will be to return to [facility]
[2024-05-30 16:13] LABS: Glucose, Whole Blood 213 mg/dL (60-115)
--- NOTE | 2024-05-30 17:42 | HO.PICC ---
PICC Line Insertion NPICC Diagnosis: Osteomyelitis Indication: ABT x 6 wks Pertinent Labs: reviewed Technique: Following informed consent including risks, benefits and alternatives and using sterile technique including cap and mask, sterile gown, glove and drape, the left arm was prepped and draped in the usual sterile fashion of full barrier technique with CHG. Following completion of [place] Protocol the skin and soft tissues were anesthetized with 1% Lidocaine plain. Using ultrasound guidance, left basilic vein access was obtained. Over an 0.018 wire through peel-away sheath, a 4fr single lumen PASV PICC line was positioned. Catheter length is 45cm internal length, 0cm external length, for a total trimmed length of 45cm. The procedure was performed in rm 272. Tip verification was performed by Elvira Escobedo with Sherlock 3CG. Tip located in SVC. Ultrasound was used to document vein patency and for needle entry. A formal ultrasound picture and cardiac rhythm strip was recorded. Vascular Plaster Block Layer has released the line for use and it is currently dressed with a StatLock, Tegaderm, and CHG disc. Verification has been performed for blood return and line patency. Arm Circumference: 46cm Equipment: Shopeando PowerPICC Solo catheter with [id number] Tip Catheter Type: 4FR single lumen PASV Lot #: [id number]
[2024-05-30] MEDS: Enoxaparin Sodium 40 MG/0.4 ML SYRINGE SUBCUT (17:59)
[2024-05-30] MEDS: DAPTOmycin 500 MG in 0.9 % Sodium Chloride 50 ML 100 MG IV (17:59)
[2024-05-30 19:51] VITALS: BP 146/65; PULSE 71; RESP 18; TEMP 21.6; O2SAT 94
[2024-05-30 20:02] LABS: Glucose, Whole Blood 146 mg/dL (60-115)
[2024-05-30] MEDS: Lurasidone HCl 20 MG TABLET 60 MG PO (20:43)
[2024-05-30] MEDS: Atorvastatin Calcium 40 MG TABLET PO (20:43)
[2024-05-30] MEDS: Insulin Glargine,Hum.rec.anlog 100 UNIT/ML 10 ML VIAL SUBCUT (20:44)
[2024-05-30] MEDS: Heparin Sodium,Porcine Flush 50 UNITS, 0.9 % Sodium Chloride Flush 5 ML IVFLUSH (23:40)
[2024-05-30] MEDS: Melatonin 3 MG TABLET 6 MG PO (23:47)
[2024-05-31 04:00] VITALS: BP 144/69; PULSE 77; RESP 18; TEMP 36.2; O2SAT 97
[2024-05-31] MEDS: Acetaminophen 325 MG TABLET 975 MG PO (05:44)
[2024-05-31] MEDS: Omeprazole 40 MG CAPSULE.DR PO (05:44)
[2024-05-31 07:29] VITALS: BP 142/74; PULSE 71; RESP 16; TEMP 36.8; O2SAT 97
[2024-05-31 07:36] LABS: Glucose, Whole Blood 119 mg/dL (60-115)
[2024-05-31 07:43] LABS: Anion Gap 11 (12-20); Blood Urea Nitrogen 30 mg/dL (9-16); Calcium 8.7 mg/dL (8.4-10.2); Carbon Dioxide 29 mmol/L (22-29); Chloride 105 mmol/L (96-108); Creatinine Clr Calc Pharmacy 63.8; Estimated Glomerular Filt Rate 60; Glucose Random 116 mg/dL (60-115); Potassium 4.1 mmol/L (3.3-5.1); Sodium 141 mmol/L (135-145)
[2024-05-31 07:48] LABS: MANUAL DIFF FLAG NO
[2024-05-31 07:53] LABS: Basophils Absolute Auto 0.1 X10*3/uL (0.0-0.2); Basophils Percent Auto 0.4 % (0-2); Eosinophils Absolute Auto 0.1 X10*3/uL (0.0-0.4); Eosinophils Percent Auto 0.7 % (0-4); Hematocrit 31.4 % (37.0-47.0); Imm Gran Abs Auto 0.19 X10*3/uL (0.00-0.03); Imm Gran Pct Auto 1.4 % (0.0-0.4); Lymphocytes Percent Auto 21.7 % (20-40); Mean Corpuscular HGB Conc 31.8 g/dl (31.0-35.0); Mean Corpuscular Hemoglobin 27.5 pg (27.0-33.0); Mean Corpuscular Volume 86.3 fL (80.0-98.0); Mean Platelet Volume 9.9 fL (9.4-12.3); Monocytes Absolute Auto 0.7 X10*3/uL (0.1-1.2); Monocytes Percent Auto 4.7 % (2-11); NRBC Pct Auto 0.2 /100WBC (0.0-0.2); Neutrophils Absolute Auto 9.9 x10*3/uL (2.0-8.3); Neutrophils Percent Auto 71.1 % (45-73); Platelet Count 216 X10*3/uL (160-400); Red Blood Count 3.64 X10*6/uL (4.20-5.50); Red Cell Distribution Width 17.5 % (11.0-16.0); White Blood Count 13.9 X10*3/uL (4.8-10.8)
[2024-05-31] MEDS: Ascorbic Acid 500 MG TABLET PO (09:11)
[2024-05-31] MEDS: Magnesium Oxide 400 MG TABLET PO (09:11)
[2024-05-31] MEDS: Multivitamin TABLET 1 TAB PO (09:11)
[2024-05-31] MEDS: Sertraline HCL 50 MG TABLET PO (09:11)
[2024-05-31] MEDS: predniSONE 5 MG TABLET 10 MG PO (09:12)
[2024-05-31] MEDS: Metoprolol Succinate ER 25 MG TAB.ER.24H 75 MG PO (09:12)
[2024-05-31] MEDS: Doxycycline Monohydrate 100 MG CAPSULE PO (09:12)
[2024-05-31] MEDS: Amiodarone HCL 200 MG TABLET 400 MG PO (09:13)
[2024-05-31] MEDS: Heparin Sodium,Porcine Flush 50 UNITS, 0.9 % Sodium Chloride Flush 5 ML IVFLUSH (09:13)
[2024-05-31] MEDS: amLODIPine Besylate 5 MG TABLET PO ×2 (09:13→10:25)
[2024-05-31] MEDS: Insulin Glargine,Hum.rec.anlog 100 UNIT/ML 10 ML VIAL 8 UNIT SUBCUT (09:13)
[2024-05-31] MEDS: 0.9 % Sodium Chloride Flush 3 ML SYRINGE IVFLUSH (09:18)
[2024-05-31] MEDS: Zinc Oxide 20% Ointment 28.35 GM TUBE 1 APPL TOPICAL (09:20)
[2024-05-31] MEDS: Hydrocortisone 1 % Cream 28.35 GM TUBE 1 APPL TOPICAL (09:20)
[2024-05-31] MEDS: Nystatin Ointment 15 GM TUBE 1 APPL TOPICAL (09:20)
[2024-05-31] MEDS: Nystatin Powder 15 GM BOTTLE 1 APPL TOPICAL (09:20)
[2024-05-31] MEDS: Artificial Tears 15 ML DROPS 1 DROP EYE-BOTH (09:21)
--- NOTE | 2024-05-31 09:29 | P.DS_ITS ---
DS: Providers Provider Date of Service: 05/31/24 Date of admission: 05/25/24 17:05 Date of discharge: 05/31/24 Primary care physician: Gary Wall MD Consults: 05/25/24 12:40 Consult to Cardiology Stat Consulting Provider: [facility] Reason for consultation: wide complex tachycardia 05/25/24 12:56 Consult to Vascular Surgery Stat Consulting Provider: [facility] Reason for consultation: LLE swelling, mottling Has provider been notified: Yes 05/25/24 17:04 Consult to Cardiology Routine Consulting Provider: [facility] Reason for consultation: wide complex tachycardia Has provider been notified: Yes 05/25/24 17:09 Consult to Infectious Diseases Routine Consulting Provider: [facility] Reason for consultation: cellulitis and osteo 05/26/24 06:02 Consult to Wound Care Routine Reason for consultation: multiple open areas, coccyx, skin folds , dwight. to le ft axilla and left groi Has provider been notified: Yes 05/29/24 11:50 Consult to Wound Care Routine Reason for consultation: chronic wounds progress DS: Diagnosis Discharge Diagnosis (1) Bacteremia: Status: Acute DS: Summary Hospital Course Hospital Course: Admission HPI Chief Complaint: left leg cellulitis 78 year old female with history of DM, HTN, CKD, erythema intertrigo, dysphagia, depression, YUE, COPD, pemphigus, DVT not on anti-coagulation, morbid obesity, bed-bound. She was brought from a assisted ([facility]) today from for left lower leg swelling /redness for which she has been on Doxycycline since 05/20/2024. The left leg is very erythematous, swollen, and warm to touch--see pictures. WBC count of 20.2, ESR 69, potassium ofand CRP of 20.28. Upon presentation she was noted to be in wide-complex tachycardia at rate of 180. Cardiology advised Amiodarone 150 mg, 5mg of Lopressor, starting an amiodarone drip, and giving a gram of magnesium, and correct high K. Vascular Surgery recommends DVT study negative. CT of chest done for PE is pending. Xray of the tibia/fibula show Osteopenia versus osteoporosis. Osteolysis in the left foot. Osteomyelitis cannot be excluded. Patient is started on Vancomycin and Zosyn. Hospital course: sepsis d/t left leg cellulitis, MRSA and Enterococcus bacteremia This is a 78-year-old female with a history of diabetes mellitus (DM), hy pertension (HTN), chronic kidney disease (CKD), erythema intertrigo, dysphagia, depression, obstructive sleep apnea (YUE), chronic obstructive pulmonary disease (COPD), pemphigus, deep vein thrombosis (DVT) (not on anticoagulation), morbid obesity, and bedbound status.She presented with left leg and foot swelling and redness associated with significant pain. An X-ray at the time raised concern for possible osteomyelitis of the tibia and fibula. The patient was started on broad-spectrum antibiotics with vancomycin. The following day, blood cultures grew Gram-positive cocci, later identified as MRSA. Blood cultures also grew E. faecalis and Corynebacterium, the latter deemed a contaminant.Antibiotics were streamlined to vancomycin to cover MRSA, and Kefzol (cefazolin) was added for synergistic effect until blood cultures were clear. Ampicillin was initiated to treat E. faecalis, which was vancomycin-resistant. A transthoracic echocardiogram showed no evidence of vegetations. An MRI of the foot and legs ruled out osteomyelitis. The patient was evaluated by Infectious Disease specialists, who recommended daptomycin to cover both MRSA and Enterococcus. She will be treated with daptomycin for 4 weeks, concluding on 06/27/2024. Weekly CPK levels will be monitored during daptomycin therapy. A PICC line was inserted on May 30 to complete the IV antibiotic course. Overall, the erythema in her leg has significantly improved. Wide-Complex Tachycardia The patient experienced an episode of wide-complex tachycardia on the first day in the emergency room. Cardiology advised initiating metoprolol, and she was subsequently started on intravenous amiodarone, which was later converted to oral amiodarone 400 mg daily. An echocardiogram revealed a normal ejection fraction with no wall motion abnormalities. Initially, the patient?s potassium was elevated but has since been corrected. Magnesium levels remained normal throughout hospitalization. No further episodes of tachycardia or arrhythmias were observed during her hospital stay. Diabetes--to resume usual regimen. HLD--statin HTN--losartan has been discontinue due to tendency to cause hyperkalemia in this patient and she has been started on Norvasc 5 mg daily which will be increased to 10 mg before discharge history of pemphigus with skin breakdown, see picutures, continue doxy and prednisone, Pressure ulcer POA -wound care following -wound protocol Morbid obesity--unfortunately weight loss is an incredible challenge for her in face of bedbound state and limited activity, avoid hypercaloric food Time Attestation Discharge Coordination Time (in mins): 45 Quality: Safe Use of Opioids Does Pt have an Active Cancer Diagnosis on the Problem List?: No Quality: Stroke Does the patient have a stroke diagnosis?: No Physical Exam Vital Signs: Vital Signs: Last Vital Signs Temp 98.2 F 05/31/24 07:29 Pulse 71 05/31/24 07:29 Resp 16 05/31/24 07:29 BP 142/74 H 05/31/24 07:29 Pulse Ox 97 05/31/24 07:29 O2 Del Method Room Air 05/31/24 07:29 O2 Flow Rate 2 05/28/24 11:24 BMI result Body Mass Index 42.7 DS: Data Data Completed and Pending Labs on day of discharge: Laboratory Results - last 24 hr 05/30/24 05/30/24 05/30/24 11:13 14:03 16:04 WBC RBC Hgb Hct MCV MCH MCHC RDW Plt Count MPV Immature Gran % (Auto) Neut % (Auto) Lymph % (Auto) [place] % (Auto) Eos % (Auto) Baso % (Auto) Lymph # (Auto) [place] # (Auto) Eos # (Auto) Baso # (Auto) Abs Immat Gran (auto) Absolute Neuts (auto) Absolute Nucleated RBC Nucleated RBC % (auto) Hold Purple Top Sodium Potassium Chloride Carbon Dioxide Anion Gap BUN Creatinine Estim Creat Clear Calc Estimated GFR POC Glucose 167 H 213 H Random Glucose Calcium Random Vancomycin 15.5 05/30/24 05/31/24 05/31/24 19:33 06:01 07:32 WBC 13.9 H RBC 3.64 L Hgb 10.0 L Hct 31.4 L MCV 86.3 MCH 27.5 MCHC 31.8 RDW 17.5 H Plt Count 216 MPV 9.9 Immature Gran % (Auto) 1.4 H Neut % (Auto) 71.1 Lymph % (Auto) 21.7 [place] % (Auto) 4.7 Eos % (Auto) 0.7 Baso % (Auto) 0.4 Lymph # (Auto) 3.0 [place] # (Auto) 0.7 Eos # (Auto) 0.1 Baso # (Auto) 0.1 Abs Immat Gran (auto) 0.19 H Absolute Neuts (auto) 9.9 H Absolute Nucleated RBC 0.030 H Nucleated RBC % (auto) 0.2 Hold Purple Top SEE NOTE Sodium 141 Potassium 4.1 Chloride 105 Carbon Dioxide 29 Anion Gap 11 L BUN 30 H Creatinine 0.91 Estim Creat Clear Calc 63.8 Estimated GFR 60 POC Glucose 146 H 119 H Random Glucose 116 H Calcium 8.7 Random Vancomycin Preliminary micro results at discharge 05/27/24 13:32 Blood Culture - Preliminary Blood - Venous No growth after 48 hours. 05/27/24 13:32 Blood Culture - Preliminary Blood - Venous No growth after 48 hours. Discharge Plan Discharge Anticipated Discharge Date/Time: 05/31/24 09:24 Patient Disposition: er [facility] Discharge Diagnosis: Gram-positive cocci bacteremia, E faecalis bacteremia, cellulitis of the foot Referrals: Jaye Del Castillo [place] [Outside] - 1 Week Gary Wall MD [Primary Care Provider] - 1 Week Discharge Medications: New daptomycin 500 mg Recon Soln 500 mg IV Q24H Qty: 27 0RF amlodipine [Norvasc] 10 mg tablet 10 mg PO DAILY Qty: 90 0RF amiodarone 200 mg Tablet See Rx Instructions .ROUTE .COMPLEX Qty: 60 0RF Rx Instructions: take 2 tabs daily for 8 more days, then 1 tab po daily Continued tramadol 50 mg tablet 25 mg PO Q6H PRN (Reason: Pain) pioglitazone 30 mg tablet 1 tab PO DAILY meclizine 25 mg Tablet 25 mg PO Q8H PRN (Reason: Vertigo) bisacodyl 10 mg Suppository 10 mg AR DAILY PRN (Reason: Constipation) albuterol sulfate 90 mcg/actuation HFA aerosol inhaler 2 puff INHALATION Q6H PRN (Reason: Shortness Of Breath Or Wheezing) ascorbate calcium (vitamin C) 500 mg tablet 500 mg PO DAILY Qty: 30 0RF insulin lispro 100 unit/mL Solution 1 sliding scale dose SUBCUT QIDACHS Protocol: Insulin Correction Scale Less than or equal to 110 ---- Give (units): 0 111 to 150 Give (units): 0 151 to 200 Give (units): 2 201 to 250 Give (units): 4 251 to 300 Give (units): 6 301 to 350 Give (units): 8 Greater than 350 Give (units): 10 Call MD if Blood Glucose > : 350 acetaminophen 500 mg Tablet 1,000 mg PO Q8H budesonide-formoterol [Symbicort] 80-4.5 mcg/actuation Hfa Aerosol Inhaler 2 puff INHALATION BID sertraline 50 mg tablet 50 mg PO DAILY doxycycline hyclate 100 mg tablet 100 mg PO BID lurasidone 60 mg tablet 60 mg PO BEDTIME Otezla 30 mg tablet 30 mg PO BID naltrexone 4.5 mg Capsule 4.5 mg PO DAILY atorvastatin 40 mg tablet 40 mg PO BEDTIME lidocaine 4 % Adhesive Patch,Medicated 1 patch TOPICAL DAILY prednisone 5 mg tablet See Taper PO DAILY Taper: Prednisone 20 mg daily for 5 Days and 0 Hour 10 mg daily for 10 Days and 0 Hour 5 mg daily for 10 Days and 0 Hour Patient Comments: START DATE 05/21/24 guaifenesin 100 mg/5 mL Liquid 200 mg PO Q4H PRN (Reason: Cough) hydrocortisone 1 % Cream 1 appl TOPICAL BID Rx Instructions: APPLY TO LEFT THIGH RASH omeprazole 20 mg Capsule,Delayed Release(Dr/Ec) 40 mg PO DAILY@0630 metoprolol succinate 25 mg Tablet Extended Release 24 Hr 75 mg PO DAILY nystatin 100,000 unit/gram Powder 1 appl TOPICAL BID Rx Instructions: APPLY TO LEFT THIGH multivitamin with minerals Tablet 1 tab PO DAILY insulin glargine [Basaglar KwikPen U-100 Insulin] 100 unit/mL (3 mL) Insulin Pen 12 unit SUBCUT DAILY insulin glargine [Basaglar KwikPen U-100 Insulin] 100 unit/mL (3 mL) insulin pen 8 unit subcut BEDTIME diclofenac sodium 1 % gel 4 g topical TID zinc oxide 40 % Ointment 1 appl TOPICAL BID magnesium oxide 400 mg magnesium Tablet 400 mg PO DAILY Visine Dry Eye Relief 1 % Drops 1 drp OPHTHALMIC (EYE) BID nystatin 100,000 unit/gram ointment 1 appl topical TID PRN (Reason: Rash) Protocol: Apply to: Apply to: groin/axillam/under breast rash apply it makes with zinc oxide ondansetron 4 mg tablet,disintegrating 4 mg PO Q6H PRN (Reason: nausea and vomiting) Discontinued losartan 50 mg tablet 50 mg PO BID Discharge Orders: Discharge Order (Routine); Ordered 05/31/24 Ordered By: Jose Valente Diet: Diabetic diet Activity on Discharge: As tolerated Stand Alone Forms: Patient Portal Discharge page Print Language: Azeri Care Plan Goals: Recovery and resolution of sepsis, bacteremia and cellulitis of the foot Health Concerns: Sepsis, bacteremia, cellulitis of the foot Plan of Treatment: To take daptomycin daily for 4 weeks, ending june 27.. Check CPK weekly while on Daptomycin stop taking losartan, replace with Norvasc 10 mg daily take amiodarone for wide complex tachycardia, take 2 tabs daily for 8 more days, then 1 tab daily after that, follow up with cardiology Assessment: See above
[2024-05-31 11:20] LABS: Glucose, Whole Blood 152 mg/dL (60-115)
[2024-05-31] MEDS: Insulin Lispro 100 UNIT/ML 3 ML VIAL SUBCUT (11:40)
--- NOTE | 2024-05-31 12:04 | MHC.CM.PN ---
Patient is discharged today. She will return to [facility]. 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 Patients spouse has been notified of the pts discharge today. All dc info has been sent to the facility.
--- NOTE | 2024-06-06 12:48 | P.CDIM_ITS ---
PROVIDER RESPONSE TEXT: To clarify, the appropriate diagnosis supported by the clinical indicators: Acute osteomyelitis QUERY TEXT: PHYSICIAN'S DOCUMENTATION REQUEST Date of Query: 05/31/2024 09:58 AM EST Patient Name: Yadira Dallas Admit Date: 05/25/2024 Dear Jose Valente MD, A review of the medical record indicates additional documentation may be needed. Please review below and update the documentation accordingly Clinical Indicators: Progress notes within the written Plan: Sepsis d/t cellulitis of left leg, possible osteomyelitis of the tibia/fibula and now MRSA bacteremia. Continue Vancomycin. ED recommends 6 weeks of IV vano, weekly Cr. Echo no vegetations. D/S - ID - Reason for consult: cellulitis and osteo Xray of the tibia/fibia show Osteopenia vs. osteoporosis. Osteomyelitis cannot be excluded. Patient is started on Vancomycin and Zosyn. She ended up having an MRI of the foot including the legs showing no osteomyelitis. Based on the above, please clarify in the Progress Notes further specificity regarding the acuity of the documented Osteomyelitis. Acute osteomyelitis Subacute osteomyelitis Chronic osteomyelitis Chronic multifocal osteomyelitis Osteomyelitis after study has been ruled out Other (explain) Clinically unable to determine (explain) Thank you, Bhavana Cam, CCS, CDIS Use of terms such as suspected, likely, concern for, or probable (associated with a specific diagnosi s that is being evaluated, monitored, or treated as if it exists) are acceptable and can be coded in the inpatient se tting, when documented at the time of discharge. Please use your independent medical judgment in providing your response. THIS QUERY IS PART OF THE PERMANENT MEDICAL RECORD
--- NOTE | 2024-06-06 12:48 | P.CDIM_ITS ---
PROVIDER RESPONSE TEXT: To clarify, the appropriate diagnosis supported by the clinical indicators: Pressure injury Sacrum Stage 2, present on arrival: stage 2 pressure ulcer . POA QUERY TEXT: PHYSICIAN'S DOCUMENTATION REQUEST Date of Query: 05/30/2024 08:39 AM EST Patient Name: Yadira Dallas Admit Date: 05/25/2024 Dear Jose Valente MD, A review of the medical record indicates additional documentation may be needed. Please review below and update the documentation accordingly. Clinical Indicators: Wound care consult notes 05/26 - Sacrum and bilateral ischium are noted for injury suspect pressure re lated - Stage 2. Gently cleansing with ph balanced wipes, pat dry. Triad applied. Reposition Q2hrs. Progress note dated 05/28 - Pressure ulcer POA, wound care following. Based on the above, could you please provide further information regarding the ulcer/wound/injury wit h the location of the pressure injury within the progress note: Pressure injury Sacrum Stage 2, present on arrival Please specify if other etc. Other (explain) Clinically unable to determine (explain) Thank you, Bhavana Cam, CCS, CDIS Use of terms such as suspected, likely, concern for, or probable (associated with a specific diagnosi s that is being evaluated, monitored, or treated as if it exists) are acceptable and can be coded in the inpatient se tting, when documented at the time of discharge. Please use your independent medical judgment in providing your response. THIS QUERY IS PART OF THE PERMANENT MEDICAL RECORD
== END 2024-05-31 13:09 | disposition skilled nursing facility (03) | DRG 872 ==
LOC: HO.ED 15:43 → HO.EDOVER 17:23 → HO.IMC 05-26 00:12 → HO.S3 05-29 11:14
PROVIDERS: Physician Assistant Medical; Admitting Provider Internal Medicine; Emergency Provider Student in an Organized Health Care Education/Training Program; PCP Family Medicine; Visit Provider Internal Medicine
DX: A41.9 Sepsis, unspecified organism (principal); I47.20 Ventricular tachycardia, unspecified; Z68.41 Body mass index [BMI] 40.0-44.9, adult; M86.172 Other acute osteomyelitis, left ankle and foot; L03.116 Cellulitis of left lower limb; L10.9 Pemphigus, unspecified; E11.69 Type 2 diabetes mellitus with other specified complication; E11.628 Type 2 diabetes mellitus with other skin complications; E66.01 Morbid (severe) obesity due to excess calories; E78.5 Hyperlipidemia, unspecified; I12.9 Hypertensive chronic kidney disease with stage 1 through stage 4 chronic kidney disease, or unspecified chronic kidney disease; G47.33 Obstructive sleep apnea (adult) (pediatric); B95.62 Methicillin resistant Staphylococcus aureus infection as the cause of diseases classified elsewhere; B95.2 Enterococcus as the cause of diseases classified elsewhere; J44.9 Chronic obstructive pulmonary disease, unspecified; L89.152 Pressure ulcer of sacral region, stage 2; N18.9 Chronic kidney disease, unspecified; E11.22 Type 2 diabetes mellitus with diabetic chronic kidney disease; Z74.01 Bed confinement status; Z79.4 Long term (current) use of insulin; Z79.899 Other long term (current) drug therapy
CPT/HCPCS: 36415; 36573; 71275; 73552; 73590; 73610; 73620; 73720; 80048; 80051; 80053; 80202; 82550; 82565; 82947; 83605; 83735; 84484; 85025; 85027; 85610; 85652; 85730; 86140; 87040; 87077; 87186; 87205; 93005; 93306; 93971; 94640; 99285; A9585; C1751; J0282; J0283; J0290; J0690; J0878; J1642; J1650; J2270; J2543; J3370; J3371; J3475; Q9957; Q9967

== ENCOUNTER → 2024-05-25 12:11 | Outpatient (BNV) | payer MEDICARE, MEDICAID, SELFPAY | PROVIDERS: Emergency Provider Student in an Organized Health Care Education/Training Program; Visit Provider Radiology Diagnostic Radiology | DX: J98.11 Atelectasis (principal); R22.42 Localized swelling, mass and lump, left lower limb; M79.605 Pain in left leg; I70.202 Unspecified atherosclerosis of native arteries of extremities, left leg; M89.572 Osteolysis, left ankle and foot | CPT/HCPCS: 93971 ==

== ENCOUNTER → 2024-05-25 13:55 | Outpatient (BNV) | payer MEDICARE, MEDICAID, SELFPAY | PROVIDERS: Emergency Provider Student in an Organized Health Care Education/Training Program; Visit Provider Internal Medicine Cardiovascular Disease | DX: I47.29 Other ventricular tachycardia (principal); M86.9 Osteomyelitis, unspecified; R78.81 Bacteremia | CPT/HCPCS: 99233 ==

== ENCOUNTER 2024-05-25 17:05 | Outpatient (BNV) | payer MEDICARE, MEDICAID, SELFPAY | END 2024-05-28 15:56 | PROVIDERS: Admitting Provider Internal Medicine; Emergency Provider Student in an Organized Health Care Education/Training Program; Visit Provider Radiology Diagnostic Radiology | DX: L03.116 Cellulitis of left lower limb (principal) | CPT/HCPCS: 73720 ==

== ENCOUNTER → 2024-05-25 17:05 | Outpatient (BNV) | payer MEDICARE, MEDICAID, SELFPAY | PROVIDERS: Admitting Provider Internal Medicine; Emergency Provider Student in an Organized Health Care Education/Training Program; Visit Provider Physician Assistant Surgical | DX: L03.116 Cellulitis of left lower limb (principal); R60.0 Localized edema | CPT/HCPCS: 99232 ==

== ENCOUNTER → 2024-05-25 17:05 | Outpatient (BNV) | payer MEDICARE, MEDICAID, SELFPAY | PROVIDERS: Admitting Provider Internal Medicine; Emergency Provider Student in an Organized Health Care Education/Training Program; Visit Provider Internal Medicine | DX: A41.02 Sepsis due to Methicillin resistant Staphylococcus aureus (principal); L03.116 Cellulitis of left lower limb; E11.8 Type 2 diabetes mellitus with unspecified complications | CPT/HCPCS: 99223; 99232; 99239 ==

== ENCOUNTER → 2024-05-25 17:05 | Outpatient (BNV) | payer MEDICARE, MEDICAID, SELFPAY | PROVIDERS: Admitting Provider Internal Medicine; Emergency Provider Student in an Organized Health Care Education/Training Program; Visit Provider Internal Medicine | DX: R78.81 Bacteremia (principal) | CPT/HCPCS: 99222; 99232 ==

== ENCOUNTER 2024-06-29 13:55 | Outpatient (AMB) | payer MEDICARE, MEDICAID, SELFPAY ==
--- NOTE | 2024-06-29 13:57 | A.OFFVIS_ITS ---
Vital Signs 06/29/24 14:19 Height 5 ft 5 in BMI Reason not done Patient refused/unable BP 138/68 Blood Pressure Location Lt brachial Position Supine Pulse 70 Intake Visit Reasons: F/up-C-Wide complex tachyardia Field Counsel Required: No Accompanied by: Spouse Allergies belladonna alkaloids [From ] Allergy (Intermediate, Verified 05/25/24 13:44) ITCHING phenobarbital [From ] Allergy (Intermediate, Verified 05/25/24 13:44) ITCHING oxycodone Allergy (Verified 05/25/24 13:44) Unknown Medication List - Last Reviewed 06/29/24 by Nadia Dallas CMA acetaminophen 1,000 mg PO Q8H albuterol sulfate 90 mcg/actuation 2 puffs inhalation Q6H PRN amiodarone 200 mg PO DAILY amlodipine (Norvasc) 10 mg PO DAILY apremilast (Otezla) 30 mg PO BID ascorbate calcium (vitamin C) 500 mg PO DAILY atorvastatin 40 mg PO BEDTIME bisacodyl 10 mg DE DAILY PRN budesonide-formoterol 80-4.5 mcg/actuation (Symbicort) 2 puffs inhalation BID daptomycin 500 mg IV Q24H diclofenac sodium 1% 4 grams topical TID doxycycline hyclate 100 mg PO BID guaifenesin 200 mg PO Q4H PRN hydrocortisone 1% 1 appl topical BID insulin glargine (Basaglar KwikPen U-100 Insulin) 12 units subcut DAILY insulin glargine (Basaglar KwikPen U-100 Insulin) 8 units subcut BEDTIME insulin lispro 1 sliding scale dose See Protocol subcut QIDACHS lidocaine 4% 1 patch topical DAILY lurasidone 60 mg PO BEDTIME magnesium oxide 400 mg PO DAILY meclizine 25 mg PO Q8H PRN metoprolol succinate ER 75 mg PO DAILY multivitamin with minerals 1 tab PO DAILY naltrexone 4.5 mg PO DAILY nystatin 1 appl topical BID nystatin 1 appl See Protocol topical TID PRN omeprazole 40 mg PO DAILY@0630 ondansetron 4 mg PO Q6H PRN pioglitazone 1 tab PO DAILY polyethylene glycol 400 1% (Visine Dry Eye Relief) 1 drp ophthalmic (eye) BID sertraline 50 mg PO DAILY tramadol 25 mg PO Q6H PRN zinc oxide 40% 1 appl topical BID HPI Comments Details: This is a 78-year-old female patient with history of diabetes, hyperlipidemia, sleep apnea, morbid obesity, and being bed-bound lives in [facility]. She is here for a hospital discharge follow-up. The patient was recently hospitalized for sepsis secondary to left leg cellulitis, MRSA, Enterococcus bacteremia and was found to have osteomyelitis on her MRI. During her visit, she was noted to have wide complex tachycardia narrow complex tachycardia in the ER. She was treated with an amiodarone drip and IV Lopressor. A MECHELLE was performed that showed no evidence of vegetation. CT of her lungs were negative for an PE. Negative for DVT. She was discharged on oral amiodarone and Toprol XL. Today, the patient reports feeling well overall and denies any symptoms of exertional chest pain, shortness of breath, palpitations, dizziness, fatigue, orthopnea, PND, leg edema, presyncope, or syncope. [facility] Medical History (Updated 06/29/24 @ 16:20 by Jesse Villafana NP) NSVT (nonsustained ventricular tachycardia) Diabetes type 2, controlled History of DVT (deep vein thrombosis) CKD (chronic kidney disease) Erythema intertrigo Asthma Obesity Hypertension Diabetes Multiple skin tears Social History Household Members: Other Housing: Snf Do you presently have visiting nurse or other home services: No Alcohol intake: never Comment: 1:1 sitter Patient Tobacco Use Status: Never used Tobacco service: No Current occupational status: disabled Review of Systems Const Denies chills, Denies fatigue, Denies fever(s), Denies weight gain and Denies weight loss ENT Denies dizziness Card Denies chest pain, Denies leg edema, Denies lightheadedness, Denies palpitations, Denies dyspnea on exertion, Denies orthopnea and Denies other Resp Denies cough and Denies dyspnea on exertion GI Denies hematochezia and Denies change in stool character Musc Denies abnormal gait, Denies muscle weakness, Denies numbness, Denies radiating pain into limb and Denies tingling Neuro Denies abnormal gait, Denies dizziness, Denies numbness and Denies tingling Endo Denies fatigue and Denies palpitations Physical Exam Vital Signs: Last Vital Signs Pulse 70 06/29/24 14:19 BP 138/68 06/29/24 14:19 Const General: cooperative, healthy appearing, comfortable and no acute distress Orientation/consciousness: patient oriented x3 HEENT Head: Yes normal to inspection Neck Neck: Yes normal visual inspection, Yes trachea midline and Yes supple Chest Chest palpation & inspection: normal inspection of the chest Resp Effort & Inspection: normal respiratory effort Auscultation: clear to auscultation bilaterally, no crackles, no rales, no rhonchi and no wheezes Cardio Jugular venous distension: no JVD Palpation: normal PMI Rate: regular rate Rhythm: regular rhythm Heart sounds: S1 normal heart sound present, S2 normal heart sound present, no click, no gallops, no murmurs and no rubs Peripheral pulses: Peripheral pulses 2+ throughout GI Inspection: Yes normal to inspection Palpation (GI): Soft to palpation Auscultation: normal bowel sounds Skin General skin exam: no rashes or lesions noted Neuro General: patient oriented x3 Extrem General: Yes normal to inspection, No no pedal edema and No calf tenderness Psych Appearance: grossly normal Mental Status: mental status grossly normal Speech and movement: Normal speech and movement present Office Procedures EKG Details: EKG today showed normal sinus rhythm, rate 70 beats per minute, nonspecific ST-T wave abnormalities, [place], [place]. [id number], Complete Assessment & Plan Assessment & Plan (1) Wide-complex tachycardia: Code(s): R00.0 - Tachycardia, unspecified Category: Medical Plan: 05/25/2024- Echo showed normal EF 55-60%, mildly increased LV wall thickness, hypokinetic mid anteroseptal segment, mild dilation of the ascending aorta at 3.6 cm. EKG today was normal sinus rhythm. Continue with metoprolol XL 75 mg daily. Continue amiodarone. We will repeat labs before her next visit. We will get a 3 day Holter monitor to assess for any recurrence in NSVT versus SVT. We will repeat an echo before her next visit. Follow-up in four months. In the interim, patient to call the office with any concerns. This note was generated using voice recognition software. While every effort has been made to ensure accuracy and proper project designer, there may be occasional errors that could affect the content or meaning of the described symptoms. Orders: Orders TSH reflex Free T4 3 Months Jesse Villafana NP I47.29 - Other ventricular tachycardia ECG 3 day holter monitor Today Jesse Villafana NP I47.29 - Other ventricular tach ycardia CA echo transthoracic complete 3 Months Jesse Villafana NP R00.0 - Tachycardia, unspecified AMB EKG-In Office Today Jesse Villafana NP I47.29 - Other ventricular tachycardia Basic Metabolic Panel 3 Months Jesse Villafana NP I47.29 - Other ventricular tachycardia Liver Panel 3 Months Jesse Villafana NP I47.29 - Other ventricular tachycardia Medications: Changed From amiodarone take 2 tabs daily for 8 more days, then 1 tab po daily 60 tabs 0RF To amiodarone 200 mg PO DAILY Josetenisha Valente MD Coding Level of Care Code Est Pt Level 4 (61694) Diagnoses Wide-complex tachycardia R00.0 CPT Codes EKG - CPT: 43245-[id number], Complete ([id number]) Time Spent (min) 31 Comment Time spent in reviewing the chart, test results, assessment, counseling and documentation.
--- OUTSIDE RECORDS SUMMARY | 2024-06-29 14:14 | XMS_ITS | Encounter Summary ---
Author Organization [facility] Address [address] [place] [address] Care Team Providers Care Associate Veterinarian Name Role Phone Seng Meneses MD Primary Care Provider [phone] Encounter Details Date Type Department Care Team (Late st Contact Info) Description 06/04/2024 Lab Requisition [facility] - Main Lab [address] [facility] [place] [address] Gary Wall MD [address] [place] [address] 204 [facility] [phone] Osteomyelitis, unspecified (CMS/HCC) Social History Tobacco Use Types Packs/Day Years Used Date Smoking Tobacco: Never Smokeless Tobacco: Never Alcohol Use Standard Drinks/Week Comments No 0 (1 standard drink = 0.6 oz pur e alcohol) Comments Unknown Sex and Gender Information Value Date Recorded Sex Assigned at Not on file Legal Sex Female 4:34 AM EST Gender Identity Not on file Sexual Orientation Not on file documented as of this encounter Plan of Treatment Not on file documented as of this encounter Procedures Procedure Name Priority Date/Time Associated Diagnosis Comments CBC WITH AUTO DIFFERENTIAL Routine 06/06/2024 8:01 AM EST Osteomyelitis, unspecified (CMS/HCC) SEDIMENTATION RATE Routine 06/06/2024 8: 01 AM EST Osteomyelitis, unspecified (CMS/HCC) CBC AND DIFFERENTIAL Routine 06/06/2024 8:01 AM EST Osteomyelitis, unspecified (CMS/HCC) C-REACTIVE PROTEIN Routine 06/06/2024 8: 01 AM EST Osteomyelitis, unspecified (CMS/HCC) CREATINE KINASE Routine 06/06/2024 8:01 AM EST Osteomyelitis, unspecified (CMS/HCC) BASIC METABOLIC PANEL Routine 06/06/2024 8:01 AM EST Osteomyelitis, unspecified (CMS/HCC) documented in this encounter Results * (ABNORMAL) CBC auto differential (06/06/2024 8:01 AM EST) [facility] WBC 8.8 4.8 - 10.8 K/mcL LAB HEMETOLOGY METHOD 06/06/2024 1:19 PM [facility] RBC 4.00 3.80 - 4.80 M/mcL LAB HEMETOLOGY METHOD 06/06/2024 1:19 PM [facility] Hemoglobin 10.8(L) 11.5 - 16.0 g/dL LAB HEMETOLOGY METHOD 06/06/2024 1:19 PM [facility] Hematocrit 34.9(L) 35.0 - 47.0 % LAB HEMETOLOGY METHOD 06/06/2024 1:19 PM [facility] MCV 88.4 79.0 - 98.0 FL LAB HEMETOLOGY METHOD 06/06/2024 1:19 PM [facility] MCH 27.3 27.0 - 32.0 pcg LAB HEMETOLOGY METHOD 06/06/2024 1:19 PM [facility] MCHC 30.9(L) 32.0 - 37.0 g/dL LAB HEMETOLOGY METHOD 06/06/2024 1:19 PM [facility] RDW 18.2(H) 11.0 - 15.0 % LAB HEMETOLOGY METHOD 06/06/2024 1:19 PM [facility] Platelets 200 130 - 400 K/mcL LAB HEMETOLOGY METHOD 06/06/2024 1:19 PM [facility] MPV 9.9 7.0 - 11.0 FL LAB HEMETOLOGY METHOD 06/06/2024 1:19 PM [facility] NRBC 0.0 <1.0 % LAB HEMETOLOGY METHOD 06/06/2024 1:19 PM [facility] NRBC Absolute 0.00 <0.10 K/mcL LAB HEMETOLOGY METHOD 06/06/2024 1:19 PM [facility] Neutrophils Relative 61.6 % LAB HEMETOLOGY METHOD 06/06/2024 1:19 PM [facility] Lymphocytes Relative 31.4 % LAB HEMETOLOGY METHOD 06/06/2024 1:19 PM [facility] Monocytes Relative 5.7 % LAB HEMETOLOGY METHOD 06/06/2024 1:19 PM [facility] Eosinophils Relative 0.6 % LAB HEMETOLOGY METHOD 06/06/2024 1:19 PM [facility] Basophils Relative 0.5 % LAB HEMETOLOGY METHOD 06/06/2024 1:19 PM [facility] Immature Granulocytes Relative 0.2 % LAB HEMETOLOGY METHOD 06/06/2024 1:19 PM [facility] Neutrophils Absolute 5.42 1.50 - 7.00 K/mcL LAB HEMETOLOGY METHOD 06/06/2024 1:19 PM [facility] Lymphocytes Absolute 2.76 1.00 - 5.00 K/mcL LAB HEMETOLOGY METHOD 06/06/2024 1:19 PM [facility] Monocytes Absolute 0.50 0.20 - 1.00 K/mcL LAB HEMETOLOGY METHOD 06/06/2024 1:19 PM [facility] Eosinophils Absolute 0.05 0.00 - 0.50 K/mcL LAB HEMETOLOGY METHOD 06/06/2024 1:19 PM [facility] Basophils Absolute 0.04 0.00 - 0.20 K/mcL LAB HEMETOLOGY METHOD 06/06/2024 1:19 PM EST [facility] Immature Granulocytes Absolute 0.02 0.00 - 0.03 K/[facility] LAB HEMETOLOGY METHOD 06/06/2024 1:19 PM EST [facility] Blood Venous blood specimen / Unknown Venipuncture / Unknown 06/06/2024 8:01 AM EST 06/06/2024 12:17 PM EST Gary Wall MD LAB BLOOD ORDERABLES Final Resul t Performing Organization Address City/[facility]/ZIP Co de Phone Number [facility] [address] [place] [address], [place] [phone] * C-reactive protein (06/06/2024 8:01 AM EST) C-Reactive Protein 0.41 <=0.50 mg/dL LAB CHEMISTRY METHOD 06/06/2024 2:39 PM EST [facility] Blood Venous blood specimen / Unknown Venipuncture / Unknown 06/06/2024 8:01 AM EST 06/06/2024 12:06 PM EST Gary Wall MD LAB BLOOD ORDERABLES Final Resul t Performing Organization Address City/[facility]/ZIP Co de Phone Number [facility] [address] [place] [address], [place] [phone] * (ABNORMAL) Sedimentation rate (06/06/2024 8:01 AM EST) Sed Rate 48(H) 0 - 30 mm/hr LAB HEMETOLOGY METHOD 06/06/2024 12:25 PM EST [facility] Blood Venous blood specimen / Unknown Venipuncture / Unknown 06/06/2024 8:01 AM EST 06/06/2024 12:17 PM EST us Gary Wall MD LAB BLOOD ORDERABLES Final Resul t Performing Organization Address City/[facility]/ZIP Co de Phone Number [facility] [address] [place] [address], [place] [phone] * Creatine kinase (06/06/2024 8:01 AM EST) Total CK 57 22 - 269 unit/L LAB CHEMISTRY METHOD 06/06/2024 2:39 PM [facility] Blood Venous blood specimen / Unknown Venipuncture / Unknown 06/06/2024 8:01 AM EST 06/06/2024 12:06 PM EST us Gary Wall MD LAB BLOOD ORDERABLES Final Resul t Performing Organization Address [facility] Co de Phone Number [facility] [address] [place] [address], [place] [phone] * (ABNORMAL) Basic metabolic panel (06/06/2024 8:01 AM EST) Pathologist [facility] Sodium 139 133 - 145 mmol/L LAB CHEMISTRY METHOD 06/06/2024 2:45 PM [facility] Potassium 4.6 3.5 - 5.5 mmol/L LAB CHEMISTRY METHOD 06/06/2024 2:45 PM [facility] Chloride 105 96 - 110 mmol/L LAB CHEMISTRY METHOD 06/06/2024 2:45 PM [facility] CO2 32 21 - 32 mmol/L LAB CHEMISTRY METHOD 06/06/2024 2:45 PM [facility] Anion Gap 2(L) 3 - 11 LAB CHEMISTRY METHOD 06/06/2024 2:45 PM [facility] Glucose 85 70 - 100 mg/dL LAB CHEMISTRY METHOD 06/06/2024 2:45 PM [facility] BUN 16 5 - 25 mg/dL LAB CHEMISTRY METHOD 06/06/2024 2:45 PM EST [facility] Creatinine 0.76 0.50 - 1.10 mg/dL LAB CHEMISTRY METHOD 06/06/2024 2:45 PM EST [facility] eGFR 80 >=60 mL/min/1. 73m2 LAB CHEMISTRY METHOD 06/06/2024 2:45 PM [facility] Comment:Calculation based on the??Chronic Kidney Disease Epidemiology Collaboration (CKD-EPI) equation refit??without adjustment for race. BUN/Creatinine Ratio 21.1 LAB CHEMISTRY METHOD 06/06/2024 2:45 PM [facility] Calcium 8.3(L) 8.5 - 10.5 mg/dL LAB CHEMISTRY METHOD 06/06/2024 2:45 PM [facility] Blood Venous blood specimen / Unknown Venipuncture / Unknown 06/06/2024 8:01 AM EST 06/06/2024 12:06 PM EST us Gary Wall MD LAB BLOOD ORDERABLES Final Resul t [facility] [address] [place] [address], documented in this encounter Visit Diagnoses Diagnosis Osteomyelitis, unspecified (CMS/HCC) documented in this encounter Care Teams Associate Veterinarian Relationship Specialty Start Date End Date Seng Meneses MD [address] [place] [address] PCP - General Internal Medicine 02/16/12 documented as of this encounter
--- OUTSIDE RECORDS SUMMARY | 2024-06-29 14:14 | XMS_ITS | Clinical Summary ---
Author Organization [address] [facility] Address [address] [place] [address] Phone Care Team Providers Care Monorail Car Operator Name Role Phone Seng Meneses MD Primary Care Provider [phone] Encounters Date Type Department Care Team Description 06/28/2024 Lab Requisition [facility] [address] [place] [id number] Gary Wall MD Type 2 diabetes mellitus without complications ([facility]/HCC) 06/04/2024 Lab Requisition [facility] Lab [address] [place] [phone] Gary Wall MD Osteomyelitis, unspecified ([facility]/HCC) 05/10/2024 Lab Requisition [facility] Lab [address] [place] [phone] Gary Wall MD Type 2 diabetes mellitus without complications ([facility]/HCC); Essential (primary) hypertension from Last 3 Months Immunizations Name Administration Dates Next Due Pfizer SARS-CoV-2 COVID-19, mRNA, LNP-S, preservative free 07/11/2020,06/20/2020 Surgical History Surgery Date Site/Laterality Comments BREAST LUMPECTOMY 08/12/2007 PROCEDURE:BREAST LUMPECTOMY OTHER SURGICAL HISTORY PROCEDURE:Right Knee Replacement OTHER SURGICAL HISTORY PROCEDURE:Cataract Surgery and lens impact left Medical History Medical History Date Comments Breast cancer (CMS/HCC) DX:Breas t cancer (HCC) Diabetes mellitus (CMS/HCC) DX:D iabetes mellitus (HCC) Asthma DX:Asthma Herpetic ulceration of vulva DX: Herpetic ulceration of vulva Sleep apnea DX:Sleep apnea Osvaldo-osvaldo disease DX:Osvaldo- osvaldo disease Hypertension DX:Hypertension Hypercholesterolemia DX:Hypercho lesterolemia Family History Medical History Relation Name Comments Diabetes Father Heart attack Father Hypertension Father Diabetes Mother Heart attack Mother Hypertension Mother Relation Name Status Comments Father Mother Social History Tobacco Use Types Packs/Day Years Used Date Smoking Tobacco: Never Smokeless Tobacco: Never Alcohol Use Standard Drinks/Week Comments No 0 (1 standard drink = 0.6 oz pur e alcohol) Comments Unknown Sex and Gender Information Value Date Recorded Sex Assigned at Not on file Legal Sex Female 4:34 AM EST Gender Identity Not on file Sexual Orientation Not on file Obstetrics History Last Filed Vital Signs Vital Sign Reading Time Taken Comments Blood Pressure 158/72 12/12/2022 11:42 AM EDT Si tting Left arm Pulse 71 12/12/2022 11:42 AM EDT Temperature - - Respiratory Rate - - Oxygen Saturation - - Inhaled Oxygen Concentration - - Weight 127 kg (280 lb) 09/12/2022 10:55 AM EDT s tated by EMT Height 152.4 cm (5') 12/12/2022 11:42 AM EDT Body Mass Index 54.68 09/12/2022 10:55 AM EDT Plan of Treatment Health Maintenance Due Date Last Done Comments Diabetes: Annual Foot Exam 1955 Diabetes: Annual Retina Eye Exam 1955 Zoster Vaccines (1 of 2) 1994 Pneumococcal Vaccine: 50+ Years (2 of 2 - PCV) 03/19/2007 03/19/2006 RSV Immunization Patients 60+ Years Old (1 - 1-dose 75+ series) 2019 DTaP,Tdap,and Td Vaccines (2 - Td or Tdap) 10/06/2019 10/05/2009 Cholesterol Screening (Lipid Panel) 04/19/2022 Depression Screening 04/19/2022 Falls Risk Assessment 04/19/2022 Hepatitis C Screening 04/19/2022 Medicare Annual Wellness Visit 04/19/2022 Osteoporosis Screening (Bone Density Screening) 04/19/2022 Social Influencers of Health Screening 04/19/2022 Diabetes: Annual Urine Albumin-Creatinine Ratio (uACR) 04/26/2022 Diabetes: Blood Sugar Control Test (HGBA1C) 04/26/2022 COVID-19 Vaccine ( season) 2024 07/11/2020, 06/20/2020 Influenza Vaccine (#1) 2024 , 02/11/2021, 01/23/2011, Additional history exists Diabetes: Annual GFR (Glomerular Filtration Rate) 06/29/2025 06/29/2024, 06/06/2024, 03/14/2024 Hypertension/CHF/CAD Annual BMP Blood Test 06/29/2025 06/29/2024, 06/06/2024, 03/14/2024 HIB Vaccines Aged Out No longer eligi ble based on patient's age to complete this topic HPV Vaccines Aged Out No longer eligi ble based on patient's age to complete this topic Hepatitis A Vaccines Aged Out No long er eligible based on patient's age to complete this topic Hepatitis B Vaccines Aged Out No long er eligible based on patient's age to complete this topic IPV Vaccines Aged Out No longer eligi ble based on patient's age to complete this topic MMR Vaccines Aged Out No longer eligi ble based on patient's age to complete this topic Meningococcal ACWY Vaccine Aged Out N o longer eligible based on patient's age to complete this topic Meningococcal B Vacine Aged Out No lo nger eligible based on patient's age to complete this topic RSV Immunization Patients Under 20 months Aged Out No longer eligible based on patient's age to complete this topic Varicella Vaccines Aged Out No longer eligible based on patient's age to complete this topic Procedures Procedure Name Priority Date/Time Associated Diagnosis Comments C-REACTIVE PROTEIN Routine 06/29/2024 7: 27 AM EST Type 2 diabetes mellitus without complications (CMS/HCC) SEDIMENTATION RATE Routine 06/29/2024 7: 27 AM EST Type 2 diabetes mellitus without complications (CMS/HCC) BASIC METABOLIC PANEL Routine 06/29/2024 7:27 AM EST Type 2 diabetes mellitus without complications (CMS/HCC) COMPLETE BLOOD COUNT Routine 06/29/2024 7:27 AM EST Type 2 diabetes mellitus without complications (CMS/HCC) CBC WITH AUTO DIFFERENTIAL Routine 06/06/2024 8:01 AM EST Osteomyelitis, unspecified (CMS/HCC) CBC AND DIFFERENTIAL Routine 06/06/2024 8:01 AM EST Osteomyelitis, unspecified (CMS/HCC) C-REACTIVE PROTEIN Routine 06/06/2024 8: 01 AM EST Osteomyelitis, unspecified (CMS/HCC) SEDIMENTATION RATE Routine 06/06/2024 8: 01 AM EST Osteomyelitis, unspecified (CMS/HCC) CREATINE KINASE Routine 06/06/2024 8:01 AM EST Osteomyelitis, unspecified (CMS/HCC) BASIC METABOLIC PANEL Routine 06/06/2024 8:01 AM EST Osteomyelitis, unspecified (CMS/HCC) from Last 3 Months Results * (ABNORMAL) Sedimentation rate (06/29/2024 7:27 AM EST) Only the most recent of2 resultswithin the time period is included. Pathologist [facility] Sed Rate 53(H) 0 - 30 mm/hr LAB HEMETOLOGY METHOD 06/29/2024 1:15 PM EST [facility] Blood Venous blood specimen / Unknown Venipuncture / Unknown 06/29/2024 7:27 AM EST 06/29/2024 11:31 AM EST us Gary Wall MD LAB BLOOD ORDERABLES Final Resul t [facility] [address] [place] [address], [place] [phone] * (ABNORMAL) Complete blood count (06/29/2024 7:27 AM EST) Pathologist [facility] WBC 7.8 4.8 - 10.8 K/[facility] LAB HEMETOLOGY METHOD 06/29/2024 12:56 PM EST [facility] RBC 4.00 3.80 - 4.80 M/[facility] LAB HEMETOLOGY METHOD 06/29/2024 12:56 PM [facility] Hemoglobin 11.1(L) 11.5 - 16.0 g/dL LAB HEMETOLOGY METHOD 06/29/2024 12:56 PM [facility] Hematocrit 36.3 35.0 - 47.0 % LAB HEMETOLOGY METHOD 06/29/2024 12:56 PM [facility] MCV 89.9 79.0 - 98.0 FL LAB HEMETOLOGY METHOD 06/29/2024 12:56 PM [facility] MCH 27.5 27.0 - 32.0 pcg LAB HEMETOLOGY METHOD 06/29/2024 12:56 PM [facility] MCHC 30.6(L) 32.0 - 37.0 g/dL LAB HEMETOLOGY METHOD 06/29/2024 12:56 PM [facility] RDW 18.4(H) 11.0 - 15.0 % LAB HEMETOLOGY METHOD 06/29/2024 12:56 PM [facility] Platelets 233 130 - 400 K/mcL LAB HEMETOLOGY METHOD 06/29/2024 12:56 PM [facility] MPV 9.6 7.0 - 11.0 FL LAB HEMETOLOGY METHOD 06/29/2024 12:56 PM [facility] NRBC 0.0 <1.0 % LAB HEMETOLOGY METHOD 06/29/2024 12:56 PM [facility] NRBC Absolute 0.00 <0.10 K/mcL LAB HEMETOLOGY METHOD 06/29/2024 12:56 PM [facility] Blood Venous blood specimen / Unknown Venipuncture / Unknown 06/29/2024 7:27 AM EST 06/29/2024 11:31 AM EST us Gary Wall MD LAB BLOOD ORDERABLES Final Resul t Performing Organization Address [facility]/ZIP Co de Phone Number [facility] [address] [place] [address], * (ABNORMAL) C-reactive protein (06/29/2024 7:27 AM EST) Only the most recent of2 resultswithin the time period is included. [facility] C-Reactive Protein 0.77(H) <=0.50 mg/dL LAB CHEMISTRY METHOD 06/29/2024 12:28 PM [facility] Blood Venous blood specimen / Unknown Venipuncture / Unknown 06/29/2024 7:27 AM EST 06/29/2024 11:31 AM EST Gary Wall MD LAB BLOOD ORDERABLES Final Resul t Performing Organization Address [facility] Co de Phone Number [facility] [address] [place] [address], [place] [phone] * (ABNORMAL) Basic metabolic panel (06/29/2024 7:27 AM EST) Only the most recent of2 resultswithin the time period is included. [facility] Sodium 143 133 - 145 mmol/L LAB CHEMISTRY METHOD 06/29/2024 12:24 PM [facility] Potassium 4.4 3.5 - 5.5 mmol/L LAB CHEMISTRY METHOD 06/29/2024 12:24 PM [facility] Chloride 108 96 - 110 mmol/L LAB CHEMISTRY METHOD 06/29/2024 12:24 PM [facility] CO2 26 21 - 32 mmol/L LAB CHEMISTRY METHOD 06/29/2024 12:24 PM [facility] Anion Gap 9 3 - 11 LAB CHEMISTRY METHOD 06/29/2024 12:24 PM [facility] Glucose 90 70 - 100 mg/dL LAB CHEMISTRY METHOD 06/29/2024 12:24 PM [facility] BUN 20 5 - 25 mg/dL LAB CHEMISTRY METHOD 06/29/2024 12:24 PM EST [facility] Creatinine 1.02 0.50 - 1.10 mg/dL LAB CHEMISTRY METHOD 06/29/2024 12:24 PM EST [facility] eGFR 56(L) >=60 mL/min/1. 73m2 LAB CHEMISTRY METHOD 06/29/2024 12:24 PM [facility] Comment:Calculation based on the??Chronic Kidney Disease Epidemiology Collaboration (CKD-EPI) equation refit??without adjustment for race. BUN/Creatinine Ratio 19.6 LAB CHEMISTRY METHOD 06/29/2024 12:24 PM [facility] Calcium 9.0 8.5 - 10.5 mg/dL LAB CHEMISTRY METHOD 06/29/2024 12:24 PM [facility] Blood Venous blood specimen / Unknown Venipuncture / Unknown 06/29/2024 7:27 AM EST 06/29/2024 11:31 AM EST us Gary Wall MD LAB BLOOD ORDERABLES Final Resul t [facility] [address] [place] [address], * (ABNORMAL) CBC auto differential (06/06/2024 8:01 AM EST) WBC 8.8 4.8 - 10.8 K/mcL LAB HEMETOLOGY METHOD 06/06/2024 1:19 PM EST [facility] RBC 4.00 3.80 - 4.80 M/mcL LAB HEMETOLOGY METHOD 06/06/2024 1:19 PM [facility] Hemoglobin 10.8(L) 11.5 - 16.0 g/dL LAB HEMETOLOGY METHOD 06/06/2024 1:19 PM [facility] Hematocrit 34.9(L) 35.0 - 47.0 % LAB HEMETOLOGY METHOD 06/06/2024 1:19 PM [facility] MCV 88.4 79.0 - 98.0 FL LAB HEMETOLOGY METHOD 06/06/2024 1:19 PM [facility] MCH 27.3 27.0 - 32.0 pcg LAB HEMETOLOGY METHOD 06/06/2024 1:19 PM [facility] MCHC 30.9(L) 32.0 - 37.0 g/dL LAB HEMETOLOGY METHOD 06/06/2024 1:19 PM [facility] RDW 18.2(H) 11.0 - 15.0 % LAB HEMETOLOGY METHOD 06/06/2024 1:19 PM [facility] Platelets 200 130 - 400 K/mcL LAB HEMETOLOGY METHOD 06/06/2024 1:19 PM [facility] MPV 9.9 7.0 - 11.0 FL LAB HEMETOLOGY METHOD 06/06/2024 1:19 PM [facility] NRBC 0.0 <1.0 % LAB HEMETOLOGY METHOD 06/06/2024 1:19 PM [facility] NRBC Absolute 0.00 <0.10 K/mcL LAB HEMETOLOGY METHOD 06/06/2024 1:19 PM [facility] Neutrophils Relative 61.6 % LAB HEMETOLOGY METHOD 06/06/2024 1:19 PM [facility] Lymphocytes Relative 31.4 % LAB HEMETOLOGY METHOD 06/06/2024 1:19 PM [facility] Monocytes Relative 5.7 % LAB HEMETOLOGY METHOD 06/06/2024 1:19 PM [facility] Eosinophils Relative 0.6 % LAB HEMETOLOGY METHOD 06/06/2024 1:19 PM [facility] Basophils Relative 0.5 % LAB HEMETOLOGY METHOD 06/06/2024 1:19 PM EST [facility] Immature Granulocytes Relative 0.2 % LAB HEMETOLOGY METHOD 06/06/2024 1:19 PM [facility] Neutrophils Absolute 5.42 1.50 - 7.00 K/mcL LAB HEMETOLOGY METHOD 06/06/2024 1:19 PM [facility] Lymphocytes Absolute 2.76 1.00 - 5.00 K/mcL LAB HEMETOLOGY METHOD 06/06/2024 1:19 PM [facility] Monocytes Absolute 0.50 0.20 - 1.00 K/mcL LAB HEMETOLOGY METHOD 06/06/2024 1:19 PM [facility] Eosinophils Absolute 0.05 0.00 - 0.50 K/mcL LAB HEMETOLOGY METHOD 06/06/2024 1:19 PM [facility] Basophils Absolute 0.04 0.00 - 0.20 K/mcL LAB HEMETOLOGY METHOD 06/06/2024 1:19 PM [facility] Immature Granulocytes Absolute 0.02 0.00 - 0.03 K/mcL LAB HEMETOLOGY METHOD 06/06/2024 1:19 PM [facility] Blood Venous blood specimen / Unknown Venipuncture / Unknown 06/06/2024 8:01 AM EST 06/06/2024 12:17 PM EST us Gary Wall MD LAB BLOOD ORDERABLES Final Resul t [facility] [address] [place] [address], * Creatine kinase (06/06/2024 8:01 AM EST) Total CK 57 22 - 269 unit/L LAB CHEMISTRY METHOD 06/06/2024 2:39 PM EST [facility] Blood Venous blood specimen / Unknown Venipuncture / Unknown 06/06/2024 8:01 AM EST 06/06/2024 12:06 PM EST us Gary Wall MD LAB BLOOD ORDERABLES Final Resul t [facility] [address] [place] [address], from Last 3 Months Insurance MEDICARE MEDICAID - [place] Advance Directives Documents on File Type Date Recorded Patient 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
--- OUTSIDE RECORDS SUMMARY | 2024-06-29 14:14 | XMS_ITS | Encounter Summary ---
Author Organization [facility] Address [address] [place] [address] Care Team Providers Care Spikemaking Supervisor Name Role Phone Seng Meneses MD Primary Care Provider [phone] Encounter Details Date Type Department Care Team (Late st Contact Info) Description 05/10/[address] [facility] - Main Lab [address] [facility] [address] Gary Wall MD [address] [place] [phone] Type 2 diabetes mellitus without complications (CMS/HCC); Essential (primary) hypertension Social History Tobacco Use Types Packs/Day Years [...] on file documented as of this encounter Visit Diagnoses Diagnosis Type 2 diabetes mellitus without complications (CMS/HCC) Essential (primary) hypertension Unspecified essential hypertension documented in this encounter Care Teams Spikemaking Supervisor Relationship Specialty Start Date End Date Seng Meneses MD [address] [place] [address] PCP - General Internal Medicine 02/16/12 documented as of this encounter
--- OUTSIDE RECORDS SUMMARY | 2024-06-29 14:14 | XMS_ITS | Encounter Summary ---
Author Organization [facility] Address [address] [place] [address] Care Team Providers Care Film Writer Name Role Phone Seng Meneses MD Primary Care Provider [phone] Encounter Details Date Type Department Care Team (Late st Contact Info) Description 06/28/2024 Lab Requisition [facility] - Main Lab [address] [facility] [place] [address] Gary Wall MD [address] [place] [phone] Type 2 diabetes mellitus without complications (CMS/HCC) Social History Tobacco Use Types Packs/Day [...] Procedure Name Priority Date/Time Associated Diagnosis Comments SEDIMENTATION RATE Routine 06/29/2024 7: 27 AM EST Type 2 diabetes mellitus without complications (CMS/HCC) COMPLETE BLOOD COUNT Routine 06/29/2024 7:27 AM EST Type 2 diabetes mellitus without complications (CMS/HCC) C-REACTIVE PROTEIN Routine 06/29/2024 7: 27 AM EST Type 2 diabetes mellitus without complications (CMS/HCC) BASIC METABOLIC PANEL Routine 06/29/2024 7:27 AM EST Type 2 diabetes mellitus without complications (CMS/HCC) documented in this encounter Results * (ABNORMAL) C-reactive protein (06/29/2024 7:27 AM EST) Pathologist [facility] C-Reactive Protein 0.77(H) <=0.50 mg/dL LAB CHEMISTRY METHOD 06/29/2024 12:28 PM EST [facility] Blood Venous blood specimen / Unknown Venipuncture / Unknown 06/29/2024 7:27 AM EST 06/29/2024 11:31 AM EST Gary Wall MD LAB BLOOD ORDERABLES Final Resul t Performing Organization Address [facility]/ZIP Co de Phone Number [facility] [address] [place] [address], [place] [phone] * (ABNORMAL) Sedimentation rate (06/29/2024 7:27 AM EST) [facility] Sed Rate 53(H) 0 - 30 mm/hr LAB HEMETOLOGY METHOD 06/29/2024 1:15 PM EST [facility] Blood Venous blood specimen / Unknown Venipuncture / Unknown 06/29/2024 7:27 AM EST 06/29/2024 11:31 AM EST Gary Wall MD LAB BLOOD ORDERABLES Final Resul t Performing Organization Address City/[facility]/ZIP Co de Phone Number [facility] [address] [place] [address], [place] [phone] * (ABNORMAL) Basic metabolic panel (06/29/2024 7:27 AM EST) [facility] Sodium 143 133 - 145 mmol/L LAB CHEMISTRY METHOD 06/29/2024 12:24 PM EST [facility] Potassium 4.4 3.5 - 5.5 mmol/L LAB CHEMISTRY METHOD 06/29/2024 12:24 PM EST [facility] Chloride 108 96 - 110 mmol/L [...] 12:24 PM [facility] Creatinine 1.02 0.50 - 1.10 mg/dL LAB CHEMISTRY METHOD 06/29/2024 12:24 PM [facility] eGFR 56(L) >=60 mL/min/1. 73m2 [...] MD LAB BLOOD ORDERABLES Final Resul t [facility] [address] [place] [address], [place] [phone] * (ABNORMAL) Complete blood count (06/29/2024 7:27 AM EST) WBC 7.8 4.8 - 10.8 K/mcL LAB HEMETOLOGY METHOD 06/29/2024 12:56 PM [facility] RBC 4.00 3.80 - 4.80 M/mcL LAB HEMETOLOGY METHOD 06/29/2024 12:56 PM [facility] [...] MD LAB BLOOD ORDERABLES Final Resul t [facility] [address] [place] [address], documented in this encounter Visit Diagnoses Diagnosis Type 2 diabetes mellitus without complications (CMS/HCC) documented in this encounter Care Teams Film Writer Relationship Specialty Start Date End Date Seng Meneses MD [address] [place] [address] PCP - General Internal Medicine 02/16/12 documented as of this encounter
--- OUTSIDE RECORDS SUMMARY | 2024-06-29 14:14 | XMS_ITS | Encounter Summary ---
Author Organization [facility] Address [address] [place] [address] Care Team Providers Care [employer] Weapons Sergeant Name Role Phone Seng Meneses MD Primary Care Provider [phone] Encounter Details Date Type Department Care Team (Late st Contact Info) Description 03/14/2024 Lab Requisition [facility] - Main Lab [address] [facility] [place] [address] Gary Wall MD [address] [place] [address] [address] [facility] [phone] Urgency of urination Social History Tobacco Use Types Packs/Day Years [...] Procedure Name Priority Date/Time Associated Diagnosis Comments TRAVEL PHLEBOTOMY FEE Routine 03/14/2024 6:02 AM EST Urgency of urination COMPLETE BLOOD COUNT Routine 03/14/2024 6:02 AM EST Urgency of urination COMPREHENSIVE METABOLIC PANEL Routine 03/14/2024 6:02 AM EST Urgency of urination documented in this encounter Results * Travel phlebotomy fee (03/14/2024 6:02 AM EST) [facility] TRAVEL PHLEBOTOMY FEE Completed 03/14/2024 11:02 AM [facility] Blood Venous blood specimen / Unknown Venipuncture / Unknown 03/14/2024 6:02 AM EST 03/14/2024 10:21 AM EST us Gary Wall MD LAB BLOOD ORDERABLES Final Resul t [facility] [address] [place] [address], * (ABNORMAL) Comprehensive metabolic panel (03/14/2024 6:02 AM EST) Sodium 141 133 - 145 mmol/L LAB CHEMISTRY METHOD 03/14/2024 11:44 AM [facility] Potassium 3.9 3.5 - 5.5 mmol/L LAB CHEMISTRY METHOD 03/14/2024 11:44 AM [facility] Chloride 106 96 - 110 mmol/L LAB CHEMISTRY METHOD 03/14/2024 11:44 AM [facility] CO2 30 21 - 32 mmol/L LAB CHEMISTRY METHOD 03/14/2024 11:44 AM [facility] Anion Gap 5 3 - 11 LAB CHEMISTRY METHOD 03/14/2024 11:44 AM [facility] Glucose 79 70 - 100 mg/dL LAB CHEMISTRY METHOD 03/14/2024 11:44 AM [facility] BUN 21 5 - 25 mg/dL LAB CHEMISTRY METHOD 03/14/2024 11:44 AM [facility] Creatinine 0.85 0.50 - 1.10 mg/dL LAB CHEMISTRY METHOD 03/14/2024 11:44 AM [facility] eGFR 70 >=60 mL/min/1. 73m2 LAB CHEMISTRY METHOD 03/14/2024 11:44 AM [facility] Comment:Calculation based on the??Chronic Kidney Disease Epidemiology Collaboration (CKD-EPI) equation refit??without adjustment for race. BUN/Creatinine Ratio 24.7 LAB CHEMISTRY METHOD 03/14/2024 11:44 AM [facility] Calcium 8.9 8.5 - 10.5 mg/dL LAB CHEMISTRY METHOD 03/14/2024 11:44 AM [facility] AST (SGOT) 14 10 - 42 unit/L LAB CHEMISTRY METHOD 03/14/2024 11:44 AM [facility] ALT (SGPT) 14 10 - 60 unit/L LAB CHEMISTRY METHOD 03/14/2024 11:44 AM [facility] Alkaline Phosphatase 52 42 - 121 unit/L LAB CHEMISTRY METHOD 03/14/2024 11:44 AM [facility] Total Protein 6.0 6.0 - 8.0 g/dL LAB CHEMISTRY METHOD 03/14/2024 11:44 AM [facility] Albumin 2.6(L) 3.2 - 5.0 g/dL LAB CHEMISTRY METHOD 03/14/2024 11:44 AM [facility] Total Bilirubin 0.4 0.0 - 1.4 mg/dL LAB CHEMISTRY METHOD 03/14/2024 11:44 AM [facility] Blood Venous blood specimen / Unknown Venipuncture / Unknown 03/14/2024 6:02 AM EST 03/14/2024 10:21 AM EST us Gary Wall MD LAB BLOOD ORDERABLES Final Resul t [facility] [address] [place] [address], * (ABNORMAL) Complete blood count (03/14/2024 6:02 AM EST) WBC 7.6 4.8 - 10.8 K/mcL LAB HEMETOLOGY METHOD 03/14/2024 11:00 AM [facility] RBC 3.90 3.80 - 4.80 M/mcL LAB HEMETOLOGY METHOD 03/14/2024 11:00 AM [facility] Hemoglobin 10.7(L) 11.5 - 16.0 g/dL LAB HEMETOLOGY METHOD 03/14/2024 11:00 AM [facility] Hematocrit 36.0 35.0 - 47.0 % LAB HEMETOLOGY METHOD 03/14/2024 11:00 AM [facility] MCV 92.3 79.0 - 98.0 FL LAB HEMETOLOGY METHOD 03/14/2024 11:00 AM [facility] MCH 27.4 27.0 - 32.0 pcg LAB HEMETOLOGY METHOD 03/14/2024 11:00 AM [facility] MCHC 29.7(L) 32.0 - 37.0 g/dL LAB HEMETOLOGY METHOD 03/14/2024 11:00 AM [facility] RDW 18.0(H) 11.0 - 15.0 % LAB HEMETOLOGY METHOD 03/14/2024 11:00 AM [facility] Platelets 219 130 - 400 K/mcL LAB HEMETOLOGY METHOD 03/14/2024 11:00 AM [facility] MPV 10.1 7.0 - 11.0 FL LAB HEMETOLOGY METHOD 03/14/2024 11:00 AM [facility] NRBC 0.0 <1.0 % LAB HEMETOLOGY METHOD 03/14/2024 11:00 AM [facility] NRBC Absolute 0.00 <0.10 K/mcL LAB HEMETOLOGY METHOD 03/14/2024 11:00 AM [facility] Blood Venous blood specimen / Unknown Venipuncture / Unknown 03/14/2024 6:02 AM EST 03/14/2024 10:21 AM EST us Gary Wall MD LAB BLOOD ORDERABLES Final Resul t [facility] [address] [place] [address], documented in this encounter Visit Diagnoses Diagnosis Urgency of urination documented in this encounter Care Teams [employer] Weapons Sergeant Relationship Specialty Start Date End Date Seng Meneses MD [address] [place] [address] PCP - General Internal Medicine 02/16/12 documented as of this encounter
--- OUTSIDE RECORDS SUMMARY | 2024-06-29 14:14 | XMS_ITS | Clinical Summary ---
Author Organization [facility] Address [address] [place] [address] Care Team Providers Care Drilling Manager Name Role Phone Seng Meneses MD Primary Care Provider [phone] Allergies Active Allergy Reactions Criticality Noted Date Comments Phenobarbital-Belladonna Alk 019 Medications Medication Sig Dispensed Refills Start Date End Date Status atorvastatin (LIPITOR) tablet 80 mg Take 1 tablet (80 mg total) by mouth daily. 0 Active metoclopramide (REGLAN) tablet 10 mg Take 1 tablet (10 mg total) by mouth as needed. 0 Active promethazine (PHENERGAN) tablet 25 mg Take 1 tablet (25 mg total) by mouth as needed for nausea. 0 Active valsartan (DIOVAN) tablet 160 mg Take 1 tablet (160 mg total) by mouth daily. 0 Active triamterene-hydroc hlorothiazide (MAXZIDE-25) 37.5-25 MG per tablet Take 1 tablet by mouth daily. 0 Active atenolol (TENORMIN) tablet 100 mg Take 1 tablet (100 mg total) by mouth daily. 0 Active clotrimazole-betam ethasone (LOTRISONE) cream Apply topically 2 (two) times a day. 0 Active metFORMIN (GLUCOPHAGE) tablet 500 mg Take 1 tablet (500 mg total) by mouth daily. 0 Active nitroglycerin (NITROSTAT) 0.[address] 1 tablet (0.4 mg total) under the tongue as needed for chest pain. 0 Active econazole nitrate 1 % cream Apply topically 2 (two) times a day. 0 Active Calcium Carbonate-Vitamin D (CALCIUM 600+D PO) Take by mouth. 0 Active Multiple Vitamin (MULTI VITAMIN DAILY PO) Take by mouth. 0 Active amLODIPine (NORVASC) tablet 10 mg Take 1 tablet (10 mg total) by mouth daily. 0 Active irbesartan (AVAPRO) 300 MG tablet Take 1 tablet (300 mg total) by mouth every night at bedtime. 0 Active glimepiride (AMARYL) tablet 2 mg Take 1 tablet (2 mg total) by mouth every morning before breakfast. 0 Active Insulin Detemir (LEVEMIR SC) Inject 25 Units under the skin. 0 Active meclizine (ANTIVERT) 25 MG tablet Take 1 tablet (25 mg total) by mouth 3 (three) times a day as needed. 0 Active dexamethasone (DECADRON) 4 MG tablet Take 2 tablets (8 mg total) by mouth 2 (two) times a day with meals. Take for 3 days starting the day after chemotherapy 12 tablet 3 07/26/2018 Active ondansetron (ZOFRAN) 4 MG tablet Take 1 tablet (4 mg total) by mouth 3 (three) times a day as needed for nausea. 20 tablet 3 07/26/2018 Active lidocaine-prilocai ne (EMLA) cream Apply topically as needed. 30 g 1 08/17/2018 Active Active Problems Problem Noted Date Diagnosed Date Malignant neoplasm of lower- outer quadrant of right breast of female, estrogen receptor negative 07/20/2018 Immunizations Name Administration Dates Next Due Covid-19 ([place]) Dilution Required 07/11/2020,0 06/20/2020 Family History Medical History Relation Name Comments Diabetes Father Heart attack Father Hypertension Father Diabetes Mother Heart attack Mother Hypertension Mother Relation Name Status Comments Father Mother Social History Tobacco Use Types Packs/Day Years Used Date Smoking Tobacco: Never Smokeless Tobacco: Never Alcohol Use Standard Drinks/Week Comments No 0 (1 standard drink = 0.6 oz pur e alcohol) Sex and Gender Information Value Date Recorded Sex Assigned at Not on file Gender Identity Not on file Sexual Orientation Not on file Job Start Date Occupation Industry Not on file Not on file Not on file Last Filed Vital Signs Vital Sign Reading Time Taken Comments Blood Pressure 158/72 12/12/2022 11:42 AM EDT Pulse 71 12/12/2022 11:42 AM EDT Temperature 35.6 ??C (96.1 ??F) 12/12/2022 1 1:42 AM EDT Respiratory Rate 18 08/26/2018 9:13 AM EDT Oxygen Saturation 97% 12/12/2022 11: 42 AM EDT Inhaled Oxygen Concentration - - Weight 127 kg (280 lb) 09/12/2022 10:55 AM EDT stated by EMT Height 152.4 cm (5') 12/12/2022 11:42 AM EDT Body Mass Index 54.68 09/12/2022 10:55 AM EDT Plan of Treatment Health Maintenance Due Date Last Done Comments Hepatitis C Screening 1945 Depression Screening 1956 BMI Counseling 1962 Preventative Health Evaluation 1962 DTap / Tdap / Td (1 - Tdap) 1963 Shingrix-Zoster Vaccine (1 of 2) 1963 Pneumococcal Vaccine (2 of 2 - PCV) 03/19/2007 03/19/2006 Fall Risk Assessment 2009 Osteoporosis Screening (DEXA Scan) 2009 RSV Adult > 60+ Yrs or (1 - 1-dose 75+ series) 2019 COVID-19 Vaccine ( season) 2024 03/28/2022, 09/13/2021, 03/05/2021, Additional history exists Influenza Vaccine (#1) 2024 , 01/23/2011, 01/29/2010, Additional history exists Hepatitis B Vaccines Aged Out No long er eligible based on patient's age to complete this topic RSV Ped < 20 months Aged Out No longe r eligible based on patient's age to complete this topic Care Teams Drilling Manager Relationship Specialty Start Date End Date Seng Meneses MD [address] [place] [address] PCP - General Internal Medicine 07/15/18
[2024-06-29 14:19] VITALS: BP 138/68; PULSE 70
== END 2024-06-29 14:56 | disposition home or self-care (01) ==
PROVIDERS: PCP Family Medicine
DX: R00.0 Tachycardia, unspecified (principal)
CPT/HCPCS: 93010; 99214

== ENCOUNTER → 2024-06-29 13:55 | Outpatient (BNVA) | payer MEDICARE, MEDICAID, SELFPAY | PROVIDERS: PCP Family Medicine | DX: I47.29 Other ventricular tachycardia (principal); E66.01 Morbid (severe) obesity due to excess calories | CPT/HCPCS: 93005; 99212 ==

== ENCOUNTER → 2024-09-26 10:16 | Outpatient (REF) | payer MEDICARE, MEDICAID, SELFPAY ==
--- NOTE | 2024-09-26 10:28 | CA_ITS ---
Transthoracic Echocardiogram Patient (Last, First, Middle): Yadira Dallas, Gender: Female Date of : 1945 Age: 79 Procedure Date: 09/26/2024 Procedure Type: Transthoracic Echocardiogram Location: OP Height: 165. cm Weight: 116. kg BSA: 2.20 m2 Heart Rate: bpm BP: 138 / 68 mmHg Ferryboat Pilot: SHARON Referring MD: Jesse Villafana NP Symptoms: R00.0 - Tachycardia, unspecified Study Quality: Technically Difficult but adequate ECG Rhythm: Sinus Conclusions: - The left ventricular systolic function is hyperdynamic. The calculated ejection fraction is 71% by biplane method. - There is mild mitral annular calcification. - No obvious valvular pathology seen on this study. Findings Procedure Information The study quality is limited by the patients inability to tolerate the test, patients body habitus, and an uncooperative patient. Left Ventricle Normal left ventricular cavity size. There is mildly increased left ventricular wall thickness. The left ventricular systolic function is hyperdynamic. The calculated ejection fraction is 71% by biplane method. Diastolic function is normal for age. Right Ventricle Normal right ventricular cavity size and systolic function. Atria Both atria are normal in size. Aortic Valve There is a normal trileaflet aortic valve. There is no aortic valve stenosis. There is no aortic valve regurgitation. Mitral Valve There is mild mitral annular calcification. There is no mitral valve regurgitation. There is no mitral valve stenosis. Pulmonic Valve The pulmonic valve is likely normal. Tricuspid Valve There is trace tricuspid valve regurgitation. There is no evidence of pulmonary hypertension. Great Vessels The asc aorta is normal in size. Small plaque is seen in the sino tubular ridge. Venous The inferior vena cava is normal in size and collapses greater than 50% with inspiration. Pericardium/Pleural There is no evidence of pericardial effusion. Prior Study Comparison No significant change compared to prior study dated: 05/25/2024. No obvious wall motion abnormality noted. Recommendations, Care & Conclusions No obvious valvular pathology seen on this study. Measurements 2D Linear Measurements IVSd: 1.06 0.6-0.9/0.6-1.0 cm LVIDd: 4.07 3.9-5.3/4.2-5.9 cm LVIDd Index: 1.85 2.4-3.2/2.2-3.1 cm/m2 LVIDs: 1.62 2.0-3.6 cm LVPWd: 1.11 0.7-1.1 cm LA Diam: 4.30 2.7-3.8/3.0-4.0 cm LAIDs Index: 1.95 1.5-2.3 cm/m2 LV Mass: 182.57 67-162/88-224 g LV Mass Index: 82.99 43-95/49-115 g/m2 LVOT Diam: 1.90 3.0+(-)1.3 cm 2D Systolic Function EF 4C: 69.00 >55% EF 2C: 72.40 >55% EF BiP: 70.50 >55% Mitral Valve MV Pk E: 1.14 MV PK A: 1.29 MV Decel Time: 264.00 E/A: 0.90 E'Lateral: 9.57 E'Medial: 6.74 E/E' Med: 16.90 E/E' Lat: 11.90 PHT: 77.00 MVA PHT: 2.86 Decel [place]: 4.33 Aortic Valve AoV Pk : 1.65 AoV Mn : 1.23 AoV VTI: 0.39 AoV Pk Grad: 11.00 Aov Mn Grad: 7.00 LEIF Cont.VTI: 2.06 LVOT LVOT Pk : 1.19 LVOT Mn : 0.90 LVOT VTI: 0.28 LVOT Pk Grad: 6.00 LVOT Mn Grad: 4.00 LVOT Diam: 1.90 LVOT Area: 2.84 Diastolic Function MV Pk E: 1.14 MV Pk A: 1.29 E/A: 0.90 E'Medial: 6.74 E/E' Med: 16.90 E' Laterial: 9.57 E/E' Lat: 11.90 Right Ventricle TAPSE (mm): 28.10 TVS' : 15.70 Tricuspid Valve TR Pk : 2.25 TR Pk Grad: 20.00 RA Press: 3.00 RVSP: 23.00 Great Vessels Aorta Sinus of Valsalva: 3.30 2.0-3.5 cm Ao Asc: 3.90 2.1-3.4 cm Pulmonary Valve PV Pk : 1.45 Peak PV Grad: 8.00 Updated in Other Vendor System with Status of Final Ken Austen MD electronically signed on 09/26/2024 12:26:54 PM with status of Final
--- OUTSIDE RECORDS SUMMARY | 2024-09-26 10:58 | XMS_ITS ---
Author Organization [facility] Care Team Providers Care Work Over Rig Operator Name Role Phone Gary Wall Unavailable Unavailable Tonya Pena Unavailable Unavailable Mili Rodriguez Unavailable Unavailable Mili Grant Unavailable Unavailable Allergies and adverse reactions Code CodeSystem Substance Reaction Severity StartDate Concern Status Unknown 03/20/2022 active adhesive bandage Unknown 03/20/2022 acti ve Care Team Name Role Address Phone Organization Dates Gary Wall PCP [address] [place] [address], [address], [facility] (Office): : [facility] 03/20/2022 - 04/29/2022 Tnoya Pena [address], [address], [facility] (Office): : [facility] 03/20/2022 - 04/29/2022 Mili Rodriguez [address], [address], [facility] (Office): [facility] 03/20/2022 - 04/29/2022 Mili Grant [facility] 03/20/2022 - 04/29/2022 Goals Section Description Status Target Date I will maintain weight and n utritional balance through the review date. Active 2022 I plan to discharge to: Spec drayl- To community alone, To Community with Family, [facility], LTC Placement, Other- Undecided at current time. Pending outcome of therapy sessions, clinical medical stability progress reviewed weekly. Active 2022 I will be free from s/sx of complications of cardiac problems through the review date. Active 2022 I will be free of fall relat ed injury through the next review date. Active 2022 I will be monitored for signs/symptoms of COVID- 19. Active 2022 I will continue to be indepe ndent and pursue activities of interest through next review. Active 2022 I will display my optimal br eathing pattern daily through the review date. Active 2022 I will have no complications related to diabetes through the review date. Active 2022 I will have no ill effects o r injuries related to side rail(s)?? Active 2022 I will improve current level of function through the review date. Active 2022 I will not have skin breakdo wn due to incontinence through the review date. Active 2022 I will remain free of sympto ms and complications of low oxygen levels, such as shortness of breath, dizziness, tachycardia, headache through review date. Active 2022 I will verbalize adequate re lief of pain or ability to cope with incompletely relieved pain through the review date. Active Resident's incision will heal without complicati ons or infection. Active 2022 The resident will have intac t skin, free of redness, blisters, or discoloration through review date. Active 2022 The resident's advance direc tives are in effect and their wishes will be carried out through the next review. Active 3 Immunizations Immunization Status Vaccine Details Vaccine Code CodeSystem Date Notes Influenza completed Influenza, split virus, trivalent, injectable, contains preservative 141 CVX created date: 04/08/2022 administere d date: 02/10/2022 Tetanus completed tetanus immune globulin 13 CVX created date: 04/22/2022 administere d date: 10/05/2009 PPSV23 (Previous Pneumococcal Polysaccharide)[facility] completed pneumococcal polysaccharide vaccine, 23 valent 33 CVX created date: 04/22/2022 administere d date: 03/19/2006 SARS-COV-2 (COVID-19) completed SARS-COV-2 (COVID-19) vaccine, mRNA, spike protein, LNP, preservative free, 30 mcg/0.3mL dose, bacilio-sucrose formulation Given intramuscularly Step 2 of Multi-step with next step required 217 CVX created date: 03/28/2022 administere d date: 07/11/2020 SARS-COV-2 (COVID-19) completed SARS-COV-2 (COVID-19) vaccine, mRNA, spike protein, LNP, preservative free, 30 mcg/0.3mL dose, bacilio-sucrose formulation Given intramuscularly Step 1 of Multi-step with next step required 217 CVX created date: 03/28/2022 administere d date: 06/20/2020 Pfizer Covid-19 Booster (SARS-COV-2) vaccine completed SARS-COV-2 (COVID-19) vaccine, mRNA, spike protein, LNP, preservative free, 30 mcg/0.3mL dose Given intramuscularly 208 CVX created date: 03/28/2022 administere d date: 09/13/2021 Pfizer Covid-19 Booster (SARS-COV-2) vaccine completed SARS-COV-2 (COVID-19) vaccine, mRNA, spike protein, LNP, preservative free, 30 mcg/0.3mL dose Given intramuscularly 208 CVX created date: 03/28/2022 administere d date: 03/05/2021 Pfizer-[employer] Covid-19 Bi-valent Solution completed SARS-COV-2 (COVID-19) vaccine, mRNA, spike protein, LNP, bivalent, preservative free, 30 mcg/0.3 mL dose, bacilio-sucrose formulation lotNumber: [id number] expiry: 07/08/2022 Mfg: pfizer Given 0.3 ml Left Deltoid intramuscularly 300 CVX created date: 03/28/2022 consent date: 03/28/2022 administere d date: 03/28/2022 Mental Status Section Date Assessment Total Score Description 04/29/2022 BIMS 09 moderate cognit evie impairment CAM 0 No delirium ind icated PHQ-9 00 03/26/2022 BIMS 09 moderate cognit evie impairment CAM 0 No delirium ind icated PHQ-9 00 Problems Problem # Description Date of onset Resolved Date Code CodeSystem Concern Status 1 AFTERCARE FOLLOWING JOINT REPLACEMENT SURGERY 03/20/[address] active 2 ENCOUNTER FOR OBSERVATION FOR SUSPECTED EXPOSURE TO OTHER BIOLOGICAL AGENTS RULED OUT 03/20/[address] active 3 IMMUNODEFICIENCY DUE TO DRUGS 03/20/[address] active 4 MORBID (SEVERE) OBESITY DUE TO EXCESS CALORIES 03/20/[address] active 5 MUSCLE WASTING AND ATROPHY, NOT ELSEWHERE CLASSIFIED, LEFT SHOULDER 03/20/[address] active 6 MUSCLE WASTING AND ATROPHY, NOT ELSEWHERE CLASSIFIED, RIGHT SHOULDER 03/20/[address] active 7 MUSCLE WASTING AND ATROPHY, NOT ELSEWHERE CLASSIFIED, RIGHT UPPER ARM 03/20/[address] active 8 OBSTRUCTIVE SLEEP APNEA (ADULT) (PEDIATRIC) 03/20/[address] active 9 OTHER SPECIFIED CONGENITAL MALFORMATIONS OF SKIN 03/20/[address] active 10 PRESENCE OF RIGHT ARTIFICIAL SHOULDER JOINT 03/20/[address] active 11 PRIMARY OSTEOARTHRITIS, RIGHT SHOULDER 03/20/[address] active 12 TYPE 2 DIABETES MELLITUS WITHOUT COMPLICATIONS 03/20/[address] active 13 UNSPECIFIED ASTHMA, UNCOMPLICATED 03/20/[address] active 14 UNSPECIFIED PROTEIN-CALORIE MALNUTRITION 03/20/[address] active Reason for Referral No Reasons for Referral Entered Social History Social History Observation Description Start Date End Date Code Code System Current Smoking Status Tobacco smoking consumption unknown 738330054 SNOMED CT Sex Assigned At Female 1945 59786-4 [facility] Gender Identity Vital Signs Code Code System Vitals Name Values and Units Timing Information 19366-4 LOINC Pain Level Value=0.0 04/29/2022 9279-1 LOINC Respiratory Rate Value=18.0 Units=/m in 04/29/2022 8462-4 [facility] Blood Pressure-Diastolic Value=78 Un its=mmHg 04/29/2022 8480-6 [facility] Blood Pressure-Systolic Qlhbs=972 Un its=mmHg 04/29/2022 8310-5 [facility] Body Temperature Value=97.1 Units=?? F 04/29/2022 8867-4 [facility] Heart rate Value=72.0 Units=/min 31496-5 [facility] O2 % BldC Oximetry Value=97.0 Units= % 04/29/2022 2339-0 [facility] Blood Sugar Hjizx=813.0 Units=mg/dL 04/29/2022 10160-5 [facility] Weight Zclil=848.0 Units=Lbs 09/2021 8302-2 [facility] Height Value=62.0 Units=Inches 04/04/2022
--- OUTSIDE RECORDS SUMMARY | 2024-09-26 10:58 | XMS_ITS | Encounter Summary ---
Author Organization [facility] Address [address] [place] [address] Care Team Providers Care Bath Design Sales Consultant Name Role Phone Seng Meneses MD Primary Care Provider [phone] Encounter Details Date Type Department Care Team (Late st Contact Info) Description 07/12/[address] [facility] - Main Lab [address] [facility] [place] [address] Gary Wall MD [address] [place] [address] 204 [facility] [address] Type 2 diabetes mellitus without complications (CMS/HCC V24, CMS/HCC V28) Social History Tobacco Use Types Packs/Day Years [...] Date/Time Associated Diagnosis Comments SEDIMENTATION RATE Routine 07/13/2024 6: 42 AM EST Type 2 diabetes mellitus without complications (CMS/HCC) COMPLETE BLOOD COUNT Routine 07/13/2024 6:42 AM EST Type 2 diabetes mellitus without complications (CMS/HCC) C-REACTIVE PROTEIN Routine 07/13/2024 6: 42 AM EST Type 2 diabetes mellitus without complications (CMS/HCC) BASIC METABOLIC PANEL Routine 07/13/2024 6:42 AM EST Type 2 diabetes mellitus without complications (CMS/HCC) documented in this encounter Results * C-reactive protein (07/13/2024 6:42 AM EST) [facility] C-Reactive Protein <0.29 <=0.50 mg/dL LAB CHEMISTRY METHOD 07/13/2024 12:44 PM EST [facility] Blood Venous blood specimen / Unknown Venipuncture / Unknown 07/13/2024 6:42 AM EST 07/13/2024 11:00 AM EST Gary Wall MD LAB BLOOD ORDERABLES Final Resul t Performing Organization Address [facility]/ZIP Co de Phone Number [facility] [address] [place] [address], [place] [phone] * (ABNORMAL) Sedimentation rate (07/13/2024 6:42 AM EST) [facility] Sed Rate 48(H) 0 - 30 mm/hr LAB HEMETOLOGY METHOD 07/13/2024 11:47 AM EST [facility] Blood Venous blood specimen / Unknown Venipuncture / Unknown 07/13/2024 6:42 AM EST 07/13/2024 11:00 AM EST Gary Wall MD LAB BLOOD ORDERABLES Final Resul t Performing Organization Address City/[facility]/ZIP Co de Phone Number [facility] [address] [place] [address], [place] [phone] * (ABNORMAL) Basic metabolic panel (07/13/2024 6:42 AM EST) [facility] Sodium 141 133 - 145 mmol/L LAB CHEMISTRY METHOD 07/13/2024 12:44 PM EST [facility] Potassium 4.4 3.5 - 5.5 mmol/L LAB CHEMISTRY METHOD 07/13/2024 12:44 PM [facility] Chloride 109 96 - 110 mmol/L LAB CHEMISTRY METHOD 07/13/2024 12:44 PM [facility] CO2 22 21 - 32 mmol/L LAB CHEMISTRY METHOD 07/13/2024 12:44 PM [facility] Anion Gap 10 3 - 11 LAB CHEMISTRY METHOD 07/13/2024 12:44 PM [facility] Glucose 60(L) 70 - 100 mg/dL LAB CHEMISTRY METHOD 07/13/2024 12:44 PM [facility] BUN 19 5 - 25 mg/dL LAB CHEMISTRY METHOD 07/13/2024 12:44 PM [facility] Creatinine 0.93 0.50 - 1.10 mg/dL LAB CHEMISTRY METHOD 07/13/2024 12:44 PM [facility] eGFR 62 >=60 mL/min/1. 73m2 LAB CHEMISTRY METHOD 07/13/2024 12:44 PM [facility] Comment:Calculation based on the??Chronic Kidney Disease Epidemiology Collaboration (CKD-EPI) equation refit??without adjustment for race. BUN/Creatinine Ratio 20.4 LAB CHEMISTRY METHOD 07/13/2024 12:44 PM [facility] Calcium 9.0 8.5 - 10.5 mg/dL LAB CHEMISTRY METHOD 07/13/2024 12:44 PM [facility] Blood Venous blood specimen / Unknown Venipuncture / Unknown 07/13/2024 6:42 AM EST 07/13/2024 11:00 AM EST us Gary Wall MD LAB BLOOD ORDERABLES Final Resul t [facility] [address] [place] [address], [place] [phone] * (ABNORMAL) Complete blood count (07/13/2024 6:42 AM EST) WBC 7.8 4.8 - 10.8 K/mcL LAB HEMETOLOGY METHOD 07/13/2024 11:34 AM [facility] RBC 4.00 3.80 - 4.80 M/mcL LAB HEMETOLOGY METHOD 07/13/2024 11:34 AM [facility] Hemoglobin 10.9(L) 11.5 - 16.0 g/dL LAB HEMETOLOGY METHOD 07/13/2024 11:34 AM [facility] Hematocrit 35.8 35.0 - 47.0 % LAB HEMETOLOGY METHOD 07/13/2024 11:34 AM [facility] MCV 89.3 79.0 - 98.0 FL LAB HEMETOLOGY METHOD 07/13/2024 11:34 AM [facility] MCH 27.2 27.0 - 32.0 pcg LAB HEMETOLOGY METHOD 07/13/2024 11:34 AM [facility] MCHC 30.4(L) 32.0 - 37.0 g/dL LAB HEMETOLOGY METHOD 07/13/2024 11:34 AM [facility] RDW 18.9(H) 11.0 - 15.0 % LAB HEMETOLOGY METHOD 07/13/2024 11:34 AM [facility] Platelets 195 130 - 400 K/mcL LAB HEMETOLOGY METHOD 07/13/2024 11:34 AM [facility] MPV 9.6 7.0 - 11.0 FL LAB HEMETOLOGY METHOD 07/13/2024 11:34 AM [facility] NRBC 0.0 <1.0 % LAB HEMETOLOGY METHOD 07/13/2024 11:34 AM [facility] NRBC Absolute 0.00 <0.10 K/mcL LAB HEMETOLOGY METHOD 07/13/2024 11:34 AM [facility] Blood Venous blood specimen / Unknown Venipuncture / Unknown 07/13/2024 6:42 AM EST 07/13/2024 11:00 AM EST us Gary Wall MD LAB BLOOD ORDERABLES Final Resul t [facility] ([facility]) [facility] [address] [place] [address], documented in this encounter Visit Diagnoses Diagnosis Type 2 diabetes mellitus without complications (CMS/HCC V24, CMS/HCC V28) documented in this encounter Additional Health Concerns Infection Onset Date Last Indicated Resolved Time Respiratory Rule-Out 07/30/2024 07/30/2024 025 1:29 PM EDT documented as of this encounter Care Teams Bath Design Sales Consultant Relationship Specialty Start Date End Date Seng Meneses MD [address] [place] [address] PCP - General Internal Medicine 02/16/12 documented as of this encounter
--- OUTSIDE RECORDS SUMMARY | 2024-09-26 10:58 | XMS_ITS | Encounter Summary ---
Author Organization [facility] Address [address] [place] [address] Care Team Providers Care Back Up Scan Coordinator Name Role Phone Seng Meneses MD Primary Care Provider [phone] Encounter Details Date Type Department Care Team (Late st Contact Info) Description 08/23/2024 Lab Requisition [facility] - Main Lab [address] [facility] [place] [address] Gary Wall MD [address] [place] [address] 204 [facility] [address] Type 2 diabetes mellitus without complications [...] Procedure Name Priority Date/Time Associated Diagnosis Comments COMPLETE BLOOD COUNT Routine 08/24/2024 6:00 AM EDT Type 2 diabetes mellitus without complications (CMS/HCC V24, CMS/HCC V28) BASIC METABOLIC PANEL Routine 08/24/2024 6:00 AM EDT Type 2 diabetes mellitus without complications (CMS/HCC V24, CMS/HCC V28) documented in this encounter Results * Basic metabolic panel (08/24/2024 6:00 AM EDT) Sodium 139 133 - 145 mmol/L LAB CHEMISTRY METHOD 08/24/2024 12:37 PM [facility] Potassium 4.1 3.5 - 5.5 mmol/L LAB CHEMISTRY METHOD 08/24/2024 12:37 PM [facility] Chloride 103 96 - 110 mmol/L LAB CHEMISTRY METHOD 08/24/2024 12:37 PM [facility] CO2 28 21 - 32 mmol/L LAB CHEMISTRY METHOD 08/24/2024 12:37 PM [facility] Anion Gap 8 3 - 11 LAB CHEMISTRY METHOD 08/24/2024 12:37 PM [facility] Glucose 79 70 - 100 mg/dL LAB CHEMISTRY METHOD 08/24/2024 12:37 PM [facility] BUN 20 5 - 25 mg/dL LAB CHEMISTRY METHOD 08/24/2024 12:37 PM [facility] Creatinine 0.87 0.50 - 1.10 mg/dL LAB CHEMISTRY METHOD 08/24/2024 12:37 PM [facility] eGFR 67 >=60 mL/min/1. 73m2 LAB CHEMISTRY METHOD 08/24/2024 12:37 PM [facility] Comment:Calculation based on the??Chronic Kidney Disease Epidemiology Collaboration (CKD-EPI) equation refit??without adjustment for race. BUN/Creatinine Ratio 23.0 LAB CHEMISTRY METHOD 08/24/2024 12:37 PM [facility] Calcium 8.8 8.5 - 10.5 mg/dL LAB CHEMISTRY METHOD 08/24/2024 12:37 PM [facility] Blood Venous blood specimen / Unknown Venipuncture / Unknown 08/24/2024 6:00 AM EDT 08/24/2024 11:15 AM EDT us Gary Wall MD LAB BLOOD ORDERABLES Final Resul t [facility] [address] [place] [address], * (ABNORMAL) Complete blood count (08/24/2024 6:00 AM EDT) WBC 8.2 4.8 - 10.8 K/mcL LAB HEMETOLOGY METHOD 08/24/2024 11:28 AM EDT [facility] RBC 4.00 3.80 - 4.80 M/mcL LAB HEMETOLOGY METHOD 08/24/2024 11:28 AM EDT [facility] Hemoglobin 10.8(L) 11.5 - 16.0 g/dL LAB HEMETOLOGY METHOD 08/24[facility]2024 11[facility] Hematocrit 35.1 35.0 - 47.0 % LAB HEMETOLOGY METHOD 08/24/2024 11:[facility] MCV 88.2 79.0 - 98.0 FL LAB HEMETOLOGY METHOD 08/24/2024 11:28 AM EDT [facility] MCH 27.1 27.0 - 32.0 pcg LAB HEMETOLOGY METHOD 08/24/2024 11:28 AM [facility] MCHC 30.8(L) 32.0 - 37.0 g/dL LAB HEMETOLOGY METHOD 08/24/2024 11:28 AM EDT [facility] RDW 18.4(H) 11.0 - 15.0 % LAB HEMETOLOGY METHOD 08/24/2024 11:28 AM EDT [facility] Platelets 223 130 - 400 K/mcL LAB HEMETOLOGY METHOD 08/24/2024 11:[facility] MPV 9.7 7.0 - 11.0 FL LAB HEMETOLOGY METHOD 08/24/2024 11:[facility] NRBC 0.0 <1.0 % LAB HEMETOLOGY METHOD 08/24/2024 11:28 AM EDT [facility] NRBC Absolute 0.00 <0.10 K/mcL LAB HEMETOLOGY METHOD 08/24/2024 11:28 AM EDT [facility] Blood Venous blood specimen / Unknown Venipuncture / Unknown 08/24/2024 6:00 AM EDT 08/24/2024 11:15 AM EDT us Gary Wall MD LAB BLOOD ORDERABLES Final Resul t [facility] [address] [place] [address], documented in this encounter Visit Diagnoses Diagnosis Type 2 diabetes mellitus without complications (CMS/HCC V24, CMS/HCC V28) documented in this encounter Care Teams Back Up Scan Coordinator Relationship Specialty Start Date End Date Seng Meneses MD [address] [place] [address] PCP - General Internal Medicine 02/16/12 documented as of this encounter
--- OUTSIDE RECORDS SUMMARY | 2024-09-26 10:58 | XMS_ITS | Encounter Summary ---
Author Organization [facility] Address [address] [place] [address] Care Team Providers Care Meat Counter Clerk Name Role Phone Seng Meneses MD Primary Care Provider [phone] Encounter Details Date Type Department Care Team (Late st Contact Info) Description 08/09/2024 Lab Requisition [facility] - Main Lab [address] [facility] [place] [address] Gary aWll MD [address] [place] [phone] Type 2 diabetes mellitus without complications [...] V28) documented in this encounter Care Teams Meat Counter Clerk Relationship Specialty Start Date End Date Seng Meneses MD [address] [place] [address] PCP - General Internal Medicine 02/16/12 documented as of this encounter
--- OUTSIDE RECORDS SUMMARY | 2024-09-26 10:58 | XMS_ITS | Encounter Summary ---
Author Organization [facility] Address [address] [place] [address] Care Team Providers Care Hot Mix Operator Name Role Phone Seng Meneses MD Primary Care Provider [phone] Encounter Details Date Type Department Care Team (Late st Contact Info) Description 09/13/2024 Lab Requisition [facility] - Main Lab 299 [facility] [place] [address] Gary Wall MD [address] [place] [phone] Unspecified atrial fibrillation (CMS/HCC V24, CMS/HCC V28); Essential (primary) hypertension; Type 2 diabetes mellitus without complications (CMS/HCC [...] Procedure Name Priority Date/Time Associated Diagnosis Comments LIPID PANEL WITH REFLEX TO DIRECT LDL Routine 09/14/2024 6:06 AM EDT Unspecified atrial fibrillation (CMS/HCC V24, CMS/HCC V28) Essential (primary) hypertension Type 2 diabetes mellitus without complications (CMS/HCC V24, CMS/HCC V28) MAGNESIUM Routine 09/14/2024 6:06 AM EDT Unspecified atrial fibrillation (CMS/HCC V24, CMS/HCC V28) Essential (primary) hypertension Type 2 diabetes mellitus without complications (CMS/HCC V24, CMS/HCC V28) COMPREHENSIVE METABOLIC PANEL Routine 09/14/2024 6:06 AM EDT Unspecified atrial fibrillation ([facility]/HCC V24, CMS/HCC V28) Essential (primary) hypertension Type 2 diabetes mellitus without complications (CMS/HCC V24, CMS/HCC V28) COMPLETE BLOOD COUNT Routine 09/14/2024 6:00 AM EDT Unspecified atrial fibrillation (CMS/HCC V24, [facility] V28) Essential (primary) hypertension Type 2 diabetes mellitus without complications (CMS/HCC V24, CMS/HCC V28) HEMOGLOBIN A1C Routine 09/14/2024 6:00 AM EDT Unspecified atrial fibrillation ([facility]/HCC V24, [facility] V28) Essential (primary) hypertension Type 2 diabetes mellitus without complications (CMS/HCC V24, CMS/HCC V28) documented in this encounter Results * Magnesium (09/14/2024 6:06 AM EDT) Pathologist [facility] Magnesium 2.0 1.9 - 2.6 mg/dL LAB CHEMISTRY METHOD 09/14/2024 11:[address] [facility] Blood Venous blood specimen / Unknown Venipuncture / Unknown 09/14/2024 6:06 AM EDT 09/14/2024 11:20 AM EDT us Gary Wall MD LAB BLOOD ORDERABLES Final Resul t [facility] [address] [place] [address], [place] [phone] * Lipid panel with reflex to direct LDL (09/14/2024 6:06 AM EDT) Cholesterol 178 0 - 200 mg/dL LAB CHEMISTRY METHOD 09/14/2024 11:[address] [facility] Triglycerides 61 0 - 150 mg/dL LAB CHEMISTRY METHOD 09/14/2024 11:[address] [facility] HDL 67 >=40 mg/dL LAB CHEMISTRY METHOD 09/14/2024 11:[address] [facility] LDL Calculated 99 0 - 100 mg/dL LAB CHEMISTRY METHOD 09/14/2024 11:[address] [facility] VLDL Cholesterol Eugene 12.2 mg/dL LAB CHEMISTRY METHOD 09/14/2024 11:[address] [facility] Non HDL Chol. (LDL+VLDL) 111 <145 mg/dL LAB CHEMISTRY METHOD 09/14/2024 11:26 AM [facility] Chol/HDL Ratio 2.7 0.0 - 4.4 LAB CHEMISTRY METHOD 09/14/2024 11:26 AM [facility] Blood Venous blood specimen / Unknown Venipuncture / Unknown 09/14/2024 6:06 AM EDT 09/14/2024 11:20 AM EDT us Gary Wall MD LAB BLOOD ORDERABLES Final Resul t [facility] [address] [place] [address], * (ABNORMAL) Comprehensive metabolic panel (09/14/2024 6:06 AM EDT) Sodium 141 133 - 145 mmol/L LAB CHEMISTRY METHOD 09/14/2024 11:[address] [facility] Potassium 4.0 3.5 - 5.5 mmol/L LAB CHEMISTRY METHOD 09/14/2024 11:26 AM [facility] Chloride 107 96 - 110 mmol/L LAB CHEMISTRY METHOD 09/14/2024 11:26 AM [facility] CO2 27 21 - 32 mmol/L LAB CHEMISTRY METHOD 09/14/2024 11:26 AM [facility] Anion Gap 7 3 - 11 LAB CHEMISTRY METHOD 09/14/2024 11:26 AM [facility] Glucose 64(L) 70 - 100 mg/dL LAB CHEMISTRY METHOD 09/14/2024 11:26 AM [facility] BUN 20 5 - 25 mg/dL LAB CHEMISTRY METHOD 09/14/2024 11:26 AM [facility] Creatinine 0.78 0.50 - 1.10 mg/dL LAB CHEMISTRY METHOD 09/14/2024 11:26 AM [facility] eGFR 77 >=60 mL/min/1. 73m2 LAB CHEMISTRY METHOD 09/14/2024 11:26 AM [facility] Comment:Calculation based on the Chronic Kidney Disease Epidemiology Collaboration (CKD-EPI) equation refit without adjustment for race. BUN/Creatinine Ratio 25.6 LAB CHEMISTRY METHOD 09/14/2024 11:26 AM [facility] Calcium 8.2(L) 8.5 - 10.5 mg/dL LAB CHEMISTRY METHOD 09/14/2024 11:26 AM [facility] AST (SGOT) 17 10 - 42 unit/L LAB CHEMISTRY METHOD 09/14/2024 11:26 AM [facility] ALT (SGPT) 15 10 - 60 unit/L LAB CHEMISTRY METHOD 09/14/2024 11:26 AM [facility] Alkaline Phosphatase 73 42 - 121 unit/L LAB CHEMISTRY METHOD 09/14/2024 11:26 AM [facility] Total Protein 5.9(L) 6.0 - 8.0 g/dL LAB CHEMISTRY METHOD 09/14/2024 11:26 AM [facility] Albumin 2.7(L) 3.2 - 5.0 g/dL LAB CHEMISTRY METHOD 09/14/2024 11:26 AM [facility] Total Bilirubin 0.5 0.0 - 1.4 mg/dL LAB CHEMISTRY METHOD 09/14/2024 11:[address] [facility] Blood Venous blood specimen / Unknown Venipuncture / Unknown 09/14/2024 6:06 AM EDT 09/14/2024 11:20 AM EDT Gary Wall MD LAB BLOOD ORDERABLES Final Resul t Performing Organization Address [facility] Co de Phone Number [facility] [address] [place] [address], [place] [phone] * Hemoglobin A1c (09/14/2024 6:00 AM EDT) Hemoglobin A1C 5.9 <6.5 % LAB CHEMISTRY METHOD 09/14/2024 12:[address] [facility] Mean Bld Glu Estim. 123 mg/dL LAB CHEMISTRY METHOD 09/14/2024 12:[address] [facility] Blood Venous blood specimen / Unknown Venipuncture / Unknown 09/14/2024 6:00 AM EDT 09/14/2024 10:30 AM EDT Gary Wall MD LAB BLOOD ORDERABLES Final Resul t Performing Organization Address [facility] de Phone Number [facility] [address] [place] [address], [place] [phone] * (ABNORMAL) Complete blood count (09/14/2024 6:00 AM EDT) WBC 7.4 4.8 - 10.8 K/[facility] LAB HEMETOLOGY METHOD 09/14/2024 11:[address] [facility] RBC 4.10 3.80 - 4.80 M/mcL LAB HEMETOLOGY METHOD 09/14/2024 11:[address] [facility] Hemoglobin 10.9(L) 11.5 - 16.0 g/dL LAB HEMETOLOGY METHOD 09/14/2024 11:[address] [facility] Hematocrit 35.4 35.0 - 47.0 % LAB HEMETOLOGY METHOD 09/14/2024 11:01 AM [facility] MCV 87.4 79.0 - 98.0 FL LAB HEMETOLOGY METHOD 09/14/2024 11:[address] [facility] MCH 26.9(L) 27.0 - 32.0 pcg LAB HEMETOLOGY METHOD 09/14/2024 11:[address] [facility] MCHC 30.8(L) 32.0 - 37.0 g/dL LAB HEMETOLOGY METHOD 09/14/2024 11:01 AM [facility] RDW 18.9(H) 11.0 - 15.0 % LAB HEMETOLOGY METHOD [facility]/14[facility]24 [facility] Plate[facility] 179 130 - 400 K/mcL LAB HEMETOLOGY METHOD 09/14/2024 11:01 AM [facility] MPV 10.4 7.0 - 11.0 FL LAB HEMETOLOGY METHOD 09/14/2024 11:01 AM [facility] NRBC 0.0 <1.0 % LAB HEMETOLOGY METHOD 09/14/2024 [facility] NRBC Absolute 0.00 <0.10 K/mcL LAB HEMETOLOGY METHOD 09/14/2024 11:01 AM [facility] Blood Venous blood specimen / Unknown Venipuncture / Unknown 09/14/2024 6:00 AM EDT 09/14/2024 10:30 AM EDT us Gary Wall MD LAB BLOOD ORDERABLES Final Resul t [facility] [address] [place] [address], documented in this encounter Visit Diagnoses Diagnosis Unspecified atrial fibrillation ([facility] V24, [facility] V28) Essential (primary) hypertension Unspecified essential hypertension Type 2 diabetes mellitus without complications ([facility] V24, [facility] V28) documented in this encounter Care Teams Hot Mix Operator Relationship Specialty Start Date End Date Seng Meneses MD [address] [place] [address] PCP - General Internal Medicine 02/16/12 documented as of this encounter
--- OUTSIDE RECORDS SUMMARY | 2024-09-26 10:58 | XMS_ITS | Encounter Summary ---
Author Organization [facility] Address [address] [place] [address] Care Team Providers Care Professor Of Business Administration Name Role Phone Seng Meneses MD Primary Care Provider [phone] Encounter Details Date Type Department Care Team (Late st Contact Info) Description 06/04/2024 Lab Requisition [facility] - Main Lab 299 [facility] [place] [address] Gary Wall MD [address] [place] [address] [address] [facility] [phone] Osteomyelitis, unspecified (CMS/HCC V24, CMS/HCC V28) Social History Tobacco [...] CBC auto differential (06/06/2024 8:01 AM EST) [facility] WBC 8.8 4.8 - 10.8 K/mcL LAB HEMETOLOGY METHOD 06/06/2024 1:19 PM [facility] RBC 4.00 3.80 - 4.80 M/mcL LAB HEMETOLOGY METHOD 06/06/2024 1:19 PM [facility] Hemoglobin 10.8(L) 11.5 - 16.0 g/dL LAB HEMETOLOGY METHOD 06/06/2024 1:19 PM [facility] Hematocrit 34.9(L) 35.0 - 47.0 % LAB HEMETOLOGY METHOD 06/06/2024 1:19 PM [facility] MCV 88.4 79.0 - 98.0 FL LAB HEMETOLOGY METHOD 06/06/2024 1:19 PM [facility] MCH 27.3 27.0 - 32.0 pcg LAB HEMETOLOGY METHOD 06/06/2024 1:19 PM [facility] MCHC 30.9(L) 32.0 - 37.0 g/dL LAB HEMETOLOGY METHOD 06/06/2024 1:19 PM [facility] RDW 18.2(H) 11.0 - 15.0 % LAB HEMETOLOGY METHOD 06/06/2024 1:19 PM [facility] Platelets 200 130 - 400 K/mcL LAB HEMETOLOGY METHOD 06/06/2024 1:19 PM [facility] MPV 9.9 7.0 - 11.0 FL LAB HEMETOLOGY METHOD 06/06/2024 1:19 PM [facility] NRBC 0.0 <1.0 % LAB HEMETOLOGY METHOD 06/06/2024 1:19 PM [facility] NRBC Absolute 0.00 <0.10 K/mcL LAB HEMETOLOGY METHOD 06/06/2024 1:19 PM [facility] Neutrophils Relative 61.6 % LAB HEMETOLOGY METHOD 06/06/2024 1:19 PM [facility] Lymphocytes Relative 31.4 % LAB HEMETOLOGY METHOD 06/06/2024 1:19 PM [facility] Monocytes Relative 5.7 % LAB HEMETOLOGY METHOD 06/06/2024 1:19 PM [facility] Eosinophils Relative 0.6 % LAB HEMETOLOGY METHOD 06/06/2024 1:19 PM [facility] Basophils Relative 0.5 % LAB HEMETOLOGY METHOD 06/06/2024 1:19 PM [facility] Immature Granulocytes Relative 0.2 % LAB HEMETOLOGY METHOD 06/06/2024 1:19 PM [facility] Neutrophils Absolute 5.42 1.50 - 7.00 K/mcL LAB HEMETOLOGY METHOD 06/06/2024 1:19 PM [facility] Lymphocytes Absolute 2.76 1.00 - 5.00 K/mcL LAB HEMETOLOGY METHOD 06/06/2024 1:19 PM [facility] Monocytes Absolute 0.50 0.20 - 1.00 K/mcL LAB HEMETOLOGY METHOD 06/06/2024 1:19 PM [facility] Eosinophils Absolute 0.05 0.00 - 0.50 K/mcL LAB HEMETOLOGY METHOD 06/06/2024 1:19 PM [facility] Basophils Absolute 0.04 0.00 - 0.20 K/[facility] LAB HEMETOLOGY METHOD 06/06/2024 1:19 PM EST [facility] Immature Granulocytes Absolute 0.02 0.00 - 0.03 K/[facility] LAB HEMETOLOGY METHOD 06/06/2024 1:19 PM EST [facility] Blood Venous blood specimen / Unknown Venipuncture / Unknown 06/06/2024 8:01 AM EST 06/06/2024 12:17 PM EST us Gary Wall MD LAB BLOOD ORDERABLES Final Resul t Performing Organization Address [facility]/ZIP Co de Phone Number [facility] [address] [place] [address], [place] [phone] * C-reactive protein (06/06/2024 8:01 AM EST) C-Reactive Protein 0.41 <=0.50 mg/dL LAB CHEMISTRY METHOD 06/06/2024 2:39 PM EST [facility] Blood Venous blood specimen / Unknown Venipuncture / Unknown 06/06/2024 8:01 AM EST 06/06/2024 12:06 PM EST us Gary Wall MD LAB BLOOD ORDERABLES Final Resul t [facility] [address] [place] [address], [place] [phone] * (ABNORMAL) Sedimentation rate (06/06/2024 8:01 AM EST) Sed Rate 48(H) 0 - 30 mm/hr LAB HEMETOLOGY METHOD 06/06/2024 12:25 PM EST [facility] Blood Venous blood specimen / Unknown Venipuncture / Unknown 06/06/2024 8:01 AM EST 06/06/2024 12:17 PM EST us Gary Wall MD LAB BLOOD ORDERABLES Final Resul t Performing Organization Address [facility]/ZIP Co de Phone Number [facility] [address] [place] [address], [place] [phone] * Creatine kinase (06/06/2024 8:01 AM EST) Pathologist [facility] Total CK 57 22 - 269 unit/L LAB CHEMISTRY METHOD 06/06/2024 2:39 PM [facility] Blood Venous blood specimen / Unknown Venipuncture / Unknown 06/06/2024 8:01 AM EST 06/06/2024 12:06 PM EST Gary Wall MD LAB BLOOD ORDERABLES Final Resul t Performing Organization Address [facility] Co de Phone Number [facility] [address] [place] [address], [place] [phone] * (ABNORMAL) Basic metabolic panel (06/06/2024 8:01 AM EST) [facility] Sodium 139 133 - 145 mmol/L LAB CHEMISTRY METHOD 06/06/2024 2:45 PM [facility] Potassium 4.6 3.5 - 5.5 mmol/L LAB CHEMISTRY METHOD 06/06/2024 2:45 PM [facility] Chloride 105 96 - 110 mmol/L LAB CHEMISTRY METHOD 06/06/2024 2:45 PM [facility] CO2 32 21 - 32 mmol/L LAB CHEMISTRY METHOD 06/06/2024 2:45 PM [facility] Anion Gap 2(L) 3 - 11 LAB CHEMISTRY METHOD 06/06/2024 2:45 PM [facility] Glucose 85 70 - 100 mg/dL LAB CHEMISTRY METHOD 06/06/2024 2:45 PM [facility] BUN 16 5 - 25 mg/dL LAB CHEMISTRY METHOD 06/06/2024 2:45 PM EST [facility] Creatinine 0.76 0.50 - 1.10 mg/dL LAB CHEMISTRY METHOD 06/06/2024 2:45 PM EST [facility] eGFR 80 >=60 mL/min/1. 73m2 LAB CHEMISTRY METHOD 06/06/2024 2:45 PM [facility] Comment:Calculation based on the??Chronic Kidney Disease Epidemiology Collaboration (CKD-EPI) equation refit??without adjustment for race. BUN/Creatinine Ratio 21.1 LAB CHEMISTRY METHOD 06/06/2024 2:45 PM [facility] Calcium 8.3(L) 8.5 - 10.5 mg/dL LAB CHEMISTRY METHOD 06/06/2024 2:45 PM [facility] Blood Venous blood specimen / Unknown Venipuncture / Unknown 06/06/2024 8:01 AM EST 06/06/2024 12:06 PM EST us Gary Wall MD LAB BLOOD ORDERABLES Final Resul t [facility] [address] [place] [address], documented in this encounter Visit Diagnoses Diagnosis Osteomyelitis, unspecified (CMS/HCC V24, CMS/HCC V28) documented in this encounter Additional Health Concerns Infection Onset Date Last Indicated Resolved Time Respiratory Rule-Out 07/30/2024 07/30/2024 025 1:29 PM EDT documented as of this encounter Care Teams Professor Of Business Administration Relationship Specialty Start Date End Date Seng Meneses MD [address] [place] [address] PCP - General Internal Medicine 02/16/12 documented as of this encounter
--- OUTSIDE RECORDS SUMMARY | 2024-09-26 10:58 | XMS_ITS | Encounter Summary ---
Author Organization [facility] Address [address] [place] [address] Care Team Providers Care Telephone Cleaner Name Role Phone Seng Meneses MD Primary Care Provider [phone] Encounter Details Date Type Department Care Team (Late st Contact Info) Description 08/01/2024 Lab Requisition [facility] - Main Lab 299 [facility] [place] [address] Gary Wall MD [address] [place] [address] [facility] [phone] Shortness of breath Social History Tobacco Use Types Packs/Day Years [...] Diagnosis Comments CBC WITH AUTO DIFFERENTIAL Routine 08/02/2024 7:00 AM EDT Shortness of breath CBC AND DIFFERENTIAL Routine 08/02/2024 7:00 AM EDT Shortness of breath BASIC METABOLIC PANEL Routine 08/02/2024 7:00 AM EDT Shortness of breath documented in this encounter Results * (ABNORMAL) CBC auto differential (08/02/2024 7:00 AM EDT) WBC 8.3 4.8 - 10.8 K/mcL LAB HEMETOLOGY METHOD 08/02/2024 8:59 AM [facility] RBC 4.00 3.80 - 4.80 M/mcL LAB HEMETOLOGY METHOD 08/02/2024 8:59 AM [facility] Hemoglobin 11.0(L) 11.5 - 16.0 g/dL LAB HEMETOLOGY METHOD 08/02/2024 8:59 AM [facility] Hematocrit 34.9(L) 35.0 - 47.0 % LAB HEMETOLOGY METHOD 08/02/2024 8:59 AM [facility] MCV 86.8 79.0 - 98.0 FL LAB HEMETOLOGY METHOD 08/02/2024 8:59 AM [facility] MCH 27.4 27.0 - 32.0 pcg LAB HEMETOLOGY METHOD 08/02/2024 8:59 AM [facility] MCHC 31.5(L) 32.0 - 37.0 g/dL LAB HEMETOLOGY METHOD 08/02/2024 8:59 AM [facility] RDW 17.9(H) 11.0 - 15.0 % LAB HEMETOLOGY METHOD 08/02/2024 8:59 AM [facility] Platelets 207 130 - 400 K/mcL LAB HEMETOLOGY METHOD 08/02/2024 8:59 AM [facility] MPV 9.5 7.0 - 11.0 FL LAB HEMETOLOGY METHOD 08/02/2024 8:59 AM [facility] NRBC 0.0 <1.0 % LAB HEMETOLOGY METHOD 08/02/2024 8:59 AM [facility] NRBC Absolute 0.00 <0.10 K/mcL LAB HEMETOLOGY METHOD 08/02/2024 8:[facility] Neutrophils Relative 63.4 % LAB HEMETOLOGY METHOD 08/02/2024 8:59 AM [facility] Lymphocytes Relative 29.3 % LAB HEMETOLOGY METHOD 08/02/2024 8:59 AM [facility] Monocytes Relative 5.8 % LAB HEMETOLOGY METHOD 08/02/2024 8:59 AM [facility] Eosinophils Relative 0.6 % LAB HEMETOLOGY METHOD 08/02/2024 8:59 AM [facility] Basophils Relative 0.4 % LAB HEMETOLOGY METHOD 08/02/2024 8:59 AM [facility] Immature Granulocytes Relative 0.5 % LAB HEMETOLOGY METHOD 08/02/2024 8:59 AM [facility] Neutrophils Absolute 5.29 1.50 - 7.00 K/mcL LAB HEMETOLOGY METHOD 08/02/2024 8:59 AM [facility] Lymphocytes Absolute 2.44 1.00 - 5.00 K/mcL LAB HEMETOLOGY METHOD 08/02/2024 8:59 AM [facility] Monocytes Absolute 0.48 0.20 - 1.00 K/mcL LAB HEMETOLOGY METHOD 08/02/2024 8:59 AM [facility] Eosinophils Absolute 0.05 0.00 - 0.50 K/mcL LAB HEMETOLOGY METHOD 08/02/2024 8:59 AM [facility] Basophils Absolute 0.03 0.00 - 0.20 K/mcL LAB HEMETOLOGY METHOD 08/02/2024 8:59 AM [facility] Immature Granulocytes Absolute 0.04(H) 0.00 - 0.03 K/mcL LAB HEMETOLOGY METHOD 08/02/2024 8:59 AM [facility] Blood Venous blood specimen / Unknown Venipuncture / Unknown 08/02/2024 7:00 AM EDT 08/02/2024 8:48 AM EDT us Gary Wall MD LAB BLOOD ORDERABLES Final Resul t [facility] [address] [place] [address], [place] [phone] * Basic metabolic panel (08/02/2024 7:00 AM EDT) Sodium 141 133 - 145 mmol/L LAB CHEMISTRY METHOD 08/02/2024 9:20 AM [facility] Potassium 4.4 3.5 - 5.5 mmol/L LAB CHEMISTRY METHOD 08/02/2024 9:20 AM [facility] Chloride 105 96 - 110 mmol/L LAB CHEMISTRY METHOD 08/02/2024 9:20 AM [facility] CO2 30 21 - 32 mmol/L LAB CHEMISTRY METHOD 08/02/2024 9:20 AM [facility] Anion Gap 6 3 - 11 LAB CHEMISTRY METHOD 08/02/2024 9:20 AM [facility] Glucose 83 70 - 100 mg/dL LAB CHEMISTRY METHOD 08/02/2024 9:20 AM [facility] BUN 21 5 - 25 mg/dL LAB CHEMISTRY METHOD 08/02/2024 9:20 AM [facility] Creatinine 0.90 0.50 - 1.10 mg/dL LAB CHEMISTRY METHOD 08/02/2024 9:20 AM [facility] eGFR 65 >=60 mL/min/1. 73m2 LAB CHEMISTRY METHOD 08/02/2024 9:20 AM [facility] Comment:Calculation based on the??Chronic Kidney Disease Epidemiology Collaboration (CKD-EPI) equation refit??without adjustment for race. BUN/Creatinine Ratio 23.3 LAB CHEMISTRY METHOD 08/02/2024 9:20 AM EDT [facility] Calcium 9.2 8.5 - 10.5 mg/dL LAB CHEMISTRY METHOD 08/02/2024 9:20 AM EDT [facility] Blood Venous blood specimen / Unknown Venipuncture / Unknown 08/02/2024 7:00 AM EDT 08/02/2024 8:48 AM EDT us Gary Wall MD LAB BLOOD ORDERABLES Final Resul t [facility] [address] [place] [address], documented in this encounter Visit Diagnoses Diagnosis Shortness of breath documented in this encounter Care Teams Telephone Cleaner Relationship Specialty Start Date End Date Seng Meneses MD [address] [place] [address] PCP - General Internal Medicine 02/16/12 documented as of this encounter
--- OUTSIDE RECORDS SUMMARY | 2024-09-26 10:58 | XMS_ITS | Encounter Summary ---
Author Organization [facility] Address [address] [place] [address] Care Team Providers Care Chief Lock Operator Name Role Phone Seng Meneses MD Primary Care Provider [phone] Encounter Details Date Type Department Care Team (Late st Contact Info) Description 07/05/[address] [facility] - Main Lab 299 [facility] [place] [address] Gary Wall MD [address] [place] [address] 204 [facility] [phone] Type 2 diabetes mellitus without complications [...] Date/Time Associated Diagnosis Comments SEDIMENTATION RATE Routine 07/06/2024 5: 14 AM EST Type 2 diabetes mellitus without complications (CMS/HCC) COMPLETE BLOOD COUNT Routine 07/06/2024 5:14 AM EST Type 2 diabetes mellitus without complications (CMS/HCC) C-REACTIVE PROTEIN Routine 07/06/2024 5: 14 AM EST Type 2 diabetes mellitus without complications (CMS/HCC) BASIC METABOLIC PANEL Routine 07/06/2024 5:14 AM EST Type 2 diabetes mellitus without complications (CMS/HCC) documented in this encounter Results * C-reactive protein (07/06/2024 5:14 AM EST) [facility] C-Reactive Protein <0.29 <=0.50 mg/dL LAB CHEMISTRY METHOD 07/06/2024 10:54 AM EST [facility] Blood Venous blood specimen / Unknown Venipuncture / Unknown 07/06/2024 5:14 AM EST 07/06/2024 9:56 AM EST Gary Wall MD LAB BLOOD ORDERABLES Final Resul t Performing Organization Address [facility]/ZIP Co de Phone Number [facility] [address] [place] [address], [place] [phone] * (ABNORMAL) Sedimentation rate (07/06/2024 5:14 AM EST) [facility] Sed Rate 55(H) 0 - 30 mm/hr LAB HEMETOLOGY METHOD 07/06/2024 11:42 AM EST [facility] Blood Venous blood specimen / Unknown Venipuncture / Unknown 07/06/2024 5:14 AM EST 07/06/2024 9:56 AM EST Gary Wall MD LAB BLOOD ORDERABLES Final Resul t Performing Organization Address City/[facility]/ZIP Co de Phone Number [facility] [address] [place] [address], [place] [phone] * Basic metabolic panel (07/06/2024 5:14 AM EST) [facility] Sodium 143 133 - 145 mmol/L LAB CHEMISTRY METHOD 07/06/2024 10:49 AM EST [facility] Potassium 4.4 3.5 - 5.5 mmol/L LAB CHEMISTRY METHOD 07/06/2024 10:49 AM EST [facility] Chloride 107 96 - 110 mmol/L LAB CHEMISTRY METHOD 07/06/2024 10:49 AM [facility] CO2 27 21 - 32 mmol/L LAB CHEMISTRY METHOD 07/06/2024 10:49 AM [facility] Anion Gap 9 3 - 11 LAB CHEMISTRY METHOD 07/06/2024 10:49 AM [facility] Glucose 86 70 - 100 mg/dL LAB CHEMISTRY METHOD 07/06/2024 10:49 AM [facility] BUN 17 5 - 25 mg/dL LAB CHEMISTRY METHOD 07/06/2024 10:49 AM [facility] Creatinine 0.92 0.50 - 1.10 mg/dL LAB CHEMISTRY METHOD 07/06/2024 10:49 AM [facility] eGFR 63 >=60 mL/min/1. 73m2 LAB CHEMISTRY METHOD 07/06/2024 10:49 AM [facility] Comment:Calculation based on the??Chronic Kidney Disease Epidemiology Collaboration (CKD-EPI) equation refit??without adjustment for race. BUN/Creatinine Ratio 18.5 LAB CHEMISTRY METHOD 07/06/2024 10:49 AM [facility] Calcium 9.0 8.5 - 10.5 mg/dL LAB CHEMISTRY METHOD 07/06/2024 10:49 AM [facility] Blood Venous blood specimen / Unknown Venipuncture / Unknown 07/06/2024 5:14 AM EST 07/06/2024 9:56 AM EST us Gary Wall MD LAB BLOOD ORDERABLES Final Resul t [facility] [address] [place] [address], * (ABNORMAL) Complete blood count (07/06/2024 5:14 AM EST) WBC 8.1 4.8 - 10.8 K/mcL LAB HEMETOLOGY METHOD 07/06/2024 11:10 AM [facility] RBC 3.90 3.80 - 4.80 M/mcL LAB HEMETOLOGY METHOD 07/06/2024 11:10 AM [facility] Hemoglobin 10.6(L) 11.5 - 16.0 g/dL LAB HEMETOLOGY METHOD 07/06/2024 11:10 AM [facility] Hematocrit 36.0 35.0 - 47.0 % LAB HEMETOLOGY METHOD 07/06/2024 11:10 AM [facility] MCV 92.5 79.0 - 98.0 FL LAB HEMETOLOGY METHOD 07/06/2024 11:10 AM [facility] MCH 27.2 27.0 - 32.0 pcg LAB HEMETOLOGY METHOD 07/06/2024 11:10 AM [facility] MCHC 29.4(L) 32.0 - 37.0 g/dL LAB HEMETOLOGY METHOD 07/06/2024 11:10 AM [facility] RDW 18.9(H) 11.0 - 15.0 % LAB HEMETOLOGY METHOD 07/06/2024 11:10 AM [facility] Platelets 267 130 - 400 K/mcL LAB HEMETOLOGY METHOD 07/06/2024 11:10 AM [facility] MPV 9.6 7.0 - 11.0 FL LAB HEMETOLOGY METHOD 07/06/2024 11:10 AM [facility] NRBC 0.0 <1.0 % LAB HEMETOLOGY METHOD 07/06/2024 11:10 AM [facility] NRBC Absolute 0.00 <0.10 K/mcL LAB HEMETOLOGY METHOD 07/06/2024 11:10 AM [facility] Blood Venous blood specimen / Unknown Venipuncture / Unknown 07/06/2024 5:14 AM EST 07/06/2024 9:56 AM EST us Gary Wall MD LAB BLOOD ORDERABLES Final Resul t [facility] ([facility]) [facility] [address] [place] [address], documented in this encounter Visit Diagnoses Diagnosis Type 2 diabetes mellitus without complications (CMS/HCC V24, CMS/HCC V28) documented in this encounter Additional Health Concerns Infection Onset Date Last Indicated Resolved Time Respiratory Rule-Out 07/30/2024 07/30/2024 025 1:29 PM EDT documented as of this encounter Care Teams Chief Lock Operator Relationship Specialty Start Date End Date Seng Meneses MD [address] [place] [address] PCP - General Internal Medicine 02/16/12 documented as of this encounter
--- OUTSIDE RECORDS SUMMARY | 2024-09-26 10:58 | XMS_ITS | Encounter Summary ---
Author Organization [facility] Address [address] [place] [address] Care Team Providers Care Wire Stockkeeper Name Role Phone Seng Meneses MD Primary Care Provider [phone] Encounter Details Date Type Department Care Team (Late st Contact Info) Description 09/09/2024 Lab Requisition [facility] - Main Lab 299 [facility] [place] [address] Gary Wall MD [address] [place] [phone] Essential (primary) hypertension; Type 2 diabetes mellitus [...] Procedure Name Priority Date/Time Associated Diagnosis Comments IRON AND TIBC Routine 09/09/2024 7:00 AM EDT Essential (primary) hypertension Type 2 diabetes mellitus without complications (CMS/HCC V24, CMS/HCC V28) COMPLETE BLOOD COUNT Routine 09/09/2024 7:00 AM EDT Essential (primary) hypertension Type 2 diabetes mellitus without complications (CMS/HCC V24, CMS/HCC V28) FERRITIN Routine 09/09/2024 7:00 AM EDT Essential (primary) hypertension Type 2 diabetes mellitus without complications (CMS/HCC V24, CMS/HCC V28) BASIC METABOLIC PANEL Routine 09/09/2024 7:00 AM EDT Essential (primary) hypertension Type 2 diabetes mellitus without complications (CMS/HCC V24, CMS/HCC V28) documented in this encounter Results * Ferritin (09/09/2024 7:00 AM EDT) Ferritin 30 8 - 252 ng/mL LAB CHEMISTRY METHOD 09/09/2024 12:14 PM EDT [facility] Blood Venous blood specimen / Unknown Venipuncture / Unknown 09/09/2024 7:00 AM EDT 09/09/2024 10:18 AM EDT us Gary Wall MD LAB BLOOD ORDERABLES Final Resul t Performing Organization Address City/[facility] Co de Phone Number [facility] [address] [place] [address], [place] [phone] * (ABNORMAL) Iron and TIBC (09/09/2024 7:00 AM EDT) [facility] Iron 43 40 - 150 mcg/dL LAB CHEMISTRY METHOD 09/09/2024 12:13 PM EDT [facility] TIBC 299 250 - 450 mcg/dL LAB CHEMISTRY METHOD 09/09/2024 12:13 PM EDT [facility] Iron Saturation 14(L) 15 - 50 % LAB CHEMISTRY METHOD 09/09/2024 12:13 PM EDT [facility] Blood Venous blood specimen / Unknown Venipuncture / Unknown 09/09/2024 7:00 AM EDT 09/09/2024 10:18 AM EDT us Gary Wall MD LAB BLOOD ORDERABLES Final Resul t Performing Organization Address City/[facility]/ZIP Co de Phone Number [facility] [address] [place] [address], [place] [phone] * (ABNORMAL) Basic metabolic panel (09/09/2024 7:00 AM EDT) Sodium 139 133 - 145 mmol/L LAB CHEMISTRY METHOD 09/09/2024 12:13 PM [facility] Potassium 4.2 3.5 - 5.5 mmol/L LAB CHEMISTRY METHOD 09/09/2024 12:13 PM [facility] Chloride 103 96 - 110 mmol/L LAB CHEMISTRY METHOD 09/09/2024 12:13 PM [facility] CO2 27 21 - 32 mmol/L LAB CHEMISTRY METHOD 09/09/2024 12:13 PM [facility] Anion Gap 9 3 - 11 LAB CHEMISTRY METHOD 09/09/2024 12:13 PM [facility] Glucose 68(L) 70 - 100 mg/dL LAB CHEMISTRY METHOD 09/09/2024 12:13 PM [facility] BUN 24 5 - 25 mg/dL LAB CHEMISTRY METHOD 09/09/2024 12:13 PM [facility] Creatinine 0.84 0.50 - 1.10 mg/dL LAB CHEMISTRY METHOD 09/09/2024 12:13 PM [facility] eGFR 70 >=60 mL/min/1. 73m2 LAB CHEMISTRY METHOD 09/09/2024 12:13 PM [facility] Comment:Calculation based on the??Chronic Kidney Disease Epidemiology Collaboration (CKD-EPI) equation refit??without adjustment for race. BUN/Creatinine Ratio 28.6 LAB CHEMISTRY METHOD 09/09/2024 12:13 PM [facility] Calcium 8.6 8.5 - 10.5 mg/dL LAB CHEMISTRY METHOD 09/09/2024 12:13 PM [facility] Blood Venous blood specimen / Unknown Venipuncture / Unknown 09/09/2024 7:00 AM EDT 09/09/2024 10:18 AM EDT us Gary Wall MD LAB BLOOD ORDERABLES Final Resul t [facility] [address] [place] [address], * (ABNORMAL) Complete blood count (09/09/2024 7:00 AM EDT) [facility] WBC 7.7 4.8 - 10.8 K/mcL LAB HEMETOLOGY METHOD 09/09/2024 11:30 AM EDT [facility] RBC 4.00 3.80 - 4.80 M/mcL LAB HEMETOLOGY METHOD 09/09/2024 11:30 AM EDT [facility] Hemoglobin 10.9(L) 11.5 - 16.0 g/dL LAB HEMETOLOGY METHOD 09/09/2024 11:30 AM EDT [facility] Hematocrit 34.9(L) 35.0 - 47.0 % LAB HEMETOLOGY METHOD 09/09/2024 11:30 AM EDT [facility] MCV 87.3 79.0 - 98.0 FL LAB HEMETOLOGY METHOD 09/09/2024 11:30 AM EDT [facility] MCH 27.3 27.0 - 32.0 pcg LAB HEMETOLOGY METHOD 09/09/2024 11:30 AM EDT [facility] MCHC 31.2(L) 32.0 - 37.0 g/dL LAB HEMETOLOGY METHOD 09/09/2024 11:[facility] RDW 18.5(H) 11.0 - 15.0 % LAB HEMETOLOGY METHOD 09/09/2024 11:30 [facility] Platelets 197 130 - 400 K/mcL LAB HEMETOLOGY METHOD 09/09/2024 11:30 AM EDT [facility] MPV 10.6 7.0 - 11.0 FL LAB HEMETOLOGY METHOD 09/09/2024 11:30 AM EDT [facility] NRBC 0.0 <1.0 % [facility] 09/09/2024 11:30 AM EDT [facility] NRBC Absolute 0.00 <0.10 K/mcL LAB HEMETOLOGY METHOD 09/09/2024 11:30 AM EDT [facility] Blood Venous blood specimen / Unknown Venipuncture / Unknown 09/09/2024 7:00 AM EDT 09/09/2024 10:18 AM EDT us Gary Wall MD LAB BLOOD ORDERABLES Final Resul t [facility] [address] [place] [address], documented in this encounter Visit Diagnoses Diagnosis Essential (primary) hypertension Unspecified essential hypertension Type 2 diabetes mellitus without complications (CMS/HCC V24, CMS/HCC V28) documented in this encounter Care Teams Wire Stockkeeper Relationship Specialty Start Date End Date Seng Meneses MD [address] [place] [address] PCP - General Internal Medicine 02/16/12 documented as of this encounter
--- OUTSIDE RECORDS SUMMARY | 2024-09-26 10:58 | XMS_ITS | Encounter Summary ---
Author Organization [facility] Address [address] [place] [address] Care Team Providers Care Child Study Team Director Name Role Phone Seng Meneses MD Primary Care Provider [phone] Encounter Details Date Type Department Care Team (Late st Contact Info) Description 08/16/2024 Lab Requisition [facility] - Main Lab 299 [facility] [place] [address] Gary Wall MD [address] [place] [address] 204 [facility] [phone] Type 2 diabetes mellitus without [...] Associated Diagnosis Comments COMPLETE BLOOD COUNT Routine 08/17/2024 5:05 AM EDT Type 2 diabetes mellitus without complications BASIC METABOLIC PANEL Routine 08/17/2024 5:05 AM EDT Type 2 diabetes mellitus without complications documented in this encounter Results * (ABNORMAL) Basic metabolic panel (08/17/2024 5:05 AM EDT) Sodium 141 133 - 145 mmol/L LAB CHEMISTRY METHOD 08/17/2024 1:33 PM EDT [facility] Potassium 5.1 3.5 - 5.5 mmol/L LAB CHEMISTRY METHOD 08/17/2024 1:33 PM T [facility] Comment:Hemolysis present Chloride 107 96 - 110 mmol/L LAB CHEMISTRY METHOD 08/17/2024 1:33 PM [facility] CO2 24 21 - 32 mmol/L LAB CHEMISTRY METHOD 08/17/2024 1:33 PM [facility] Anion Gap 10 3 - 11 LAB CHEMISTRY METHOD 08/17/2024 1:33 PM [facility] Glucose 51(L) 70 - 100 mg/dL LAB CHEMISTRY METHOD 08/17/2024 1:33 PM [facility] BUN 21 5 - 25 mg/dL LAB CHEMISTRY METHOD 08/17/2024 1:33 PM [facility] Creatinine 0.91 0.50 - 1.10 mg/dL LAB CHEMISTRY METHOD 08/17/2024 1:33 PM [facility] eGFR 64 >=60 mL/min/1. 73m2 LAB CHEMISTRY METHOD 08/17/2024 1:33 PM [facility] Comment:Calculation based on the??Chronic Kidney Disease Epidemiology Collaboration (CKD-EPI) equation refit??without adjustment for race. BUN/Creatinine Ratio 23.1 LAB CHEMISTRY METHOD 08/17/2024 1:33 PM [facility] Calcium 8.7 8.5 - 10.5 mg/dL LAB CHEMISTRY METHOD 08/17/2024 1:33 PM [facility] Blood Venous blood specimen / Unknown Venipuncture / Unknown 08/17/2024 5:05 AM EDT 08/17/2024 11:09 AM EDT us Gary Wall MD LAB BLOOD ORDERABLES Final Resul t [facility] [address] [place] [address], * (ABNORMAL) Complete blood count (08/17/2024 5:05 AM EDT) [facility] Signature WBC 8.2 4.8 - 10.8 K/mcL LAB HEMETOLOGY [facility] RBC 4.00 3.80 - 4.80 M/mcL LAB HEMETOLOGY METHOD 08/17/2024 [facility] Hemoglobin 10.9(L) 11.5 - 16.0 g/dL LAB HEMETOLOGY METHOD 08/17/2024 12:34 PM [facility] Hematocrit 34.8(L) 35.0 - 47.0 % LAB HEMETOLOGY METHOD 08/17/2024 12:34 PM [facility] MCV 87.9 79.0 - 98.0 FL LAB HEMETOLOGY METHOD 08/17/2024 12:34 PM [facility] MCH 27.5 27.0 - 32.0 pcg LAB HEMETOLOGY METHOD 08/17/2024 12:34 PM [facility] MCHC 31.3(L) 32.0 - 37.0 g/dL LAB HEMETOLOGY METHOD 08/17/2024 12:34 PM [facility] RDW 18.6(H) 11.0 - 15.0 % LAB HEMETOLOGY METHOD 08/17/2024 12:34 PM [facility] Platelets 191 130 - 400 K/mcL LAB HEMETOLOGY METHOD 08/17/2024 12:34 PM [facility] MPV 11.0 7.0 - 11.0 FL LAB HEMETOLOGY METHOD 08/17/2024 12:34 PM [facility] NRBC 0.2 <1.0 % LAB HEMETOLOGY METHOD 08/17/2024 12:34 PM EDT [facility] NRBC Absolute 0.02 <0.10 K/mcL LAB HEMETOLOGY METHOD 08/17/2024 12:34 PM EDT [facility] Blood Venous blood specimen / Unknown Venipuncture / Unknown 08/17/2024 5:05 AM EDT 08/17/2024 11:04 AM EDT us Gary Wall MD LAB BLOOD ORDERABLES Final Resul t [facility] [address] [place] [address], documented in this encounter Visit Diagnoses Diagnosis Type 2 diabetes mellitus without complications (CMS/HCC V24, CMS/HCC V28) documented in this encounter Care Teams Child Study Team Director Relationship Specialty Start Date End Date Seng Meneses MD [address] [place] [address] PCP - General Internal Medicine 02/16/12 documented as of this encounter
--- OUTSIDE RECORDS SUMMARY | 2024-09-26 10:58 | XMS_ITS | Clinical Summary ---
Author Organization [employer] [facility] Address [address] [place] [address] Care Team Providers Care Certified Rehabilitation Counselor Name Role Phone Seng Meneses MD Primary Care Provider [phone] Allergies Active Allergy Reactions Criticality Noted Date [...] Immunizations Name Administration Dates Next Due Covid-19 ([employer]) Dilution Required 07/11/2020,0 06/20/2020 Family History Medical [...] Health Maintenance Due Date Last Done Comments Depression Screening 1956 BMI Counseling 1962 Preventative [...] age to complete this topic Care Teams Certified Rehabilitation Counselor Relationship Specialty Start Date End Date Seng Meneses MD [address] [place] [address] PCP - General Internal Medicine 07/15/18
--- OUTSIDE RECORDS SUMMARY | 2024-09-26 10:58 | XMS_ITS | Encounter Summary ---
Author Organization [facility] Address [address] [place] [address] Care Team Providers Care Mine Analyst Name Role Phone Seng Meneses MD Primary Care Provider Encounter Details Date Type Department Care Team (Late st Contact Info) Description 05/10/2024 Lab Requisition [facility] - Main Lab 299 [facility] [place] [address] Gary Wall MD [address] [place] [phone] Type 2 diabetes mellitus without complications (CMS/HCC V24, CMS/HCC V28); Essential (primary) hypertension Social History Tobacco Use [...] mellitus without complications (CMS/HCC V24, CMS/HCC V28) Essential (primary) hypertension Unspecified essential hypertension documented in this encounter Additional Health Concerns Infection Onset Date Last Indicated Resolved Time Respiratory Rule-Out 07/30/2024 07/30/2024 025 1:29 PM EDT documented as of this encounter Care Teams Mine Analyst Relationship Specialty Start Date End Date Seng Meneses MD [address] [place] [address] PCP - General Internal Medicine 02/16/12 documented as of this encounter
--- OUTSIDE RECORDS SUMMARY | 2024-09-26 10:58 | XMS_ITS | Encounter Summary ---
Author Organization [facility] Address [address] [place] [address] Care Team Providers Care Lecturer In Marketing Name Role Phone Seng Meneses MD Primary Care Provider [phone] Encounter Details Date Type Department Care Team (Late st Contact Info) Description 06/28/2024 Lab Requisition [facility] - Main Lab 299 [facility] [place] [address] Gary Wall MD [address] [place] [address] 204 [facility] [phone] Type 2 diabetes mellitus without complications [...] (ABNORMAL) C-reactive protein (06/29/2024 7:27 AM EST) C-Reactive Protein 0.77(H) <=0.50 mg/dL LAB CHEMISTRY METHOD 06/29/2024 12:28 PM EST [facility] Blood Venous blood specimen / Unknown Venipuncture / Unknown 06/29/2024 7:27 AM EST 06/29/2024 11:31 AM EST Gary Wall MD LAB BLOOD ORDERABLES Final Resul t Performing Organization Address [facility]/ZIP Co de Phone Number [facility] [address] [place] [address], [place] [phone] * (ABNORMAL) Sedimentation rate (06/29/2024 7:27 AM EST) Pathologist [facility] Sed Rate 53(H) 0 - 30 mm/hr LAB HEMETOLOGY METHOD 06/29/2024 1:15 PM EST [facility] Blood Venous blood specimen / Unknown Venipuncture / Unknown 06/29/2024 7:27 AM EST 06/29/2024 11:31 AM EST Gary Wall MD LAB BLOOD ORDERABLES Final Resul t [facility] [address] [place] [address], [place] [phone] * (ABNORMAL) Basic metabolic panel (06/29/2024 7:27 AM EST) Pathologist [facility] Sodium 143 133 - 145 mmol/L LAB CHEMISTRY METHOD 06/29/2024 12:24 PM EST [facility] Potassium 4.4 3.5 - 5.5 mmol/L LAB CHEMISTRY METHOD 06/29/2024 12:24 PM [facility] Chloride 108 96 - 110 mmol/L LAB CHEMISTRY METHOD 06/29/2024 12:24 PM [facility] CO2 26 21 - 32 mmol/L LAB CHEMISTRY METHOD 06/29/2024 12:24 PM [facility] Anion Gap 9 3 - 11 LAB CHEMISTRY METHOD 06/29/2024 12:24 PM [facility] Glucose 90 70 - 100 mg/dL LAB CHEMISTRY METHOD 06/29/2024 12:24 PM [facility] BUN 20 5 - 25 mg/dL LAB CHEMISTRY METHOD 06/29/2024 12:24 PM [facility] Creatinine 1.02 0.50 - 1.10 mg/dL LAB CHEMISTRY METHOD 06/29/2024 12:24 PM [facility] eGFR 56(L) >=60 mL/min/1. 73m2 LAB CHEMISTRY METHOD 06/29/2024 12:24 PM [facility] Comment:Calculation based on the??Chronic Kidney Disease Epidemiology Collaboration (CKD-EPI) equation refit??without adjustment for race. BUN/Creatinine Ratio 19.6 LAB CHEMISTRY METHOD 06/29/2024 12:24 PM [facility] Calcium 9.0 8.5 - 10.5 mg/dL LAB CHEMISTRY METHOD 06/29/2024 12:24 PM [facility] Blood Venous blood specimen / Unknown Venipuncture / Unknown 06/29/2024 7:27 AM EST 06/29/2024 11:31 AM EST us Gary Wall MD LAB BLOOD ORDERABLES Final Resul t [facility] [address] [place] [address], * (ABNORMAL) Complete blood count (06/29/2024 7:27 AM EST) WBC 7.8 4.8 - 10.8 K/[facility] LAB HEMETOLOGY METHOD 06/29/2024 12:56 PM [facility] RBC 4.00 3.80 - 4.80 M/[facility] LAB HEMETOLOGY METHOD 06/29/2024 12:56 PM [facility] Hemoglobin 11.1(L) 11.5 - 16.0 g/dL LAB HEMETOLOGY METHOD 06/29/2024 12:56 PM [facility] Hematocrit 36.3 35.0 - 47.0 % LAB HEMETOLOGY METHOD 06/29/2024 12:56 PM [facility] MCV 89.9 79.0 - 98.0 FL LAB HEMETOLOGY METHOD 06/29/2024 12:56 PM [facility] MCH 27.5 27.0 - 32.0 pcg LAB HEMETOLOGY METHOD 06/29/2024 12:56 PM [facility] MCHC 30.6(L) 32.0 - 37.0 g/dL LAB HEMETOLOGY METHOD 06/29/2024 12:56 PM [facility] RDW 18.4(H) 11.0 - 15.0 % LAB HEMETOLOGY METHOD 06/29/2024 12:56 PM [facility] Platelets 233 130 - 400 K/[facility] LAB HEMETOLOGY METHOD 06/29/2024 12:56 PM [facility] MPV 9.6 7.0 - 11.0 FL LAB HEMETOLOGY METHOD 06/29/2024 12:56 PM [facility] NRBC 0.0 <1.0 % LAB HEMETOLOGY METHOD 06/29/2024 12:56 PM [facility] NRBC Absolute 0.00 <0.10 K/[facility] LAB HEMETOLOGY METHOD 06/29/2024 12:56 PM [facility] Blood Venous blood specimen / Unknown Venipuncture / Unknown 06/29/2024 7:27 AM EST 06/29/2024 11:31 AM EST us Gary Wall MD LAB BLOOD ORDERABLES Final Resul t [facility] ([facility]) [facility] [address] [place] [address], documented in this encounter Visit Diagnoses Diagnosis Type 2 diabetes mellitus without complications (CMS/HCC V24, CMS/HCC V28) documented in this encounter Additional Health Concerns Infection Onset Date Last Indicated Resolved Time Respiratory Rule-Out 07/30/2024 07/30/2024 025 1:29 PM EDT documented as of this encounter Care Teams Lecturer In Marketing Relationship Specialty Start Date End Date Seng Meneses MD [address] [place] [address] PCP - General Internal Medicine 02/16/12 documented as of this encounter
--- OUTSIDE RECORDS SUMMARY | 2024-09-26 10:58 | XMS_ITS | Encounter Summary ---
Author Organization [facility] Address [address] [place] [address] Care Team Providers Care Stabilizing Machine Operator Name Role Phone Seng Meneses MD Primary Care Provider Encounter Details Date Type Department Care Team (Late st Contact Info) Description 07/30/2024 Lab Requisition [facility] - Main Lab [address] [place] [address] Gary Wall MD [address] [place] [phone] Acute cough Social History Tobacco Use Types Packs/Day Years [...] Procedure Name Priority Date/Time Associated Diagnosis Comments [id number], RSV, FLU A AND B QUALITATIVE RT-PCR, LOCAL REFERENCE LAB Routine 07/30/2024 6:36 AM EDT Acute cough documented in this encounter Results * [id number], RSV, Influenza A and B qualitative RT-PCR (07/30/2024 6:36 AM EDT) SARS COV-2 Not Detected Not Detected LAB MOLECULAR DIAGNOSTICS METHOD 07/30/2024 1:29 PM EDT [facility] Comment: Disclaimer: The manner in which this information is used to guide patient care is the responsibility of the healthcare provider. Testing was performed using the [employer] Alinity m SARS-CoV-2 test. This test has been authorized by FDA under an Emergency Use Authorization (EUA). This test is only authorized for the duration of time the declaration that circumstances exist justifying the authorization of the emergency use of in vitro diagnostic tests for detection of SARS-CoV-2 virus and/or diagnosis of COVID-19 infection under section 564(b)(1) of the Act, 21 U.S.C. 360bbb- 3(b)(1), unless the authorization is terminated or revoked sooner. Fact sheet for Healthcare Providers can be found at: https://www.fda.gov/media/905774/download Fact sheet for Patients can be found at: https://www.fda.gov/media/237168/download Influenza A PCR Not Detected Not Detected LAB MOLECULAR DIAGNOSTICS METHOD 07/30/2024 1:29 PM EDT [facility] Influenza B PCR Not Detected Not Detected LAB MOLECULAR DIAGNOSTICS METHOD 07/30/2024 1:29 PM EDT [facility] RSV PCR Not Detected Not Detected LAB MOLECULAR DIAGNOSTICS METHOD 07/30/2024 1:29 PM EDT [facility] Swab Nasopharyngeal structure / Unknown 07/30/2024 6:36 AM EDT 07/30/2024 10:49 AM EDT us Gary Wall MD LAB MICROBIOLOGY - GENERAL ORDER KARTIK Final Result [facility] [address] [place] [address], documented in this encounter Visit Diagnoses Diagnosis Acute cough documented in this encounter Additional Health Concerns Infection Onset Date Last Indicated Resolved Time Respiratory Rule-Out 07/30/2024 07/30/2024 025 1:29 PM EDT documented as of this encounter Care Teams Stabilizing Machine Operator Relationship Specialty Start Date End Date Seng Meneses MD [address] [place] [address] PCP - General Internal Medicine 02/16/12 documented as of this encounter
--- OUTSIDE RECORDS SUMMARY | 2024-09-26 10:58 | XMS_ITS | Encounter Summary ---
Author Organization [facility] Address [address] [place] [address] Care Team Providers Care Gas Station Manager Name Role Phone Seng Meneses MD Primary Care Provider [phone] Encounter Details Date Type Department Care Team (Late st Contact Info) Description 03/14/2024 Lab Requisition [facility] - Main Lab [address] [facility] [place] [address] Gary Wall MD [address] [place] [address] [address] [facility] [phone] Urgency of urination Social History Tobacco [...] Travel phlebotomy fee (03/14/2024 6:02 AM EST) [facility] TRAVEL PHLEBOTOMY FEE Completed 03/14/2024 11:02 AM [facility] Blood Venous blood specimen / Unknown Venipuncture / Unknown 03/14/2024 6:02 AM EST 03/14/2024 10:21 AM EST us Gary Wall MD LAB BLOOD ORDERABLES Final Resul t [facility] [address] [place] [address], * (ABNORMAL) Comprehensive metabolic panel (03/14/2024 6:02 AM EST) Sodium 141 133 - 145 mmol/L LAB CHEMISTRY METHOD 03/14/2024 11:44 AM [facility] Potassium 3.9 3.5 - 5.5 mmol/L LAB CHEMISTRY METHOD 03/14/2024 11:44 AM [facility] Chloride 106 96 - 110 mmol/L LAB CHEMISTRY METHOD 03/14/2024 11:44 AM [facility] CO2 30 21 - 32 mmol/L LAB CHEMISTRY METHOD 03/14/2024 11:44 AM [facility] Anion Gap 5 3 - 11 LAB CHEMISTRY METHOD 03/14/2024 11:44 AM [facility] Glucose 79 70 - 100 mg/dL LAB CHEMISTRY METHOD 03/14/2024 11:44 AM [facility] BUN 21 5 - 25 mg/dL LAB CHEMISTRY METHOD 03/14/2024 11:44 AM [facility] Creatinine 0.85 0.50 - 1.10 mg/dL LAB CHEMISTRY METHOD 03/14/2024 11:44 AM [facility] eGFR 70 >=60 mL/min/1. 73m2 LAB CHEMISTRY METHOD 03/14/2024 11:44 AM [facility] Comment:Calculation based on the??Chronic Kidney Disease Epidemiology Collaboration (CKD-EPI) equation refit??without adjustment for race. BUN/Creatinine Ratio 24.7 LAB CHEMISTRY METHOD 03/14/2024 11:44 AM [facility] Calcium 8.9 8.5 - 10.5 mg/dL LAB CHEMISTRY METHOD 03/14/2024 11:44 AM [facility] AST (SGOT) 14 10 - 42 unit/L LAB CHEMISTRY METHOD 03/14/2024 11:44 AM [facility] ALT (SGPT) 14 10 - 60 unit/L LAB CHEMISTRY METHOD 03/14/2024 11:44 AM [facility] Alkaline Phosphatase 52 42 - 121 unit/L LAB CHEMISTRY METHOD 03/14/2024 11:44 AM [facility] Total Protein 6.0 6.0 - 8.0 g/dL LAB CHEMISTRY METHOD 03/14/2024 11:44 AM [facility] Albumin 2.6(L) 3.2 - 5.0 g/dL LAB CHEMISTRY METHOD 03/14/2024 11:44 AM [facility] Total Bilirubin 0.4 0.0 - 1.4 mg/dL LAB CHEMISTRY METHOD 03/14/2024 11:44 AM [facility] Blood Venous blood specimen / Unknown Venipuncture / Unknown 03/14/2024 6:02 AM EST 03/14/2024 10:21 AM EST us Gary Wall MD LAB BLOOD ORDERABLES Final Resul t [facility] [address] [place] [address], * (ABNORMAL) Complete blood count (03/14/2024 6:02 AM EST) WBC 7.6 4.8 - 10.8 K/mcL LAB HEMETOLOGY METHOD 03/14/2024 11:00 AM [facility] RBC 3.90 3.80 - 4.80 M/mcL LAB HEMETOLOGY METHOD 03/14/2024 11:00 AM [facility] Hemoglobin 10.7(L) 11.5 - 16.0 g/dL LAB HEMETOLOGY METHOD 03/14/2024 11:00 AM [facility] Hematocrit 36.0 35.0 - 47.0 % LAB HEMETOLOGY METHOD 03/14/2024 11:00 AM [facility] MCV 92.3 79.0 - 98.0 FL LAB HEMETOLOGY METHOD 03/14/2024 11:00 AM [facility] MCH 27.4 27.0 - 32.0 pcg LAB HEMETOLOGY METHOD 03/14/2024 11:00 AM [facility] MCHC 29.7(L) 32.0 - 37.0 g/dL LAB HEMETOLOGY METHOD 03/14/2024 11:00 AM [facility] RDW 18.0(H) 11.0 - 15.0 % LAB HEMETOLOGY METHOD 03/14/2024 11:00 AM [facility] Platelets 219 130 - 400 K/mcL LAB HEMETOLOGY METHOD 03/14/2024 11:00 AM [facility] MPV 10.1 7.0 - 11.0 FL LAB HEMETOLOGY METHOD 03/14/2024 11:00 AM [facility] NRBC 0.0 <1.0 % LAB HEMETOLOGY METHOD 03/14/2024 11:00 AM [facility] NRBC Absolute 0.00 <0.10 K/mcL LAB HEMETOLOGY METHOD 03/14/2024 11:00 AM [facility] Blood Venous blood specimen / Unknown Venipuncture / Unknown 03/14/2024 6:02 AM EST 03/14/2024 10:21 AM EST us Gary Wall MD LAB BLOOD ORDERABLES Final Resul t [facility] [address] [place] [address], documented in this encounter Visit Diagnoses Diagnosis Urgency of urination documented in this encounter Additional Health Concerns Infection Onset Date Last Indicated Resolved Time Respiratory Rule-Out 07/30/2024 07/30/2024 025 1:29 PM EDT documented as of this encounter Care Teams Gas Station Manager Relationship Specialty Start Date End Date Seng Meneses MD [address] [place] [address] PCP - General Internal Medicine 02/16/12 documented as of this encounter
--- OUTSIDE RECORDS SUMMARY | 2024-09-26 10:59 | XMS_ITS | Clinical Summary ---
Author Organization 299 [facility] Address [address] [place] [address] Phone Care Team Providers Care Broadcast Director Operations Name Role Phone Seng Meneses MD Primary Care Provider [phone] Encounters Date Type Department Care Team Description 09/13/2024 Lab Requisition [facility] [address] [place] [phone] Gary Wall MD Unspecified atrial fibrillation ([facility] V24, [facility] V28); Essential (primary) hypertension; Type 2 diabetes mellitus without complications ([facility] V24, [facility] V28) 09/09/2024 Lab Requisition [facility] [address] [place] [phone] Gary Wall MD Essential (primary) hypertension; Type 2 diabetes mellitus without complications ([facility] V24, [facility] V28) 08/23/2024 Lab Requisition [facility] [address] [place] [phone] Gary Wall MD Type 2 diabetes mellitus without complications ([facility] V24, [facility] V28) 08/16/2024 Lab Requisition [facility] [address] [place] [phone] Gary Wall MD Type 2 diabetes mellitus without complications ([facility] V24, [facility] V28) 08/09/2024 Lab Requisition [facility] [address] [place] [phone] Gary Wall MD Type 2 diabetes mellitus without complications ([facility] V24, [facility] V28) 08/01/2024 Lab Requisition [facility] [address] [place] [phone] Gary Wall MD Shortness of breath 07/30/2024 Lab Requisition [facility] [address] [place] [phone] Gary Wall MD Acute cough 07/12/2024 Lab Requisition [facility] [address] [place] [phone] Gary Wall MD Type 2 diabetes mellitus without complications ([facility] V24, [facility] V28) 07/05/2024 Lab Requisition [facility] [address] [place] [phone] Gary Wall MD Type 2 diabetes mellitus without complications ([facility] V24, [facility] V28) 06/28/2024 Lab Requisition [facility] [address] [place] [phone] Gary Wall MD Type 2 diabetes mellitus without complications ([facility] V24, [facility] V28) from Last 3 Months Immunizations Name Administration Dates Next Due [facility] SARS-CoV-2 COVID-19, mRNA, LNP-S, preservative free 07/11/2020,06/20/2020 Surgical History Surgery Date Site/Laterality Comments BREAST LUMPECTOMY 08/12/2007 PROCEDURE:BREAST LUMPECTOMY OTHER SURGICAL HISTORY PROCEDURE:Right Knee Replacement OTHER SURGICAL HISTORY PROCEDURE:Cataract Surgery and lens impact left Medical History Medical History Date Comments Breast cancer ([facility] V24, [facility] V28) DX:Breast cancer (HCC) Diabetes mellitus ([facility] V24, [facility] V28) DX:Diabetes mellitus (HCC) Asthma DX:Asthma Herpetic ulceration of [...] 2 - PCV) 03/19/2007 03/19/2006 RSV Immunization Adult Patients (1 - 1-dose 75+ series) 2019 DTaP,Tdap,and Td Vaccines (2 - Td or Tdap) 10/06/2019 10/05/2009 Depression Screening 04/19/2022 Falls Risk Assessment 04/19/2022 Medicare Annual Wellness Visit 04/19/2022 Osteoporosis Screening (Bone Density Screening) 04/19/2022 Social Influencers of Health Screening 04/19/2022 Diabetes: Annual Urine Albumin-Creatinine Ratio (uACR) 04/26/2022 COVID-19 Vaccine ( season) 2024 07/11/2020, 06/20/2020 Influenza Vaccine (Season Ended) 2025 02/10/2022, 02/11/2021, 01/23/2011, Additional history exists Diabetes: Blood Sugar Control Test (HGBA1C) 03/17/2025 09/14/2024 Diabetes: Annual GFR (Glomerular Filtration Rate) 09/14/2025 09/14/2024, 09/09/2024, 08/24/2024, Additional history exists Hypertension/CHF/CAD Annual BMP Blood Test 09/14/2025 09/14/2024, 09/09/2024, 08/24/2024, Additional history exists Cholesterol Screening (Lipid Panel) 09/14/2029 09/14/2024 HIB Vaccines Aged Out No longer eligi [...] age to complete this topic Meningococcal B Vaccine Aged Out No l onger eligible based on patient's age to complete this topic RSV Immunization Patients Under 20 months Aged Out No longer eligible based on patient's age to complete this topic Varicella Vaccines Aged Out No longer eligible based on patient's age to complete this topic Procedures Procedure Name Priority Date/Time Associated Diagnosis Comments MAGNESIUM Routine 09/14/2024 6:06 AM EDT Unspecified atrial fibrillation (CMS/HCC V24, CMS/HCC V28) Essential (primary) hypertension Type 2 diabetes mellitus without complications (CMS/HCC V24, CMS/HCC V28) LIPID PANEL WITH REFLEX TO DIRECT LDL [...] mellitus without complications (CMS/HCC V24, CMS/HCC V28) IRON AND TIBC Routine 09/09/2024 7:00 AM [...] V24, CMS/HCC V28) COMPLETE BLOOD COUNT Routine 08/24/2024 6:00 AM EDT Type 2 diabetes mellitus without complications (CMS/HCC V24, CMS/HCC V28) BASIC METABOLIC PANEL Routine 08/17/2024 5:05 AM EDT Type 2 diabetes mellitus without complications COMPLETE BLOOD COUNT Routine 08/17/2024 5:05 AM EDT Type 2 diabetes mellitus without complications CBC WITH AUTO DIFFERENTIAL Routine 08/02/2024 7:00 AM EDT Shortness of breath BASIC METABOLIC PANEL Routine 08/02/2024 7:00 AM EDT Shortness of breath CBC AND DIFFERENTIAL Routine 08/02/2024 7:00 AM EDT Shortness of breath [id number], RSV, FLU A AND B QUALITATIVE RT-PCR, LOCAL REFERENCE LAB Routine 07/30/2024 6:36 AM EDT Acute cough C-REACTIVE PROTEIN Routine 07/13/2024 6: 42 AM EST Type 2 diabetes mellitus without complications (CMS/HCC) SEDIMENTATION RATE Routine 07/13/2024 6: 42 AM EST Type 2 diabetes mellitus without complications (CMS/HCC) BASIC METABOLIC PANEL Routine 07/13/2024 6:42 AM EST Type 2 diabetes mellitus without complications (CMS/HCC) COMPLETE BLOOD COUNT Routine 07/13/2024 6:42 AM EST Type 2 diabetes mellitus without complications (CMS/HCC) C-REACTIVE PROTEIN Routine 07/06/2024 5: 14 AM EST Type 2 diabetes mellitus without complications (CMS/HCC) SEDIMENTATION RATE Routine 07/06/2024 5: 14 AM [...] Type 2 diabetes mellitus without complications (CMS/HCC) from Last 3 Months Results * Lipid panel with reflex to direct LDL (09/14/2024 6:06 AM EDT) Cholesterol 178 0 - 200 mg/dL LAB CHEMISTRY METHOD 09/14/2024 11:26 AM [facility] Triglycerides 61 0 - 150 mg/dL LAB CHEMISTRY METHOD 09/14/2024 11:26 AM [facility] HDL 67 >=40 mg/dL LAB CHEMISTRY METHOD 09/14/2024 11:26 AM [facility] LDL Calculated 99 0 - 100 mg/dL LAB CHEMISTRY METHOD 09/14/2024 11:26 AM [facility] VLDL Cholesterol [place] 12.2 mg/dL LAB CHEMISTRY METHOD 09/14/2024 11:26 AM [facility] Non HDL Chol. (LDL+VLDL) 111 <145 mg/dL LAB CHEMISTRY METHOD 09/14/2024 11:26 AM [facility] Chol/HDL Ratio 2.7 0.0 - 4.4 LAB CHEMISTRY METHOD 09/14/2024 11:26 AM [facility] Blood Venous blood specimen / Unknown Venipuncture / Unknown 09/14/2024 6:06 AM EDT 09/14/2024 11:20 AM EDT us Gary Wall MD LAB BLOOD ORDERABLES Final Resul t Performing Organization Address [facility]/ZIP Co de Phone Number [facility] [address] [place] [address], * Magnesium (09/14/2024 6:06 AM EDT) Magnesium 2.0 1.9 - 2.6 mg/dL LAB CHEMISTRY METHOD 09/14/2024 11:[address] [facility] Blood Venous blood specimen / Unknown Venipuncture / Unknown 09/14/2024 6:06 AM EDT 09/14/2024 11:20 AM EDT Gary Wall MD LAB BLOOD ORDERABLES Final Resul t Performing Organization Address [facility] Co de Phone Number [facility] [address] [place] [address], * (ABNORMAL) Comprehensive metabolic panel (09/14/2024 6:06 AM EDT) [facility] Sodium 141 133 - 145 mmol/L LAB CHEMISTRY METHOD 09/14/2024 11:26 AM [facility] Potassium 4.0 3.5 - 5.5 mmol/L LAB CHEMISTRY METHOD 09/14/2024 11:26 AM [facility] Chloride 107 96 - 110 mmol/L LAB CHEMISTRY METHOD 09/14/2024 11:26 AM [facility] CO2 27 21 - 32 mmol/L LAB CHEMISTRY METHOD 09/14/2024 11:26 AM [facility] Anion Gap 7 3 - 11 LAB CHEMISTRY METHOD 09/14/2024 11:26 AM [facility] Glucose 64(L) 70 - 100 mg/dL LAB CHEMISTRY METHOD 09/14/2024 11:26 AM [facility] BUN 20 5 - 25 mg/dL LAB CHEMISTRY METHOD 09/14/2024 11:26 AM [facility] Creatinine 0.78 0.50 - 1.10 mg/dL LAB CHEMISTRY METHOD 09/14/2024 11:26 AM [facility] eGFR 77 >=60 mL/min/1. 73m2 LAB CHEMISTRY METHOD 09/14/2024 11:26 AM [facility] Comment:Calculation based on the Chronic Kidney Disease Epidemiology Collaboration (CKD-EPI) equation refit without adjustment for race. BUN/Creatinine Ratio 25.6 LAB CHEMISTRY METHOD 09/14/2024 11:26 AM [facility] Calcium 8.2(L) 8.5 - 10.5 mg/dL LAB CHEMISTRY METHOD 09/14/2024 11:26 AM [facility] AST (SGOT) 17 10 - 42 unit/L LAB CHEMISTRY METHOD 09/14/2024 11:26 AM [facility] ALT (SGPT) 15 10 - 60 unit/L LAB CHEMISTRY METHOD 09/14/2024 11:26 AM [facility] Alkaline Phosphatase 73 42 - 121 unit/L LAB CHEMISTRY METHOD 09/14/2024 11:26 AM [facility] Total Protein 5.9(L) 6.0 - 8.0 g/dL LAB CHEMISTRY METHOD 09/14/2024 11:26 AM [facility] Albumin 2.7(L) 3.2 - 5.0 g/dL LAB CHEMISTRY METHOD 09/14/2024 11:26 AM [facility] Total Bilirubin 0.5 0.0 - 1.4 mg/dL LAB CHEMISTRY METHOD 09/14/2024 11:26 AM [facility] Blood Venous blood specimen / Unknown Venipuncture / Unknown 09/14/2024 6:06 AM EDT 09/14/2024 11:20 AM EDT us Gary Wall MD LAB BLOOD ORDERABLES Final Resul t [facility] [address] [place] [address], * (ABNORMAL) Complete blood count (09/14/2024 6:00 AM EDT) Only the most recent of7 resultswithin the time period is included. WBC 7.4 4.8 - 10.8 K/mcL LAB HEMETOLOGY METHOD 09/14/2024 11:[address] [facility] RBC 4.10 3.80 - 4.80 M/mcL LAB HEMETOLOGY METHOD 09/14[facility]24 [facility] Hemoglobin 10.9(L) 11.5 - 16.0 g/dL LAB HEMETOLOGY METHOD 09/14/2024 11[facility] Hematocrit 35.4 35.0 - 47.0 % LAB HEMETOLOGY METHOD 09/14/2024 11:[facility] MCV 87.4 79.0 - 98.0 FL LAB HEMETOLOGY METHOD 09/14/2024 11:[facility] MCH 26.9(L) 27.0 - 32.0 pcg LAB HEMETOLOGY METHOD 09/14/2024 11:[facility] MCHC 30.8(L) 32.0 - 37.0 g/dL LAB HEMETOLOGY METHOD 09/14/2024 11:01 AM [facility] RDW 18.9(H) 11.0 - 15.0 % LAB HEMETOLOGY METHOD 09/14/2024 11:01 AM [facility] Platelets 179 130 - 400 K/mcL LAB HEMETOLOGY METHOD 09/14/2024 11:01 AM [facility] MPV 10.4 7.0 - 11.0 FL LAB HEMETOLOGY METHOD 09/14/2024 11:[address] [facility] NRBC 0.0 <1.0 % LAB HEMETOLOGY METHOD 09/14/2024 11:[address] [facility] NRBC Absolute 0.00 <0.10 K/mcL LAB HEMETOLOGY METHOD 09/14/2024 11:[address] [facility] Blood Venous blood specimen / Unknown Venipuncture / Unknown 09/14/2024 6:00 AM EDT 09/14/2024 10:30 AM EDT us Gary Wall MD LAB BLOOD ORDERABLES Final Resul t Performing Organization Address [facility] Co de Phone Number [facility] [address] [place] [address], [place] [phone] * Hemoglobin A1c (09/14/2024 6:00 AM EDT) [...] City/[facility]/ZIP Co de Phone Number [facility] [address] [place] [address], [place] [phone] * (ABNORMAL) Iron and TIBC (09/09/2024 7:00 AM EDT) Iron 43 40 - 150 mcg/dL LAB CHEMISTRY METHOD 09/09/2024 12:[address] [facility] TIBC 299 250 - 450 mcg/dL LAB CHEMISTRY METHOD 09/09/2024 12:[address] [facility] Iron Saturation 14(L) 15 - 50 % LAB CHEMISTRY METHOD 09/09/2024 12:[address] [facility] Blood Venous blood specimen / Unknown Venipuncture / Unknown 09/09/2024 7:00 AM EDT 09/09/2024 10:18 AM EDT Gary Wall MD LAB BLOOD ORDERABLES Final Resul t Performing Organization Address City/[facility]/ZIP Co de Phone Number [facility] [address] [place] [address], [place] [phone] * Ferritin (09/09/2024 7:00 AM EDT) Ferritin 30 8 - 252 ng/mL LAB CHEMISTRY METHOD 09/09/2024 12:[address] [facility] Blood Venous blood specimen / Unknown Venipuncture / Unknown 09/09/2024 7:00 AM EDT 09/09/2024 10:18 AM EDT us Gary Wall MD LAB BLOOD ORDERABLES Final Resul t Performing Organization Address City/[facility]/ZIP Co de Phone Number [facility] [address] [place] [address], [place] [phone] * (ABNORMAL) Basic metabolic panel (09/09/2024 7:00 AM EDT) Only the most recent of7 resultswithin the time period is included. Sodium 139 133 - 145 mmol/L LAB CHEMISTRY METHOD 09/09/2024 12:[address] [facility] Potassium 4.2 3.5 - 5.5 mmol/L LAB CHEMISTRY METHOD 09/09/2024 12:[address] [facility] Chloride 103 96 - 110 mmol/L LAB CHEMISTRY METHOD 09/09/2024 12:13 PM [facility] CO2 27 21 - 32 mmol/L LAB CHEMISTRY METHOD 09/09/2024 12:13 PM [facility] Anion Gap 9 3 - 11 LAB CHEMISTRY METHOD 09/09/2024 12:13 PM [facility] Glucose 68(L) 70 - 100 mg/dL LAB CHEMISTRY METHOD 09/09/2024 12:13 PM [facility] BUN 24 5 - 25 mg/dL LAB CHEMISTRY METHOD 09/09/2024 12:13 PM [facility] Creatinine 0.84 0.50 - 1.10 mg/dL LAB CHEMISTRY METHOD 09/09/2024 12:13 PM [facility] eGFR 70 >=60 mL/min/1. 73m2 LAB CHEMISTRY METHOD 09/09/2024 12:13 PM [facility] Comment:Calculation based on the??Chronic Kidney Disease Epidemiology Collaboration (CKD-EPI) equation refit??without adjustment for race. BUN/Creatinine Ratio 28.6 LAB CHEMISTRY METHOD 09/09/2024 12:13 PM [facility] Calcium 8.6 8.5 - 10.5 mg/dL LAB CHEMISTRY METHOD 09/09/2024 12:13 PM [facility] Blood Venous blood specimen / Unknown Venipuncture / Unknown 09/09/2024 7:00 AM EDT 09/09/2024 10:18 AM EDT us Gary Wall MD LAB BLOOD ORDERABLES Final Resul t [facility] [address] [place] [address], * (ABNORMAL) CBC auto differential (08/02/2024 7:00 AM EDT) WBC 8.3 4.8 - 10.8 K/mcL LAB HEMETOLOGY METHOD 08/02/2024 8:59 AM [facility] RBC 4.00 3.80 - 4.80 M/mcL LAB HEMETOLOGY METHOD 08/02/2024 8:59 AM [facility] Hemoglobin 11.0(L) 11.5 - 16.0 g/dL LAB HEMETOLOGY METHOD 08/02/2024 8:59 AM [facility] Hematocrit 34.9(L) 35.0 - 47.0 % LAB HEMETOLOGY METHOD 08/02/2024 8:59 AM [facility] MCV 86.8 79.0 - 98.0 FL LAB HEMETOLOGY METHOD 08/02/2024 8:59 AM [facility] MCH 27.4 27.0 - 32.0 pcg LAB HEMETOLOGY METHOD 08/02/2024 8:59 AM [facility] MCHC 31.5(L) 32.0 - 37.0 g/dL LAB HEMETOLOGY METHOD 08/02/2024 8:59 AM [facility] RDW 17.9(H) 11.0 - 15.0 % LAB HEMETOLOGY METHOD 08/02/2024 8:59 AM [facility] Platelets 207 130 - 400 K/mcL LAB HEMETOLOGY METHOD 08/02/2024 8:59 AM [facility] MPV 9.5 7.0 - 11.0 FL LAB HEMETOLOGY METHOD 08/02/2024 8:59 AM [facility] NRBC 0.0 <1.0 % LAB HEMETOLOGY METHOD 08/02/2024 8:59 AM [facility] NRBC Absolute 0.00 <0.10 K/mcL LAB HEMETOLOGY METHOD 08/02/2024 8:59 AM [facility] Neutrophils Relative 63.4 % LAB HEMETOLOGY METHOD 08/02/2024 8:59 AM [facility] Lymphocytes Relative 29.3 % LAB HEMETOLOGY METHOD 08/02/2024 8:59 AM [facility] Monocytes Relative 5.8 % LAB HEMETOLOGY METHOD 08/02/2024 8:59 AM [facility] Eosinophils Relative 0.6 % LAB HEMETOLOGY METHOD 08/02/2024 8:59 AM [facility] Basophils Relative 0.4 % LAB HEMETOLOGY METHOD 08/02/2024 8:59 AM [facility] Immature Granulocytes Relative 0.5 % LAB HEMETOLOGY METHOD 08/02/2024 8:59 AM [facility] Neutrophils Absolute 5.29 1.50 - 7.00 K/mcL LAB HEMETOLOGY METHOD 08/02/2024 8:59 AM [facility] Lymphocytes Absolute 2.44 1.00 - 5.00 K/mcL LAB HEMETOLOGY METHOD 08/02/2024 8:59 AM [facility] Monocytes Absolute 0.48 0.20 - 1.00 K/mcL LAB HEMETOLOGY METHOD 08/02/2024 8:59 AM [facility] Eosinophils Absolute 0.05 0.00 - 0.50 K/mcL LAB HEMETOLOGY METHOD 08/02/2024 8:59 AM [facility] Basophils Absolute 0.03 0.00 - 0.20 K/mcL LAB HEMETOLOGY METHOD 08/02/2024 8:59 AM [facility] Immature Granulocytes Absolute 0.04(H) 0.00 - 0.03 K/mcL LAB HEMETOLOGY METHOD 08/02/2024 8:59 AM [facility] Blood Venous blood specimen / Unknown Venipuncture / Unknown 08/02/2024 7:00 AM EDT 08/02/2024 8:48 AM EDT Gary Wall MD LAB BLOOD ORDERABLES Final Resul t [facility] [address] [place] [address], * [id number], RSV, Influenza A and B qualitative RT-PCR (07/30/2024 6:36 AM EDT) SARS COV-2 Not Detected Not Detected LAB MOLECULAR DIAGNOSTICS METHOD 07/30/2024 1:[address] [facility] Comment: Disclaimer: The manner in which this information is used to guide patient care is the responsibility of the healthcare provider. Testing was performed using the [employer] Alinity m SARS-CoV-2 test. This test has [...] for Healthcare Providers can be found at: https://www.fda.gov/media/711352/download Fact sheet for Patients can be found at: https://www.fda.gov/media/286733/download Influenza A PCR Not Detected Not Detected LAB MOLECULAR DIAGNOSTICS METHOD 07/30/2024 1:[address] [facility] Influenza B PCR Not Detected Not Detected LAB MOLECULAR DIAGNOSTICS METHOD 07/30/2024 1:[address] [facility] RSV PCR Not Detected Not Detected LAB MOLECULAR DIAGNOSTICS METHOD 07/30/2024 1:[address] [facility] Swab Nasopharyngeal structure / Unknown 07/30/2024 6:36 AM EDT 07/30/2024 10:49 AM EDT us Gary Wall MD LAB MICROBIOLOGY - GENERAL ORDER KARTIK Final Result Performing Organization Address City/[facility]/ZIP Co de Phone Number [facility] [address] [place] [address], [place] [phone] * (ABNORMAL) Sedimentation rate (07/13/2024 6:42 AM EST) Only the most recent of3 resultswithin the time period is included. Sed Rate 48(H) 0 - 30 mm/hr LAB HEMETOLOGY METHOD 07/13/2024 11:[address] [facility] Blood Venous blood specimen / Unknown Venipuncture / Unknown 07/13/2024 6:42 AM EST 07/13/2024 11:00 AM EST us Gary Wall MD LAB BLOOD ORDERABLES Final Resul t Performing Organization Address [facility] Co de Phone Number [facility] [address] [place] [address], [place] [phone] * C-reactive protein (07/13/2024 6:42 AM EST) Only the most recent of3 resultswithin the time period is included. C-Reactive Protein <0.29 <=0.50 mg/dL LAB CHEMISTRY METHOD 07/13/2024 12:[address] [facility] Blood Venous blood specimen / Unknown Venipuncture / Unknown 07/13/2024 6:42 AM EST 07/13/2024 11:00 AM EST us Gary Wall MD LAB BLOOD ORDERABLES Final Resul t Performing Organization Address City/[facility]/ZIP Co de Phone Number [facility] [address] [place] [address], [place] [phone] from Last 3 Months Insurance MEDICARE MEDICAID - [place] Advance Directives Documents on File Type Date Recorded Patient Mine [employer] Expl anation Health Care Decision (hx) 05/23/2022 STEVE LORENZO DIRECTIVE Care Teams Broadcast Director Operations Relationship Specialty Start Date End Date Seng Meneses MD [address] [place] [address] PCP - General Internal Medicine 02/16/12
== END ==
LOC: HO.CARD 10:16
DX: I47.29 Other ventricular tachycardia (principal)
CPT/HCPCS: 93242; 93306

== ENCOUNTER → 2024-09-26 10:28 | Outpatient (BNV) | payer MEDICARE, MEDICAID, SELFPAY | PROVIDERS: Visit Provider Internal Medicine | DX: I34.81 Nonrheumatic mitral (valve) annulus calcification (principal); I51.89 Other ill-defined heart diseases | CPT/HCPCS: 93306 ==

== ENCOUNTER 2024-10-25 12:59 | Outpatient (AMB) | payer MEDICARE, MEDICAID, SELFPAY ==
--- NOTE | 2024-10-25 13:13 | A.OFFVIS_ITS ---
Vital Signs 10/25/24 13:15 Height 5 ft 5 in BMI Reason not done Patient refused/unable BP 118/60 Blood Pressure Location Rt radial Position Semi Baxter's Pulse 60 Pulse Source Monitor Intake Visit Reasons: 4 mth f/up Allergies belladonna alkaloids [From ] Allergy (Intermediate, Verified 05/25/24 13:44) ITCHING phenobarbital [From ] Allergy (Intermediate, Verified 05/25/24 13:44) ITCHING oxycodone Allergy (Verified 05/25/24 13:44) Unknown Medication List - Last Reconciled 10/25/24 by Jesse Villafana NP acetaminophen 1,000 mg PO Q8H albuterol sulfate 90 mcg/actuation 2 puffs inhalation Q6H PRN amiodarone 200 mg PO DAILY amlodipine (Norvasc) 10 mg PO DAILY apremilast (Otezla) 30 mg PO BID ascorbate calcium (vitamin C) 500 mg PO DAILY atorvastatin 40 mg PO BEDTIME bisacodyl 10 mg MI DAILY PRN budesonide-formoterol 80-4.5 mcg/actuation (Symbicort) 2 puffs inhalation BID daptomycin 500 mg IV Q24H diclofenac sodium 1% 4 grams topical TID doxycycline hyclate 100 mg PO BID guaifenesin 200 mg PO Q4H PRN hydrocortisone 1% 1 appl topical BID insulin glargine (Basaglar KwikPen U-100 Insulin) 12 units subcut DAILY insulin glargine (Basaglar KwikPen U-100 Insulin) 8 units subcut BEDTIME insulin lispro 1 sliding scale dose See Protocol subcut QIDACHS lidocaine 4% 1 patch topical DAILY lurasidone 60 mg PO BEDTIME magnesium oxide 400 mg PO DAILY meclizine 25 mg PO Q8H PRN metoprolol succinate ER 75 mg PO DAILY multivitamin with minerals 1 tab PO DAILY naltrexone 4.5 mg PO DAILY nystatin 1 appl topical BID nystatin 1 appl See Protocol topical TID PRN omeprazole 40 mg PO DAILY@0630 ondansetron 4 mg PO Q6H PRN pioglitazone 1 tab PO DAILY polyethylene glycol 400 1% (Visine Dry Eye Relief) 1 drp ophthalmic (eye) BID sertraline 50 mg PO DAILY tramadol 25 mg PO Q6H PRN zinc oxide 40% 1 appl topical BID HPI Comments Details: This is a 79-year-old female patient coming in for a follow-up visit. Patient with a history of diabetes, hyperlipidemia, sleep apnea, morbid obesity, and mostly bed-bound lives in [facility]. Patient arrives here in a stretcher today with her and EMS personal. Patient was previously in the hospital for osteomyelitis during which she had wide complex tachycardia narrow complex tachycardia in the ER. Patient was started on amiodarone and metoprolol that time. Patient recently underwent an echocardiogram and a Holter monitor to look for recurrence. Patient reports feeling well overall today and denies any cardiac symptoms including exertional chest pain, shortness of breath, palpitations, dizziness, orthopnea, PND, leg edema, presyncope, or syncope. Patient notes that she is trying to walk more now at the facility but mostly sedentary. Patient affirms compliance with all her medications. [facility] Medical History (Updated 10/25/24 @ 13:57 by Jesse Villafana NP) NSVT (nonsustained ventricular tachycardia) Diabetes type 2, controlled History of DVT (deep vein thrombosis) CKD (chronic kidney disease) Erythema intertrigo Asthma Obesity Hypertension Diabetes Multiple skin tears Social History Household Members: Other Housing: [facility] Do you presently have visiting nurse or other home services: No Alcohol intake: never Comment: 1:1 sitter Patient Tobacco Use Status: Never used Tobacco service: No Current occupational status: disabled Review of Systems Const Denies weakness ENT Denies dizziness Card Denies chest pain, Denies chest pain with activity, Denies syncope, Denies rapid heart rate, Denies pedal edema, Denies edema, Denies leg edema, Denies lightheadedness, Denies palpitations, Denies dyspnea, Denies dyspnea on exertion and Denies orthopnea Resp Denies cough, Denies dyspnea and Denies dyspnea on exertion GI Denies hematochezia and Denies change in stool character Musc Denies abnormal gait, Denies muscle cramps, Denies muscle weakness, Denies numbness, Denies radiating pain into limb and Denies tingling Neuro Denies abnormal gait, Denies dizziness, Denies syncope, Denies numbness, Denies tingling and Denies weakness Endo Denies palpitations Physical Exam Vital Signs: Last Vital Signs Pulse 60 10/25/24 13:15 BP 118/60 10/25/24 13:15 Const General: cooperative, healthy appearing, comfortable and no acute distress Orientation/consciousness: patient oriented x3 HEENT Head: Yes normal to inspection Neck Neck: Yes normal visual inspection, Yes trachea midline and Yes supple Chest Chest palpation & inspection: normal inspection of the chest Resp Effort & Inspection: normal respiratory effort Auscultation: clear to auscultation bilaterally, no crackles, no rales, no rhonchi and no wheezes Cardio Jugular venous distension: no JVD Palpation: normal PMI Rate: regular rate Rhythm: regular rhythm Heart sounds: S1 normal heart sound present, S2 normal heart sound present, no click, no gallops, no murmurs and no rubs Peripheral pulses: Peripheral pulses 2+ throughout GI Inspection: Yes normal to inspection Palpation (GI): Soft to palpation Auscultation: normal bowel sounds Skin General skin exam: no rashes or lesions noted Neuro General: patient oriented x3 Extrem General: Yes normal to inspection, No no pedal edema and No calf tenderness Psych Appearance: grossly normal Mental Status: mental status grossly normal Speech and movement: Normal speech and movement present Office Procedures EKG Details: EKG today showed normal sinus rhythm, rate 60 beats per minute, possible right ventricular hypertrophy, normal MI and QTC 426 milliseconds. [id number], Complete Assessment & Plan Assessment & Plan (1) NSVT (nonsustained ventricular tachycardia): Code(s): I47.29 - Other ventricular tachycardia Category: Medical Plan: 09/26/2024-patient underwent a repeat echocardiogram that showed hyperdynamic LV systolic function with an ejection fraction at 71%, with mild mitral annular calcification. No wall motion abnormality was noted this time. 09/26/2024-Holter study showed baseline normal sinus rhythm with an average heart rate of 58 beats per minute, frequent sinus bradycardia 60% of the time, and occasional PVCs with 6 hours of 3 beat NSVT. Clinically stable. Continue amiodarone and metoprolol therapy. EKG showed normal sinus rhythm with normal QTC. Previously we had ordered labs to be done to monitor for possible toxicity from amiodarone therapy which has not been completed yet. Reiterated to complete these either at the facility are at the hospital here. (2) Hypertension: Code(s): I10 - Essential (primary) hypertension Category: Medical Plan: Blood pressure is well-controlled. Continue current regimen. Ideally, blood pressure goal less than 130/80. (3) Diabetes: Code(s): E11.9 - Type 2 diabetes mellitus without complications Category: Medical Plan: Continue aggressive diabetes management with an A1c goal less than 7%. Advised heart healthy diet, regular exercise as tolerated, and management of vascular risk factors. Follow-up in 6 months. In the interim, patient will call the office with any concerns or change in symptoms. This note was generated using voice recognition software. While every effort has been made to ensure accuracy and proper tin tie machine operator automatic, there may be occasional errors that could affect the content or meaning of the described symptoms. Orders: Orders AMB EKG-In Office Today I47.29 - Other ventricular tachycardia Coding Level of Care Code Est Pt Level 4 (02459) Complex EM visit Add On G2211 Diagnoses NSVT (nonsustained ventricular tachycardia) I47.29 Hypertension I10 Diabetes E11.9 CPT Codes EKG - CPT: 10161-[id number], Complete ([id number]) Time Spent (min) 31 Comment Time spent in reviewing the chart, test results, assessment, counseling and documentation.
[2024-10-25 13:15] VITALS: BP 118/60; PULSE 60
--- OUTSIDE RECORDS SUMMARY | 2024-10-25 14:43 | XMS_ITS | Encounter Summary ---
Author Organization [facility] Address [address] [place] [address] Care Team Providers Care Sign Installer Name Role Phone Seng Meneses MD Primary Care Provider [phone] Encounter Details Date Type Department Care Team (Late st Contact Info) Description 08/09/2024 Lab Requisition [facility] - Main Lab [address] [place] [address] Gary Wall MD [address] [place] [phone] Type 2 diabetes mellitus without complications [...] V28) documented in this encounter Care Teams Sign Installer Relationship Specialty Start Date End Date Seng Meneses MD [address] [place] [address] PCP - General Internal Medicine 02/16/12 documented as of this encounter
== END 2024-10-25 13:45 | disposition home or self-care (01) ==
PROVIDERS: PCP Family Medicine
DX: I47.29 Other ventricular tachycardia (principal); I10 Essential (primary) hypertension; E11.9 Type 2 diabetes mellitus without complications
CPT/HCPCS: 93010; 99214; G2211

== ENCOUNTER → 2024-10-25 12:59 | Outpatient (BNVA) | payer MEDICARE, MEDICAID, SELFPAY | PROVIDERS: PCP Family Medicine | DX: I47.29 Other ventricular tachycardia (principal); I10 Essential (primary) hypertension; E11.9 Type 2 diabetes mellitus without complications; R94.31 Abnormal electrocardiogram [ECG] [EKG] | CPT/HCPCS: 93005; 99212 ==

== ENCOUNTER 2025-04-26 13:13 | Outpatient (AMB) | payer MEDICARE, MEDICAID, SELFPAY ==
--- NOTE | 2025-04-26 13:18 | A.OFFVIS_ITS ---
Vital Signs 04/26/25 13:22 Height 5 ft 5 in BMI Reason not done Patient refused/unable BP 130/64 Blood Pressure Location Lt brachial Position Sitting Pulse 70 Pulse Source Monitor Intake Visit Reasons: 6 month f/up Intake Note: 6mth f/up Security Infrastructure Engineer Required: No Accompanied by: Significant Other Allergies belladonna alkaloids (From ) Allergy (Intermediate, Verified 05/25/24 13:44) ITCHING phenobarbital (From ) Allergy (Intermediate, Verified 05/25/24 13:44) ITCHING oxycodone Allergy (Verified 05/25/24 13:44) Unknown Medication List - Last Reconciled 04/26/25 by Jesse Villafana NP acetaminophen 1,000 mg PO Q8H albuterol sulfate 90 mcg/actuation 2 puffs inhalation Q6H PRN amiodarone 200 mg PO DAILY amlodipine (Norvasc) 10 mg PO DAILY apremilast (Otezla) 30 mg PO BID ascorbate calcium (vitamin C) 500 mg PO DAILY atorvastatin 40 mg PO BEDTIME bisacodyl 10 mg NE DAILY PRN budesonide-formoterol 80-4.5 mcg/actuation (Symbicort) 2 puffs inhalation BID daptomycin 500 mg IV Q24H diclofenac sodium 1% 4 grams topical TID doxycycline hyclate 100 mg PO BID guaifenesin 200 mg PO Q4H PRN hydrocortisone 1% 1 appl topical BID insulin glargine (Basaglar KwikPen U-100 Insulin) 12 units subcut DAILY insulin glargine (Basaglar KwikPen U-100 Insulin) 8 units subcut BEDTIME insulin lispro 1 sliding scale dose See Protocol subcut QIDACHS lidocaine 4% 1 patch topical DAILY lurasidone 60 mg PO BEDTIME magnesium oxide 400 mg PO DAILY meclizine 25 mg PO Q8H PRN metoprolol succinate ER 75 mg PO DAILY multivitamin with minerals 1 tab PO DAILY naltrexone 4.5 mg PO DAILY nystatin 1 appl topical BID nystatin 1 appl See Protocol topical TID PRN omeprazole 40 mg PO DAILY@0630 ondansetron 4 mg PO Q6H PRN pioglitazone 1 tab PO DAILY polyethylene glycol 400 1% (Visine Dry Eye Relief) 1 drp ophthalmic (eye) BID sennosides-docusate sodium 8.6-50 mg 1 tab-cap PO BEDTIME sertraline 50 mg PO DAILY tramadol 25 mg PO Q6H PRN zinc oxide 40% 1 appl topical BID HPI Comments Details: This is an 79-year-old female patient coming in for a follow-up visit. Patient arrives here in a stretcher today with her and EMS personal from [facility]. Patient with a history of diabetes, hyperlipidemia, sleep apnea and morbid obesity. Previously in May of 2024, patient was in the hospital for osteomyelitis where patient was noted to have wide complex tachycardia -narrow complex tachycardia and was started on amiodarone and metoprolol. Today, patient is reporting feeling well overall without any cardiac symptoms of exertional chest pain, shortness of breath, palpitations, orthopnea, PND, leg edema, presyncope or syncope. Patient does report some dizziness that she relates to her vertigo and is on meclizine which is helping. Patient is otherwise reporting compliance with all her medications. Previously we had requested checking for amiodarone toxicity however these have not been completed. [facility] Medical History NSVT (nonsustained ventricular tachycardia) Diabetes type 2, controlled History of DVT (deep vein thrombosis) CKD (chronic kidney disease) Erythema intertrigo Asthma Obesity Hypertension Diabetes Multiple skin tears Social History Household Members: Other Housing: [facility] Do you presently have visiting nurse or other home services: No Alcohol intake: never Comment: 1:1 sitter Patient Tobacco Use Status: Never used Tobacco service: No Current occupational status: disabled Review of Systems Const Denies chills, Denies fatigue, Denies fever(s), Denies frequent falls, Denies weakness, Denies weight gain and Denies weight loss ENT Denies dizziness Card Denies chest pain, Denies leg edema, Denies lightheadedness, Denies palpitations, Denies dyspnea and Denies dyspnea on exertion Resp Denies cough, Denies dyspnea and Denies dyspnea on exertion GI Denies hematochezia Musc Denies abnormal gait, Denies muscle weakness, Denies numbness, Denies radiating pain into limb and Denies tingling Neuro Denies abnormal gait, Denies dizziness, Denies frequent falls, Denies numbness, Denies tingling and Denies weakness Endo Denies fatigue and Denies palpitations Physical Exam Vital Signs: Last Vital Signs Pulse 70 04/26/25 13:22 BP 130/64 04/26/25 13:22 Const General: cooperative, healthy appearing, comfortable and no acute distress Orientation/consciousness: patient oriented x3 Limitations: physical limitations (Bed-bound in his stretcher) HEENT Head: Yes normal to inspection Neck Neck: Yes normal visual inspection, Yes trachea midline and Yes supple Chest Chest palpation & inspection: normal inspection of the chest Resp Effort & Inspection: normal respiratory effort Auscultation: clear to auscultation bilaterally, no crackles, no rales, no rhonchi and no wheezes Cardio Jugular venous distension: no JVD Palpation: normal PMI Rate: regular rate Rhythm: regular rhythm Heart sounds: S1 normal heart sound present, S2 normal heart sound present, no click, no gallops, no murmurs and no rubs Peripheral pulses: Peripheral pulses 2+ throughout GI Inspection: Yes normal to inspection Palpation (GI): Soft to palpation Auscultation: normal bowel sounds Skin General skin exam: no rashes or lesions noted Neuro General: patient oriented x3 Extrem General: No no pedal edema Psych Appearance: grossly normal Mental Status: mental status grossly normal Speech and movement: Normal speech and movement present Office Procedures EKG Details: EKG today showed normal sinus rhythm, rate 70 beats per minute, nonspecific STT wave, [place], [place]. [id number], Complete Assessment & Plan Assessment & Plan (1) NSVT (nonsustained ventricular tachycardia): Code(s): I47.29 - Other ventricular tachycardia Category: Medical Plan: 09/26/2024-patient underwent a repeat echocardiogram that showed hyperdynamic LV systolic function with an ejection fraction at 71%, with mild mitral annular c alcification. No wall motion abnormality was noted this time. 09/26/2024-Holter study showed baseline normal sinus rhythm with an average heart rate of 58 beats per minute, frequent sinus bradycardia 60% of the time, and occasional PVCs with 6 hours of 3 beat NSVT. Clinically stable. Continue amiodarone and metoprolol therapy. EKG showed normal sinus rhythm with normal QTC. We will once again try to get some labs done as patient is unsure if these were completed. We do not have records of these. Patient is to complete a chest x- ray, BNP, TSH, and LFTs. (2) Hypertension: Code(s): I10 - Essential (primary) hypertension Category: Medical Plan: Blood pressure is well-controlled. Continue current regimen. Ideally, blood pressure goal less than 130/80. Advised on heart healthy diet, staying active as tolerated, med compliance, and management of vascular risk factors. Follow up in 6 months. In the interim patient will call the office with any concerns or change in symptoms. This note was generated using voice recognition software. While every effort has been made to ensure accuracy and proper regional recruiter, there may be occasional errors that could affect the content or meaning of the described symptoms. Orders: Orders XR chest 1V Today I47.29 - Other ventricular tachycardia AMB EKG-In Office Today I47.29 - Other ventricular tachycardia Coding Level of Care Code Est Pt Level 4 (15470) Add On Problem Visit Only Diagnoses NSVT (nonsustained ventricular tachycardia) I47.29 Hypertension I10 CPT Codes EKG - CPT: 14189-[id number], Complete ([id number]) Time Spent (min) 33 Comment Time spent in reviewing the chart, test results, assessment, counseling and documentation.
[2025-04-26 13:22] VITALS: BP 130/64; PULSE 70
--- OUTSIDE RECORDS SUMMARY | 2025-04-26 17:24 | XMS_ITS | Encounter Summary ---
Author Organization [facility] Address [address] [place] [address] Care Team Providers Care Jewellery Designer Name Role Phone Seng Meneses MD Primary Care Provider [phone] Encounter Details Date Type Department Care Team (Late st Contact Info) Description 09/13/2024 Lab Requisition [facility] - Main Lab [address] [facility] [place] [address] Gary Wall MD [address] [place] [phone] Unspecified atrial fibrillation (CMS/HCC V24, CMS/HCC [...] 09/14/2024 6:06 AM EDT Unspecified atrial fibrillation ([facility]/HCC V24, CMS/HCC V28) Essential (primary) hypertension Type 2 diabetes mellitus without complications (CMS/HCC V24, CMS/HCC V28) COMPLETE BLOOD COUNT Routine 09/14/2024 6:00 AM EDT Unspecified atrial fibrillation (CMS/HCC V24, [facility] V28) Essential (primary) hypertension Type 2 diabetes mellitus without complications (CMS/HCC V24, CMS/HCC V28) HEMOGLOBIN A1C Routine 09/14/2024 6:00 AM EDT Unspecified atrial fibrillation ([facility]/HCC V24, [facility] V28) Essential (primary) hypertension Type 2 diabetes mellitus without complications (CMS/HCC V24, CMS/HCC V28) documented in this encounter Results * Magnesium (09/14/2024 6:06 AM EDT) Pathologist [facility] Magnesium 2.0 1.9 - 2.6 mg/dL LAB CHEMISTRY METHOD 09/14/2024 11:20 AM EDT [facility] Blood Venous blood specimen / Unknown Venipuncture / Unknown 09/14/2024 6:06 AM EDT 09/14/2024 11:20 AM EDT us Gary Wall MD LAB BLOOD ORDERABLES Final Resul t [facility] [address] [place] [address], [place] [phone] * Lipid panel with reflex to direct LDL (09/14/2024 6:06 AM EDT) Cholesterol 178 0 - 200 mg/dL LAB CHEMISTRY METHOD 09/14/2024 11:26 AM EDT [facility] Triglycerides 61 0 - 150 mg/dL LAB CHEMISTRY METHOD 09/14/2024 11:26 AM EDT [facility] HDL 67 >=40 mg/dL LAB CHEMISTRY METHOD 09/14/2024 11:26 AM T [facility] LDL Calculated 99 0 - 100 mg/dL LAB CHEMISTRY METHOD 09/14/2024 11:26 AM EDT [facility] VLDL Cholesterol Eugene 12.2 mg/dL LAB CHEMISTRY METHOD 09/14/2024 11:26 AM T [facility] Non HDL Chol. (LDL+VLDL) 111 <145 mg/dL LAB CHEMISTRY METHOD 09/14/2024 11:26 AM [facility] Chol/HDL Ratio 2.7 0.0 - 4.4 LAB CHEMISTRY METHOD 09/14/2024 11:26 AM [facility] Blood Venous blood specimen / Unknown Venipuncture / Unknown 09/14/2024 6:06 AM EDT 09/14/2024 11:20 AM EDT us Gary Wall MD LAB BLOOD ORDERABLES Final Resul t [facility] [address] [place] [address], * (ABNORMAL) Comprehensive metabolic panel (09/14/2024 6:06 AM EDT) Sodium 141 133 - 145 mmol/L LAB CHEMISTRY METHOD 09/14/2024 11:26 AM T [facility] Potassium 4.0 3.5 - 5.5 mmol/L LAB CHEMISTRY METHOD 09/14/2024 11:26 AM [facility] Chloride 107 96 - 110 mmol/L LAB CHEMISTRY METHOD 09/14/2024 11:26 AM [facility] CO2 27 21 - 32 mmol/L LAB CHEMISTRY METHOD 09/14/2024 11:26 AM [facility] Anion Gap 7 3 - 11 LAB CHEMISTRY METHOD 09/14/2024 11:26 AM [facility] Glucose 64(L) 70 - 100 mg/dL LAB CHEMISTRY METHOD 09/14/2024 11:26 AM [facility] BUN 20 5 - 25 mg/dL LAB CHEMISTRY METHOD 09/14/2024 11:26 AM [facility] Creatinine 0.78 0.50 - 1.10 mg/dL LAB CHEMISTRY METHOD 09/14/2024 11:26 AM [facility] eGFR 77 >=60 mL/min/1. 73m2 LAB CHEMISTRY METHOD 09/14/2024 11:26 AM [facility] Comment:Calculation based on the Chronic Kidney Disease Epidemiology Collaboration (CKD-EPI) equation refit without adjustment for race. BUN/Creatinine Ratio 25.6 LAB CHEMISTRY METHOD 09/14/2024 11:26 AM [facility] Calcium 8.2(L) 8.5 - 10.5 mg/dL LAB CHEMISTRY METHOD 09/14/2024 11:26 AM [facility] AST (SGOT) 17 10 - 42 unit/L LAB CHEMISTRY METHOD 09/14/2024 11:26 AM [facility] ALT (SGPT) 15 10 - 60 unit/L LAB CHEMISTRY METHOD 09/14/2024 11:26 AM [facility] Alkaline Phosphatase 73 42 - 121 unit/L LAB CHEMISTRY METHOD 09/14/2024 11:26 AM [facility] Total Protein 5.9(L) 6.0 - 8.0 g/dL LAB CHEMISTRY METHOD 09/14/2024 11:26 AM [facility] Albumin 2.7(L) 3.2 - 5.0 g/dL LAB CHEMISTRY METHOD 09/14/2024 11:26 AM [facility] Total Bilirubin 0.5 0.0 - 1.4 mg/dL LAB CHEMISTRY METHOD 09/14/2024 11:26 AM EDT [facility] Blood Venous blood specimen / Unknown Venipuncture / Unknown 09/14/2024 6:06 AM EDT 09/14/2024 11:20 AM EDT Gary Wall MD LAB BLOOD ORDERABLES Final Resul t Performing Organization Address [facility] Co de Phone Number [facility] [address] [place] [address], [place] [phone] * Hemoglobin A1c (09/14/2024 6:00 AM EDT) Hemoglobin A1C 5.9 <6.5 % LAB CHEMISTRY METHOD 09/14/2024 12:35 PM EDT [facility] Mean Bld Glu Estim. 123 mg/dL LAB CHEMISTRY METHOD 09/14/2024 12:35 PM EDT [facility] Blood Venous blood specimen / Unknown Venipuncture / Unknown 09/14/2024 6:00 AM EDT 09/14/2024 10:30 AM EDT Gary Wall MD LAB BLOOD ORDERABLES Final Resul t Performing Organization Address [facility] de Phone Number [facility] [address] [place] [address], [place] [phone] * (ABNORMAL) Complete blood count (09/14/2024 6:00 AM EDT) WBC 7.4 4.8 - 10.8 K/[facility] LAB HEMETOLOGY METHOD 09/14/2024 11:01 AM EDT [facility] RBC 4.10 3.80 - 4.80 M/mcL LAB HEMETOLOGY METHOD 09/14/2024 11:01 AM EDT [facility] Hemoglobin 10.9(L) 11.5 - 16.0 g/dL LAB HEMETOLOGY METHOD 09/14/2024 11:01 AM EDT [facility] Hematocrit 35.4 35.0 - 47.0 % LAB HEMETOLOGY METHOD 09/14/2024 11:01 AM [facility] MCV 87.4 79.0 - 98.0 FL LAB HEMETOLOGY METHOD 09/14/2024 11:01 AM EDT [facility] MCH 26.9(L) 27.0 - 32.0 pcg LAB HEMETOLOGY METHOD 09/14/2024 11:01 AM EDT [facility] MCHC 30.8(L) 32.0 - 37.0 g/dL LAB HEMETOLOGY METHOD 09/14/2024 11:01 AM [facility] RDW 18.9(H) 11.0 - 15.0 % LAB HEMETOLOGY METHOD 09/14[facility]2024 [facility] Plate[facility] 179 130 - 400 K/mcL LAB HEMETOLOGY METHOD 09/14/2024 11:01 AM [facility] MPV 10.4 7.0 - 11.0 FL LAB HEMETOLOGY METHOD 09/14/2024 11:01 AM [facility] NRBC 0.0 <1.0 % LAB HEMETOLOGY METHOD 09/14/2024 11:[facility] NRBC Absolute 0.00 <0.10 K/mcL LAB HEMETOLOGY METHOD 09/14/2024 11:01 AM [facility] Blood Venous blood specimen / Unknown Venipuncture / Unknown 09/14/2024 6:00 AM EDT 09/14/2024 10:30 AM EDT us Gary Wall MD LAB BLOOD ORDERABLES Final Resul t [facility] [address] [place] [address], documented in this encounter Visit Diagnoses Diagnosis Unspecified atrial fibrillation ([facility] V24, [facility] V28) Essential (primary) hypertension Unspecified essential hypertension Type 2 diabetes mellitus without complications ([facility] V24, [facility] V28) documented in this encounter Care Teams Jewellery Designer Relationship Specialty Start Date End Date Seng Meneses MD [address] [place] [address] PCP - General Internal Medicine 02/16/12 documented as of this encounter
--- OUTSIDE RECORDS SUMMARY | 2025-04-26 17:24 | XMS_ITS | Clinical Summary ---
Author Organization [employer] [facility] Prior to 10/08/24 Address [address] [place] [address] Care Team Providers Care Barista Name Role Phone Seng Meneses MD Primary Care Provider [phone] Allergies Active Allergy Reactions Criticality Noted Date [...] Immunizations Name Administration Dates Next Due Covid-19 ([employer]) Dilution Required 07/11/2020,0 06/20/2020 Family History Medical [...] 71 12/12/2022 11:42 AM EDT Temperature 35.6 C (96.1 F) 12/12/2022 11:42 AM EDT Respiratory Rate 18 08/26/2018 9:13 [...] 75+ series) 2019 COVID-19 Vaccine ( season) 2025 03/28/2022, 09/13/2021, 03/05/2021, Additional history exists Influenza Vaccine (#1) 2025 , 01/23/2011, 01/29/2010, Additional history exists Hepatitis B Vaccines Aged Out No long er eligible based on patient's age to complete this topic RSV Ped < 20 months Aged Out No longe r eligible based on patient's age to complete this topic Care Teams Barista Relationship Specialty Start Date End Date Seng Meneses MD [address] [place] [address] [address] [place] [address] PCP - General Internal Medicine 07/15/18
--- OUTSIDE RECORDS SUMMARY | 2025-04-26 17:24 | XMS_ITS | Encounter Summary ---
Author Organization [facility] Address [address] [place] [address] Care Team Providers Care Scientific Helper Name Role Phone Seng Meneses MD Primary Care Provider [phone] Encounter Details Date Type Department Care Team (Late st Contact Info) Description 03/14/[address] [facility] - Main Lab [address] [facility] [place] [address] Gary Wall MD [address] [place] [address] [address] [facility] [phone] Urgency of urination Social History [...] Travel phlebotomy fee (03/14/2024 6:02 AM EST) [facility] TRAVEL PHLEBOTOMY FEE Completed 03/14/2024 11:02 AM [facility] Blood Venous blood specimen / Unknown Venipuncture / Unknown 03/14/2024 6:02 AM EST 03/14/2024 10:21 AM EST us Gary Wall MD LAB BLOOD ORDERABLES Final Resul t [facility] [address] [place] [address], * (ABNORMAL) Comprehensive metabolic panel (03/14/2024 6:02 AM EST) Sodium 141 133 - 145 mmol/L LAB CHEMISTRY METHOD 03/14/2024 11:44 AM [facility] Potassium 3.9 3.5 - 5.5 mmol/L LAB CHEMISTRY METHOD 03/14/2024 11:44 AM [facility] Chloride 106 96 - 110 mmol/L LAB CHEMISTRY METHOD 03/14/2024 11:44 AM [facility] CO2 30 21 - 32 mmol/L LAB CHEMISTRY METHOD 03/14/2024 11:44 AM [facility] Anion Gap 5 3 - 11 LAB CHEMISTRY METHOD 03/14/2024 11:44 AM [facility] Glucose 79 70 - 100 mg/dL LAB CHEMISTRY METHOD 03/14/2024 11:44 AM [facility] BUN 21 5 - 25 mg/dL LAB CHEMISTRY METHOD 03/14/2024 11:44 AM [facility] Creatinine 0.85 0.50 - 1.10 mg/dL LAB CHEMISTRY METHOD 03/14/2024 11:44 AM [facility] eGFR 70 >=60 mL/min/1. 73m2 LAB CHEMISTRY METHOD 03/14/2024 11:44 AM [facility] Comment:Calculation based on the Chronic Kidney Disease Epidemiology Collaboration (CKD-EPI) equation refit without adjustment for race. BUN/Creatinine Ratio 24.7 LAB CHEMISTRY METHOD 03/14/2024 11:44 AM [facility] Calcium 8.9 8.5 - 10.5 mg/dL LAB CHEMISTRY METHOD 03/14/2024 11:44 AM [facility] AST (SGOT) 14 10 - 42 unit/L LAB CHEMISTRY METHOD 03/14/2024 11:44 AM [facility] ALT (SGPT) 14 10 - 60 unit/L LAB CHEMISTRY METHOD 03/14/2024 11:44 AM [facility] Alkaline Phosphatase 52 42 - 121 unit/L LAB CHEMISTRY METHOD 03/14/2024 11:44 AM [facility] Total Protein 6.0 6.0 - 8.0 g/dL LAB CHEMISTRY METHOD 03/14/2024 11:44 AM [facility] Albumin 2.6(L) 3.2 - 5.0 g/dL LAB CHEMISTRY METHOD 03/14/2024 11:44 AM [facility] Total Bilirubin 0.4 0.0 - 1.4 mg/dL LAB CHEMISTRY METHOD 03/14/2024 11:44 AM [facility] Blood Venous blood specimen / Unknown Venipuncture / Unknown 03/14/2024 6:02 AM EST 03/14/2024 10:21 AM EST us Gary Wall MD LAB BLOOD ORDERABLES Final Resul t [facility] [address] [place] [address], * (ABNORMAL) Complete blood count (03/14/2024 6:02 AM EST) WBC 7.6 4.8 - 10.8 K/mcL LAB HEMETOLOGY METHOD 03/14/2024 11:00 AM [facility] RBC 3.90 3.80 - 4.80 M/mcL LAB HEMETOLOGY METHOD 03/14/2024 11:00 AM [facility] Hemoglobin 10.7(L) 11.5 - 16.0 g/dL LAB HEMETOLOGY METHOD 03/14/2024 11:00 AM [facility] Hematocrit 36.0 35.0 - 47.0 % LAB HEMETOLOGY METHOD 03/14/2024 11:00 AM [facility] MCV 92.3 79.0 - 98.0 FL LAB HEMETOLOGY METHOD 03/14/2024 11:00 AM [facility] MCH 27.4 27.0 - 32.0 pcg LAB HEMETOLOGY METHOD 03/14/2024 11:00 AM [facility] MCHC 29.7(L) 32.0 - 37.0 g/dL LAB HEMETOLOGY METHOD 03/14/2024 11:00 AM [facility] RDW 18.0(H) 11.0 - 15.0 % LAB HEMETOLOGY METHOD 03/14/2024 11:00 AM [facility] Platelets 219 130 - 400 K/mcL LAB HEMETOLOGY METHOD 03/14/2024 11:00 AM [facility] MPV 10.1 7.0 - 11.0 FL LAB HEMETOLOGY METHOD 03/14/2024 11:00 AM [facility] NRBC 0.0 <1.0 % LAB HEMETOLOGY METHOD 03/14/2024 11:00 AM [facility] NRBC Absolute 0.00 <0.10 K/mcL LAB HEMETOLOGY METHOD 03/14/2024 11:00 AM [facility] Blood Venous blood specimen / Unknown Venipuncture / Unknown 03/14/2024 6:02 AM EST 03/14/2024 10:21 AM EST Gary Wall MD LAB BLOOD ORDERABLES Final Resul t [facility] [address] [place] [address], documented in this encounter Visit Diagnoses Diagnosis Urgency of urination documented in this encounter Additional Health Concerns Infection Onset Date Last Indicated Resolved Time Respiratory Rule-Out 07/30/2024 07/30/2024 025 1:29 PM EDT documented as of this encounter Care Teams Scientific Helper Relationship Specialty Start Date End Date Seng Meneses MD [address] [place] [address] PCP - General Internal Medicine 02/16/12 documented as of this encounter
--- OUTSIDE RECORDS SUMMARY | 2025-04-26 17:24 | XMS_ITS | Encounter Summary ---
Author Organization [facility] Address [address] [place] [address] Care Team Providers Care Makeup Sales Consultant Name Role Phone Seng Meneses MD Primary Care Provider [phone] Encounter Details Date Type Department Care Team (Late st Contact Info) Description 09/09/2024 Lab Requisition [facility] - Main Lab [address] [facility] [place] [address] Gary Wall MD [address] [place] [phone] Essential (primary) hypertension; Type 2 diabetes [...] LAB CHEMISTRY METHOD 09/09/2024 12:14 PM EDT [facility] Blood Venous blood specimen / Unknown Venipuncture / Unknown 09/09/2024 7:00 AM EDT 09/09/2024 10:18 AM EDT us Gary Wall MD LAB BLOOD ORDERABLES Final Resul t Performing Organization Address City/[facility] Co de Phone Number [facility] [address] [place] [address], [place] [phone] * (ABNORMAL) Iron and TIBC (09/09/2024 7:00 AM EDT) [facility] Iron 43 40 - 150 mcg/dL LAB CHEMISTRY METHOD 09/09/2024 12:13 PM EDT [facility] TIBC 299 250 - 450 mcg/dL LAB CHEMISTRY METHOD 09/09/2024 12:13 PM EDT [facility] Iron Saturation 14(L) 15 - 50 % LAB CHEMISTRY METHOD 09/09/2024 12:13 PM EDT [facility] Blood Venous blood specimen / Unknown Venipuncture / Unknown 09/09/2024 7:00 AM EDT 09/09/2024 10:18 AM EDT us Gary Wall MD LAB BLOOD ORDERABLES Final Resul t Performing Organization Address City/[facility]/ZIP Co de Phone Number [facility] [address] [place] [address], [place] [phone] * (ABNORMAL) Basic metabolic panel (09/09/2024 7:00 AM EDT) Sodium 139 133 - 145 mmol/L LAB CHEMISTRY METHOD 09/09/2024 12:13 PM [facility] Potassium 4.2 3.5 - 5.5 mmol/L LAB CHEMISTRY METHOD 09/09/2024 12:13 PM [facility] Chloride 103 96 - 110 mmol/L LAB CHEMISTRY METHOD 09/09/2024 12:13 PM [facility] CO2 27 21 - 32 mmol/L LAB CHEMISTRY METHOD 09/09/2024 12:13 PM [facility] Anion Gap 9 3 - 11 LAB CHEMISTRY METHOD 09/09/2024 12:13 PM [facility] Glucose 68(L) 70 - 100 mg/dL LAB CHEMISTRY METHOD 09/09/2024 12:13 PM [facility] BUN 24 5 - 25 mg/dL LAB CHEMISTRY METHOD 09/09/2024 12:13 PM [facility] Creatinine 0.84 0.50 - 1.10 mg/dL LAB CHEMISTRY METHOD 09/09/2024 12:13 PM [facility] eGFR 70 >=60 mL/min/1. 73m2 LAB CHEMISTRY METHOD 09/09/2024 12:13 PM [facility] Comment:Calculation based on the Chronic Kidney Disease Epidemiology Collaboration (CKD-EPI) equation refit without adjustment for race. BUN/Creatinine Ratio 28.6 LAB CHEMISTRY METHOD 09/09/2024 12:13 PM [facility] Calcium 8.6 8.5 - 10.5 mg/dL LAB CHEMISTRY METHOD 09/09/2024 12:13 PM [facility] Blood Venous blood specimen / Unknown Venipuncture / Unknown 09/09/2024 7:00 AM EDT 09/09/2024 10:18 AM EDT us Gary Wall MD LAB BLOOD ORDERABLES Final Resul t [facility] [address] [place] [address], [place] [phone] * (ABNORMAL) Complete blood count (09/09/2024 7:00 AM EDT) Pathologist [facility] WBC 7.7 4.8 - 10.8 K/mcL LAB HEMETOLOGY METHOD 09/09/2024 11:30 AM EDT [facility] RBC 4.00 3.80 - 4.80 M/mcL LAB HEMETOLOGY METHOD 09/09/2024 11:30 AM EDT [facility] Hemoglobin 10.9(L) 11.5 - 16.0 g/dL LAB HEMETOLOGY METHOD 09/09/2024 11:30 AM [facility] Hematocrit 34.9(L) 35.0 - 47.0 % LAB HEMETOLOGY METHOD 09/09/2024 11:30 AM EDT [facility] MCV 87.3 79.0 - 98.0 FL LAB HEMETOLOGY METHOD 09/[facility]24 [facility] MCH 27.3 27.0 - 32.0 pcg LAB HEMETOLOGY METHOD 09/09[facility]2024 [facility] MCHC 31.2(L) 32.0 - 37.0 g/dL LAB HEMETOLOGY METHOD 09/09/2024 [facility] RDW 18.5(H) 11.0 - 15.0 % LAB HEMETOLOGY METHOD 09/09/2024 11:30 AM [facility] Platelets 197 130 - 400 K/mcL LAB HEMETOLOGY METHOD 09/09/2024 11:30 AM EDT [facility] MPV 10.6 7.0 - 11.0 FL LAB HEMETOLOGY METHOD 09/09/2024 11:30 AM EDT [facility] NRBC 0.0 <1.0 % [facility] 09/09/2024 11:30 AM EDT [facility] NRBC Absolute 0.00 <0.10 K/mcL LAB HEMETOLOGY METHOD 09/09/2024 11:30 AM EDT [facility] Blood Venous blood specimen / Unknown Venipuncture / Unknown 09/09/2024 7:00 AM EDT 09/09/2024 10:18 AM EDT us Gary Wall MD LAB BLOOD ORDERABLES Final Resul t [facility] [address] [place] [address], documented in this encounter Visit Diagnoses Diagnosis Essential (primary) hypertension Unspecified essential hypertension Type 2 diabetes mellitus without complications (CMS/HCC V24, CMS/HCC V28) documented in this encounter Care Teams Makeup Sales Consultant Relationship Specialty Start Date End Date Seng Meneses MD [address] [place] [address] PCP - General Internal Medicine 02/16/12 documented as of this encounter
--- OUTSIDE RECORDS SUMMARY | 2025-04-26 17:25 | XMS_ITS | Encounter Summary ---
Author Organization [facility] Address [address] [place] [address] Care Team Providers Care Roof Cement And Paint Maker Helper Name Role Phone Seng Meneses MD Primary Care Provider [phone] Encounter Details Date Type Department Care Team (Late st Contact Info) Description 06/28/2024 Lab Requisition [facility] - Main Lab 299 [facility] [place] [address] Gary Wall MD [address] [place] [address] 204 [facility] [address] Type 2 diabetes mellitus without [...] LAB CHEMISTRY METHOD 06/29/2024 12:28 PM EST [facility] Blood Venous blood specimen / Unknown Venipuncture / Unknown 06/29/2024 7:27 AM EST 06/29/2024 11:31 AM EST Gary Wall MD LAB BLOOD ORDERABLES Final Resul t Performing Organization Address [facility]/ZIP Co de Phone Number [facility] [address] [place] [address], [place] [phone] * (ABNORMAL) Sedimentation rate (06/29/2024 7:27 AM EST) Pathologist [facility] Sed Rate 53(H) 0 - 30 mm/hr LAB HEMETOLOGY METHOD 06/29/2024 1:15 PM EST [facility] Blood Venous blood specimen / Unknown Venipuncture / Unknown 06/29/2024 7:27 AM EST 06/29/2024 11:31 AM EST Gary Wall MD LAB BLOOD ORDERABLES Final Resul t [facility] [address] [place] [address], [place] [phone] * (ABNORMAL) Basic metabolic panel (06/29/2024 7:27 AM EST) Pathologist [facility] Sodium 143 133 - 145 mmol/L LAB CHEMISTRY METHOD 06/29/2024 12:24 PM EST [facility] Potassium 4.4 3.5 - 5.5 mmol/L LAB CHEMISTRY METHOD 06/29/2024 12:24 PM [facility] Chloride 108 96 - 110 mmol/L LAB CHEMISTRY METHOD 06/29/2024 12:24 PM [facility] CO2 26 21 - 32 mmol/L LAB CHEMISTRY METHOD 06/29/2024 12:24 PM [facility] Anion Gap 9 3 - 11 LAB CHEMISTRY METHOD 06/29/2024 12:24 PM [facility] Glucose 90 70 - 100 mg/dL LAB CHEMISTRY METHOD 06/29/2024 12:24 PM [facility] BUN 20 5 - 25 mg/dL LAB CHEMISTRY METHOD 06/29/2024 12:24 PM [facility] Creatinine 1.02 0.50 - 1.10 mg/dL LAB CHEMISTRY METHOD 06/29/2024 12:24 PM [facility] eGFR 56(L) >=60 mL/min/1. 73m2 LAB CHEMISTRY METHOD 06/29/2024 12:24 PM [facility] Comment:Calculation based on the Chronic Kidney Disease Epidemiology Collaboration (CKD-EPI) equation refit without adjustment for race. BUN/Creatinine Ratio 19.6 LAB CHEMISTRY METHOD 06/29/2024 12:24 PM [facility] Calcium 9.0 8.5 - 10.5 mg/dL LAB CHEMISTRY METHOD 06/29/2024 12:24 PM [facility] Blood Venous blood specimen / Unknown Venipuncture / Unknown 06/29/2024 7:27 AM EST 06/29/2024 11:31 AM EST us Gary Wall MD LAB BLOOD ORDERABLES Final Resul t [facility] [address] [place] [address], * (ABNORMAL) Complete blood count (06/29/2024 7:27 AM EST) WBC 7.8 4.8 - 10.8 K/mcL LAB HEMETOLOGY METHOD 06/29/2024 12:56 PM [facility] RBC 4.00 3.80 - 4.80 M/[facility] LAB HEMETOLOGY METHOD 06/29/2024 12:56 PM [facility] Hemoglobin 11.1(L) 11.5 - 16.0 g/dL LAB HEMETOLOGY METHOD 06/29/2024 12:56 PM [facility] Hematocrit 36.3 35.0 - 47.0 % LAB HEMETOLOGY METHOD 06/29/2024 12:56 PM [facility] MCV 89.9 79.0 - 98.0 FL LAB HEMETOLOGY METHOD 06/29/2024 12:56 PM [facility] MCH 27.5 27.0 - 32.0 pcg LAB HEMETOLOGY METHOD 06/29/2024 12:56 PM [facility] MCHC 30.6(L) 32.0 - 37.0 g/dL LAB HEMETOLOGY METHOD 06/29/2024 12:56 PM [facility] RDW 18.4(H) 11.0 - 15.0 % LAB HEMETOLOGY METHOD 06/29/2024 12:56 PM [facility] Platelets 233 130 - 400 K/mcL LAB HEMETOLOGY METHOD 06/29/2024 12:56 PM [facility] MPV 9.6 7.0 - 11.0 FL LAB HEMETOLOGY METHOD 06/29/2024 12:56 PM [facility] NRBC 0.0 <1.0 % LAB HEMETOLOGY METHOD 06/29/2024 12:56 PM [facility] NRBC Absolute 0.00 <0.10 K/[facility] LAB HEMETOLOGY METHOD 06/29/2024 12:56 PM [facility] Blood Venous blood specimen / Unknown Venipuncture / Unknown 06/29/2024 7:27 AM EST 06/29/2024 11:31 AM EST us Gary Wall MD LAB BLOOD ORDERABLES Final Resul t [facility] ([facility] [address] [place] [address], documented in this encounter Visit Diagnoses Diagnosis Type 2 diabetes mellitus without complications (CMS/HCC V24, CMS/HCC V28) documented in this encounter Additional Health Concerns Infection Onset Date Last Indicated Resolved Time Respiratory Rule-Out 07/30/2024 07/30/2024 025 1:29 PM EDT documented as of this encounter Care Teams Roof Cement And Paint Maker Helper Relationship Specialty Start Date End Date Seng Meneses MD [address] [place] [address] PCP - General Internal Medicine 02/16/12 documented as of this encounter
--- OUTSIDE RECORDS SUMMARY | 2025-04-26 17:25 | XMS_ITS | Encounter Summary ---
Author Organization [facility] Address [address] [place] [address] Care Team Providers Care Emt Name Role Phone Seng Meneses MD Primary Care Provider [phone] Encounter Details Date Type Department Care Team (Late st Contact Info) Description 07/05/2024 Lab Requisition [facility] - Main Lab 299 [facility] [place] [address] Gary Wall MD [address] [place] [address] 204 [facility] [place] [address] Type 2 diabetes mellitus without complications [...] * C-reactive protein (07/06/2024 5:14 AM EST) [facility] C-Reactive Protein <0.29 <=0.50 mg/dL LAB CHEMISTRY METHOD 07/06/2024 10:54 AM EST [facility] Blood Venous blood specimen / Unknown Venipuncture / Unknown 07/06/2024 5:14 AM EST 07/06/2024 9:56 AM EST Gary Wall MD LAB BLOOD ORDERABLES Final Resul t Performing Organization Address [facility]/ZIP Co de Phone Number [facility] [address] [place] [address], [place] [phone] * (ABNORMAL) Sedimentation rate (07/06/2024 5:14 AM EST) [facility] Sed Rate 55(H) 0 - 30 mm/hr LAB HEMETOLOGY METHOD 07/06/2024 11:42 AM EST [facility] Blood Venous blood specimen / Unknown Venipuncture / Unknown 07/06/2024 5:14 AM EST 07/06/2024 9:56 AM EST Gary Wall MD LAB BLOOD ORDERABLES Final Resul t Performing Organization Address City/[facility]/ZIP Co de Phone Number [facility] [address] [place] [address], [place] [phone] * Basic metabolic panel (07/06/2024 5:14 AM EST) [facility] Sodium 143 133 - 145 mmol/L LAB CHEMISTRY METHOD 07/06/2024 10:49 AM EST [facility] Potassium 4.4 3.5 - 5.5 mmol/L LAB CHEMISTRY METHOD 07/06/2024 10:49 AM EST [facility] Chloride 107 96 - 110 mmol/L LAB CHEMISTRY METHOD 07/06/2024 10:49 AM [facility] CO2 27 21 - 32 mmol/L LAB CHEMISTRY METHOD 07/06/2024 10:49 AM [facility] Anion Gap 9 3 - 11 LAB CHEMISTRY METHOD 07/06/2024 10:49 AM [facility] Glucose 86 70 - 100 mg/dL LAB CHEMISTRY METHOD 07/06/2024 10:49 AM [facility] BUN 17 5 - 25 mg/dL LAB CHEMISTRY METHOD 07/06/2024 10:49 AM [facility] Creatinine 0.92 0.50 - 1.10 mg/dL LAB CHEMISTRY METHOD 07/06/2024 10:49 AM [facility] eGFR 63 >=60 mL/min/1. 73m2 LAB CHEMISTRY METHOD 07/06/2024 10:49 AM [facility] Comment:Calculation based on the Chronic Kidney Disease Epidemiology Collaboration (CKD-EPI) equation refit without adjustment for race. BUN/Creatinine Ratio 18.5 LAB CHEMISTRY METHOD 07/06/2024 10:49 AM [facility] Calcium 9.0 8.5 - 10.5 mg/dL LAB CHEMISTRY METHOD 07/06/2024 10:49 AM [facility] Blood Venous blood specimen / Unknown Venipuncture / Unknown 07/06/2024 5:14 AM EST 07/06/2024 9:56 AM EST us Gary Wall MD LAB BLOOD ORDERABLES Final Resul t [facility] [address] [place] [address], * (ABNORMAL) Complete blood count (07/06/2024 5:14 AM EST) WBC 8.1 4.8 - 10.8 K/[facility] LAB HEMETOLOGY METHOD 07/06/2024 11:10 AM [facility] RBC 3.90 3.80 - 4.80 M/mcL LAB HEMETOLOGY METHOD 07/06/2024 11:10 AM [facility] Hemoglobin 10.6(L) 11.5 - 16.0 g/dL LAB HEMETOLOGY METHOD 07/06/2024 11:10 AM [facility] Hematocrit 36.0 35.0 - 47.0 % LAB HEMETOLOGY METHOD 07/06/2024 11:10 AM [facility] MCV 92.5 79.0 - 98.0 FL LAB HEMETOLOGY METHOD 07/06/2024 11:10 AM [facility] MCH 27.2 27.0 - 32.0 pcg LAB HEMETOLOGY METHOD 07/06/2024 11:10 AM [facility] MCHC 29.4(L) 32.0 - 37.0 g/dL LAB HEMETOLOGY METHOD 07/06/2024 11:10 AM [facility] RDW 18.9(H) 11.0 - 15.0 % LAB HEMETOLOGY METHOD 07/06/2024 11:10 AM [facility] Platelets 267 130 - 400 K/mcL LAB HEMETOLOGY METHOD 07/06/2024 11:10 AM [facility] MPV 9.6 7.0 - 11.0 FL LAB HEMETOLOGY METHOD 07/06/2024 11:10 AM [facility] NRBC 0.0 <1.0 % LAB HEMETOLOGY METHOD 07/06/2024 11:10 AM [facility] NRBC Absolute 0.00 <0.10 K/mcL LAB HEMETOLOGY METHOD 07/06/2024 11:10 AM [facility] Blood Venous blood specimen / Unknown Venipuncture / Unknown 07/06/2024 5:14 AM EST 07/06/2024 9:56 AM EST us Gary Wall MD LAB BLOOD ORDERABLES Final Resul t [facility] ([facility]) [facility] [address] [place] [address], documented in this encounter Visit Diagnoses Diagnosis Type 2 diabetes mellitus without complications (CMS/HCC V24, CMS/HCC V28) documented in this encounter Additional Health Concerns Infection Onset Date Last Indicated Resolved Time Respiratory Rule-Out 07/30/2024 07/30/2024 025 1:29 PM EDT documented as of this encounter Care Teams Emt Relationship Specialty Start Date End Date Seng Meneses MD [address] [place] [address] PCP - General Internal Medicine 02/16/12 documented as of this encounter
--- OUTSIDE RECORDS SUMMARY | 2025-04-26 17:25 | XMS_ITS | Encounter Summary ---
Author Organization [facility] Address [address] [place] [address] Care Team Providers Care Runway Model Name Role Phone Seng Meneses MD Primary Care Provider [phone] Encounter Details Date Type Department Care Team (Late st Contact Info) Description 06/04/2024 Lab Requisition [facility] - Main Lab 299 [facility] [place] [address] Gary Wall MD [address] [place] [address] 204 [facility] [address] Osteomyelitis, unspecified (CMS/HCC V24, CMS/HCC V28) [...] CBC auto differential (06/06/2024 8:01 AM EST) [facility] WBC 8.8 4.8 - 10.8 K/mcL LAB HEMETOLOGY METHOD 06/06/2024 1:19 PM [facility] RBC 4.00 3.80 - 4.80 M/mcL LAB HEMETOLOGY METHOD 06/06/2024 1:19 PM [facility] Hemoglobin 10.8(L) 11.5 - 16.0 g/dL LAB HEMETOLOGY METHOD 06/06/2024 1:19 PM [facility] Hematocrit 34.9(L) 35.0 - 47.0 % LAB HEMETOLOGY METHOD 06/06/2024 1:19 PM [facility] MCV 88.4 79.0 - 98.0 FL LAB HEMETOLOGY METHOD 06/06/2024 1:19 PM [facility] MCH 27.3 27.0 - 32.0 pcg LAB HEMETOLOGY METHOD 06/06/2024 1:19 PM [facility] MCHC 30.9(L) 32.0 - 37.0 g/dL LAB HEMETOLOGY METHOD 06/06/2024 1:19 PM [facility] RDW 18.2(H) 11.0 - 15.0 % LAB HEMETOLOGY METHOD 06/06/2024 1:19 PM [facility] Platelets 200 130 - 400 K/mcL LAB HEMETOLOGY METHOD 06/06/2024 1:19 PM [facility] MPV 9.9 7.0 - 11.0 FL LAB HEMETOLOGY METHOD 06/06/2024 1:19 PM [facility] NRBC 0.0 <1.0 % LAB HEMETOLOGY METHOD 06/06/2024 1:19 PM [facility] NRBC Absolute 0.00 <0.10 K/mcL LAB HEMETOLOGY METHOD 06/06/2024 1:19 PM [facility] Neutrophils Relative 61.6 % LAB HEMETOLOGY METHOD 06/06/2024 1:19 PM [facility] Lymphocytes Relative 31.4 % LAB HEMETOLOGY METHOD 06/06/2024 1:19 PM [facility] Monocytes Relative 5.7 % LAB HEMETOLOGY METHOD 06/06/2024 1:19 PM [facility] Eosinophils Relative 0.6 % LAB HEMETOLOGY METHOD 06/06/2024 1:19 PM [facility] Basophils Relative 0.5 % LAB HEMETOLOGY METHOD 06/06/2024 1:19 PM [facility] Immature Granulocytes Relative 0.2 % LAB HEMETOLOGY METHOD 06/06/2024 1:19 PM [facility] Neutrophils Absolute 5.42 1.50 - 7.00 K/mcL LAB HEMETOLOGY METHOD 06/06/2024 1:19 PM [facility] Lymphocytes Absolute 2.76 1.00 - 5.00 K/mcL LAB HEMETOLOGY METHOD 06/06/2024 1:19 PM [facility] Monocytes Absolute 0.50 0.20 - 1.00 K/mcL LAB HEMETOLOGY METHOD 06/06/2024 1:19 PM [facility] Eosinophils Absolute 0.05 0.00 - 0.50 K/mcL LAB HEMETOLOGY METHOD 06/06/2024 1:19 PM [facility] Basophils Absolute 0.04 0.00 - 0.20 K/[facility] LAB HEMETOLOGY METHOD 06/06/2024 1:19 PM EST [facility] Immature Granulocytes Absolute 0.02 0.00 - 0.03 K/[facility] LAB HEMETOLOGY METHOD 06/06/2024 1:19 PM EST [facility] Blood Venous blood specimen / Unknown Venipuncture / Unknown 06/06/2024 8:01 AM EST 06/06/2024 12:17 PM EST us Gary Wall MD LAB BLOOD ORDERABLES Final Resul t Performing Organization Address City/[facility]/ZIP Co de Phone Number [facility] [address] [place] [address], [place] [phone] * C-reactive protein (06/06/2024 8:01 AM EST) C-Reactive Protein 0.41 <=0.50 mg/dL LAB CHEMISTRY METHOD 06/06/2024 2:39 PM EST [facility] Blood Venous blood specimen / Unknown Venipuncture / Unknown 06/06/2024 8:01 AM EST 06/06/2024 12:06 PM EST us Gary Wall MD LAB BLOOD ORDERABLES Final Resul t [facility] [address] [place] [address], [place] [phone] * (ABNORMAL) Sedimentation rate (06/06/2024 8:01 AM EST) Sed Rate 48(H) 0 - 30 mm/hr LAB HEMETOLOGY METHOD 06/06/2024 12:25 PM EST [facility] Blood Venous blood specimen / Unknown Venipuncture / Unknown 06/06/2024 8:01 AM EST 06/06/2024 12:17 PM EST us Gary Wall MD LAB BLOOD ORDERABLES Final Resul t Performing Organization Address City/[facility]/ZIP Co de Phone Number [facility] [address] [place] [address], [place] [phone] * Creatine kinase (06/06/2024 8:01 AM EST) Pathologist [facility] Total CK 57 22 - 269 unit/L LAB CHEMISTRY METHOD 06/06/2024 2:39 PM [facility] Blood Venous blood specimen / Unknown Venipuncture / Unknown 06/06/2024 8:01 AM EST 06/06/2024 12:06 PM EST Gary Wall MD LAB BLOOD ORDERABLES Final Resul t Performing Organization Address [facility] Co de Phone Number [facility] [address] [place] [address], [place] [phone] * (ABNORMAL) Basic metabolic panel (06/06/2024 8:01 AM EST) [facility] Sodium 139 133 - 145 mmol/L LAB CHEMISTRY METHOD 06/06/2024 2:45 PM [facility] Potassium 4.6 3.5 - 5.5 mmol/L LAB CHEMISTRY METHOD 06/06/2024 2:45 PM [facility] Chloride 105 96 - 110 mmol/L LAB CHEMISTRY METHOD 06/06/2024 2:45 PM [facility] CO2 32 21 - 32 mmol/L LAB CHEMISTRY METHOD 06/06/2024 2:45 PM [facility] Anion Gap 2(L) 3 - 11 LAB CHEMISTRY METHOD 06/06/2024 2:45 PM [facility] Glucose 85 70 - 100 mg/dL LAB CHEMISTRY METHOD 06/06/2024 2:45 PM [facility] BUN 16 5 - 25 mg/dL LAB CHEMISTRY METHOD 06/06/2024 2:45 PM EST [facility] Creatinine 0.76 0.50 - 1.10 mg/dL LAB CHEMISTRY METHOD 06/06/2024 2:45 PM EST [facility] eGFR 80 >=60 mL/min/1. 73m2 LAB CHEMISTRY METHOD 06/06/2024 2:45 PM [facility] Comment:Calculation based on the Chronic Kidney Disease Epidemiology Collaboration (CKD-EPI) equation refit without adjustment for race. BUN/Creatinine Ratio 21.1 LAB CHEMISTRY METHOD 06/06/2024 2:45 PM [facility] Calcium 8.3(L) 8.5 - 10.5 mg/dL LAB CHEMISTRY METHOD 06/06/2024 2:45 PM [facility] Blood Venous blood specimen / Unknown Venipuncture / Unknown 06/06/2024 8:01 AM EST 06/06/2024 12:06 PM EST us Gary Wall MD LAB BLOOD ORDERABLES Final Resul t [facility] [address] [place] [address], documented in this encounter Visit Diagnoses Diagnosis Osteomyelitis, unspecified (CMS/HCC V24, CMS/HCC V28) documented in this encounter Additional Health Concerns Infection Onset Date Last Indicated Resolved Time Respiratory Rule-Out 07/30/2024 07/30/2024 025 1:29 PM EDT documented as of this encounter Care Teams Runway Model Relationship Specialty Start Date End Date Seng Meneses MD [address] [place] [address] PCP - General Internal Medicine 02/16/12 documented as of this encounter
--- OUTSIDE RECORDS SUMMARY | 2025-04-26 17:25 | XMS_ITS | Encounter Summary ---
Author Organization [facility] Address [address] [place] [address] Care Team Providers Care Steaming Machine Operator Name Role Phone Seng Meneses MD Primary Care Provider [phone] Encounter Details Date Type Department Care Team (Late st Contact Info) Description 08/23/2024 Lab Requisition [facility] - Main Lab 299 [facility] [place] [address] Gary Wall MD [address] [place] [address] 204 [facility] [address] Type 2 diabetes mellitus without [...] mmol/L LAB CHEMISTRY METHOD 08/24/2024 12:37 PM [facility] Potassium 4.1 3.5 - 5.5 mmol/L LAB CHEMISTRY METHOD 08/24/2024 12:37 PM [facility] Chloride 103 96 - 110 mmol/L LAB CHEMISTRY METHOD 08/24/2024 12:37 PM [facility] CO2 28 21 - 32 mmol/L LAB CHEMISTRY METHOD 08/24/2024 12:37 PM [facility] Anion Gap 8 3 - 11 LAB CHEMISTRY METHOD 08/24/2024 12:37 PM [facility] Glucose 79 70 - 100 mg/dL LAB CHEMISTRY METHOD 08/24/2024 12:37 PM [facility] BUN 20 5 - 25 mg/dL LAB CHEMISTRY METHOD 08/24/2024 12:37 PM [facility] Creatinine 0.87 0.50 - 1.10 mg/dL LAB CHEMISTRY METHOD 08/24/2024 12:37 PM [facility] eGFR 67 >=60 mL/min/1. 73m2 LAB CHEMISTRY METHOD 08/24/2024 12:37 PM [facility] Comment:Calculation based on the Chronic Kidney Disease Epidemiology Collaboration (CKD-EPI) equation refit without adjustment for race. BUN/Creatinine Ratio 23.0 LAB CHEMISTRY METHOD 08/24/2024 12:37 PM [facility] Calcium 8.8 8.5 - 10.5 mg/dL LAB CHEMISTRY METHOD 08/24/2024 12:37 PM [facility] Blood Venous blood specimen / Unknown Venipuncture / Unknown 08/24/2024 6:00 AM EDT 08/24/2024 11:15 AM EDT us Gary Wall MD LAB BLOOD ORDERABLES Final Resul t [facility] [address] [place] [address], * (ABNORMAL) Complete blood count (08/24/2024 6:00 AM EDT) [facility] Signature WBC 8.2 4.8 - 10.8 K/mcL LAB HEMETOLOGY METHOD 08/24/2024 11:28 AM EDT [facility] RBC 4.00 3.80 - 4.80 M/mcL LAB HEMETOLOGY METHOD 08/24/2024 11:28 AM EDT [facility] Hemoglobin 10.8(L) 11.5 - 16.0 g/dL LAB HEMETOLOGY METHOD [facility]/24[facility]2024 [facility] Hematocrit 35.1 35.0 - 47.0 % LAB HEMETOLOGY METHOD 08/24/2024 11:28 AM EDT [facility] MCV 88.2 79.0 - 98.0 FL LAB HEMETOLOGY METHOD 08/24/2024 11:28 AM EDT [facility] MCH 27.1 27.0 - 32.0 pcg LAB HEMETOLOGY METHOD 08/24/2024 11:[facility] MCHC 30.8(L) 32.0 - 37.0 g/dL LAB HEMETOLOGY METHOD 08/24/2024 11:28 AM EDT [facility] RDW 18.4(H) 11.0 - 15.0 % LAB HEMETOLOGY METHOD 08/24/2024 11:28 AM EDT [facility] Platelets 223 130 - 400 K/mcL LAB HEMETOLOGY METHOD 08/24/2024 11:[facility] MPV 9.7 7.0 - 11.0 FL LAB HEMETOLOGY METHOD 08/24/2024 11:28 AM EDT [facility] NRBC 0.0 <1.0 % LAB HEMETOLOGY METHOD 08/24/2024 11:28 AM EDT [facility] NRBC Absolute 0.00 <0.10 K/mcL LAB HEMETOLOGY METHOD 08/24/2024 11:28 AM EDT [facility] Blood Venous blood specimen / Unknown Venipuncture / Unknown 08/24/2024 6:00 AM EDT 08/24/2024 11:15 AM EDT us Gary Wall MD LAB BLOOD ORDERABLES Final Resul t [facility] [address] [place] [address], documented in this encounter Visit Diagnoses Diagnosis Type 2 diabetes mellitus without complications (CMS/HCC V24, CMS/HCC V28) documented in this encounter Care Teams Steaming Machine Operator Relationship Specialty Start Date End Date Seng Meneses MD [address] [place] [address] PCP - General Internal Medicine 02/16/12 documented as of this encounter
--- OUTSIDE RECORDS SUMMARY | 2025-04-26 17:25 | XMS_ITS | Encounter Summary ---
Author Organization [facility] Address [address] [place] [address] Care Team Providers Care Line Director Name Role Phone Seng Meneses MD Primary Care Provider [phone] Encounter Details Date Type Department Care Team (Late st Contact Info) Description 08/09/2024 Lab Requisition [facility] - Main Lab 299 [facility] [place] [address] Gary Wall MD [address] [place] [phone] Type 2 diabetes mellitus without complications [...] V28) documented in this encounter Care Teams Line Director Relationship Specialty Start Date End Date Seng Meneses MD [address] [place] [address] PCP - General Internal Medicine 02/16/12 documented as of this encounter
--- OUTSIDE RECORDS SUMMARY | 2025-04-26 17:25 | XMS_ITS ---
Author Organization [facility] Care Team Providers Care Continuous Mining Operator Name Role Phone Kim Gomez Unavailable Unavailable Kimberlyn York Unavailable Unavailable Irma Ponce Unavailable Unavailable Soja, Darcie Unavailable Unavailable Evangelina Reyes Unavailable Unavailable Genevieve MANAGER MARKET DEVELOPMENT, Mercedes Duran Unavailable Unavailable Sommer Chanel Unavailable Unavailable Sommer Wilson Unavailable Unavailable ZeStacia manciniica Unavailable Unavailable Kaela Godoy Unavailable Unavailable Tara Mercedes Unavailable Unavailable Real, Aubree Unavailable Unavailable Mainjessica, Afshan Unavailable Unavailable Allergies and adverse reactions Code CodeSystem Substance Reaction Severity StartDate Concern Status Adhesive Tape Unknown 05/22/2022 active 885503 RXNORM Belladonna Unknown 05/22/2022 active 7804 RXNORM oxyCODONE Unknown 06/02/2022 active Care Team Name Role Address Phone Organization Dates Irma Ponce PCP [address] [place] [address] 1, [place], [address], [place] (Office): : [facility] 05/22/2022 - 11/23/2023 Kim Gomez [address] [place] [address] 1, [place], [address], [place] (Office): : [phone] [facility] 05/22/2022 - 11/23/2023 [place], [address], [facility] (Office): : [facility] 05/22/2022 - 11/23/2023 Darcie Hollyyomaira [address] [facility] [address], [place], [address], [facility] (Office): : [phone] [facility] 05/22/2022 - 11/23/2023 Evangelina Amy [address] [address], [place], [place], [address] (Office): : [phone] [facility] 05/22/2022 - 11/23/2023 Mercedes Vallejo NP [address] (Office): [facility] 05/22/2022 - 11/23/2023 Sommer Chanel [address] [address], [place], [place], [address] (Office): : [facility] 05/22/2022 - 11/23/2023 Sommer Wilson [place], [facility] 05/22/2022 - 11/23/2023 Saundra Mcclure MA, [facility] 05/22/2022 - 11/23/2023 Kaela Godoy [address] [address], [place], [place], [address] (Office): : [phone] [facility] 05/22/2022 - 11/23/2023 Tara Mercedes [address] [facility] [address], [place], [address], [facility] (Office): : [phone] [facility] 05/22/2022 - 11/23/2023 Aubree Noble [address] [facility] [address], [place], [address], [facility] (Office): : [phone] [facility] 05/22/2022 - 11/23/2023 Afshan Yoo [address] [facility] [address], [place], [address], [facility] (Office): : [facility] 05/22/2022 - 11/23/2023 Immunizations Immunization Status Vaccine Details Vaccine Code CodeSystem Date Notes Covid-19 Vaccine (Pfizer CVX 208) dose #1 completed SARS-COV-2 (COVID-19) vaccine, mRNA, spike protein, LNP, preservative free, 50 mcg/0.5 mL dose 221 CVX created date: 05/25/2022 administer ed date: 06/20/2020 Covid-19 Vaccine (Pfizer CVX 208) dose #2 completed SARS-COV-2 (COVID-19) vaccine, mRNA, spike protein, LNP, preservative free, 50 mcg/0.5 mL dose 221 CVX created date: 05/25/2022 administer ed date: 07/11/2021 Covid-19 Vaccine (Pfizer CVX 208) dose #3 (BOOSTER) completed SARS-COV-2 (COVID-19) vaccine, mRNA, spike protein, LNP, preservative free, 30 mcg/0.3mL dose 208 CVX created date: 05/25/2022 administer ed date: 03/05/2021 Covid-19 Pfizer Booster dose #4 (Booster #2) completed SARS-COV-2 (COVID-19) vaccine, mRNA, spike protein, LNP, preservative free, 30 mcg/0.3mL dose 208 CVX created date: 05/25/2022 administer ed date: 09/13/2021 Covid-19 completed SARS-COV-2 (COVID-19) vaccine, mRNA, spike protein, LNP, preservative free, 50 mcg/0.5 mL dose Given intramuscularly 312 CVX created date: 07/17/2023 consent date: 07/17/2023 administer ed date: 06/26/2023 Influenza, high dose seasonal completed Influenza, high-dose, split virus, trivalent, injectable, preservative free 135 CVX created date: 07/20/2023 consent date: 07/20/2023 administer ed date: 07/03/2023 Educated by on 07/03/2023 Medications Section Medication Name Status Code CodeSystem Dose Route Frequency Admin Type Sig Text Start Date End Date Indication Symbicort Aerosol 80-4.5 MCG/ACT active 90232 15 RXNORM 2 puff Inhala tion two times a day Routin e 2 puff inhal e orall y two times a day for resp failu re 2022 - resp failure Meclizine HCl Tablet 25 MG active 14195 6 RXNORM 1 table t Oral as needed PRN Give 1 table t by mouth every 8 hours as neede d for verti go 2022 - vertigo Metoprolol Succinate ER Tablet Extended Release 24 Hour 50 MG active 15970 6 RXNORM 1 table t Oral one time a day Routin e Give 1 table t by mouth one time a day for htn 2022 - htn Atorvastati n Calcium Tablet 80 MG active 86149 5 RXNORM 1 table t Oral at bedtime Routin e Give 1 table t by mouth at bedti me for trinh stero l 2022 - cholesterol Glutose 45 Gel 40 % active 49108 87 RXNORM 1 dose Oral as needed PRN Give 1 dose by mouth as neede d for hypog lycem ic konrad col Give one tube PO/SL if FSBS <50 and able to swall ow PRN. Reche ck FSBS 10 minut es after admin istra tion and call provi mary. 2022 - hypoglycemi c protocol GlucaGen HypoKit Solution Reconstitut ed 1 MG active 72072 5 RXNORM 1 mg Subcut aneous as needed PRN Injec t 1 mg subcu taneo usly as neede d for hypog lycem ic konrad col Speci al instr uctio ns: Gluca gen 1 mg hypok it subcu taneo us if FSBS below 60 and unabl e to santy ow. R echec k FSBS in 10 minut es and updat e provi mary. 2022 - hypoglycemi c protocol ProAir HFA Aerosol Solution 108 (90 Base) MCG/ACT active 18450 2 RXNORM 2 puff Inhala tion as needed PRN 2 puff inhal e orall y every 6 hours as neede d for sob/ wheez ing 2022 - sob/ wheezing Bisacodyl Suppository 10 MG active 9 RXNORM 1 suppo sitor y Rectal as needed PRN Inser t 1 suppo sitor y recta lly as neede d for If no bowel movem ent for 8 hours after Milk of Magne justa 2022 - If no bowel movement for 8 hours after Milk of Magnesia traMADol HCl Oral Tablet 50 MG active 78980 3 RXNORM 50 mg Oral as needed PRN Give 50 mg by mouth every 6 hours as neede d for Pain 2022 - Pain Pioglitazon e HCl Tablet 30 MG active 11574 0 RXNORM 1 table t Oral in the morning Routin e Give 1 table t by mouth in the morni for dm 2022 - dm Ascorbic Acid Oral Tablet active 500 mg Oral one time a day Routin e Give 500 mg by mouth one time a day for vitam ins 2022 - vitamins Ferrous Sulfate Oral Tablet active 325 mg Oral one time a day Routin e Give 325 mg by mouth one time a day for vitam ins 2022 - vitamins Levemir Solution 100 UNIT/ML active 03571 8 RXNORM 12 unit Subcut aneous every morning and at bedtime Routin e Injec t 12 unit subcu taneo usly every morni ng and at bedti me for diabe tic manag ement 2022 - diabetic management MagOx 400 Oral Tablet active 1 table t Oral one time a day Routin e Give 1 table t by mouth one time a day for Suppl ement 2022 - Supplement Albuterol Sulfate Nebulizatio n Solution (2.5 MG/3ML) 0.083% active 13408 8 RXNORM 2.5 mg Inhala tion as needed PRN 2.5 mg inhal e orall y via nebul izer every 6 hours as neede d for Wheez ing OLIVER = Clear lung sound s A DV = Adven titio us D IMI = Dimin ished 2022 - Wheezing Otezla Oral Tablet 30 MG active 07801 46 RXNORM 1 table t Oral at bedtime Routin e Give 1 table t by mouth at bedti me for ANALG ESICS 2022 - ANALGESICS Omeprazole Oral Capsule Delayed Release 20 MG active 45517 1 RXNORM 40 mg Oral one time a day Routin e Give 40 mg by mouth one time a day for gastr itis 2022 - gastritis Tussin Cough Oral Syrup active 10 ml Oral as needed PRN Give 10 ml by mouth every 06 hours as neede d for cough 2022 - cough Sertraline HCl Oral Tablet 50 MG active 33883 1 RXNORM 50 mg Oral one time a day Routin e Give 50 mg by mouth one time a day for Depre ssion 2022 - Depression Zoryve External Cream 0.3 % active 87880 39 RXNORM n/a n/a Topica l one time a day Routin e Apply to affec nadine areas topic ally one time a day for skin issue s under left breas t 2022 - skin issues Diclofenac Sodium External Gel 1 % active 55555 3 RXNORM n/a n/a Topica l three times a day Routin e Apply to right knee topic ally three times a day for Right knee pain apply 4 grams to the right knee 2023 - Right knee pain Tylenol Oral Tablet 325 MG active 30760 7 RXNORM 650 mg Oral three times a day Routin e Give 650 mg by mouth three times a day for pain 2023 - pain Icy Hot External Patch active n/a n/a Topica l one time a day Routin e Apply to right knee topic ally one time a day for knee pain and remov e per sched ule 2023 - knee pain Icy Hot External Patch active n/a n/a Topica l one time a day Routin e Apply to left shoul mary topic ally one time a day for shoul mary pain and remov e per sched ule 2023 - shoulder pain Artificial Tears Ophthalmic Solution active 1 drop Ophtha lmic two times a day Routin e Insti ll 1 drop in both eyes two times a day relat ed to UNSMANPREET MOHR D LACK OF COORD INATI ON (R27. 9) 2023 - - Losartan Potassium Oral Tablet active 25 mg Oral one time a day Routin e Give 25 mg by mouth one time a day for rina hernandez to high blood press ure relat ed to BROOK ALVAREZ (PRIM CHARLETTE) HYPER TENSI ON (I10) 2023 - secondary to high blood pressure Mental Status Section Date Assessment Total Score Description 11/23/2023 BIMS 00 severe cognitiv e impairment CAM 0 No delirium ind icated PHQ-9 00 08/27/2023 BIMS 14 cognitively int act CAM 0 No delirium ind icated PHQ-9 00 Insurance Providers Coverage Status Coverage Type Relationship to Subscriber Member Identifier Subscriber Identifier Group Identifier Payer Identifier and Other information 2022 Code: 2 Code System OID:[id number] 0.1.204906. 3.221.5 Code System Name: Source of Payment Typology (PHDSC) Display: Medicaid Translation : Code: 48 Code System: OID:[id number] 0.1.710548. 6.255.1336 Code System Name: Insurance Type Code ([id number]) Display Name: Medicaid Code: SELF Code System Name: HL7 RoleCode Code System OID:[id number] [id number] Display Name: Self [id number] Root: [id number] Payer Identifier: Root: [id number] Extension: [id number] Payer Name: [place] - [place] Address: [facility] City: [place] State: [place] Country: [facility] [employer]: [id number] Code: 81 Code System OID:[id number] 0.1.180312. 3.221.5 Code System Name: Source of Payment Typology (PHDSC) Display: Self Pay Translation : Code: 09 Code System: OID:[id number] 0.1.135818. 6.255.1336 Code System Name: Insurance Type Code ([id number]) Display Name: Self-pay Code: 1 Code System OID:[id number] 0.1.829455. 3.221.5 Code System Name: Source of Payment Typology (PHDSC) Display: Medicare Translation : Code: MB Code System: OID:2.16.84 0.1.160408. 6.255.1336 Code System Name: Insurance Type Code ([id number]) Display Name: Medicare Part B Code: 2 Code System OID:[id number] 0.1.336914. 3.221.5 Code System Name: Source of Payment Typology (PHDSC) Display: Medicaid Translation : Code: 48 Code System: OID:2.16.84 0.1.678033. 6.255.1336 Code System Name: Insurance Type Code ([id number]) Display Name: Medicaid Code: 2 Code System OID:[id number] 0.1.815442. 3.221.5 Code System Name: Source of Payment Typology (PHDSC) Display: Medicaid Translation : Code: 48 Code System: OID:2.16.84 0.1.144968. 6.255.1336 Code System Name: Insurance Type Code ([id number]) Display Name: Medicaid Problems Problem # Description Date of onset Resolved Date Code CodeSystem Concern Status 1 PERONEAL TENDINITIS, RIGHT LEG 06/25/[address] active 2 ABNORMAL POSTURE 06/24/[address] active 3 PRIMARY OSTEOARTHRITIS, LEFT SHOULDER 06/19/[address] active 4 PAIN IN RIGHT KNEE 12/06/[address] active 5 PRESENCE OF OTHER VASCULAR IMPLANTS AND GRAFTS 12/06/[address] active 6 TYPE 2 DIABETES MELLITUS WITH DIABETIC CHRONIC KIDNEY DISEASE 12/06/[address] active 7 VISUAL HALLUCINATIONS 12/06/[address] active 8 GENERALIZED ANXIETY DISORDER 11/29/[address] active 9 CELLULITIS OF RIGHT UPPER LIMB 09/04/[address] active 10 ABRASION, LEFT LOWER LEG, SUBSEQUENT ENCOUNTER 08/12/[address] active 11 ERYTHEMATOUS CONDITION, UNSPECIFIED 08/12/[address] active 12 OTHER ABNORMALITIES OF GAIT AND MOBILITY 08/12/[address] active 13 PEMPHIGUS ERYTHEMATOSUS 08/12/[address] active 14 PRESSURE ULCER OF LEFT BUTTOCK, STAGE 3 08/12/[address] active 15 RASH AND OTHER NONSPECIFIC SKIN ERUPTION 08/12/[address] active 16 ACUTE EMBOLISM AND THROMBOSIS OF RIGHT AXILLARY VEIN 05/22/[address] active 17 ACUTE EMBOLISM AND THROMBOSIS OF UNSPECIFIED DEEP VEINS OF RIGHT LOWER EXTREMITY 05/22/[address] active 18 CHRONIC KIDNEY DISEASE, STAGE 2 (MILD) 05/22/[address] active 19 DEPRESSION, UNSPECIFIED 05/22/[address] active 20 DIABETES MELLITUS DUE TO UNDERLYING CONDITION WITH DIABETIC CHRONIC KIDNEY DISEASE 05/22/[address] active 21 DYSPHAGIA, OROPHARYNGEAL PHASE 05/22/[address] active 22 ERYTHEMA INTERTRIGO 05/22/[address] active 23 ESSENTIAL (PRIMARY) HYPERTENSION 05/22/[address] active 24 HYPERLIPIDEMIA, UNSPECIFIED 05/22/[address] active 25 MORBID (SEVERE) OBESITY DUE TO EXCESS CALORIES 05/22/[address] active 26 MUSCLE WEAKNESS (GENERALIZED) 05/22/[address] active 27 OTHER CHRONIC PAIN 05/22/[address] active 28 OTHER LACK OF COORDINATION 05/22/[address] active 29 OTHER SPECIFIED CONGENITAL MALFORMATIONS OF SKIN 05/22/[address] active 30 SLEEP APNEA, UNSPECIFIED 05/22/[address] active 31 TYPE 2 DIABETES MELLITUS WITHOUT COMPLICATIONS 05/22/[address] active 32 UNSPECIFIED ASTHMA, UNCOMPLICATED 05/22/[address] active 33 UNSPECIFIED LACK OF COORDINATION 05/22/[address] active 34 WEAKNESS 05/22/[address] active Reason for Referral No Reasons for Referral Entered Social History Social History Observation Description Start Date End Date Code Code System Current Smoking Status Tobacco smoking consumption unknown 692474281 SNOMED CT Sex Assigned At Female 1945 34320-8 [facility] Gender Identity Sexual Orientation Vital Signs Code Code System Vitals Name Values and Units Timing Information 30398-4 [facility] O2 % BldC Oximetry Value=95.0 Units= % 11/23/2023 18355-6 [facility] Pain Level Value=5.0 11/23/2023 22102-3 [facility] Weight Ftxjy=850.6 Units=Lbs 8462-4 [facility] Blood Pressure-Diastolic Value=82 Un its=mmHg 08/19/2023 8480-6 [facility] Blood Pressure-Systolic Brddl=527 Un its=mmHg 08/19/2023 8867-4 [facility] Heart rate Value=73.0 Units=/min 02/2024 9279-1 [facility] Respiratory Rate Value=16.0 Units=/m in 07/22/2023 8310-5 [facility] Body Temperature Value=97.5 Units= F 07/22/2023 8302-2 [facility] Height Value=64.0 Units=Inches 02/18/2023 2339-0 [facility] Blood Sugar Utbxb=014.0 Units=mg/dL 09/17/2022
--- OUTSIDE RECORDS SUMMARY | 2025-04-26 17:25 | XMS_ITS | Encounter Summary ---
Author Organization [facility] Address [address] [place] [address] Care Team Providers Care Vacuum Cleaner Repair Person Name Role Phone Seng Meneses MD Primary Care Provider [phone] Encounter Details Date Type Department Care Team (Late st Contact Info) Description 07/30/2024 Lab Requisition [facility] - Main Lab [address] [place] [address] Gary Wall MD [address] [place] [address] Acute cough Social History Tobacco Use [...] Procedure Name Priority Date/Time Associated Diagnosis Comments [id number], RSV, FLU A AND B QUALITATIVE RT-PCR, LOCAL REFERENCE LAB Routine 07/30/2024 6:36 AM EDT Acute cough documented in this encounter Results * [id number], RSV, Influenza A and B qualitative RT-PCR (07/30/2024 6:36 AM EDT) SARS COV-2 Not Detected Not Detected LAB MOLECULAR DIAGNOSTICS METHOD 07/30/2024 1:29 PM EDT [facility] Comment: Disclaimer: The manner in which this information is used to guide patient care is the responsibility of the healthcare provider. Testing was performed using the DCITS Alinity m SARS-CoV-2 test. This test has [...] for Healthcare Providers can be found at: https://www.fda.gov/media/884937/download Fact sheet for Patients can be found at: https://www.fda.gov/media/930997/download Influenza A PCR Not Detected Not Detected LAB MOLECULAR DIAGNOSTICS METHOD 07/30/2024 1:[address] [facility] Influenza B PCR Not Detected Not Detected LAB MOLECULAR DIAGNOSTICS METHOD 07/30/2024 1:[address] [facility] RSV PCR Not Detected Not Detected LAB MOLECULAR DIAGNOSTICS METHOD 07/30/2024 1:[address] [facility] Swab Nasopharyngeal structure / Unknown 07/30/2024 6:36 AM EDT 07/30/2024 10:49 AM EDT us Gary Wall MD LAB MICROBIOLOGY - GENERAL ORDER KARTIK Final Result [facility] [address] [place] [address], documented in this encounter Visit Diagnoses Diagnosis Acute cough documented in this encounter Additional Health Concerns Infection Onset Date Last Indicated Resolved Time Respiratory Rule-Out 07/30/2024 07/30/2024 025 1:29 PM EDT documented as of this encounter Care Teams Vacuum Cleaner Repair Person Relationship Specialty Start Date End Date Seng Meneses MD [address] [place] [address] PCP - General Internal Medicine 02/16/12 documented as of this encounter
--- OUTSIDE RECORDS SUMMARY | 2025-04-26 17:25 | XMS_ITS | Encounter Summary ---
Author Organization [facility] Address [address] [place] [address] Care Team Providers Care Staffing And Scheduling Coordinator Name Role Phone Seng Meneses MD Primary Care Provider [phone] Encounter Details Date Type Department Care Team (Late st Contact Info) Description 05/10/2024 Lab Requisition [facility] - Main Lab [address] [facility] [place] [address] Gary Wall MD [address] [place] [phone] Type 2 diabetes mellitus without complications [...] documented as of this encounter Care Teams Staffing And Scheduling Coordinator Relationship Specialty Start Date End Date Seng Meneses MD [address] [place] [address] PCP - General Internal Medicine 02/16/12 documented as of this encounter
--- OUTSIDE RECORDS SUMMARY | 2025-04-26 17:25 | XMS_ITS | Encounter Summary ---
Author Organization [facility] Address [address] [place] [address] Care Team Providers Care Pcu Rn Name Role Phone Seng Meneses MD Primary Care Provider [phone] Encounter Details Date Type Department Care Team (Late st Contact Info) Description 08/16/2024 Lab Requisition [facility] - Main Lab [address] [facility] [place] [address] Gary Wall MD [address] [place] [address] [address] [facility] [address] Type 2 diabetes mellitus without [...] LAB CHEMISTRY METHOD 08/17/2024 1:33 PM EDT [facility] Potassium 5.1 3.5 - 5.5 mmol/L LAB CHEMISTRY METHOD 08/17/2024 1:33 PM [facility] Comment:Hemolysis present Chloride 107 96 - 110 mmol/L LAB CHEMISTRY METHOD 08/17/2024 1:33 PM [facility] CO2 24 21 - 32 mmol/L LAB CHEMISTRY METHOD 08/17/2024 1:33 PM [facility] Anion Gap 10 3 - 11 LAB CHEMISTRY METHOD 08/17/2024 1:33 PM [facility] Glucose 51(L) 70 - 100 mg/dL LAB CHEMISTRY METHOD 08/17/2024 1:33 PM [facility] BUN 21 5 - 25 mg/dL LAB CHEMISTRY METHOD 08/17/2024 1:33 PM [facility] Creatinine 0.91 0.50 - 1.10 mg/dL LAB CHEMISTRY METHOD 08/17/2024 1:33 PM [facility] eGFR 64 >=60 mL/min/1. 73m2 LAB CHEMISTRY METHOD 08/17/2024 1:33 PM [facility] Comment:Calculation based on the Chronic Kidney Disease Epidemiology Collaboration (CKD-EPI) equation refit without adjustment for race. BUN/Creatinine Ratio 23.1 LAB CHEMISTRY METHOD 08/17/2024 1:33 PM [facility] Calcium 8.7 8.5 - 10.5 mg/dL LAB CHEMISTRY METHOD 08/17/2024 1:33 PM [facility] Blood Venous blood specimen / Unknown Venipuncture / Unknown 08/17/2024 5:05 AM EDT 08/17/2024 11:09 AM EDT us Gary Wall MD LAB BLOOD ORDERABLES Final Resul t [facility] [address] [place] [address], * (ABNORMAL) Complete blood count (08/17/2024 5:05 AM EDT) [facility] WBC 8.2 4.8 - 10.8 K/mcL LAB HEMETOLOGY METHOD [facility] RBC 4.00 3.80 - 4.80 M/mcL LAB HEMETOLOGY METHOD [facility]24 [facility] Hemoglobin 10.9(L) 11.5 - 16.0 g/dL LAB HEMETOLOGY METHOD 08/17/2024 12:34 PM [facility] Hematocrit 34.8(L) 35.0 - 47.0 % LAB HEMETOLOGY METHOD 08/17/2024 12:34 PM [facility] MCV 87.9 79.0 - 98.0 FL LAB HEMETOLOGY METHOD 08/17/2024 12:34 PM [facility] MCH 27.5 27.0 - 32.0 pcg LAB HEMETOLOGY METHOD 08/17/2024 12:34 PM [facility] MCHC 31.3(L) 32.0 - 37.0 g/dL LAB HEMETOLOGY METHOD 08/17/2024 12:34 PM [facility] RDW 18.6(H) 11.0 - 15.0 % LAB HEMETOLOGY METHOD 08/17/2024 12:34 PM [facility] Platelets 191 130 - 400 K/mcL LAB HEMETOLOGY METHOD 08/17/2024 12:34 PM [facility] MPV 11.0 7.0 - 11.0 FL LAB HEMETOLOGY METHOD 08/17/2024 12:34 PM [facility] NRBC 0.2 <1.0 % LAB HEMETOLOGY METHOD 08/17/2024 12:34 PM EDT [facility] NRBC Absolute 0.02 <0.10 K/mcL LAB HEMETOLOGY METHOD 08/17/2024 12:34 PM EDT [facility] Blood Venous blood specimen / Unknown Venipuncture / Unknown 08/17/2024 5:05 AM EDT 08/17/2024 11:04 AM EDT us Gary Wall MD LAB BLOOD ORDERABLES Final Resul t [facility] [address] [place] [address], documented in this encounter Visit Diagnoses Diagnosis Type 2 diabetes mellitus without complications (CMS/HCC V24, CMS/HCC V28) documented in this encounter Care Teams Pcu Rn Relationship Specialty Start Date End Date Seng Meneses MD [address] [place] [address] PCP - General Internal Medicine 02/16/12 documented as of this encounter
--- OUTSIDE RECORDS SUMMARY | 2025-04-26 17:25 | XMS_ITS | Encounter Summary ---
Author Organization [facility] Address [address] [place] [address] Care Team Providers Care [facility] Vat Worker Name Role Phone Seng Meneses MD Primary Care Provider [phone] Encounter Details Date Type Department Care Team (Late st Contact Info) Description 07/12/2024 Lab Requisition [facility] - Main Lab 299 [facility] [place] [address] Gary Wall MD [address] [place] [address] 204 [facility] [phone] Type 2 diabetes mellitus [...] * C-reactive protein (07/13/2024 6:42 AM EST) [facility] C-Reactive Protein <0.29 <=0.50 mg/dL LAB CHEMISTRY METHOD 07/13/2024 12:44 PM EST [facility] Blood Venous blood specimen / Unknown Venipuncture / Unknown 07/13/2024 6:42 AM EST 07/13/2024 11:00 AM EST Gary Wall MD LAB BLOOD ORDERABLES Final Resul t Performing Organization Address [facility]/ZIP Co de Phone Number [facility] [address] [place] [address], [place] [phone] * (ABNORMAL) Sedimentation rate (07/13/2024 6:42 AM EST) [facility] Sed Rate 48(H) 0 - 30 mm/hr LAB HEMETOLOGY METHOD 07/13/2024 11:47 AM EST [facility] Blood Venous blood specimen / Unknown Venipuncture / Unknown 07/13/2024 6:42 AM EST 07/13/2024 11:00 AM EST Gary Wall MD LAB BLOOD ORDERABLES Final Resul t Performing Organization Address City/[facility]/ZIP Co de Phone Number [facility] [address] [place] [address], [place] [phone] * (ABNORMAL) Basic metabolic panel (07/13/2024 6:42 AM EST) [facility] Sodium 141 133 - 145 mmol/L LAB CHEMISTRY METHOD 07/13/2024 12:44 PM EST [facility] Potassium 4.4 3.5 - 5.5 mmol/L LAB CHEMISTRY METHOD 07/13/2024 12:44 PM [facility] Chloride 109 96 - 110 mmol/L LAB CHEMISTRY METHOD 07/13/2024 12:44 PM [facility] CO2 22 21 - 32 mmol/L LAB CHEMISTRY METHOD 07/13/2024 12:44 PM [facility] Anion Gap 10 3 - 11 LAB CHEMISTRY METHOD 07/13/2024 12:44 PM [facility] Glucose 60(L) 70 - 100 mg/dL LAB CHEMISTRY METHOD 07/13/2024 12:44 PM [facility] BUN 19 5 - 25 mg/dL LAB CHEMISTRY METHOD 07/13/2024 12:44 PM [facility] Creatinine 0.93 0.50 - 1.10 mg/dL LAB CHEMISTRY METHOD 07/13/2024 12:44 PM [facility] eGFR 62 >=60 mL/min/1. 73m2 LAB CHEMISTRY METHOD 07/13/2024 12:44 PM [facility] Comment:Calculation based on the Chronic Kidney Disease Epidemiology Collaboration (CKD-EPI) equation refit without adjustment for race. BUN/Creatinine Ratio 20.4 LAB CHEMISTRY METHOD 07/13/2024 12:44 PM [facility] Calcium 9.0 8.5 - 10.5 mg/dL LAB CHEMISTRY METHOD 07/13/2024 12:44 PM [facility] Blood Venous blood specimen / Unknown Venipuncture / Unknown 07/13/2024 6:42 AM EST 07/13/2024 11:00 AM EST us Gary Wall MD LAB BLOOD ORDERABLES Final Resul t [facility] [address] [place] [address], * (ABNORMAL) Complete blood count (07/13/2024 6:42 AM EST) WBC 7.8 4.8 - 10.8 K/mcL LAB HEMETOLOGY METHOD 07/13/2024 11:34 AM [facility] RBC 4.00 3.80 - 4.80 M/mcL LAB HEMETOLOGY METHOD 07/13/2024 11:34 AM [facility] Hemoglobin 10.9(L) 11.5 - 16.0 g/dL LAB HEMETOLOGY METHOD 07/13/2024 11:34 AM [facility] Hematocrit 35.8 35.0 - 47.0 % LAB HEMETOLOGY METHOD 07/13/2024 11:34 AM [facility] MCV 89.3 79.0 - 98.0 FL LAB HEMETOLOGY METHOD 07/13/2024 11:34 AM [facility] MCH 27.2 27.0 - 32.0 pcg LAB HEMETOLOGY METHOD 07/13/2024 11:34 AM [facility] MCHC 30.4(L) 32.0 - 37.0 g/dL LAB HEMETOLOGY METHOD 07/13/2024 11:34 AM [facility] RDW 18.9(H) 11.0 - 15.0 % LAB HEMETOLOGY METHOD 07/13/2024 11:34 AM [facility] Platelets 195 130 - 400 K/mcL LAB HEMETOLOGY METHOD 07/13/2024 11:34 AM [facility] MPV 9.6 7.0 - 11.0 FL LAB HEMETOLOGY METHOD 07/13/2024 11:34 AM [facility] NRBC 0.0 <1.0 % LAB HEMETOLOGY METHOD 07/13/2024 11:34 AM [facility] NRBC Absolute 0.00 <0.10 K/mcL LAB HEMETOLOGY METHOD 07/13/2024 11:34 AM [facility] Blood Venous blood specimen / Unknown Venipuncture / Unknown 07/13/2024 6:42 AM EST 07/13/2024 11:00 AM EST us Gary Wall MD LAB BLOOD ORDERABLES Final Resul t [facility] ([facility]) [facility] [address] [place] [address], documented in this encounter Visit Diagnoses Diagnosis Type 2 diabetes mellitus without complications (CMS/HCC V24, CMS/HCC V28) documented in this encounter Additional Health Concerns Infection Onset Date Last Indicated Resolved Time Respiratory Rule-Out 07/30/2024 07/30/2024 025 1:29 PM EDT documented as of this encounter Care Teams [facility] V[employer] Worker Relationship Specialty Start Date End Date Seng Meneses MD [address] [place] [address] PCP - General Internal Medicine 02/16/12 documented as of this encounter
--- OUTSIDE RECORDS SUMMARY | 2025-04-26 17:25 | XMS_ITS | Clinical Summary ---
Author Organization [address] Address [address] [place] [address] Phone Care Team Providers Care Nurse Charge Rn Name Role Phone Seng Meneses MD Primary Care Provider [phone] Immunizations Immunization Administration Dates Next Due Pfizer SARS-CoV-2 COVID-19, mRNA, LNP-S, preservative free 07/11/2020,06/20/2020 Surgical History Surgery Date Site/Laterality Comments BREAST LUMPECTOMY 08/12/2007 PROCEDURE:BREAST LUMPECTOMY OTHER SURGICAL HISTORY PROCEDURE:Right Knee Replacement OTHER SURGICAL HISTORY PROCEDURE:Cataract Surgery and lens impact left Medical History Medical History Date Comments Breast cancer ([facility] V24, [facility] V28) DX:Breast cancer (HCC) Diabetes mellitus ([facility] V24, [facility] V28) DX:Diabetes mellitus (HCC) Asthma DX:Asthma Herpetic [...] on file Sexual Orientation Not on file Last Filed Vital Signs [...] (2 - Td or Tdap) 10/06/2019 10/05/2009 Falls Risk Assessment 04/19/2022 Medicare Annual Wellness Visit 04/19/2022 Osteoporosis Screening (Bone Density Screening) 04/19/2022 Social Influencers of Health Screening 04/19/2022 Diabetes: Annual Urine Albumin-Creatinine Ratio (uACR) 04/26/2022 Depression Screening 05/11/2024 COVID-19 Vaccine ( season) 2025 07/11/2020, 06/20/2020 Influenza Vaccine (#1) 2025 , 02/11/2021, 01/23/2011, Additional history exists Diabetes: Blood [...] Procedure Name Priority Date/Time Associated Diagnosis Comments COMPREHENSIVE METABOLIC PANEL Routine 09/14/2024 6:06 AM [...] mellitus without complications (CMS/HCC V24, CMS/HCC V28) from Last 3 Months or Most Recently Relevant to Health Maintenance Results * Lipid panel with reflex to direct LDL (09/14/2024 6:06 AM EDT) Cholesterol 178 0 - 200 mg/dL LAB CHEMISTRY METHOD 09/14/2024 11:26 AM EDT [facility] Triglycerides 61 0 - 150 mg/dL LAB CHEMISTRY METHOD 09/14/2024 11:26 AM EDT [facility] HDL 67 >=40 mg/dL LAB CHEMISTRY METHOD 09/14/2024 11:26 AM T [facility] LDL Calculated 99 0 - 100 mg/dL LAB CHEMISTRY METHOD 09/14/2024 11:26 AM [facility] VLDL Cholesterol Eugene 12.2 mg/dL LAB CHEMISTRY METHOD 09/14/2024 11:26 AM [facility] Non HDL Chol. (LDL+VLDL) 111 <145 mg/dL LAB CHEMISTRY METHOD 09/14/2024 11:26 AM [facility] Chol/HDL Ratio 2.7 0.0 - 4.4 LAB CHEMISTRY METHOD 09/14/2024 11:26 AM [facility] Blood Venous blood specimen / Unknown Venipuncture / Unknown 09/14/2024 6:06 AM EDT 09/14/2024 11:20 AM EDT us Gary Wall MD LAB BLOOD ORDERABLES Final Resul t [facility] [address] [place] [address], * (ABNORMAL) Comprehensive metabolic panel (09/14/2024 6:06 AM EDT) Sodium 141 133 - 145 mmol/L LAB CHEMISTRY METHOD 09/14/2024 11:26 AM [facility] Potassium 4.0 3.5 - 5.5 mmol/L LAB CHEMISTRY METHOD 09/14/2024 11:26 AM [facility] Chloride 107 96 - 110 mmol/L LAB CHEMISTRY METHOD 09/14/2024 11:26 AM [facility] CO2 27 21 - 32 mmol/L LAB CHEMISTRY METHOD 09/14/2024 11:26 AM [facility] Anion Gap 7 3 - 11 LAB CHEMISTRY METHOD 09/14/2024 11:26 AM [facility] Glucose 64(L) 70 - 100 mg/dL LAB CHEMISTRY METHOD 09/14/2024 11:26 AM [facility] BUN 20 5 - 25 mg/dL LAB CHEMISTRY METHOD 09/14/2024 11:26 AM [facility] Creatinine 0.78 0.50 - 1.10 mg/dL LAB CHEMISTRY METHOD 09/14/2024 11:26 AM [facility] eGFR 77 >=60 mL/min/1. 73m2 LAB CHEMISTRY METHOD 09/14/2024 11:26 AM [facility] Comment:Calculation based on the Chronic Kidney Disease Epidemiology Collaboration (CKD-EPI) equation refit without adjustment for race. BUN/Creatinine Ratio 25.6 LAB CHEMISTRY METHOD 09/14/2024 11:26 AM [facility] Calcium 8.2(L) 8.5 - 10.5 mg/dL LAB CHEMISTRY METHOD 09/14/2024 11:26 AM [facility] AST (SGOT) 17 10 - 42 unit/L LAB CHEMISTRY METHOD 09/14/2024 11:26 AM [facility] ALT (SGPT) 15 10 - 60 unit/L LAB CHEMISTRY METHOD 09/14/2024 11:26 AM [facility] Alkaline Phosphatase 73 42 - 121 unit/L LAB CHEMISTRY METHOD 09/14/2024 11:26 AM [facility] Total Protein 5.9(L) 6.0 - 8.0 g/dL LAB CHEMISTRY METHOD 09/14/2024 11:26 AM [facility] Albumin 2.7(L) 3.2 - 5.0 g/dL LAB CHEMISTRY METHOD 09/14/2024 11:26 AM [facility] Total Bilirubin 0.5 0.0 - 1.4 mg/dL LAB CHEMISTRY METHOD 09/14/2024 11:26 AM [facility] Blood Venous blood specimen / Unknown Venipuncture / Unknown 09/14/2024 6:06 AM EDT 09/14/2024 11:20 AM EDT Gary Wall MD LAB BLOOD ORDERABLES Final Resul t Performing Organization Address City/[facility]/ZIP Co de Phone Number [facility] [address] [place] [address], [place] [phone] * Hemoglobin A1c (09/14/2024 6:00 AM EDT) [facility] Hemoglobin A1C 5.9 <6.5 % LAB CHEMISTRY METHOD 09/14/2024 12:35 PM EDT [facility] Mean Bld Glu Estim. 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
--- OUTSIDE RECORDS SUMMARY | 2025-04-26 17:25 | XMS_ITS | Encounter Summary ---
Author Organization [facility] Address [address] [place] [address] Care Team Providers Care Pathologist Name Role Phone Seng Meneses MD Primary Care Provider [phone] Encounter Details Date Type Department Care Team (Late st Contact Info) Description 08/01/2024 Lab Requisition [facility] - Main Lab 299 [facility] [employer] [place] [address] Gary Wall MD [address] [place] [address] 204 [facility] [phone] Shortness of breath Social History [...] K/mcL LAB HEMETOLOGY METHOD 08/02/2024 8:59 AM [facility] RBC 4.00 3.80 - 4.80 M/mcL LAB HEMETOLOGY METHOD 08/02/2024 8:59 AM [facility] Hemoglobin 11.0(L) 11.5 - 16.0 g/dL LAB HEMETOLOGY METHOD 08/02/2024 8:59 AM [facility] Hematocrit 34.9(L) 35.0 - 47.0 % LAB HEMETOLOGY METHOD 08/02/2024 8:59 AM [facility] MCV 86.8 79.0 - 98.0 FL LAB HEMETOLOGY METHOD 08/02/2024 8:59 AM [facility] MCH 27.4 27.0 - 32.0 pcg LAB HEMETOLOGY METHOD 08/02/2024 8:59 AM [facility] MCHC 31.5(L) 32.0 - 37.0 g/dL LAB HEMETOLOGY METHOD 08/02/2024 8:59 AM [facility] RDW 17.9(H) 11.0 - 15.0 % LAB HEMETOLOGY METHOD 08/02/2024 8:59 AM [facility] Platelets 207 130 - 400 K/mcL LAB HEMETOLOGY METHOD 08/02/2024 8:59 AM [facility] MPV 9.5 7.0 - 11.0 FL LAB HEMETOLOGY METHOD 08/02/2024 8:59 AM [facility] NRBC 0.0 <1.0 % LAB HEMETOLOGY METHOD 08/02/2024 8:59 AM [facility] NRBC Absolute 0.00 <0.10 K/mcL LAB HEMETOLOGY METHOD 08/02/2024 8:59 [facility] Neutrophils Relative 63.4 % LAB HEMETOLOGY METHOD 08/02/2024 8:59 AM [facility] Lymphocytes Relative 29.3 % LAB HEMETOLOGY METHOD 08/02/2024 8:59 AM [facility] Monocytes Relative 5.8 % LAB HEMETOLOGY METHOD 08/02/2024 8:59 AM [facility] Eosinophils Relative 0.6 % LAB HEMETOLOGY METHOD 08/02/2024 8:59 AM [facility] Basophils Relative 0.4 % LAB HEMETOLOGY METHOD 08/02/2024 8:59 AM [facility] Immature Granulocytes Relative 0.5 % LAB HEMETOLOGY METHOD 08/02/2024 8:59 AM [facility] Neutrophils Absolute 5.29 1.50 - 7.00 K/mcL LAB HEMETOLOGY METHOD 08/02/2024 8:59 AM [facility] Lymphocytes Absolute 2.44 1.00 - 5.00 K/mcL LAB HEMETOLOGY METHOD 08/02/2024 8:59 AM [facility] Monocytes Absolute 0.48 0.20 - 1.00 K/mcL LAB HEMETOLOGY METHOD 08/02/2024 8:59 AM [facility] Eosinophils Absolute 0.05 0.00 - 0.50 K/mcL LAB HEMETOLOGY METHOD 08/02/2024 8:59 AM [facility] Basophils Absolute 0.03 0.00 - 0.20 K/mcL LAB HEMETOLOGY METHOD 08/02/2024 8:59 AM [facility] Immature Granulocytes Absolute 0.04(H) 0.00 - 0.03 K/mcL LAB HEMETOLOGY METHOD 08/02/2024 8:59 AM [facility] Blood Venous blood specimen / Unknown Venipuncture / Unknown 08/02/2024 7:00 AM EDT 08/02/2024 8:48 AM EDT us Gary Wall MD LAB BLOOD ORDERABLES Final Resul t [facility] [address] [place] [address], [place] [phone] * Basic metabolic panel (08/02/2024 7:00 AM EDT) Sodium 141 133 - 145 mmol/L LAB CHEMISTRY METHOD 08/02/2024 9:20 AM [facility] Potassium 4.4 3.5 - 5.5 mmol/L LAB CHEMISTRY METHOD 08/02/2024 9:20 AM [facility] Chloride 105 96 - 110 mmol/L LAB CHEMISTRY METHOD 08/02/2024 9:20 AM [facility] CO2 30 21 - 32 mmol/L LAB CHEMISTRY METHOD 08/02/2024 9:20 AM [facility] Anion Gap 6 3 - 11 LAB CHEMISTRY METHOD 08/02/2024 9:20 AM [facility] Glucose 83 70 - 100 mg/dL LAB CHEMISTRY METHOD 08/02/2024 9:20 AM [facility] BUN 21 5 - 25 mg/dL LAB CHEMISTRY METHOD 08/02/2024 9:20 AM [facility] Creatinine 0.90 0.50 - 1.10 mg/dL LAB CHEMISTRY METHOD 08/02/2024 9:20 AM [facility] eGFR 65 >=60 mL/min/1. 73m2 LAB CHEMISTRY METHOD 08/02/2024 9:20 AM [facility] Comment:Calculation based on the Chronic Kidney Disease Epidemiology Collaboration (CKD-EPI) equation refit without adjustment for race. BUN/Creatinine Ratio 23.3 LAB CHEMISTRY METHOD 08/02/2024 9:20 AM EDT [facility] Calcium 9.2 8.5 - 10.5 mg/dL LAB CHEMISTRY METHOD 08/02/2024 9:20 AM EDT [facility] Blood Venous blood specimen / Unknown Venipuncture / Unknown 08/02/2024 7:00 AM EDT 08/02/2024 8:48 AM EDT us Gary Wall MD LAB BLOOD ORDERABLES Final Resul t [facility] [address] [place] [address], documented in this encounter Visit Diagnoses Diagnosis Shortness of breath documented in this encounter Care Teams Pathologist Relationship Specialty Start Date End Date Seng Meneses MD [address] [place] [address] PCP - General Internal Medicine 02/16/12 documented as of this encounter
== END 2025-04-26 13:47 | disposition home or self-care (01) ==
LOC: HO.HCS 13:14
PROVIDERS: PCP Family Medicine
DX: I47.29 Other ventricular tachycardia (principal); I10 Essential (primary) hypertension
CPT/HCPCS: 93010; 99214; G2211

== ENCOUNTER → 2025-04-26 13:13 | Outpatient (BNVA) | payer MEDICARE, MEDICAID, SELFPAY | PROVIDERS: PCP Family Medicine | DX: I10 Essential (primary) hypertension (principal); I47.29 Other ventricular tachycardia | CPT/HCPCS: 93005; 99212 ==